=== PATIENT | male | born 1990 | race Caucasian/White ===

== ENCOUNTER 2020-05-11 12:03 | Emergency (ER) | payer MEDICARE, MEDICAID, SELFPAY ==
[2020-05-11 12:11] VITALS: BP 104/55; PULSE 85; RESP 14; TEMP 37; O2SAT 96
[2020-05-11 12:17] VITALS: BP 142/78; BP 94/55; PULSE 90; PULSE 98; RESP 16; TEMP 37; O2SAT 97; O2SAT 99; BMI 53.8
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
[2020-05-11] MEDS: 0.9 % Sodium Chloride 500 ML 1000 ML IV (13:10)
[2020-05-11] MEDS: ondansetron HCL 4 MG/2 ML VIAL IVPUSH (13:10)
[2020-05-11] MEDS: Ketorolac Tromethamine 30 MG/ML VIAL IVPUSH (13:10)
[2020-05-11 13:13] LABS: Basophils Percent Auto 0.5 % (0-2); Eosinophils Absolute Auto 0.1 X10*3/uL (0.0-0.4); Hematocrit 41.7 % (42-52); Hemoglobin 13.7 g/dl (14.0-18.0); Imm Gran Abs Auto 0.01 X10*3/uL (0.00-0.03); Imm Gran Pct Auto 0.2 % (0.0-0.4); Lymphocytes Absolute Auto 1.5 X10*3/uL (1.2-4.9); Mean Corpuscular HGB Conc 32.9 g/dl (31.0-36.0); Mean Corpuscular Hemoglobin 28.3 pg (27.0-33.0); Mean Corpuscular Volume 86.2 fL (80-98); Mean Platelet Volume 10.8 fL (9.4-12.4); Monocytes Absolute Auto 0.4 X10*3/uL (0.1-1.2); Monocytes Percent Auto 6.5 % (2-11); Neutrophils Absolute Auto 4.2 X10*3/uL (2.0-8.3); Neutrophils Percent Auto 67.8 % (45-73); Platelet Count 215 X10*3/uL (160-400); Red Blood Count 4.84 X10*6/uL (4.60-5.80); Red Cell Distribution Width 12.8 % (11.0-16.0); White Blood Count 6.1 X10*3/uL (4.8-10.8)
[2020-05-11 13:14] LABS: MANUAL DIFF FLAG NO
[2020-05-11 13:50] LABS: Alanine Aminotransferase 12 U/L (0-40); Albumin Level 4.3 g/dL (3.5-5.0); Alkaline Phosphatase 69 U/L (39-117); Anion Gap 14 (12-20); Aspartate Amino Transferase 18 U/L (5-37); Bilirubin Total 0.9 mg/dL (0.0-1.0); Blood Urea Nitrogen 11 mg/dL (9-16); Calcium 9.3 mg/dL (8.4-10.2); Carbon Dioxide 26 mmol/L (22-29); Chloride 106 mmol/L (96-108); Creatinine Clr Calc Pharmacy 222.9; Estimated Glomerular Filt Rate > 60; Glucose Random 102 mg/dL (60-115); Potassium 4.1 mmol/l (3.3-5.1); Sodium 142 mmol/L (135-145); Total Protein 6.8 g/dL (6.5-8.0)
[2020-05-11 13:55] VITALS: BP 134/72
[2020-05-11 14:01] LABS: Glucose Urine UA NEG (NEG); Leukocyte Esterase Urine 2+ (NEG); Nitrite Urine POS (NEG); PH 7.5 (5.0-8.0); Specific Gravity - Urine 1.025 (1.005-1.025); Urine Blood NEG (NEG); Urine Ketones 40 MG/DL (NEG); Urine Protein 2+ MG/DL (NEG-TRACE)
[2020-05-11 14:03] LABS: Appearance Urine CLOUDY; Color Urine YELLOW
[2020-05-11 14:24] LABS: Lactic Acid 0.8 mmol/L (0.5-2.0)
[2020-05-11 14:25] LABS: WBC Urine 30-49 /HPF (0-4)
[2020-05-11 14:26] LABS: Amorphous Sediment Urine 1+ /LPF; Bacteria Urine 3+ /LPF; Calcium Oxalate Crystals Urine TRACE /LPF; Calcium Phosphate Crystals Ur TRACE /LPF; RBC Urine 0 /HPF (0); Urine Talc Crystals TRACE /LPF
[2020-05-11] MEDS: cefTRIAXone sodium 1 GM in 0.9 % Sodium Chloride 50 ML IV (14:58)
[2020-05-11 15:00] VITALS: BP 112/70; PULSE 68; RESP 16; TEMP 36.9; O2SAT 95
== END 2020-05-11 16:30 | disposition home or self-care (01) ==
PROVIDERS: Nurse Practitioner Primary Care; Emergency Provider Emergency Medicine
DX: T83.518A Infection and inflammatory reaction due to other urinary catheter, initial encounter (principal); N39.0 Urinary tract infection, site not specified; Y73.8 Miscellaneous gastroenterology and urology devices associated with adverse incidents, not elsewhere classified; Y92.9 Unspecified place or not applicable; Z79.899 Other long term (current) drug therapy; F17.200 Nicotine dependence, unspecified, uncomplicated; Z71.6 Tobacco abuse counseling
CPT/HCPCS: 36415; 76700; 80053; 81001; 83605; 85025; 87040; 96365; 96375; 99284; J1885; J2405

== ENCOUNTER 2020-05-18 14:53 | Emergency (ER) | payer MEDICARE, MEDICAID, SELFPAY ==
--- NOTE | 2020-05-18 | ECG_ITS ---
Test Reason : CP Blood Pressure : / mmHG Vent. Rate : 054 BPM Atrial Rate : 054 BPM P-R Int : 134 ms QRS Dur : 092 ms QT Int : 456 ms P-R-T Axes : 067 075 084 degrees QTc Int : 432 ms Sinus bradycardia Otherwise normal ECG No previous ECGs available Referred By: Leonid Bey Electronically Signed By:ALEXANDER CARVALHO MD
[2020-05-18 15:00] VITALS: BP 101/50; PULSE 52; RESP 16; TEMP 36.9; O2SAT 96; BMI 27.5
--- NOTE | 2020-05-18 15:07 | XR_ITS ---
EXAMINATION: XR CHEST CLINICAL INFORMATION: Chest pain. COMPARISON: Most recent chest radiograph dated 08/30/2018. TECHNIQUE: Frontal view of the chest was obtained. FINDINGS: Dextrocurvature of the thoracic spine is unchanged. No focal airspace consolidation. No pleural effusion or pneumothorax. Stable cardiomediastinal silhouette. XR/XR chest 1V IMPRESSION: No acute cardiopulmonary findings.
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
[2020-05-18 15:27] LABS: MANUAL DIFF FLAG NO
[2020-05-18 15:28] LABS: Basophils Percent Auto 0.5 % (0-2); Eosinophils Absolute Auto 0.2 X10*3/uL (0.0-0.4); Eosinophils Percent Auto 2.6 % (0-4); Hematocrit 39.9 % (42-52); Hemoglobin 13.1 g/dl (14.0-18.0); Imm Gran Abs Auto 0.01 X10*3/uL (0.00-0.03); Imm Gran Pct Auto 0.2 % (0.0-0.4); Lymphocytes Absolute Auto 1.6 X10*3/uL (1.2-4.9); Lymphocytes Percent Auto 26.4 % (20-40); Mean Corpuscular HGB Conc 32.8 g/dl (31.0-36.0); Mean Corpuscular Hemoglobin 28.9 pg (27.0-33.0); Mean Corpuscular Volume 87.9 fL (80-98); Mean Platelet Volume 11.6 fL (9.4-12.4); Monocytes Absolute Auto 0.4 X10*3/uL (0.1-1.2); Monocytes Percent Auto 6.3 % (2-11); Platelet Count 178 X10*3/uL (160-400); Red Blood Count 4.54 X10*6/uL (4.60-5.80); Red Cell Distribution Width 13.2 % (11.0-16.0); White Blood Count 6.2 X10*3/uL (4.8-10.8)
[2020-05-18 15:36] LABS: D Dimer < 200 NG/ML
[2020-05-18 15:58] LABS: Anion Gap 12 (12-20); Blood Urea Nitrogen 10 mg/dL (9-16); Calcium 8.7 mg/dL (8.4-10.2); Carbon Dioxide 30 mmol/L (22-29); Chloride 103 mmol/L (96-108); Creatinine Clr Calc Pharmacy 148.5; Estimated Glomerular Filt Rate > 60; Glucose Random 83 mg/dL (60-115); Lipase 21 U/L (8-78); Potassium 4.5 mmol/l (3.3-5.1); Sodium 140 mmol/L (135-145)
[2020-05-18 16:04] LABS: B Type Natriuretic Peptide 35 pg/mL (<100); Troponin-I High Sensitivity < 3.5 ng/L (<3.5-35.0)
[2020-05-18 18:42] LABS: Troponin-I High Sensitivity < 3.5 ng/L (<3.5-35.0)
[2020-05-18 19:06] VITALS: BP 96/46; PULSE 67; RESP 18; TEMP 37.3; O2SAT 96
== END 2020-05-18 19:59 | disposition home or self-care (01) ==
PROVIDERS: Emergency Provider Emergency Medicine
DX: R07.9 Chest pain, unspecified (principal); Z79.899 Other long term (current) drug therapy
CPT/HCPCS: 36415; 71045; 80048; 83690; 83880; 84484; 85025; 85379; 93005; 99283; 99284

== ENCOUNTER 2020-07-12 11:59 | Emergency (ER) | payer MEDICARE, MEDICAID, SELFPAY ==
--- NOTE | 2020-07-12 | US_ITS ---
EXAMINATION: US SCROTUM CLINICAL INFORMATION: Left testicular pain. COMPARISON: None TECHNIQUE: A sonogram of the scrotum was performed assessing michaels-scale appearance and color Doppler flow. Spectral Doppler analysis of the arterial and venous flow were performed in the testes bilaterally. FINDINGS: RIGHT: Right testicle measures 4.8 x 2.4 x 2.8 cm, volume 17.3 mL. No focal testicular parenchymal lesions are visualized. Spectral Doppler analysis of the arterial and venous flow is normal in the right testis. Right epididymal head is normal in size. No right hydrocele or varicocele is seen. Right epididymal Doppler flow is normal. LEFT: Left testicle measures 5.0 x 2.3 x 2.9 cm, volume 17.7 mL. No focal testicular parenchymal lesions are visualized. Spectral Doppler analysis of the arterial and venous flow is normal in the left testis. Left epididymal head is normal in size. No left hydrocele or varicocele is seen. Left epididymal Doppler flow is normal. There is left epididymal tail echogenic calcification measuring 0.08 x 0.05 cm. A small left epididymal head cyst is noted measuring 0.3 x 0.3 x 0.4 cm. US/US scrotum IMPRESSION: Small 0.4 cm left epididymal head cyst and small 0.08 cm epididymal tail calcification. There is normal Doppler flow seen to both testes and epididymides. Normal ultrasound the testes and scrotum.
[2020-07-12 12:10] VITALS: BP 124/60; BP 130/75; PULSE 51; PULSE 78; RESP 18; TEMP 36.8; O2SAT 100; BMI 24.4
--- NOTE | 2020-07-12 13:24 | US_ITS ---
EXAMINATION: US SCROTUM CLINICAL INFORMATION: Left testicular pain. COMPARISON: None TECHNIQUE: A sonogram of the scrotum was performed assessing michaels-scale appearance and color Doppler flow. Spectral Doppler analysis of the arterial and venous flow were performed in the testes bilaterally. FINDINGS: RIGHT: Right testicle measures 4.8 x 2.4 x 2.8 cm, volume 17.3 mL. No focal testicular parenchymal lesions are visualized. Spectral Doppler analysis of the arterial and venous flow is normal in the right testis. Right epididymal head is normal in size. No right hydrocele or varicocele is seen. Right epididymal Doppler flow is normal. LEFT: Left testicle measures 5.0 x 2.3 x 2.9 cm, volume 17.7 mL. No focal testicular parenchymal lesions are visualized. Spectral Doppler analysis of the arterial and venous flow is normal in the left testis. Left epididymal head is normal in size. No left hydrocele or varicocele is seen. Left epididymal Doppler flow is normal. There is left epididymal tail echogenic calcification measuring 0.08 x 0.05 cm. A small left epididymal head cyst is noted measuring 0.3 x 0.3 x 0.4 cm. US/US scrotum doppler IMPRESSION: Small 0.4 cm left epididymal head cyst and small 0.08 cm epididymal tail calcification. There is normal Doppler flow seen to both testes and epididymides. Normal ultrasound the testes and scrotum.
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
[2020-07-12 14:30] LABS: Glucose Urine UA NEG (NEG); Leukocyte Esterase Urine 3+ (NEG); Nitrite Urine POS (NEG); PH 7.5 (5.0-8.0); Specific Gravity - Urine 1.025 (1.005-1.025); Urine Blood 1+ (NEG); Urine Ketones NEG (NEG); Urine Protein 1+ MG/DL (NEG-TRACE)
[2020-07-12 14:32] LABS: Appearance Urine CLOUDY; Color Urine YELLOW
[2020-07-12 14:47] LABS: Bacteria Urine 4+ /LPF; WBC Urine TNTC /HPF (0-4)
== END 2020-07-12 16:30 | disposition home or self-care (01) ==
PROVIDERS: Physician Assistant; Emergency Provider Emergency Medicine Emergency Medical Services
DX: N39.0 Urinary tract infection, site not specified (principal); R93.41 Abnormal radiologic findings on diagnostic imaging of renal pelvis, ureter, or bladder; N50.3 Cyst of epididymis; G82.50 Quadriplegia, unspecified; Z96.0 Presence of urogenital implants
CPT/HCPCS: 76870; 81001; 87086; 87088; 87147; 87186; 87491; 87591; 93975; 99283; 99284

== ENCOUNTER 2020-07-15 12:56 | Emergency (ER) | payer MEDICARE, MEDICAID, SELFPAY ==
[2020-07-15 13:12] VITALS: BP 99/57; PULSE 98; RESP 18; TEMP 36.8; O2SAT 98; BMI 25.1
--- NOTE | 2020-07-15 13:48 | US_ITS ---
EXAMINATION: US SCROTUM CLINICAL INFORMATION: Testicular pain. Similar pain was noted 3 days previously. COMPARISON: Ultrasound scrotum 07/12/2020. TECHNIQUE: A sonogram of the scrotum was performed assessing michaels-scale appearance and color Doppler flow. Spectral Doppler analysis of the arterial and venous flow were performed in the testes bilaterally. FINDINGS: RIGHT: Right testicle measures 4.2 x 2.3 x 3.1 cm, volume 15.9 mL. Previously measured 4.8 x 2.4 x 2.8 cm and volume 17.3 mL right No focal testicular parenchymal lesions are visualized. Spectral Doppler analysis of the arterial and venous flow is normal in the right testis. Right epididymal head is normal in size. A small right hydrocele is noted. No varicocele is seen. Right epididymal Doppler flow is normal. LEFT: Left testicle measures 4.8 x 2.2 x 2.9 cm, volume 16.1 mL. No focal testicular parenchymal lesions are visualized. Spectral Doppler analysis of the arterial and venous flow is increased in the left testis. Left epididymal head is normal in size. There is a small left epidural head cyst an ectatic echogenic calcification in the tail similar to previous study. A small left hydrocele is visualized. No varicocele is seen. Left epididymal Doppler flow is increased. US/US scrotum IMPRESSION: Increased vascular flow to left testes and left epididymis suggestive of epididymoorchitis. There is bilateral small hydroceles and a left epididymal cyst.
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
[2020-07-15] MEDS: Ketorolac Tromethamine 30 MG/ML VIAL IVPUSH (14:07)
--- NOTE | 2020-07-15 15:23 | PC.NURSE ---
patient to imaging at this time
[2020-07-15 15:28] VITALS: BP 99/60; PULSE 70; RESP 20; TEMP 36.8; O2SAT 96
[2020-07-15 15:41] VITALS: BP 101/59; PULSE 67; RESP 18; TEMP 37.1; O2SAT 98
[2020-07-15] MEDS: oxyCODONE HCl Immed Release 5 MG TABLET 10 MG PO (17:03)
[2020-07-15] MEDS: levoFLOXacin 500 MG TABLET PO (17:06)
[2020-07-15] MEDS: cefTRIAXone sodium 1 GM in 0.9 % Sodium Chloride 50 ML IV (17:10)
[2020-07-15 17:17] VITALS: BP 118/71; PULSE 98; RESP 18; O2SAT 98
== END 2020-07-15 19:50 | disposition home or self-care (01) ==
PROVIDERS: Emergency Provider Emergency Medicine Emergency Medical Services
DX: N45.1 Epididymitis (principal); N50.82 Scrotal pain; Z79.899 Other long term (current) drug therapy
CPT/HCPCS: 76870; 96365; 96375; 99284; J0696; J1885

== ENCOUNTER 2020-07-17 20:26 | Emergency (ER) | payer MEDICARE, MEDICAID, SELFPAY ==
[2020-07-17 20:32] VITALS: BP 106/60; BP 110/70; PULSE 71; PULSE 84; RESP 15; TEMP 36.6; O2SAT 95; BMI 25.2
--- NOTE | 2020-07-17 20:53 | CT_ITS ---
EXAMINATION: CT ABDOMEN AND PELVIS WITH CONTRAST CLINICAL INFORMATION: Left testicular/left lower quadrant pain. UTI. COMPARISON: 08/31/2019 TECHNIQUE: Multidetector volumetric images were obtained from the superior aspect of the liver through the pubic symphysis following administration 85 mL of Omnipaque 350 intravenous contrast. Sagittal and coronal reformatted images were obtained on the technologist's workstation. Oral contrast: No This CT examination was performed using dose optimization techniques as appropriate, variously including the following: *Automated exposure control *Adjustment of mA and/or kV according to patient size (this includes techniques or standardized protocols for targeted exams where dose is matched to indication/reason for exam; i.e. extremities or head) *Use of iterative reconstruction technique DLP: 638 mGy-cm FINDINGS: LUNG BASES: Right basilar linear atelectasis. LIVER, GALLBLADDER, AND BILIARY TREE: The liver is normal in size, shape, and attenuation. No biliary ductal dilatation is present. Unchanged 0.5 cm hypoattenuating lesion in segment 6 of the liver. The gallbladder is unremarkable with no evidence of radiopaque gallstones, gallbladder wall thickening, or obvious pericholecystic inflammatory changes. PANCREAS: Unremarkable. SPLEEN: Unremarkable. ADRENAL GLANDS: Unremarkable. KIDNEYS AND URETERS: The kidneys are normal in size, shape, and attenuation. No hydronephrosis, hydroureter, or calculi seen. No perinephric stranding. BLADDER: Decompressed with a suprapubic catheter in place. GASTROINTESTINAL TRACT: Stomach is unremarkable. Normal caliber small bowel. No obstruction. Normal appendix. No colonic wall thickening or acute inflammatory change. No free air or free fluid. ABDOMINAL WALL: No significant hernia. Suprapubic catheter at the bladder. LYMPH NODES: Normal. VASCULAR: Unremarkable. PELVIC VISCERA: The prostate and seminal vesicles are unremarkable. No gross abnormality of the testicles. OSSEOUS STRUCTURES: No acute or suspicious osseous abnormality. CT/CT abdomen pelvis w con IMPRESSION: No acute findings of the abdomen or pelvis. No inflammatory changes.
[2020-07-17 21:09] LABS: Basophils Percent Auto 0.6 % (0-2); Eosinophils Absolute Auto 0.1 X10*3/uL (0.0-0.4); Eosinophils Percent Auto 2.5 % (0-4); Hematocrit 42.6 % (42-52); Imm Gran Abs Auto 0.01 X10*3/uL (0.00-0.03); Imm Gran Pct Auto 0.2 % (0.0-0.4); Lymphocytes Absolute Auto 1.9 X10*3/uL (1.2-4.9); Lymphocytes Percent Auto 36.1 % (20-40); MANUAL DIFF FLAG NO; Mean Corpuscular HGB Conc 32.9 g/dl (31.0-36.0); Mean Corpuscular Hemoglobin 28.7 pg (27.0-33.0); Mean Corpuscular Volume 87.3 fL (80-98); Mean Platelet Volume 10.6 fL (9.4-12.4); Monocytes Absolute Auto 0.4 X10*3/uL (0.1-1.2); Monocytes Percent Auto 7.2 % (2-11); Neutrophils Absolute Auto 2.8 X10*3/uL (2.0-8.3); Neutrophils Percent Auto 53.4 % (45-73); Platelet Count 197 X10*3/uL (160-400); Red Blood Count 4.88 X10*6/uL (4.60-5.80); Red Cell Distribution Width 13.7 % (11.0-16.0); White Blood Count 5.3 X10*3/uL (4.8-10.8)
[2020-07-17 21:30] LABS: Alanine Aminotransferase 15 U/L (0-40); Alkaline Phosphatase 88 U/L (39-117); Anion Gap 13 (12-20); Aspartate Amino Transferase 18 U/L (5-37); Bilirubin Direct 0.2 mg/dL (0.0-0.5); Bilirubin Total 0.3 mg/dL (0.0-1.0); Blood Urea Nitrogen 10 mg/dL (9-16); Calcium 9.1 mg/dL (8.4-10.2); Carbon Dioxide 29 mmol/L (22-29); Chloride 103 mmol/L (96-108); Creatinine Clr Calc Pharmacy 127.5; Estimated Glomerular Filt Rate > 60; Glucose Random 77 mg/dL (60-115); Potassium 4.5 mmol/l (3.3-5.1); Sodium 140 mmol/L (135-145); Total Protein 6.5 g/dL (6.5-8.0)
[2020-07-17 21:49] LABS: Lipase 115 U/L (8-78)
[2020-07-17 22:00] VITALS: BP 105/62; PULSE 64; RESP 15; TEMP 36.6; O2SAT 98
[2020-07-17] MEDS: iohexoL 350 MG/ML 100 ML INFUS..BTL IV (23:01)
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
[2020-07-18] VITALS: BP 119/77; PULSE 80; RESP 12; O2SAT 98
== END 2020-07-18 00:45 | disposition home or self-care (01) ==
PROVIDERS: Physician Assistant; Emergency Provider Emergency Medicine
DX: N50.812 Left testicular pain (principal); R10.32 Left lower quadrant pain; Z79.899 Other long term (current) drug therapy
CPT/HCPCS: 36415; 74177; 80048; 80076; 83690; 85025; 87491; 87591; 99284; 99285; Q9967

== ENCOUNTER 2021-06-30 22:20 | Emergency (ER) | payer MEDICARE, MEDICAID, SELFPAY ==
--- NOTE | ~2021-06-30 | CT_ITS ---
EXAMINATION: CT ABDOMEN AND PELVIS WITH CONTRAST CLINICAL INFORMATION: Abdominal pain. COMPARISON: Multiple priors. Most recent CT of the abdomen/pelvis dated from 07/17/2020. TECHNIQUE: Multidetector volumetric images were obtained from the superior aspect of the liver through the pubic symphysis following administration 85 mL of Omnipaque 350 intravenous contrast. Sagittal and coronal reformatted images were obtained on the technologist's workstation. Oral contrast: No This CT examination was performed using dose optimization techniques as appropriate, variously including the following: *Automated exposure control *Adjustment of mA and/or kV according to patient size (this includes techniques or standardized protocols for targeted exams where dose is matched to indication/reason for exam; i.e. extremities or head) *Use of iterative reconstruction technique DLP: 634 mGy-cm FINDINGS: LUNG BASES: Subsegmental atelectases. No focal consolidation or pleural effusion. A few calcified and noncalcified micronodules are stable, for instance in the right lower lobe on image 88 and 50 of series 4. LIVER, GALLBLADDER, AND BILIARY TREE: The liver is normal in size, shape, and attenuation. A hypodensity in the right hepatic lobe on image 30 of series 3 is unchanged. No new focal abnormalities. There is no biliary ductal dilatation. The gallbladder is unremarkable with no evidence of radiopaque gallstones, gallbladder wall thickening, or obvious pericholecystic inflammatory changes. PANCREAS: Unremarkable. SPLEEN: Unremarkable. ADRENAL GLANDS: Unremarkable. KIDNEYS AND URETERS: The kidneys are normal in size, shape, and attenuation. No hydronephrosis, hydroureter, or calculi seen. No perinephric stranding. BLADDER: The urinary bladder is under distended and suboptimally assessed. There is a suprapubic catheter with a balloon terminating within the lumen of the bladder. Intraluminal air is indeterminate in the presence of this catheter. GASTROINTESTINAL TRACT: The stomach and the small bowel are nondilated. Some loops of small bowel are fluid-filled. There is moderate stool burden throughout the colon. There are no active inflammatory bowel changes or bowel obstruction. ABDOMINAL WALL: Suprapubic catheter. No abdominal hernia. LYMPH NODES: No lymphadenopathy by size criteria. There is subtle increased mesenteric fat stranding in the right upper quadrant (for instance as visualized on image 43 of series 3). VASCULAR: The abdominal aorta is of normal diameter. PELVIC VISCERA: Unremarkable. OSSEOUS STRUCTURES: No acute or aggressive osseous abnormalities. CT/CT abdomen pelvis w con IMPRESSION: Moderate stool burden suggesting constipation. Fluid-filled loops of small bowel could indicate the presence of gastroenteritis. There is however no significant wall thickening or associated inflammatory changes. Increased mesenteric fat stranding adjacent to the hepatic flexure within the right upper quadrant of uncertain significance. This could potentially represent mesenteric panniculitis or less likely an early omental infarction. Correlate clinically for pain at this site.
[2021-06-30 22:38] VITALS: BP 102/58; PULSE 56; RESP 16; TEMP 36.8; O2SAT 96; O2SAT 97; BMI 23.7
[2021-06-30 23:17] LABS: COVID-19 Test Negative (Negative)
--- NOTE | 2021-06-30 23:23 | ED_ITS ---
HPI - General Adult General Chief complaint: General Medical Stated complaint: NOT FEELING WELL Time Seen by Provider: 06/30/21 23:12 Source: patient Mode of arrival: EMS History of Present Illness HPI narrative: 31-year-old male who is brought in by EMS for underlying quadriplegia and states that he was going to bed and then ?just did not feel right?. He states he is having some discomfort in his abdomen but is unable to further distinguish details associated with this. He states he has had a decrease in appetite but denies fever, vomiting however states he has had some mild nausea with chills. He says he has an indwelling Marie catheter that he has been treated previously for urinary tract infections and states that he has a bowel movement, but states not every day. Related Data Home Medications Medication Instructions Recorded Confirmed baclofen 20 mg tablet 1 tab PO QID 07/17/20 07/17/20 gabapentin 300 mg capsule 300 mg PO BID 07/17/20 07/17/20 midodrine 5 mg tablet 2.5 tab PO BID 07/17/20 07/17/20 quetiapine 25 mg tablet 3 tab PO BEDTIME 07/17/20 07/17/20 tizanidine 4 mg tablet 2 tab PO Q8H PRN 07/17/20 07/17/20 Previous Rx's Medication Instructions Recorded cefpodoxime 200 mg tablet 200 mg PO BID 10 Days #20 tab 07/12/20 oxycodone 5 mg tablet 5 mg PO Q4H PRN #14 tab 07/15/20 Allergies Allergy/AdvReac Type Severity Reaction Status Date / Time No Known Allergies Allergy Unverified 07/17/20 21:18 [No Known Allergies*] Review of Systems Review of Systems: Pertinent positives and negatives as stated in HPI 10 point review of systems is otherwise negative. [facility] Past Medical History Source: nursing notes reviewed Medical History C5 spinal cord injury Depression Headache Paralysis Periorbital cellulitis Pyelonephritis Quadriplegic spinal paralysis Substance abuse Urinary tract infection Social History Social History Alcohol intake: unknown Substance Use Type: Marijuana Advance Directives: No Advance Directives Information Provided: Yes Physical Exam Vital Signs: Vital Signs: Last Vital Signs Temp 98.3 F 06/30/21 22:38 Pulse 51 06/30/21 23:52 Resp 16 06/30/21 22:38 BP 114/72 06/30/21 23:52 Pulse Ox 97 06/30/21 23:52 BMI result Body Mass Index 23.7 VITAL SIGNS: Reviewed. GENERAL: Well developed, well nourished, in no acute distress. HEAD: Normocephalic/atraumatic EYES: PERRLA, EOMI OROPHARYNX: no oral lesions noted, posterior pharynx clear NECK: Supple, no adenopathy LUNGS: Normal breath sounds. No adventitious sounds or accessory muscle use. SpO2<97> CARDIOVASCULAR: Regular rate and rhythm without noted murmurs ABDOMEN: Soft, mildly tender at periumbilical region without rebound non- distended with bowel sounds, some firmness noted at medial aspect of right lower quadrant, questionable stool MUSCULOSKELETAL: No tenderness, deformities, or effusions noted on gross inspection. EXTREMITIES: No cyanosis, clubbing or edema. SKIN: Inspection of the skin reveals no rashes, ulcerations NEUROLOGIC: Alert and oriented x 4. Baseline quadriplegia with ability to conduct gross motor movements with upper extremities. Course Course Course Narrative: 31-year-old male with history and clinical presentation mildly suggestive of renal colic, pyelonephritis, appendicitis. If those are ruled out will evaluate urine, however this is an issue given the indwelling nature and likelihood of colonization. Remaining chart in Downtime. Medical Decision Making Lab Data Result diagrams: 06/30/21 23:51 06/30/21 23:51 Labs: Lab Results 06/30/21 06/30/21 06/30/21 Range/Units 22:52 23:51 23:51 WBC 9.4 (4.8-10.8) X10*3/uL RBC 4.56 L (4.60-5.80) X10*6/uL Hgb 13.3 L (14.0-18.0) g/dl Hct 39.8 L (42.0-52.0) % MCV 87.3 (80.0-98.0) fL MCH 29.2 (27.0-33.0) pg MCHC 33.4 (31.0-36.0) g/dl RDW 13.3 (11.0-16.0) % Plt Count 158 L (160-400) X10*3/uL MPV 11.5 (9.4-12.4) fL Immature Gran % (Auto) 0.3 (0.0-0.4) % Neut % (Auto) 69.7 (45-73) % Lymph % (Auto) 21.8 (20-40) % [place] % (Auto) 6.0 (2-11) % Eos % (Auto) 1.9 (0-4) % Baso % (Auto) 0.3 (0-2) % Lymph # (Auto) 2.1 (1.2-4.9) X10*3/uL [place] # (Auto) 0.6 (0.1-1.2) X10*3/uL Eos # (Auto) 0.2 (0.0-0.4) X10*3/uL Baso # (Auto) 0.0 (0.0-0.2) X10*3/uL Abs Immat Gran (auto) 0.03 (0.00-0.03) X10*3/uL Absolute Neuts (auto) 6.6 (2.0-8.3) x10*3/uL Absolute Nucleated RBC 0.000 (0.0-0.012) X10*3/uL Nucleated RBC % (auto) 0.0 (0.0-0.2) /100WBC PT 11.7 (9.9-13.0) SEC INR 1.0 (0.9-1.1) Sodium (135-145) mmol/L Potassium (3.3-5.1) mmol/L Chloride (96-108) mmol/L Carbon Dioxide (22-29) mmol/L Anion Gap (12-20) BUN (9-16) mg/dL Creatinine (0.5-1.4) mg/dL Estim Creat Clear Calc Estimated GFR Random Glucose (60-115) mg/dL Calcium (8.4-10.2) mg/dL Total Bilirubin (0.0-1.0) mg/dL AST (5-37) U/L ALT (0-40) U/L Alkaline Phosphatase (39-117) U/L Total Protein (6.5-8.0) g/dL Albumin (3.5-5.0) g/dL COVID-19 ([facility]ELAM) Negative (Negative) COVID-19 Clin Com See Note 06/30/21 Range/Units 23:51 WBC (4.8-10.8) X10*3/uL RBC (4.60-5.80) X10*6/uL Hgb (14.0-18.0) g/dl Hct (42.0-52.0) % MCV (80.0-98.0) fL MCH (27.0-33.0) pg MCHC (31.0-36.0) g/dl RDW (11.0-16.0) % Plt Count (160-400) X10*3/uL MPV (9.4-12.4) fL Immature Gran % (Auto) (0.0-0.4) % Neut % (Auto) (45-73) % Lymph % (Auto) (20-40) % [place] % (Auto) (2-11) % Eos % (Auto) (0-4) % Baso % (Auto) (0-2) % Lymph # (Auto) (1.2-4.9) X10*3/uL [place] # (Auto) (0.1-1.2) X10*3/uL Eos # (Auto) (0.0-0.4) X10*3/uL Baso # (Auto) (0.0-0.2) X10*3/uL Abs Immat Gran (auto) (0.00-0.03) X10*3/uL Absolute Neuts (auto) (2.0-8.3) x10*3/uL Absolute Nucleated RBC (0.0-0.012) X10*3/uL Nucleated RBC % (auto) (0.0-0.2) /100WBC PT (9.9-13.0) SEC INR (0.9-1.1) Sodium 137 (135-145) mmol/L Potassium 4.4 (3.3-5.1) mmol/L Chloride 101 (96-108) mmol/L Carbon Dioxide 29 (22-29) mmol/L Anion Gap 11 L (12-20) BUN 11 (9-16) mg/dL Creatinine 1.00 (0.5-1.4) mg/dL Estim Creat Clear Calc 115.0 Estimated GFR > 60 Random Glucose 74 (60-115) mg/dL Calcium 9.5 (8.4-10.2) mg/dL Total Bilirubin 0.6 (0.0-1.0) mg/dL AST 18 (5-37) U/L ALT 12 (0-40) U/L Alkaline Phosphatase 90 (39-117) U/L Total Protein 6.5 (6.5-8.0) g/dL Albumin 4.2 (3.5-5.0) g/dL COVID-19 ([facility]EL[facility]) (Negative) COVID-19 Clin Com Discharge Plan Discharge Clinical Impression: Gastroenteritis Patient Disposition: Home, Self-Care Prescriptions: No Action cefpodoxime 200 mg tablet 200 mg PO BID 10 Days Qty: 20 RF: 0 oxycodone 5 mg tablet 5 mg PO Q4H PRN (Reason: pain) Qty: 14 RF: 0 quetiapine 25 mg tablet 3 tab PO BEDTIME RF: 0 tizanidine 4 mg tablet 2 tab PO Q8H PRN (Reason: muscle spasm) RF: 0 midodrine 5 mg tablet 2.5 tab PO BID RF: 0 baclofen 20 mg tablet 1 tab PO QID RF: 0 gabapentin 300 mg capsule 300 mg PO BID RF: 0
[2021-06-30 23:52] VITALS: BP 114/72; PULSE 51; O2SAT 97
[2021-06-30] MEDS: 0.9 % Sodium Chloride 1,000 ML 999 ML IV (23:52)
[2021-06-30 23:59] LABS: MANUAL DIFF FLAG NO
[2021-07-01] LABS: Basophils Percent Auto 0.3 % (0-2); Eosinophils Absolute Auto 0.2 X10*3/uL (0.0-0.4); Eosinophils Percent Auto 1.9 % (0-4); Hematocrit 39.8 % (42.0-52.0); Hemoglobin 13.3 g/dl (14.0-18.0); Imm Gran Abs Auto 0.03 X10*3/uL (0.00-0.03); Imm Gran Pct Auto 0.3 % (0.0-0.4); Lymphocytes Absolute Auto 2.1 X10*3/uL (1.2-4.9); Lymphocytes Percent Auto 21.8 % (20-40); Mean Corpuscular HGB Conc 33.4 g/dl (31.0-36.0); Mean Corpuscular Hemoglobin 29.2 pg (27.0-33.0); Mean Corpuscular Volume 87.3 fL (80.0-98.0); Mean Platelet Volume 11.5 fL (9.4-12.4); Monocytes Absolute Auto 0.6 X10*3/uL (0.1-1.2); Neutrophils Absolute Auto 6.6 x10*3/uL (2.0-8.3); Neutrophils Percent Auto 69.7 % (45-73); Platelet Count 158 X10*3/uL (160-400); Red Blood Count 4.56 X10*6/uL (4.60-5.80); Red Cell Distribution Width 13.3 % (11.0-16.0); White Blood Count 9.4 X10*3/uL (4.8-10.8)
[2021-07-01 00:09] LABS: Prothrombin Time 11.7 SEC (9.9-13.0)
[2021-07-01 00:14] LABS: Alanine Aminotransferase 12 U/L (0-40); Albumin Level 4.2 g/dL (3.5-5.0); Alkaline Phosphatase 90 U/L (39-117); Anion Gap 11 (12-20); Aspartate Amino Transferase 18 U/L (5-37); Bilirubin Total 0.6 mg/dL (0.0-1.0); Blood Urea Nitrogen 11 mg/dL (9-16); Calcium 9.5 mg/dL (8.4-10.2); Carbon Dioxide 29 mmol/L (22-29); Chloride 101 mmol/L (96-108); Estimated Glomerular Filt Rate > 60; Glucose Random 74 mg/dL (60-115); Potassium 4.4 mmol/L (3.3-5.1); Sodium 137 mmol/L (135-145); Total Protein 6.5 g/dL (6.5-8.0)
[2021-07-01] MEDS: iohexoL 350 MG/ML 100 ML INFUS..BTL 85 ML IV (00:28)
== END 2021-07-01 02:40 | disposition home or self-care (01) ==
PROVIDERS: Emergency Provider Student in an Organized Health Care Education/Training Program
DX: K52.9 Noninfective gastroenteritis and colitis, unspecified (principal); Z20.822 Contact with and (suspected) exposure to COVID-19; R11.0 Nausea
CPT/HCPCS: 36415; 74177; 80053; 85025; 85610; 87635; 96360; 99284; Q9967

== ENCOUNTER 2022-05-22 14:21 | Emergency (ER) | payer MEDICARE, MEDICAID, SELFPAY ==
[2022-05-22 14:28] VITALS: BP 100/70; BP 89/51; PULSE 70; PULSE 80; RESP 70; TEMP 36.6; O2SAT 96; O2SAT 98; BMI 23.3
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
[2022-05-22] MEDS: 0.9 % Sodium Chloride 1,000 ML 999 ML IVCONT (15:03)
--- NOTE | 2022-05-22 15:45 | PC.NURSE ---
Report received from JAYME David. Pt is resting comfortably on stretcher at this time. KEVIN Metz obtained pt blood draws, pt tolerated well
[2022-05-22 15:50] VITALS: BP 109/59; PULSE 66; RESP 18; TEMP 36.4; O2SAT 97
[2022-05-22 16:02] LABS: Basophils Absolute Auto 0.1 X10*3/uL (0.0-0.2); Basophils Percent Auto 0.8 % (0-2); Eosinophils Absolute Auto 0.3 X10*3/uL (0.0-0.4); Eosinophils Percent Auto 3.8 % (0-4); Hematocrit 38.3 % (42.0-52.0); Hemoglobin 13.1 g/dl (14.0-18.0); Imm Gran Abs Auto 0.06 X10*3/uL (0.00-0.03); Imm Gran Pct Auto 0.8 % (0.0-0.4); Lymphocytes Absolute Auto 1.7 X10*3/uL (1.2-4.9); Lymphocytes Percent Auto 24.1 % (20-40); MANUAL DIFF FLAG SCAN; Mean Corpuscular HGB Conc 34.2 g/dl (31.0-36.0); Mean Corpuscular Hemoglobin 29.2 pg (27.0-33.0); Mean Corpuscular Volume 85.5 fL (80.0-98.0); Monocytes Absolute Auto 0.5 X10*3/uL (0.1-1.2); Monocytes Percent Auto 7.1 % (2-11); Neutrophils Absolute Auto 4.5 x10*3/uL (2.0-8.3); Neutrophils Percent Auto 63.4 % (45-73); PLT CLUMP 1; Red Blood Count 4.48 X10*6/uL (4.60-5.80); Red Cell Distribution Width 13.5 % (11.0-16.0); SCAN SMEAR FLAG 1
[2022-05-22 16:03] LABS: White Blood Count 7.1 X10*3/uL (4.8-10.8)
[2022-05-22 16:05] LABS: Lactic Acid 1.3 mmol/L (0.5-2.0)
[2022-05-22 16:10] LABS: Alanine Aminotransferase 19 U/L (0-40); Albumin Level 3.9 g/dL (3.5-5.0); Alkaline Phosphatase 83 U/L (39-117); Anion Gap 15 (12-20); Aspartate Amino Transferase 18 U/L (5-37); Bilirubin Total 0.4 mg/dL (0.0-1.0); Blood Urea Nitrogen 12 mg/dL (9-16); Calcium 8.6 mg/dL (8.4-10.2); Carbon Dioxide 25 mmol/L (22-29); Chloride 102 mmol/L (96-108); Creatinine Clr Calc Pharmacy 151.9; Estimated Glomerular Filt Rate > 60; Glucose Random 95 mg/dL (60-115); Sodium 138 mmol/L (135-145); Total Protein 6.1 g/dL (6.5-8.0)
[2022-05-22 16:25] LABS: Appearance Urine Turbid; Color Urine Dark Yellow; Glucose Urine UA Negative (Negative); Leukocyte Esterase Urine Moderate (2+) (Negative); Nitrite Urine Positive (Negative); PH 5.5 (5.0-9.0); Specific Gravity - Urine >= 1.030 (1.005-1.025); UMIC TRIGGER UACC YES; Urine Blood Trace (Negative); Urine Ketones Trace mg/dL (Negative); Urine Protein 100 (2+) mg/dL (Neg-Trace)
[2022-05-22 16:36] LABS: Platelet Count 147 X10*3/uL (160-400)
[2022-05-22 16:37] LABS: SLIDE REVIEW VERIFIED
[2022-05-22 16:47] LABS: Bacteria Urine 4+ (None Seen); Other Crystals Urine Present; Renal Epithelial Cells Urine Present; Transitional Epi Cells Urine Present; UACC Culture Trigger YES; WBC Urine >50 /HPF (0-5)
[2022-05-22] MEDS: cefEPime HCl 2 GM in 0.9 % Sodium Chloride 50 ML IV (17:13)
[2022-05-22 18:00] VITALS: BP 85/40; PULSE 67; RESP 18; TEMP 36.9; O2SAT 96
== END 2022-05-22 19:57 | disposition home or self-care (01) ==
PROVIDERS: Emergency Provider Emergency Medicine; PCP Otolaryngology
DX: N39.0 Urinary tract infection, site not specified (principal); G82.50 Quadriplegia, unspecified; F19.10 Other psychoactive substance abuse, uncomplicated
CPT/HCPCS: 36415; 80053; 81001; 83605; 85025; 87040; 87086; 96361; 96365; 99284; J0692

== ENCOUNTER 2022-07-08 17:55 | Emergency (ER) | payer MEDICARE, MEDICAID, SELFPAY ==
[2022-07-08 18:03] VITALS: BP 94/68; PULSE 58; RESP 18; TEMP 36.6; O2SAT 94; BMI 23.0
--- NOTE | 2022-07-08 18:16 | ED.URI ---
HPI - URI/Sore Throat General Chief Complaint: Upper Respiratory Symptoms Stated Complaint: SOB, COVID + Source: patient and EMS Mode of arrival: EMS Limitations: no limitations History of Present Illness HPI Narrative: This is a 32-year-old quadriplegic male who is wheelchair-bound presenting to the emergency department complaints of productive cough of white/yellow phlegm. He tells me he feels like not all of it is coming up. He tells me that his mom at home is sick with similar symptoms. He reports that he was COVID positive about a week ago. Tells me overall he is feeling better however the cough is still present and very bothersome. Denies chest pain, fevers, chills, nausea, vomiting, abdominal pain, weakness, headache, dizziness, vision changes. Related Data Home Medications Medication Instructions Recorded Confirmed baclofen 20 mg tablet 1 tab PO QID 07/17/20 07/17/20 gabapentin 300 mg capsule 300 mg PO BID 07/17/20 07/17/20 midodrine 5 mg tablet 2.5 tab PO BID 07/17/20 07/17/20 quetiapine 25 mg tablet 3 tab PO BEDTIME 07/17/20 07/17/20 tizanidine 4 mg tablet 2 tab PO Q8H PRN muscle spasm 07/17/20 07/17/20 Previous Rx's Medication Instructions Recorded cefpodoxime 200 mg tablet 200 mg PO BID 10 days #20 tabs 07/12/20 oxycodone 5 mg tablet 5 mg PO Q4H PRN pain #14 tabs 07/15/20 levofloxacin 500 mg tablet 500 mg PO DAILY #7 tabs 05/22/22 albuterol sulfate 90 mcg/actuation 2 inh inhalation Q4-6H PRN 07/08/22 breath activated powder inhaler shortness of breath or wheezing #1 ea doxycycline hyclate 100 mg capsule 100 mg PO BID 10 days #20 caps 07/08/22 prednisone 20 mg tablet 40 mg PO DAILY 5 days #10 tabs 07/08/22 Allergies Allergy/AdvReac Type Severity Reaction Status Date / Time No Known Allergies Allergy Verified 05/22/22 14:36 [No Known Allergies*] Review of Systems Review of Systems: Constitutional : No Weight loss, No Fever, No Chills, No Fatigue, No Malaise ENT/Mouth : No sore throat, No Rhinorrhea Eyes: No Eye Pain, No Swelling, No Redness Cardiovascular : No Chest Pain, No SOB, No Dyspnea on Exertion, No Orthopnea, No Edema, No Palpitations Respiratory : + Cough, + Sputum, No Wheezing Gastrointestinal : No Nausea, No Vomiting, No Diarrhea, No Constipation, No abdominal Pain, No Hematochezia, No Melena Genitourinary : No Dysuria, No Urinary Frequency, No Hematuria, Musculoskeletal : No joint pain, No Myalgias, No Joint Swelling Skin : No Skin Lesions, No rash Neuro : No Weakness, No Numbness, No Dizziness, No Headache Psych : No Anxiety/Panic, No Depression Heme/Lymph: No Bruising, No Bleeding,No Lymphadenopathy Endocrine : No Polyuria, No Polydipsia All other systems reviewed and are negative Yes all other systems are reviewed and are negative [facility] Past Medical History Attestation statement: The following information was validated with the patient. Source: old records reviewed and nursing notes reviewed Medical History C5 spinal cord injury Depression Headache Paralysis Periorbital cellulitis Pyelonephritis Quadriplegic spinal paralysis Substance abuse Urinary tract infection Social History Social History Alcohol intake: unknown Substance Use Type: Marijuana Advance Directives: No Advance Directives Information Provided: Yes Physical Exam Vital Signs: Vital Signs: Last Vital Signs Temp 98 F 07/08/22 18:03 Pulse 61 07/08/22 18:33 Resp 18 07/08/22 18:33 BP 114/77 07/08/22 18:26 Pulse Ox 94 07/08/22 18:03 O2 Del Method 07/08/22 18:03 BMI result Body Mass Index 23.0 Slightly hypotensive. Appearance: Alert.? Oriented X3.? No acute distress.? Head: Normocephalic, atraumatic, no step-offs or deformities Eyes: Pupils equal, round and reactive to light.? ENT: Pharynx normal.? Neck: Normal inspection.? Neck supple.? CVS: Normal heart rate and rhythm.? Pulses normal.? Respiratory: No respiratory distress.? Breath sounds diminished bilaterally with faint crackles to lower lobes..? Abdomen: Soft and nontender.? Skin: Skin warm and dry.? Normal skin color.? Normal skin turgor.? Extremities: No lower extremity edema.? No calf ttp. 5/5 strength to bilateral upper and lower extremities Back: No midline tenderness, no C-spine tenderness, full range of motion, no CVA tenderness bilaterally Neuro: Oriented X 3.? No motor deficit.? No sensory deficit. CN 2-12 intact Course Reevaluation(s) Reevaluation #1: CBC with no acute findings. Chemistry with no acute electrolyte abnormalities requiring intervention. Lactic acid negative. Patient negative for influenza. Chest x-ray revealing hyperinflated lungs without acute process. Will discharge patient home on doxycycline, prednisone, albuterol inhaler and Tessalon Perles. Educated patient on diagnosis and treatment plan, answered all question, patient verbalizes understanding. At this time patient will be discharged home, advised to return with new or worsening symptoms. Educated on worrisome signs and symptoms and when to return. At this time I feel comfortable discharge home. Time: 19:38 Medications Administered Discontinued Medications Generic Name Dose Route Start Last Admin Trade Name Freq PRN Reason Stop Dose Admin Albuterol/Ipratropium 3 ml 07/08/22 18:19 07/08/22 18:32 Albuterol/Iprat 2.5/0.5mg 3 Ml Ampul.Neb INHALE 07/08/22 18:20 3 ml ONCE ONE Administration Medical Decision Making Medical Decision Making [facility] Narrative: 1849 32-year-old male presents with complaints of complaints of productive cough of white/yellow phlegm a little over a week. Physical examination with diminished breath sounds and faint crackles bilateral lower lobes. Concerns for possible pneumonia versus bronchitis. History and physical examination not consistent with pulmonary embolism. Will obtain viral panel, blood cultures, lactic acid, chest x-ray. Lab Data Result Diagrams: 07/08/22 18:49 07/08/22 18:49 Labs: Lab Results 07/08/22 07/08/22 07/08/22 Range/Units 18:14 18:39 18:49 WBC 5.5 (4.8-10.8) X10*3/uL RBC 4.78 (4.60-5.80) X10*6/uL Hgb 13.6 L (14.0-18.0) g/dl Hct 40.4 L (42.0-52.0) % MCV 84.5 (80.0-98.0) fL MCH 28.5 (27.0-33.0) pg MCHC 33.7 (31.0-36.0) g/dl RDW 13.0 (11.0-16.0) % Plt Count 161 (160-400) X10*3/uL MPV 11.3 (9.4-12.4) fL Immature Gran % (Auto) 0.2 (0.0-0.4) % Neut % (Auto) 52.6 (45-73) % Lymph % (Auto) 36.5 (20-40) % [place] % (Auto) 9.4 (2-11) % Eos % (Auto) 1.1 (0-4) % Baso % (Auto) 0.2 (0-2) % Lymph # (Auto) 2.0 (1.2-4.9) X10*3/uL [place] # (Auto) 0.5 (0.1-1.2) X10*3/uL Eos # (Auto) 0.1 (0.0-0.4) X10*3/uL Baso # (Auto) 0.0 (0.0-0.2) X10*3/uL Abs Immat Gran (auto) 0.01 (0.00-0.03) X10*3/uL Absolute Neuts (auto) 2.9 (2.0-8.3) x10*3/uL Absolute Nucleated RBC 0.000 (0.0-0.012) X10*3/uL Nucleated RBC % (auto) 0.0 (0.0-0.2) /100WBC Sodium (135-145) mmol/L Potassium (3.3-5.1) mmol/L Chloride (96-108) mmol/L Carbon Dioxide (22-29) mmol/L Anion Gap (12-20) BUN (9-16) mg/dL Creatinine (0.5-1.4) mg/dL Estim Creat Clear Calc Estimated GFR Random Glucose (60-115) mg/dL Lactic Acid 1.1 (0.5-2.0) mmol/L Calcium (8.4-10.2) mg/dL Total Bilirubin (0.0-1.0) mg/dL AST (5-37) U/L ALT (0-40) U/L Alkaline Phosphatase (39-117) U/L Total Protein (6.5-8.0) g/dL Albumin (3.5-5.0) g/dL Influenza Type A (NIKA) Negative (Negative) Influenza Type B (NIKA) Negative (Negative) Influenza A & B Note See Note 07/08/22 Range/Units 18:49 WBC (4.8-10.8) X10*3/uL RBC (4.60-5.80) X10*6/uL Hgb (14.0-18.0) g/dl Hct (42.0-52.0) % MCV (80.0-98.0) fL MCH (27.0-33.0) pg MCHC (31.0-36.0) g/dl RDW (11.0-16.0) % Plt Count (160-400) X10*3/uL MPV (9.4-12.4) fL Immature Gran % (Auto) (0.0-0.4) % Neut % (Auto) (45-73) % Lymph % (Auto) (20-40) % [place] % (Auto) (2-11) % Eos % (Auto) (0-4) % Baso % (Auto) (0-2) % Lymph # (Auto) (1.2-4.9) X10*3/uL [place] # (Auto) (0.1-1.2) X10*3/uL Eos # (Auto) (0.0-0.4) X10*3/uL Baso # (Auto) (0.0-0.2) X10*3/uL Abs Immat Gran (auto) (0.00-0.03) X10*3/uL Absolute Neuts (auto) (2.0-8.3) x10*3/uL Absolute Nucleated RBC (0.0-0.012) X10*3/uL Nucleated RBC % (auto) (0.0-0.2) /100WBC Sodium 139 (135-145) mmol/L Potassium 3.3 (3.3-5.1) mmol/L Chloride 99 (96-108) mmol/L Carbon Dioxide 30 H (22-29) mmol/L Anion Gap 13 (12-20) BUN 10 (9-16) mg/dL Creatinine 0.79 (0.5-1.4) mg/dL Estim Creat Clear Calc 147.7 Estimated GFR > 60 Random Glucose 88 (60-115) mg/dL Lactic Acid (0.5-2.0) mmol/L Calcium 9.0 (8.4-10.2) mg/dL Total Bilirubin 0.4 (0.0-1.0) mg/dL AST 26 (5-37) U/L ALT 30 (0-40) U/L Alkaline Phosphatase 81 (39-117) U/L Total Protein 6.3 L (6.5-8.0) g/dL Albumin 4.0 (3.5-5.0) g/dL Influenza Type A (NIKA) (Negative) Influenza Type B (NIKA) (Negative) Influenza A & B Note Critical Care Time Critical Care Time Critical Care Time: No Discharge Plan Discharge Clinical Impression: Bronchitis Patient Disposition: Home, Self-Care Instructions: Acute Bronchitis (ED) Additional Instructions: Take your medications as prescribed. If you were prescribed antibiotics today, it is important that you take your medication to their entirety, do not skip any doses, do not finish them early. Follow-up with your primary care provider this week. Return to the emergency department with new or worsening symptoms. Such as fevers, chills, chest pain, shortness of breath, nausea, vomiting, dizziness, headache, vision changes, lethargy In case of emergency call 911 Prescriptions: New doxycycline hyclate 100 mg capsule 100 mg PO BID 10 Days Qty: 20 0RF prednisone 20 mg tablet 40 mg PO DAILY 5 Days Qty: 10 0RF albuterol sulfate 90 mcg/actuation aerosol powdr breath activated 2 inh inhalation Q4-6H PRN (Reason: shortness of breath or wheezing) Qty: 1 0RF No Action cefpodoxime 200 mg tablet 200 mg PO BID 10 Days Qty: 20 0RF Rx Instructions: must administer with a meal/food oxycodone 5 mg tablet 5 mg PO Q4H PRN (Reason: pain) Qty: 14 0RF Rx Instructions: Patient may request partial fill quetiapine 25 mg tablet 3 tab PO BEDTIME tizanidine 4 mg tablet 2 tab PO Q8H PRN (Reason: muscle spasm) midodrine 5 mg tablet 2.5 tab PO BID baclofen 20 mg tablet 1 tab PO QID gabapentin 300 mg capsule 300 mg PO BID levofloxacin 500 mg tablet 500 mg PO DAILY Qty: 7 0RF Referrals: Physician,Unknown J [Primary Care Provider] - 2 days Stand Alone Forms: Work/School Release
[2022-07-08 18:22] VITALS: BP 144/58; PULSE 98; O2SAT 98
[2022-07-08 18:26] VITALS: BP 114/77
[2022-07-08] MEDS: Albuterol/Iprat 2.5/0.5MG 3 ML AMPUL.NEB INHALE (18:32)
[2022-07-08 18:33] VITALS: PULSE 61; RESP 18; O2SAT 94
[2022-07-08 18:43] LABS: Influenza A Negative (Negative); Influenza B2 Negative (Negative)
[2022-07-08 18:57] LABS: MANUAL DIFF FLAG NO
[2022-07-08 18:59] LABS: Lactic Acid 1.1 mmol/L (0.5-2.0)
[2022-07-08 19:02] LABS: Basophils Percent Auto 0.2 % (0-2); Eosinophils Absolute Auto 0.1 X10*3/uL (0.0-0.4); Eosinophils Percent Auto 1.1 % (0-4); Hematocrit 40.4 % (42.0-52.0); Hemoglobin 13.6 g/dl (14.0-18.0); Imm Gran Abs Auto 0.01 X10*3/uL (0.00-0.03); Imm Gran Pct Auto 0.2 % (0.0-0.4); Lymphocytes Percent Auto 36.5 % (20-40); Mean Corpuscular HGB Conc 33.7 g/dl (31.0-36.0); Mean Corpuscular Hemoglobin 28.5 pg (27.0-33.0); Mean Corpuscular Volume 84.5 fL (80.0-98.0); Mean Platelet Volume 11.3 fL (9.4-12.4); Monocytes Absolute Auto 0.5 X10*3/uL (0.1-1.2); Monocytes Percent Auto 9.4 % (2-11); Neutrophils Absolute Auto 2.9 x10*3/uL (2.0-8.3); Neutrophils Percent Auto 52.6 % (45-73); Platelet Count 161 X10*3/uL (160-400); Red Blood Count 4.78 X10*6/uL (4.60-5.80); White Blood Count 5.5 X10*3/uL (4.8-10.8)
[2022-07-08 19:15] LABS: Alanine Aminotransferase 30 U/L (0-40); Alkaline Phosphatase 81 U/L (39-117); Anion Gap 13 (12-20); Aspartate Amino Transferase 26 U/L (5-37); Bilirubin Total 0.4 mg/dL (0.0-1.0); Blood Urea Nitrogen 10 mg/dL (9-16); Carbon Dioxide 30 mmol/L (22-29); Chloride 99 mmol/L (96-108); Creatinine Clr Calc Pharmacy 147.7; Estimated Glomerular Filt Rate > 60; Glucose Random 88 mg/dL (60-115); Potassium 3.3 mmol/L (3.3-5.1); Sodium 139 mmol/L (135-145); Total Protein 6.3 g/dL (6.5-8.0)
[2022-07-08] MEDS: predniSONE 20 MG TABLET 40 MG PO (20:04)
[2022-07-08] MEDS: Doxycycline Monohydrate 100 MG CAPSULE PO (20:04)
== END 2022-07-08 21:35 | disposition home or self-care (01) ==
PROVIDERS: Physician Assistant; Emergency Provider Emergency Medicine
DX: J40 Bronchitis, not specified as acute or chronic (principal); R06.02 Shortness of breath; Z20.828 Contact with and (suspected) exposure to other viral communicable diseases
CPT/HCPCS: 36415; 71045; 80053; 83605; 85025; 87040; 87502; 94640; 99283; 99284

== ENCOUNTER 2022-10-14 22:36 | Emergency (ER) | payer MEDICARE, MEDICAID, SELFPAY ==
--- NOTE | ~2022-10-14 | CT_ITS ---
EXAMINATION: CT ABDOMEN AND PELVIS WITHOUT CONTRAST CLINICAL INFORMATION: Left lower quadrant pain. COMPARISON: 07/01/2021 TECHNIQUE: Multidetector volumetric imaging was performed from the superior aspect of the liver through the pubic symphysis. Sagittal and coronal reformatted images were obtained on the technologist's workstation. This CT examination was performed using dose optimization techniques as appropriate, variously including the following: *Automated exposure control *Adjustment of mA and/or kV according to patient size (this includes techniques or standardized protocols for targeted exams where dose is matched to indication/reason for exam; i.e. extremities or head) *Use of iterative reconstruction technique DLP: 520 mGy-cm FINDINGS: LUNG BASES: Bibasilar atelectasis. The visualized cardiac structures are unremarkable. Pectus excavatum. LIVER, GALLBLADDER, AND BILIARY TREE: The liver is normal in size, shape, and attenuation. No focal hepatic lesion or biliary ductal dilatation is present. There may be layering sludge in the gallbladder lumen. No wall thickening or inflammation. PANCREAS: Unremarkable. SPLEEN: Unremarkable. ADRENAL GLANDS: Unremarkable. KIDNEYS AND URETERS: The kidneys are normal in size, shape, and attenuation. No hydronephrosis, hydroureter, or calculi seen. No perinephric stranding. BLADDER: Suprapubic catheter in place with decompressed bladder. GASTROINTESTINAL TRACT: The stomach is unremarkable. Normal caliber small bowel. No obstruction. No colonic wall thickening or inflammation. Normal appendix. No free air or free fluid. ABDOMINAL WALL: No significant hernia is appreciated. Dependent fluid overlies the back. LYMPH NODES: Normal. VASCULAR: Unremarkable. PELVIC VISCERA: The prostate and seminal vesicles are unremarkable. OSSEOUS STRUCTURES: No acute or suspicious osseous abnormality. CT/CT abdomen pelvis wo IV con IMPRESSION: No acute findings in the abdomen or pelvis. No inflammatory changes. Fleischner guidelines were followed.
[2022-10-14 22:45] VITALS: BP 113/68; PULSE 62; RESP 18; TEMP 36.7; O2SAT 97
[2022-10-14 22:49] VITALS: BP 90/60; PULSE 87; O2SAT 98; BMI 23.7
[2022-10-14 23:32] LABS: Basophils Percent Auto 0.5 % (0-2); Eosinophils Absolute Auto 0.1 X10*3/uL (0.0-0.4); Eosinophils Percent Auto 2.4 % (0-4); Hematocrit 37.6 % (42.0-52.0); Hemoglobin 12.5 g/dl (14.0-18.0); Imm Gran Abs Auto 0.01 X10*3/uL (0.00-0.03); Imm Gran Pct Auto 0.2 % (0.0-0.4); Lymphocytes Absolute Auto 2.2 X10*3/uL (1.2-4.9); Lymphocytes Percent Auto 37.8 % (20-40); MANUAL DIFF FLAG NO; Mean Corpuscular HGB Conc 33.2 g/dl (31.0-36.0); Mean Corpuscular Hemoglobin 28.5 pg (27.0-33.0); Mean Corpuscular Volume 85.8 fL (80.0-98.0); Mean Platelet Volume 10.2 fL (9.4-12.4); Monocytes Absolute Auto 0.4 X10*3/uL (0.1-1.2); Monocytes Percent Auto 6.4 % (2-11); Neutrophils Percent Auto 52.7 % (45-73); Platelet Count 170 X10*3/uL (160-400); Red Blood Count 4.38 X10*6/uL (4.60-5.80); Red Cell Distribution Width 14.2 % (11.0-16.0); White Blood Count 5.8 X10*3/uL (4.8-10.8)
[2022-10-14 23:45] LABS: Alanine Aminotransferase 9 U/L (0-40); Albumin Level 3.6 g/dL (3.5-5.0); Alkaline Phosphatase 69 U/L (39-117); Anion Gap 12 (12-20); Aspartate Amino Transferase 15 U/L (5-37); Bilirubin Total 0.5 mg/dL (0.0-1.0); Blood Urea Nitrogen 11 mg/dL (9-16); Calcium 8.7 mg/dL (8.4-10.2); Carbon Dioxide 27 mmol/L (22-29); Chloride 106 mmol/L (96-108); Creatinine Clr Calc Pharmacy 156.6; Estimated Glomerular Filt Rate > 60; Glucose Random 82 mg/dL (60-115); Potassium 4.1 mmol/L (3.3-5.1); Sodium 141 mmol/L (135-145); Total Protein 5.7 g/dL (6.5-8.0)
[2022-10-14] MEDS: HYDROmorphone HCl 2 MG TABLET PO (23:45)
--- NOTE | 2022-10-15 01:08 | ED_ITS ---
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 with intact sensory s ensations comes here for left lower abdominal pain for last 10 days off and on getting worse in last 24 hours no nausea no vomiting had normal bowel movements no fever or chills had a suprapubic catheter has normal appetite patient never had any kidney stone or diverticulitis in the past Related Data Home Medications Medication Instructions Recorded Confirmed baclofen 20 mg tablet 1 tab PO QID 07/17/20 07/17/20 gabapentin 300 mg capsule 300 mg PO BID 07/17/20 07/17/20 midodrine 5 mg tablet 2.5 tab PO BID 07/17/20 07/17/20 quetiapine 25 mg tablet 3 tab PO BEDTIME 07/17/20 07/17/20 tizanidine 4 mg tablet 2 tab PO Q8H PRN muscle spasm 07/17/20 07/17/20 Previous Rx's Medication Instructions Recorded cefpodoxime 200 mg tablet 200 mg PO BID 10 days #20 tabs 07/12/20 oxycodone 5 mg tablet 5 mg PO Q4H PRN pain #14 tabs 07/15/20 levofloxacin 500 mg tablet 500 mg PO DAILY #7 tabs 05/22/22 albuterol sulfate 90 mcg/actuation 2 inh inhalation Q4-6H PRN 07/08/22 breath activated powder inhaler shortness of breath or wheezing #1 ea doxycycline hyclate 100 mg capsule 100 mg PO BID 10 days #20 caps 07/08/22 prednisone 20 mg tablet 40 mg PO DAILY 5 days #10 tabs 07/08/22 cefpodoxime 200 mg tablet 200 mg PO BID #20 tabs 10/15/22 dicyclomine 20 mg tablet 20 mg PO QID PRN abdominal pain 10/15/22 #20 tabs Allergies Allergy/AdvReac Type Severity Reaction Status Date / Time No Known Allergies Allergy Verified 05/22/22 14:36 [No Known Allergies*] Review of Systems Review of Systems Yes all other systems are reviewed and are negative PMFSH Past Medical History Medical History C5 spinal cord injury Depression Headache Paralysis Periorbital cellulitis Pyelonephritis Quadriplegic spinal paralysis Substance abuse Urinary tract infection Social History Social History Alcohol intake: unknown Substance Use Type: Marijuana Advance Directives: No Advance Directives Information Provided: Yes Physical Exam ED Vital Signs: Vital Signs - 24 hr 10/14/22 22:45 10/15/22 01:20 Temperature 98.1 F Pulse Rate 62 55 Respiratory Rate 18 18 Blood Pressure 113/68 99/63 Pulse Oximetry 97 98 Oxygen Delivery Method Room Air Room Air BMI result Body Mass Index 23.7 Appearance: Alert. Oriented X3. No acute distress. Eyes: PERRLA, ENT: Pharynx normal. Oral Mucosa moist Neck: Normal inspection. Neck supple. CVS: Normal heart rate and rhythm. Pulses normal. Respiratory: No respiratory distress. Equal air entry bilateral, no wheezing/rales/rhonchi Abdomen: Soft mild left lower quadrant tenderness no rebound or guarding. Bowel sounds are present, no mass palpable, no CVA tenderness Skin: Skin warm and dry. Normal skin color. Normal skin turgor. Extremities: No lower extremity edema. No calf tenderness Neuro: Oriented X 3. Paraplegia++ Medical Decision Making Medical Decision Making MDM Narrative: Patient with lower abdominal pain CT scan negative labs are stable UA showed chronic cystitis previous urine culture showed Pseudomonas and MRSA. Patient is symptomatic from urine tract infection likely colonized will give him a course of cefpodoxime pending final culture Differential Diagnosis Diverticulitis/kidney stone/UTI Lab Data [facility] Lab Attestation statement: I reviewed the patient's lab results. 10/14/22 23:26 10/14/22 23:26 Labs: Lab Results 10/14/22 10/14/22 10/15/22 Range/Units 23:26 23:26 01:13 WBC 5.8 (4.8-10.8) X10*3/uL RBC 4.38 L (4.60-5.80) X10*6/uL Hgb 12.5 L (14.0-18.0) g/dl Hct 37.6 L (42.0-52.0) % MCV 85.8 (80.0-98.0) fL MCH 28.5 (27.0-33.0) pg MCHC 33.2 (31.0-36.0) g/dl RDW 14.2 (11.0-16.0) % Plt Count 170 (160-400) X10*3/uL MPV 10.2 (9.4-12.4) fL Immature Gran % (Auto) 0.2 (0.0-0.4) % Neut % (Auto) 52.7 (45-73) % Lymph % (Auto) 37.8 (20-40) % [place] % (Auto) 6.4 (2-11) % Eos % (Auto) 2.4 (0-4) % Baso % (Auto) 0.5 (0-2) % Lymph # (Auto) 2.2 (1.2-4.9) X10*3/uL [place] # (Auto) 0.4 (0.1-1.2) X10*3/uL Eos # (Auto) 0.1 (0.0-0.4) X10*3/uL Baso # (Auto) 0.0 (0.0-0.2) X10*3/uL Abs Immat Gran (auto) 0.01 (0.00-0.03) X10*3/uL Absolute Neuts (auto) 3.0 (2.0-8.3) x10*3/uL Absolute Nucleated RBC 0.000 (0.0-0.012) X10*3/uL Nucleated RBC % (auto) 0.0 (0.0-0.2) /100WBC Sodium 141 (135-145) mmol/L Potassium 4.1 D (3.3-5.1) mmol/L Chloride 106 (96-108) mmol/L Carbon Dioxide 27 (22-29) mmol/L Anion Gap 12 (12-20) BUN 11 (9-16) mg/dL Creatinine 0.75 (0.5-1.4) mg/dL Estim Creat Clear Calc 156.6 Estimated GFR > 60 Random Glucose 82 (60-115) mg/dL Calcium 8.7 (8.4-10.2) mg/dL Total Bilirubin 0.5 (0.0-1.0) mg/dL AST 15 (5-37) U/L ALT 9 (0-40) U/L Alkaline Phosphatase 69 (39-117) U/L Total Protein 5.7 L (6.5-8.0) g/dL Albumin 3.6 (3.5-5.0) g/dL Urine Color Dark Yellow Urine Appearance Turbid Urine pH 5.5 (5.0-9.0) Ur Specific [place] >= 1.030 H (1.005-1.025) Urine Protein 100 (2+) H (Neg-Trace) mg/dL Urine Glucose (UA) Negative (Negative) mg/dL Urine Ketones Negative (Negative) mg/dL Urine Blood Trace H (Negative) Urine Nitrite Positive H (Negative) Ur Leukocyte Esterase Moderate (2+) H (Negative) Medications Administered Discontinued Medications Generic Name Dose Route Start Last Admin Trade Name Freq PRN Reason Stop Dose Admin Hydromorphone HCl 2 mg 10/14/22 23:16 10/14/22 23:45 Hydromorphone Hcl 2 Mg Tablet PO 10/14/22 23:17 2 mg ONCE ONE Administration Discharge Plan Discharge Clinical Impression: Abdominal pain, UTI (urinary tract infection) due to urinary indwelling catheter Patient Disposition: Home, Self-Care Instructions: Abdominal Pain (ED), Catheter-associated Urinary Tract Infection (ED) Additional Instructions: Cause of your abdominal pain is not clear likely musculoskeletal The urine showed chronic UTI will give you antibiotics till final culture Drink plenty of fluids Prescriptions: New cefpodoxime 200 mg tablet 200 mg PO BID Qty: 20 0RF Rx Instructions: must administer with a meal/food dicyclomine 20 mg tablet 20 mg PO QID PRN (Reason: abdominal pain) Qty: 20 0RF No Action cefpodoxime 200 mg tablet 200 mg PO BID 10 Days Qty: 20 0RF Rx Instructions: must administer with a meal/food oxycodone 5 mg tablet 5 mg PO Q4H PRN (Reason: pain) Qty: 14 0RF Rx Instructions: Patient may request partial fill quetiapine 25 mg tablet 3 tab PO BEDTIME tizanidine 4 mg tablet 2 tab PO Q8H PRN (Reason: muscle spasm) midodrine 5 mg tablet 2.5 tab PO BID baclofen 20 mg tablet 1 tab PO QID gabapentin 300 mg capsule 300 mg PO BID doxycycline hyclate 100 mg capsule 100 mg PO BID 10 Days Qty: 20 0RF prednisone 20 mg tablet 40 mg PO DAILY 5 Days Qty: 10 0RF albuterol sulfate 90 mcg/actuation aerosol powdr breath activated 2 inh inhalation Q4-6H PRN (Reason: shortness of breath or wheezing) Qty: 1 0RF levofloxacin 500 mg tablet 500 mg PO DAILY Qty: 7 0RF
[2022-10-15 01:18] LABS: Appearance Urine Turbid; Color Urine Dark Yellow; Glucose Urine UA Negative (Negative); Leukocyte Esterase Urine Moderate (2+) (Negative); Nitrite Urine Positive (Negative); PH 5.5 (5.0-9.0); Specific Gravity - Urine >= 1.030 (1.005-1.025); UMIC TRIGGER UACC YES; Urine Blood Trace (Negative); Urine Ketones Negative (Negative); Urine Protein 100 (2+) mg/dL (Neg-Trace)
[2022-10-15 01:20] VITALS: BP 99/63; PULSE 55; RESP 18; O2SAT 98
[2022-10-15 01:30] LABS: Bacteria Urine 1+ (None Seen); Hyaline Casts Urine 0-2 /LPF (0-2); Squamous Epithelial Cell Urine >20 /HPF (0-2); UACC Culture Trigger YES; WBC Urine >50 /HPF (0-5)
--- NOTE | 2022-10-15 01:50 | MHC.EDTECH ---
Call out to [facility] @[id number] for BLS transport back home. Spoke to Francisco who gave me an ETA of 20 minutes
== END 2022-10-15 02:10 | disposition home or self-care (01) ==
PROVIDERS: Emergency Provider Internal Medicine
DX: R10.32 Left lower quadrant pain (principal); T83.518A Infection and inflammatory reaction due to other urinary catheter, initial encounter; N39.0 Urinary tract infection, site not specified; Y82.8 Other medical devices associated with adverse incidents; B96.20 Unspecified Escherichia coli [E. coli] as the cause of diseases classified elsewhere; F19.10 Other psychoactive substance abuse, uncomplicated; F12.90 Cannabis use, unspecified, uncomplicated
CPT/HCPCS: 36415; 74176; 80053; 81001; 85025; 87086; 87088; 87186; 99283; 99284

== ENCOUNTER 2022-12-18 18:21 | Emergency (ER) | payer MEDICARE, MEDICAID, SELFPAY ==
--- NOTE | ~2022-12-18 | CT_ITS ---
EXAMINATION: CT ABDOMEN AND PELVIS WITH CONTRAST CLINICAL INFORMATION: periumbillical, LLQ pain COMPARISON: None. TECHNIQUE: Multidetector volumetric imaging was performed from the superior aspect of the liver through the pubic symphysis following administration of 85 mL Omnipaque 300 intravenous contrast. Sagittal and coronal reformatted images were obtained on the technologist workstation.. This CT examination was performed using dose optimization techniques as appropriate, variously including the following: *Automated exposure control *Adjustment of mA and/or kV according to patient size (this includes techniques or standardized protocols for targeted exams where dose is matched to indication/reason for exam; i.e. extremities or head) *Use of iterative reconstruction technique DLP: 495 mGy-cm FINDINGS: LUNG BASES: Linear atelectasis LIVER, GALLBLADDER, AND BILIARY TREE: The liver is normal in size, shape, and attenuation. No focal hepatic lesion or biliary ductal dilatation is present. The gallbladder is unremarkable with no evidence of radiopaque gallstones, gallbladder wall thickening, or obvious pericholecystic inflammatory changes. PANCREAS: Unremarkable. SPLEEN: Unremarkable. ADRENAL GLANDS: Unremarkable. KIDNEYS AND URETERS: The kidneys are normal in size, shape, and attenuation. No hydronephrosis, hydroureter, or calculi seen. No perinephric stranding. BLADDER: Decompressed by suprapubic catheter GASTROINTESTINAL TRACT: Distal colon is decompressed there are a few scattered colonic diverticula noted. No obstructive changes seen to the bowel visualized small bowel grossly unremarkable. Normal-appearing appendix in the right lower quadrant ABDOMINAL WALL: No significant hernia is appreciated. LYMPHOVASCULAR STRUCTURES: No lymphadenopathy. The aorta is unremarkable. PELVIC VISCERA: Unremarkable. OSSEOUS STRUCTURES: Degenerative changes in the bilateral hips CT/CT abdomen pelvis w IV con IMPRESSION: No acute intra-abdominal process seen. Bladder decompressed by suprapubic catheter.
[2022-12-18 18:31] VITALS: BP 100/70; BP 106/66; PULSE 62; PULSE 74; RESP 16; TEMP 36.8; O2SAT 94; O2SAT 98; BMI 21.9
[2022-12-18 18:54] LABS: MANUAL DIFF FLAG NO
[2022-12-18 18:57] LABS: Basophils Percent Auto 0.6 % (0-2); Eosinophils Absolute Auto 0.1 X10*3/uL (0.0-0.4); Eosinophils Percent Auto 2.1 % (0-4); Hematocrit 39.6 % (42.0-52.0); Hemoglobin 13.3 g/dl (14.0-18.0); Imm Gran Abs Auto 0.01 X10*3/uL (0.00-0.03); Imm Gran Pct Auto 0.2 % (0.0-0.4); Lymphocytes Absolute Auto 2.2 X10*3/uL (1.2-4.9); Lymphocytes Percent Auto 43.1 % (20-40); Mean Corpuscular HGB Conc 33.6 g/dl (31.0-36.0); Mean Corpuscular Hemoglobin 28.6 pg (27.0-33.0); Mean Corpuscular Volume 85.2 fL (80.0-98.0); Mean Platelet Volume 10.5 fL (9.4-12.4); Monocytes Absolute Auto 0.3 X10*3/uL (0.1-1.2); Monocytes Percent Auto 5.4 % (2-11); Neutrophils Absolute Auto 2.5 x10*3/uL (2.0-8.3); Neutrophils Percent Auto 48.6 % (45-73); Platelet Count 175 X10*3/uL (160-400); Red Blood Count 4.65 X10*6/uL (4.60-5.80); Red Cell Distribution Width 13.7 % (11.0-16.0); White Blood Count 5.2 X10*3/uL (4.8-10.8)
[2022-12-18 18:58] LABS: Appearance Urine Clear; Color Urine Yellow; Glucose Urine UA Negative (Negative); Leukocyte Esterase Urine Moderate (2+) (Negative); Nitrite Urine Positive (Negative); UMIC TRIGGER UACC YES; Urine Blood Negative (Negative); Urine Ketones Negative (Negative); Urine Protein Trace mg/dL (Neg-Trace)
[2022-12-18 19:00] LABS: Bacteria Urine 4+ (None Seen); Hyaline Casts Urine 0-2 /LPF (0-2); RBC Urine 0-2 /HPF (0-2); UACC Culture Trigger YES; WBC Urine 21-50 /HPF (0-5)
[2022-12-18 19:15] LABS: Alanine Aminotransferase 12 U/L (0-40); Alkaline Phosphatase 77 U/L (39-117); Anion Gap 11 (12-20); Aspartate Amino Transferase 16 U/L (5-37); Bilirubin Total 0.5 mg/dL (0.0-1.0); Blood Urea Nitrogen 10 mg/dL (9-16); Calcium 9.3 mg/dL (8.4-10.2); Carbon Dioxide 29 mmol/L (22-29); Chloride 106 mmol/L (96-108); Creatinine Clr Calc Pharmacy 138.5; Estimated Glomerular Filt Rate > 60; Glucose Random 73 mg/dL (60-115); Potassium 4.4 mmol/L (3.3-5.1); Sodium 142 mmol/L (135-145); Total Protein 6.3 g/dL (6.5-8.0)
[2022-12-18 19:50] VITALS: BP 93/48; PULSE 56; TEMP 37.1; O2SAT 99
--- NOTE | 2022-12-18 20:08 | ED.ABDPAIN ---
HPI - Abdominal Pain General Chief Complaint: Abdominal Pain Stated Complaint: LLQ PAIN X3 DAYS PER EMS Time Seen by Provider: 12/18/22 19:55 Source: patient Mode of arrival: ambulatory Limitations: no limitations History of Present Illness HPI narrative: Patient comes to the emergency room complaining of periumbilical and left lower quadrant pain for 3 days. Patient reports having diarrhea starting today. Patient states that he has been unable to eat for the last 3 days due to the pain. Denies nausea or vomiting. Patient did not take any medication prior to arrival. Patient denies fever or chills. Patient has a chronic Marie catheter, denies any changes in the urine. Related Data Home Medications Medication Instructions Recorded Confirmed baclofen 20 mg tablet 1 tab PO QID 07/17/20 07/17/20 gabapentin 300 mg capsule 300 mg PO BID 07/17/20 07/17/20 midodrine 5 mg tablet 2.5 tab PO BID 07/17/20 07/17/20 quetiapine 25 mg tablet 3 tab PO BEDTIME 07/17/20 07/17/20 tizanidine 4 mg tablet 2 tab PO Q8H PRN muscle spasm 07/17/20 07/17/20 Previous Rx's Medication Instructions Recorded cefpodoxime 200 mg tablet 200 mg PO BID 10 days #20 tabs 07/12/20 oxycodone 5 mg tablet 5 mg PO Q4H PRN pain #14 tabs 07/15/20 levofloxacin 500 mg tablet 500 mg PO DAILY #7 tabs 05/22/22 albuterol sulfate 90 mcg/actuation 2 inh inhalation Q4-6H PRN 07/08/22 breath activated powder inhaler shortness of breath or wheezing #1 ea doxycycline hyclate 100 mg capsule 100 mg PO BID 10 days #20 caps 07/08/22 prednisone 20 mg tablet 40 mg PO DAILY 5 days #10 tabs 07/08/22 cefpodoxime 200 mg tablet 200 mg PO BID #20 tabs 10/15/22 dicyclomine 20 mg tablet 20 mg PO QID PRN abdominal pain 10/15/22 #20 tabs Allergies Allergy/AdvReac Type Severity Reaction Status Date / Time No Known Allergies Allergy Verified 05/22/22 14:36 [No Known Allergies*] Review of Systems Review of Systems Constitutional : No Weight loss, No Fever, No Chills, No Night Sweats, No Fatigue, No Malaise ENT/Mouth : No Hearing loss, No Ear Pain, No Nasal Congestion, No Sinus Pain, No Hoarseness, No sore throat, No Rhinorrhea, No Swallowing Difficulty Eyes: No Eye Pain, No Swelling, No Redness, No Foreign Body, No Discharge, No Vision Changes Cardiovascular : No Chest Pain, No SOB, No Dyspnea on Exertion, No Orthopnea, No Edema, No Palpitations Respiratory : No Cough, No Sputum, No Wheezing, No Smoke Exposure, No Dyspnea Gastrointestinal : No Nausea, No Vomiting, complaining of 1 episode of diarrhea, complaining of periumbilical and left lower quadrant pain, no melena Genitourinary : no irregular bleeding, No Dysuria, No Urinary Frequency, No Hematuria, No Urinary Incontinence, No Urgency, No Flank Pain, No Urinary Flow Changes, No Hesitancy Musculoskeletal : No joint pain, No Myalgias, No Joint Swelling Skin : No Skin Lesions, No rash Neuro : No Weakness, No Numbness, No Paresthesias, No Loss of Consciousness, No Dizziness, No Headache Psych : No Anxiety/Panic, No Depression, No SI/HI/AH/VH, No Social Issues, Heme/Lymph: No Bruising, No Bleeding,No Lymphadenopathy Endocrine : No Polyuria, No Polydipsia, No Temperature Intolerance [facility] Past Medical History Medical History C5 spinal cord injury Depression Headache Paralysis Periorbital cellulitis Pyelonephritis Quadriplegic spinal paralysis Substance abuse Urinary tract infection Social History Social History Alcohol intake: current Alcohol intake frequency: holidays/special occasions only Smoked in Last 30 Days: No Use of substances other than those prescribed or required for medical reasons: No Substance Use Type: Marijuana Advance Directives: No Advance Directives Information Provided: No Physical Exam ED Vital Signs: Vital Signs - 24 hr 12/18/22 18:31 12/18/22 19:50 Temperature 98.2 F 98.8 F Pulse Rate 62 56 Respiratory Rate 16 Blood Pressure 106/66 93/48 L Pulse Oximetry 94 99 Oxygen Delivery Method Room Air Room Air BMI result Body Mass Index 21.9 Const Other: Appearance: Alert. Oriented X3. No acute distress. Eyes: Pupils equal, round and reactive to light. ENT: Pharynx normal. Neck: Normal inspection. Neck supple. No lymph nodes noted. No crepitus CVS: Normal heart rate and rhythm. Pulses normal. Normal S1 and S2 Respiratory: No respiratory distress. Breath sounds normal. No Wheezing. No rales Abdomen: Soft, moderate tenderness to palpation in periumbilical and left lower quadrant, no rebound, no guarding, no acute abdomen Skin: Skin warm and dry. Normal skin color. Normal skin turgor. Extremities: No lower extremity edema. No Lacerations. No Rash Neuro: Oriented X 3. No motor deficit. No sensory deficit. Moving all extremities. No slurred speech. CN 2 through 12 grossly intact Psych: calm, cooperative, normal affect Medical Decision Making Medical Decision Making [facility] Narrative: -patient's white blood cell count 5.2, chemistry unremarkable, LFTs within normal limits. -CT scan of the abdomen pending. -patient's urine is positive for nitrites and leukocyte esterase. However, patient does have a chronic indwelling Marie catheter, at this time, antibiotic treatment not indicated. -CT scan does not show any acute abnormalities. -patient able to tolerate p.o. Lab Data [facility] Lab Attestation statement: I reviewed the patient's lab results. 12/18/22 18:50 12/18/22 18:50 Labs: Lab Results 12/18/22 12/18/22 12/18/22 Range/Units 18:50 18:50 18:50 WBC 5.2 (4.8-10.8) X10*3/uL RBC 4.65 (4.60-5.80) X10*6/uL Hgb 13.3 L (14.0-18.0) g/dl Hct 39.6 L (42.0-52.0) % MCV 85.2 (80.0-98.0) fL MCH 28.6 (27.0-33.0) pg MCHC 33.6 (31.0-36.0) g/dl RDW 13.7 (11.0-16.0) % Plt Count 175 (160-400) X10*3/uL MPV 10.5 (9.4-12.4) fL Immature Gran % (Auto) 0.2 (0.0-0.4) % Neut % (Auto) 48.6 (45-73) % Lymph % (Auto) 43.1 H (20-40) % [place] % (Auto) 5.4 (2-11) % Eos % (Auto) 2.1 (0-4) % Baso % (Auto) 0.6 (0-2) % Lymph # (Auto) 2.2 (1.2-4.9) X10*3/uL [place] # (Auto) 0.3 (0.1-1.2) X10*3/uL Eos # (Auto) 0.1 (0.0-0.4) X10*3/uL Baso # (Auto) 0.0 (0.0-0.2) X10*3/uL Abs Immat Gran (auto) 0.01 (0.00-0.03) X10*3/uL Absolute Neuts (auto) 2.5 (2.0-8.3) x10*3/uL Absolute Nucleated RBC 0.000 (0.0-0.012) X10*3/uL Nucleated RBC % (auto) 0.0 (0.0-0.2) /100WBC Sodium 142 (135-145) mmol/L Potassium 4.4 (3.3-5.1) mmol/L Chloride 106 (96-108) mmol/L Carbon Dioxide 29 (22-29) mmol/L Anion Gap 11 L (12-20) BUN 10 (9-16) mg/dL Creatinine 0.80 (0.5-1.4) mg/dL Estim Creat Clear Calc 138.5 Estimated GFR > 60 Random Glucose 73 (60-115) mg/dL Calcium 9.3 D (8.4-10.2) mg/dL Total Bilirubin 0.5 (0.0-1.0) mg/dL AST 16 (5-37) U/L ALT 12 (0-40) U/L Alkaline Phosphatase 77 (39-117) U/L Total Protein 6.3 L (6.5-8.0) g/dL Albumin 4.0 (3.5-5.0) g/dL Urine Color Yellow Urine Appearance Clear Urine pH 6.0 (5.0-9.0) Ur Specific [place] 1.020 (1.005-1.025) Urine Protein Trace (Neg-Trace) mg/dL Urine Glucose (UA) Negative (Negative) mg/dL Urine Ketones Negative (Negative) mg/dL Urine Blood Negative (Negative) Urine Nitrite Positive H (Negative) Ur Leukocyte Esterase Moderate (2+) H (Negative) Urine RBC 0-2 (0-2) /HPF Urine WBC 21-50 H (0-5) /HPF Ur Squamous Epith Cells 3-5 (0-2) /HPF Urine Bacteria 4+ (None Seen) Hyaline Casts 0-2 (0-2) /LPF Radiology Impression Discussion of test interpretation with radiology: I have reviewed the radiologist's reading. Radiologist Impression: FINDINGS: LUNG BASES: Linear atelectasis? LIVER, GALLBLADDER, AND BILIARY TREE: The liver is normal in size, shape, and attenuation. No focal hepatic lesion or biliary ductal dilatation is present. The gallbladder is unremarkable with no evidence of radiopaque gallstones, gallbladder wall thickening, or obvious pericholecystic inflammatory changes.? PANCREAS: Unremarkable.? SPLEEN: Unremarkable.? ADRENAL GLANDS: Unremarkable.? KIDNEYS AND URETERS: The kidneys are normal in size, shape, and attenuation. No hydronephrosis, hydroureter, or calculi seen. No perinephric stranding. ? BLADDER: Decompressed by suprapubic catheter? GASTROINTESTINAL TRACT: Distal colon is decompressed there are a few scattered colonic diverticula noted. No obstructive changes seen to the bowel visualized small bowel grossly unremarkable. Normal-appearing appendix in the right lower quadrant? ABDOMINAL WALL: No significant hernia is appreciated.? LYMPHOVASCULAR STRUCTURES: No lymphadenopathy. The aorta is unremarkable.? PELVIC VISCERA: Unremarkable. OSSEOUS STRUCTURES: Degenerative changes in the bilateral hips? CT/CT abdomen pelvis w IV con IMPRESSION: No acute intra-abdominal process seen. Bladder decompressed by suprapubic catheter. Medications Administered Discontinued Medications Generic Name Dose Route Start Last Admin Trade Name Freq PRN Reason Stop Dose Admin Sodium Chloride 1,000 mls @ 999 mls/hr 12/18/22 20:10 12/18/22 21:16 Ns IVCONT 12/18/22 21:10 Infused .Q1H1M ONE Infusion Iohexol 100 ml 12/18/22 20:37 12/18/22 20:38 Iohexol 350 Mg/Ml 100 Ml Infus..Btl IV 12/18/22 20:38 85 ml ONCE ONE Administration Loperamide HCl 4 mg 12/18/22 20:10 12/18/22 20:16 Loperamide Hcl 2 Mg Capsule PO 12/18/22 20:11 4 mg ONCE ONE Administration Morphine Sulfate 4 mg 12/18/22 20:10 12/18/22 20:16 Morphine Sulfate 4 Mg/Ml Cartridge IVPUSH 12/18/22 20:11 4 mg ONCE ONE Administration Protocol Discharge Plan Discharge Clinical Impression: Abdominal pain Patient Disposition: Home, Self-Care Instructions: Abdominal Pain (ED) Additional Instructions: Please follow-up with your primary care physician tomorrow. If you have any worsening or new symptoms, please return to the emergency room or call 911 Prescriptions: No Action cefpodoxime 200 mg tablet 200 mg PO BID 10 Days Qty: 20 0RF Rx Instructions: must administer with a meal/food oxycodone 5 mg tablet 5 mg PO Q4H PRN (Reason: pain) Qty: 14 0RF Rx Instructions: Patient may request partial fill quetiapine 25 mg tablet 3 tab PO BEDTIME tizanidine 4 mg tablet 2 tab PO Q8H PRN (Reason: muscle spasm) midodrine 5 mg tablet 2.5 tab PO BID baclofen 20 mg tablet 1 tab PO QID gabapentin 300 mg capsule 300 mg PO BID doxycycline hyclate 100 mg capsule 100 mg PO BID 10 Days Qty: 20 0RF prednisone 20 mg tablet 40 mg PO DAILY 5 Days Qty: 10 0RF albuterol sulfate 90 mcg/actuation aerosol powdr breath activated 2 inh inhalation Q4-6H PRN (Reason: shortness of breath or wheezing) Qty: 1 0RF levofloxacin 500 mg tablet 500 mg PO DAILY Qty: 7 0RF cefpodoxime 200 mg tablet 200 mg PO BID Qty: 20 0RF Rx Instructions: must administer with a meal/food dicyclomine 20 mg tablet 20 mg PO QID PRN (Reason: abdominal pain) Qty: 20 0RF
[2022-12-18] MEDS: Morphine Sulfate 4 MG/ML CARTRIDGE IVPUSH (20:16)
[2022-12-18] MEDS: Loperamide HCl 2 MG CAPSULE 4 MG PO (20:16)
[2022-12-18] MEDS: 0.9 % Sodium Chloride 1,000 ML 999 ML IVCONT (20:21)
[2022-12-18] MEDS: iohexoL 350 MG/ML 100 ML INFUS..BTL IV (20:38)
--- NOTE | 2022-12-18 22:02 | MHC.EDTECH ---
Call out to [facility] @2200 to book BLS transport back home spoke to Rohit at dispatch who gave an ETA of 30 mins
--- NOTE | 2022-12-18 22:06 | PC.NURSE ---
pt resting comfortably, eating brian crackers at this time, respirations even and unlabored, skin pwd, alert and oriented x4. Pt verbalizes understanding of all discharge instructions
[2022-12-18 22:29] VITALS: BP 97/51; PULSE 61; O2SAT 98
== END 2022-12-18 23:00 | disposition home or self-care (01) ==
PROVIDERS: Emergency Provider Emergency Medicine
DX: R10.32 Left lower quadrant pain (principal); Z79.899 Other long term (current) drug therapy
CPT/HCPCS: 36415; 74177; 80053; 81001; 85025; 87086; 87088; 87186; 96361; 96374; 99284; J2270; Q9967

== ENCOUNTER 2022-12-24 16:22 | Emergency (ER) | payer MEDICARE, MEDICAID, SELFPAY ==
--- NOTE | ~2022-12-24 | XR_ITS ---
EXAMINATION: XR ABDOMEN KUB CLINICAL INDICATION: Lower abdominal pain. COMPARISON: CT abdomen/pelvis 12/18/2022. TECHNIQUE: AP view of the abdomen. FINDINGS: Nonobstructive bowel gas pattern. Moderate degree of stool content in the colon and rectum. Bony thorax is intact. The included lung bases are clear. XR/XR KUB IMPRESSION: Nonobstructive bowel gas pattern. Moderate degree of stool content.
[2022-12-24 16:33] VITALS: BP 102/72; BP 110/73; PULSE 67; PULSE 68; RESP 18; TEMP 36.7; O2SAT 98; BMI 23.1
[2022-12-24 16:36] VITALS: BP 110/73; PULSE 68; RESP 18; TEMP 36.7; O2SAT 98
--- NOTE | 2022-12-24 16:39 | PC.NURSE ---
Arrived from home via ems. stating 2 week abdominal pain that started on left side and now the pain is in his entire stomach and is 8/10. Reports miranda change today- miranda draining clear yellow urine. patient is a quadrapalegic - cant move legs, can move arms but no use of fingers. states has full sensation from head to toes. Denies sob or chest, no nausea or vomiting, reports regular BM`s no constipation or diarrhea. Positive bowel sounds x 4
--- NOTE | 2022-12-24 16:43 | PC.NURSE ---
patient reports takes methadone daily and took last does this am
[2022-12-24 17:54] VITALS: BP 101/63; PULSE 59; RESP 16; O2SAT 96
[2022-12-24 17:56] LABS: MANUAL DIFF FLAG NO
[2022-12-24 17:59] LABS: Basophils Percent Auto 0.4 % (0-2); Eosinophils Absolute Auto 0.1 X10*3/uL (0.0-0.4); Hematocrit 40.5 % (42.0-52.0); Hemoglobin 13.6 g/dl (14.0-18.0); Imm Gran Abs Auto 0.01 X10*3/uL (0.00-0.03); Imm Gran Pct Auto 0.2 % (0.0-0.4); Lymphocytes Percent Auto 36.7 % (20-40); Mean Corpuscular HGB Conc 33.6 g/dl (31.0-36.0); Mean Corpuscular Hemoglobin 28.6 pg (27.0-33.0); Mean Corpuscular Volume 85.1 fL (80.0-98.0); Mean Platelet Volume 10.8 fL (9.4-12.4); Monocytes Absolute Auto 0.3 X10*3/uL (0.1-1.2); Monocytes Percent Auto 5.1 % (2-11); Neutrophils Percent Auto 55.6 % (45-73); Platelet Count 172 X10*3/uL (160-400); Red Blood Count 4.76 X10*6/uL (4.60-5.80); Red Cell Distribution Width 13.1 % (11.0-16.0); White Blood Count 5.5 X10*3/uL (4.8-10.8)
[2022-12-24 18:14] LABS: Alanine Aminotransferase 11 U/L (0-40); Alkaline Phosphatase 79 U/L (39-117); Anion Gap 13 (12-20); Aspartate Amino Transferase 17 U/L (5-37); Bilirubin Total 0.5 mg/dL (0.0-1.0); Blood Urea Nitrogen 10 mg/dL (9-16); Calcium 9.4 mg/dL (8.4-10.2); Carbon Dioxide 30 mmol/L (22-29); Chloride 101 mmol/L (96-108); Creatinine Clr Calc Pharmacy 137.3; Estimated Glomerular Filt Rate > 60; Glucose Random 79 mg/dL (60-115); Potassium 4.5 mmol/L (3.3-5.1); Sodium 139 mmol/L (135-145); Total Protein 6.5 g/dL (6.5-8.0)
--- NOTE | 2022-12-24 18:14 | ED_ITS ---
HPI - Abdominal Pain General Chief Complaint: Abdominal Pain Stated Complaint: ABD PAIN Time Seen by Provider: 12/24/22 17:15 Source: patient Mode of arrival: EMS History of Present Illness HPI narrative: This is a 32-year-old male C5 almost complete quadriplegic who presents with ongoing lower abdominal discomfort that he states was present approximately a week ago, was evaluated here but they did not find any abnormalities. Patient e any he does get urinary tract infections but typically the presentation is much different with that being associated with diaphoresis. Patient denies any fever, chills, nausea, vomiting and has continued to have regular bowel movements. Related Data Home Medications Medication Instructions Recorded Confirmed baclofen 20 mg tablet 1 tab PO QID 07/17/20 07/17/20 gabapentin 300 mg capsule 300 mg PO BID 07/17/20 07/17/20 midodrine 5 mg tablet 2.5 tab PO BID 07/17/20 07/17/20 quetiapine 25 mg tablet 3 tab PO BEDTIME 07/17/20 07/17/20 tizanidine 4 mg tablet 2 tab PO Q8H PRN muscle spasm 07/17/20 07/17/20 Previous Rx's Medication Instructions Recorded cefpodoxime 200 mg tablet 200 mg PO BID 10 days #20 tabs 07/12/20 oxycodone 5 mg tablet 5 mg PO Q4H PRN pain #14 tabs 07/15/20 levofloxacin 500 mg tablet 500 mg PO DAILY #7 tabs 05/22/22 albuterol sulfate 90 mcg/actuation 2 inh inhalation Q4-6H PRN 07/08/22 breath activated powder inhaler shortness of breath or wheezing #1 ea doxycycline hyclate 100 mg capsule 100 mg PO BID 10 days #20 caps 07/08/22 prednisone 20 mg tablet 40 mg PO DAILY 5 days #10 tabs 07/08/22 cefpodoxime 200 mg tablet 200 mg PO BID #20 tabs 10/15/22 dicyclomine 20 mg tablet 20 mg PO QID PRN abdominal pain 10/15/22 #20 tabs cefdinir 300 mg capsule 300 mg PO BID 10 days #20 caps 12/24/22 Allergies Allergy/AdvReac Type Severity Reaction Status Date / Time No Known Allergies Allergy Verified 05/22/22 14:36 [No Known Allergies*] Review of Systems Review of Systems Pertinent positives and negatives as stated in HPI [facility] Past Medical History Source: nursing notes reviewed Medical History C5 spinal cord injury Depression Headache Paralysis Periorbital cellulitis Pyelonephritis Quadriplegic spinal paralysis Substance abuse Urinary tract infection Social History Social History Alcohol intake: current Alcohol intake frequency: holidays/special occasions only Smoked in Last 30 Days: Yes Use of substances other than those prescribed or required for medical reasons: Yes Substance Use Type: Marijuana Advance Directives: No Advance Directives Information Provided: Yes Physical Exam ED Vital Signs: Vital Signs - 24 hr 12/24/22 16:33 12/24/22 16:36 12/24/22 17:54 Temperature 98.1 F 98.1 F Pulse Rate 68 68 59 Respiratory Rate 18 18 16 Blood Pressure 110/73 110/73 101/63 Pulse Oximetry 98 98 96 Oxygen Delivery Method Room Air Room Air 12/24/22 20:43 Temperature 98.1 F Pulse Rate 58 Respiratory Rate 18 Blood Pressure 108/68 Pulse Oximetry 97 Oxygen Delivery Method Room Air BMI result Body Mass Index 23.1 VITAL SIGNS: Reviewed. GENERAL: Well developed, well nourished, in no acute distress. HEAD: Normocephalic/atraumatic EYES: PERRLA, EOMI EARS: Ext canals without abnormality NOSE: Nares patent bilateral OROPHARYNX: no oral lesions noted, posterior pharynx clear NECK: Supple, no adenopathy LUNGS: Normal breath sounds. No adventitious sounds or accessory muscle use. SpO2<96> CARDIOVASCULAR: Regular rate and rhythm without noted murmurs ABDOMEN: Soft, mild tenderness along the infraumbilical all along the lower abdomen without rebound, non-distended with bowel sounds, no palpated hernias. MUSCULOSKELETAL: No tenderness, deformities, or effusions noted on gross inspection. EXTREMITIES: No cyanosis, clubbing or edema. SKIN: Inspection of the skin reveals no rashes NEUROLOGIC: Alert and oriented x 4. Strength and sensation to light touch were grossly intact x 2 with baseline mild flexion contractures of the upper extremities. Medical Decision Making Medical Decision Making MDM Narrative: 32-year-old male with history and clinical presentation suggestive of possible constipation, UTI, renal colic, lower clinical suspicion for SBO/appendicitis. I reviewed all investigations and my interpretation is that patient has moderate to significant stool load, I feel that the urinalysis results are colonization and patient has no other signs/symptoms/objective findings to suggest acute UTI. Although, on review of patient's urine culture it appears that he had a UTI on his previous visit and will actually discharge the patient with medication for this. I discussed all results and findings with the patient at bedside and he is discharged home in stable condition. Differential Diagnosis Please see the discussion above Lab Data Please see the discussion above 12/24/22 17:52 12/24/22 17:52 Labs: Lab Results 12/24/22 12/24/22 12/24/22 Range/Units 17:52 17:52 18:25 WBC 5.5 (4.8-10.8) X10*3/uL RBC 4.76 (4.60-5.80) X10*6/uL Hgb 13.6 L (14.0-18.0) g/dl Hct 40.5 L (42.0-52.0) % MCV 85.1 (80.0-98.0) fL MCH 28.6 (27.0-33.0) pg MCHC 33.6 (31.0-36.0) g/dl RDW 13.1 (11.0-16.0) % Plt Count 172 (160-400) X10*3/uL MPV 10.8 (9.4-12.4) fL Immature Gran % (Auto) 0.2 (0.0-0.4) % Neut % (Auto) 55.6 (45-73) % Lymph % (Auto) 36.7 (20-40) % [place] % (Auto) 5.1 (2-11) % Eos % (Auto) 2.0 (0-4) % Baso % (Auto) 0.4 (0-2) % Lymph # (Auto) 2.0 (1.2-4.9) X10*3/uL [place] # (Auto) 0.3 (0.1-1.2) X10*3/uL Eos # (Auto) 0.1 (0.0-0.4) X10*3/uL Baso # (Auto) 0.0 (0.0-0.2) X10*3/uL Abs Immat Gran (auto) 0.01 (0.00-0.03) X10*3/uL Absolute Neuts (auto) 3.0 (2.0-8.3) x10*3/uL Absolute Nucleated RBC 0.000 (0.0-0.012) X10*3/uL Nucleated RBC % (auto) 0.0 (0.0-0.2) /100WBC Sodium 139 (135-145) mmol/L Potassium 4.5 (3.3-5.1) mmol/L Chloride 101 (96-108) mmol/L Carbon Dioxide 30 H (22-29) mmol/L Anion Gap 13 (12-20) BUN 10 (9-16) mg/dL Creatinine 0.85 (0.5-1.4) mg/dL Estim Creat Clear Calc 137.3 Estimated GFR > 60 Random Glucose 79 (60-115) mg/dL Calcium 9.4 (8.4-10.2) mg/dL Total Bilirubin 0.5 (0.0-1.0) mg/dL AST 17 (5-37) U/L ALT 11 (0-40) U/L Alkaline Phosphatase 79 (39-117) U/L Total Protein 6.5 (6.5-8.0) g/dL Albumin 4.0 (3.5-5.0) g/dL Urine Color Yellow Urine Appearance Clear Urine pH 5.5 (5.0-9.0) Ur Specific [place] 1.015 (1.005-1.025) Urine Protein Negative (Neg-Trace) mg/dL Urine Glucose (UA) Negative (Negative) mg/dL Urine Ketones Negative (Negative) mg/dL Urine Blood Negative (Negative) Urine Nitrite Positive H (Negative) Ur Leukocyte Esterase Moderate (2+) H (Negative) Urine RBC 0-2 (0-2) /HPF Urine WBC 11-20 H (0-5) /HPF Ur Squamous Epith Cells 0-2 (0-2) /HPF Urine Bacteria 2+ (None Seen) Hyaline Casts 3-5 (0-2) /LPF Radiology Impression Radiologist Impression: My interpretation is in agreement with radiology's impression External Record Review External record reviewed: Outpatient record and Prior outpatient labs Discharge Plan Discharge Clinical Impression: Cystitis Patient Disposition: Home, Self-Care Instructions: Urinary Tract Infection in Men (DC) Additional Instructions: 1. Resume all home medications as prescribed. 2. I have decided treat you for a urinary tract infection after I reviewed your urine culture from the last visit. I have sent the prescription to your pharmacy. You should complete the entire course. Return to the ER for any worsening symptoms. Prescriptions: New cefdinir 300 mg capsule 300 mg PO BID 10 Days Qty: 20 0RF No Action cefpodoxime 200 mg tablet 200 mg PO BID 10 Days Qty: 20 0RF Rx Instructions: must administer with a meal/food oxycodone 5 mg tablet 5 mg PO Q4H PRN (Reason: pain) Qty: 14 0RF Rx Instructions: Patient may request partial fill quetiapine 25 mg tablet 3 tab PO BEDTIME tizanidine 4 mg tablet 2 tab PO Q8H PRN (Reason: muscle spasm) midodrine 5 mg tablet 2.5 tab PO BID baclofen 20 mg tablet 1 tab PO QID gabapentin 300 mg capsule 300 mg PO BID doxycycline hyclate 100 mg capsule 100 mg PO BID 10 Days Qty: 20 0RF prednisone 20 mg tablet 40 mg PO DAILY 5 Days Qty: 10 0RF albuterol sulfate 90 mcg/actuation aerosol powdr breath activated 2 inh inhalation Q4-6H PRN (Reason: shortness of breath or wheezing) Qty: 1 0 RF levofloxacin 500 mg tablet 500 mg PO DAILY Qty: 7 0RF cefpodoxime 200 mg tablet 200 mg PO BID Qty: 20 0RF Rx Instructions: must administer with a meal/food dicyclomine 20 mg tablet 20 mg PO QID PRN (Reason: abdominal pain) Qty: 20 0RF
[2022-12-24 18:44] LABS: Appearance Urine Clear; Color Urine Yellow; Glucose Urine UA Negative (Negative); Leukocyte Esterase Urine Moderate (2+) (Negative); Nitrite Urine Positive (Negative); PH 5.5 (5.0-9.0); Specific Gravity - Urine 1.015 (1.005-1.025); UMIC TRIGGER UACC YES; Urine Blood Negative (Negative); Urine Ketones Negative (Negative); Urine Protein Negative (Neg-Trace)
--- NOTE | 2022-12-24 19:10 | PC.NURSE ---
assumed care of pt aox4 pt resting quietly while watching tv, call madison within reach pt able to make needs known no apparent distress
[2022-12-24 19:19] LABS: Bacteria Urine 2+ (None Seen); RBC Urine 0-2 /HPF (0-2); Squamous Epithelial Cell Urine 0-2 /HPF (0-2); UACC Culture Trigger YES
[2022-12-24 20:43] VITALS: BP 108/68; PULSE 58; RESP 18; TEMP 36.7; O2SAT 97
--- NOTE | 2022-12-24 21:29 | PC.NURSE ---
assisted pt with changing back into clothes no apparent distress, resting quietly pt reports 7/10 pain, refuses medication for pain, MD aware pt's miranda bag emptied output 250 mL waiting on transport to home aox4 discharge instructions given and explained to pt
--- NOTE | 2022-12-24 23:05 | PC.NURSE ---
[facility] to transport pt to home via stretcher pt aox3 refused pain meds miranda drained prior to transport no apparent distress
== END 2022-12-24 22:38 | disposition home or self-care (01) ==
PROVIDERS: Emergency Provider Student in an Organized Health Care Education/Training Program
DX: N30.90 Cystitis, unspecified without hematuria (principal); R10.2 Pelvic and perineal pain; Z79.899 Other long term (current) drug therapy
CPT/HCPCS: 36415; 74018; 80053; 81001; 81003; 85025; 87086; 87088; 87186; 99283; 99284

== ENCOUNTER 2023-01-07 16:39 | Emergency (ER) | payer MEDICARE, MEDICAID, SELFPAY ==
[2023-01-07 16:50] VITALS: BP 116/78; PULSE 63; RESP 18; TEMP 37; O2SAT 97; BMI 23.1
--- NOTE | 2023-01-07 17:39 | ED_ITS ---
HPI - General Adult General Chief complaint: General Medical Stated complaint: GROIN PAIN X 1 WEEK, QUADRIPLEGIC Time Seen by Provider: 01/07/23 17:39 Source: patient Mode of arrival: ambulatory Limitations: no limitations History of Present Illness HPI narrative: Patient quadriplegic up to C5 injury 5 years ago has suprapubic catheter was seen here on 12/18 and 12/24 for abdominal cramping noticed to have E coli UTI , started on cefdinir patient already on tizanidine and baclofen and gabapentin for muscle spasm no comes here as having spasm in the left groin area for last 1 week with multiple other problems including tingling of the legs chest discomfort and tingling of the hand just prior to arrival. At this time patient denies any abdominal pain Related Data Home Medications Medication Instructions Recorded Confirmed baclofen 20 mg tablet 1 tab PO QID 07/17/20 07/17/20 gabapentin 300 mg capsule 300 mg PO BID 07/17/20 07/17/20 midodrine 5 mg tablet 2.5 tab PO BID 07/17/20 07/17/20 quetiapine 25 mg tablet 3 tab PO BEDTIME 07/17/20 07/17/20 tizanidine 4 mg tablet 2 tab PO Q8H PRN muscle spasm 07/17/20 07/17/20 Previous Rx's Medication Instructions Recorded cefpodoxime 200 mg tablet 200 mg PO BID 10 days #20 tabs 07/12/20 oxycodone 5 mg tablet 5 mg PO Q4H PRN pain #14 tabs 07/15/20 levofloxacin 500 mg tablet 500 mg PO DAILY #7 tabs 05/22/22 albuterol sulfate 90 mcg/actuation 2 inh inhalation Q4-6H PRN 07/08/22 breath activated powder inhaler shortness of breath or wheezing #1 ea doxycycline hyclate 100 mg capsule 100 mg PO BID 10 days #20 caps 07/08/22 prednisone 20 mg tablet 40 mg PO DAILY 5 days #10 tabs 07/08/22 cefpodoxime 200 mg tablet 200 mg PO BID #20 tabs 10/15/22 dicyclomine 20 mg tablet 20 mg PO QID PRN abdominal pain 10/15/22 #20 tabs cefdinir 300 mg capsule 300 mg PO BID 10 days #20 caps 12/24/22 nitrofurantoin 100 mg PO BID #20 caps 01/07/23 monohydrate/macrocrystals 100 mg capsule (Macrobid) oxycodone 5 mg tablet 5 mg PO Q6H PRN pain #20 tabs 01/07/23 Allergies Allergy/AdvReac Type Severity Reaction Status Date / Time No Known Allergies Allergy Verified 05/22/22 14:36 [No Known Allergies*] Review of Systems Review of Systems: Yes all other systems are reviewed and are negative [facility] Past Medical History Medical History C5 spinal cord injury Depression Headache Paralysis Periorbital cellulitis Pyelonephritis Quadriplegic spinal paralysis Substance abuse Urinary tract infection Social History Social History Alcohol intake: current Alcohol intake frequency: holidays/special occasions only Substance Use Type: Marijuana Advance Directives: No Advance Directives Information Provided: No Physical Exam ED Vital Signs: Vital Signs - 24 hr 01/07/23 16:50 Temperature 98.6 F Pulse Rate 63 Respiratory Rate 18 Blood Pressure 116/78 Pulse Oximetry 97 BMI result Body Mass Index 23.1 Appearance: Alert. Oriented X3. No acute distress. Eyes: PERRLA ENT: Pharynx normal. Oral Mucosa moist Neck: Normal inspection. Neck supple. CVS: Normal heart rate and rhythm. Pulses normal. Respiratory: No respiratory distress. Equal air entry bilateral, no wheezing/rales/rhonchi Abdomen: Soft and nontender. Suprapubic catheter in place Bowel sounds are present, no mass palpable, no CVA tenderness Skin: Skin warm and dry. Normal skin color. Normal skin turgor. Extremities: No lower extremity edema. No calf tenderness spasm of the left psoas muscle no signs of infection or abscess seen Neuro: Oriented X 3. Quadriplegic with minimal movement of the upper extremities sensory intact Medications Administered Discontinued Medications Generic Name Dose Route Start Last Admin Trade Name Freq PRN Reason Stop Dose Admin Lorazepam 1 mg 01/07/23 17:55 01/07/23 18:32 Lorazepam 1 Mg Tablet PO 01/07/23 17:56 1 mg ONCE ONE Administration Nitrofurantoin Macrocrystals 100 mg 01/07/23 19:38 01/07/23 19:54 Nitrofurantoin Monohyd/M-Cryst 100 Mg Capsule PO 01/07/23 19:39 100 mg ONCE ONE Administration Oxycodone HCl 10 mg 01/07/23 17:55 01/07/23 18:32 Oxycodone Hcl Immed Release 5 Mg Tablet PO 01/07/23 17:56 10 mg ONCE ONE Administration Medical Decision Making Medical Decision Making [facility] Narrative: Patient chronic UTI treated with cefdinir still having UTI with left groin muscle spasm patient previous culture showed E coli sensitive to Macrobid will try to use this time Macrobid for 10 days. Will prescribe him oxycodone for pain advised to follow with PCP Lab Data [facility] Lab Attestation statement: I reviewed the patient's lab results. Labs: Lab Results 01/07/23 Range/Units 17:52 Urine Color Dark Yellow Urine Appearance Cloudy Urine pH 6.5 (5.0-9.0) Ur Specific [place] 1.025 (1.005-1.025) Urine Protein 100 (2+) H (Neg-Trace) mg/dL Urine Glucose (UA) Negative (Negative) mg/dL Urine Ketones Trace (Negative) mg/dL Urine Blood Negative (Negative) Urine Nitrite Positive H (Negative) Ur Leukocyte Esterase Large (3+) H (Negative) Urine RBC 0-2 (0-2) /HPF Urine WBC >50 H (0-5) /HPF Ur Squamous Epith Cells 6-10 (0-2) /HPF Urine Bacteria 3+ (None Seen) Hyaline Casts 6-10 (0-2) /LPF Discharge Plan Discharge Clinical Impression: Strain of left groin, UTI (urinary tract infection) Patient Disposition: Home, Self-Care Instructions: Urinary Tract Infection in Men (ED), Groin Strain (ED) Additional Instructions: Drink plenty of fluid Start taking Macrobid 1 tablet twice daily for 10 days Continue take her muscle relaxants Oxycodone for pain Follow with PCP if not better Prescriptions: New nitrofurantoin monohyd/m-cryst [Macrobid] 100 mg capsule 100 mg PO BID Qty: 20 0RF Rx Instructions: must administer with a meal/food oxycodone 5 mg tablet 5 mg PO Q6H PRN (Reason: pain) Qty: 20 0RF Rx Instructions: Partial Fill upon patient request. No Action cefpodoxime 200 mg tablet 200 mg PO BID 10 Days Qty: 20 0RF Rx Instructions: must administer with a meal/food oxycodone 5 mg tablet 5 mg PO Q4H PRN (Reason: pain) Qty: 14 0RF Rx Instructions: Patient may request partial fill quetiapine 25 mg tablet 3 tab PO BEDTIME tizanidine 4 mg tablet 2 tab PO Q8H PRN (Reason: muscle spasm) midodrine 5 mg tablet 2.5 tab PO BID baclofen 20 mg tablet 1 tab PO QID gabapentin 300 mg capsule 300 mg PO BID doxycycline hyclate 100 mg capsule 100 mg PO BID 10 Days Qty: 20 0RF prednisone 20 mg tablet 40 mg PO DAILY 5 Days Qty: 10 0RF albuterol sulfate 90 mcg/actuation aerosol powdr breath activated 2 inh inhalation Q4-6H PRN (Reason: shortness of breath or wheezing) Qty: 1 0RF levofloxacin 500 mg tablet 500 mg PO DAILY Qty: 7 0RF cefpodoxime 200 mg tablet 200 mg PO BID Qty: 20 0RF Rx Instructions: must administer with a meal/food dicyclomine 20 mg tablet 20 mg PO QID PRN (Reason: abdominal pain) Qty: 20 0RF cefdinir 300 mg capsule 300 mg PO BID 10 Days Qty: 20 0RF Interventions: ED Discharge Assessment Last Done: 01/07/23 20:41 Discharge Date/Time: 01/07/23 20:41
[2023-01-07 17:59] LABS: Appearance Urine Cloudy; Color Urine Dark Yellow; Glucose Urine UA Negative (Negative); Leukocyte Esterase Urine Large (3+) (Negative); Nitrite Urine Positive (Negative); PH 6.5 (5.0-9.0); Specific Gravity - Urine 1.025 (1.005-1.025); UMIC TRIGGER UACC YES; Urine Blood Negative (Negative); Urine Ketones Trace mg/dL (Negative); Urine Protein 100 (2+) mg/dL (Neg-Trace)
[2023-01-07] MEDS: oxyCODONE HCl Immed Release 5 MG TABLET 10 MG PO (18:32)
[2023-01-07] MEDS: LORazepam 1 MG TABLET PO (18:32)
[2023-01-07 18:55] LABS: Bacteria Urine 3+ (None Seen); RBC Urine 0-2 /HPF (0-2); UACC Culture Trigger YES; WBC Urine >50 /HPF (0-5)
[2023-01-07] MEDS: Nitrofurantoin Monohyd/M-Cryst 100 MG CAPSULE PO (19:54)
== END 2023-01-07 20:41 | disposition home or self-care (01) ==
PROVIDERS: Emergency Provider Internal Medicine
DX: S39.011A Strain of muscle, fascia and tendon of abdomen, initial encounter (principal); N39.0 Urinary tract infection, site not specified; X58.XXXA Exposure to other specified factors, initial encounter; Y93.9 Activity, unspecified; Y92.9 Unspecified place or not applicable; Y99.9 Unspecified external cause status; Z79.899 Other long term (current) drug therapy
CPT/HCPCS: 81001; 87086; 87088; 87186; 99283

== ENCOUNTER 2023-02-18 14:59 | Emergency (ER) | payer OTHER, SELFPAY ==
--- NOTE | ~2023-02-18 | CT_ITS ---
EXAMINATION: CT ABDOMEN AND PELVIS WITH CONTRAST CLINICAL INFORMATION: Right lower quadrant pain on palpation. COMPARISON: CT abdomen/pelvis 12/18/2022. TECHNIQUE: Multidetector volumetric images were obtained from the superior aspect of the liver through the pubic symphysis following administration 85 mL of Omnipaque 350 intravenous contrast. Sagittal and coronal reformatted images were obtained on the technologist's workstation. Oral contrast: No This CT examination was performed using dose optimization techniques as appropriate, variously including the following: *Automated exposure control *Adjustment of mA and/or kV according to patient size (this includes techniques or standardized protocols for targeted exams where dose is matched to indication/reason for exam; i.e. extremities or head) *Use of iterative reconstruction technique DLP: 433 mGy-cm FINDINGS: LUNG BASES: No focal consolidation or pleural effusion. Scattered sub-3 mm space calcified and noncalcified pulmonary nodules. Mild bronchial wall thickening in the right lower lobe. LIVER, GALLBLADDER, AND BILIARY TREE: The liver is normal in size, shape, and attenuation. Stable too small to characterize hypodensity in the posterior right hepatic lobe image 27 series 2. No biliary ductal dilatation is present. The gallbladder is unremarkable with no evidence of radiopaque gallstones, gallbladder wall thickening, or obvious pericholecystic inflammatory changes. PANCREAS: Unremarkable. SPLEEN: Unremarkable. ADRENAL GLANDS: Unremarkable. KIDNEYS AND URETERS: The kidneys are normal in size, shape, and attenuation. No hydronephrosis, hydroureter, or calculi seen. No perinephric stranding. BLADDER: Underdistended with a suprapubic Marie in place with equivocal urinary bladder wall thickening. GASTROINTESTINAL TRACT: The stomach and the small bowel are nondilated. Normal appendix. There are 2 oval-shaped radiopaque bodies in the cecum, favoring to represent ingested material/pills. Prominent gaseous distention of the colon with moderate to significant amount of stool burden in the colon and rectum. No pericolonic fat stranding/free fluid. ABDOMINAL WALL: No significant hernia is appreciated. LYMPH NODES: No lymphadenopathy. VASCULAR: Unremarkable. PELVIC VISCERA: Unremarkable. OSSEOUS STRUCTURES: Unchanged indeterminate nonaggressive appearing heterogeneously sclerosis of the left ischial tuberosity axial image 715 series 3 compared to 10/14/2022. Multiple nonaggressive appearing sclerotic osseous foci, favoring to represent bone islands. CT/CT abdomen pelvis w IV con IMPRESSION: 1. Prominent gaseous distention of the colon with moderate to significant amount of stool burden in the colon and rectum. Correlate clinically for constipation. 2. Normal appendix. 3. Query urinary bladder wall thickening, correlation with urinalysis could be obtained as clinically indicated. 4. Stable indeterminate nonaggressive appearing heterogeneous sclerosis of the left ischial tuberosity compared to 10/14/2022 but new compared to ; correlate with point tenderness. Further evaluation with MRI could be obtained as clinically indicated. 5. Scattered sub-3 mm pulmonary nodules. In patients younger than age 35, standard Fleischner Society recommendations for incidental pulmonary nodule follow-up do not apply as nodules in this age group are most likely to be infectious/inflammatory. Recommend clinical correlation with any risk factors to assess if follow-up of these nodules is clinically warranted.
[2023-02-18 15:09] VITALS: BP 110/68; BP 132/88; PULSE 60; PULSE 61; RESP 16; TEMP 36.8; O2SAT 98; BMI 19.8
[2023-02-18 15:21] VITALS: RESP 16
--- NOTE | 2023-02-18 15:26 | PC.NURSE ---
pt axox4, vss, respirations even and unlabored, skin wpd. pt reports RLQ abd pain x 2 days; reports diarrhea x 2 wks. denies n/v/cp/sob. pt states he finished prescription bactrim 5 days ago for wound to back of L. knee from knee brace. pt states home wound nurse visit today; no dressing applied; appears well; no concerns per pt. +bs x 4. no distention, tenderness of R. side abd. pt states hard spot comes and goes on RLQ but cannot be palpated by this RN at this time. pt has indwelling miranda; draining urine no concerns per pt. denies any urinary sx at this time. awaiting primary eval by ed provider. call [place] within reach.
--- NOTE | 2023-02-18 16:14 | ED.ABDPAIN ---
HPI - Abdominal Pain General Chief Complaint: Abdominal Pain Stated Complaint: Abd pain per EMS Time Seen by Provider: 02/18/23 15:50 Source: patient and EMS Mode of arrival: EMS Limitations: no limitations History of Present Illness HPI narrative: 33-year-old male quadriplegic secondary to a C5 spinal cord injury wheelchair bound history of depression presenting to the emergency department for evaluation of right lower quadrant abdominal pain for the past 2-3 days, patient reports he is also having GI upset and diarrhea, he reports that intermittently he feels an area of induration in his right lower quadrant, he reports his last bowel movement was 2 days ago. Patient denies any changes in urination, he has an indwelling urinary catheter, he has had no issues with this catheter. Patient denies fevers, chills, chest pain, shortness of breath, nausea, vomiting. He does however state he is not having much of an appetite and has not eaten much over the past few days. Related Data Home Medications Medication Instructions Recorded Confirmed baclofen 20 mg tablet 1 tab PO QID 07/17/20 07/17/20 gabapentin 300 mg capsule 300 mg PO BID 07/17/20 07/17/20 midodrine 5 mg tablet 2.5 tab PO BID 07/17/20 07/17/20 quetiapine 25 mg tablet 3 tab PO BEDTIME 07/17/20 07/17/20 tizanidine 4 mg tablet 2 tab PO Q8H PRN muscle spasm 07/17/20 07/17/20 Previous Rx's Medication Instructions Recorded cefpodoxime 200 mg tablet 200 mg PO BID 10 days #20 tabs 07/12/20 oxycodone 5 mg tablet 5 mg PO Q4H PRN pain #14 tabs 07/15/20 levofloxacin 500 mg tablet 500 mg PO DAILY #7 tabs 05/22/22 albuterol sulfate 90 mcg/actuation 2 inh inhalation Q4-6H PRN 07/08/22 breath activated powder inhaler shortness of breath or wheezing #1 ea doxycycline hyclate 100 mg capsule 100 mg PO BID 10 days #20 caps 07/08/22 prednisone 20 mg tablet 40 mg PO DAILY 5 days #10 tabs 07/08/22 cefpodoxime 200 mg tablet 200 mg PO BID #20 tabs 10/15/22 dicyclomine 20 mg tablet 20 mg PO QID PRN abdominal pain 10/15/22 #20 tabs cefdinir 300 mg capsule 300 mg PO BID 10 days #20 caps 12/24/22 nitrofurantoin 100 mg PO BID #20 caps 01/07/23 monohydrate/macrocrystals 100 mg capsule (Macrobid) oxycodone 5 mg tablet 5 mg PO Q6H PRN pain #20 tabs 01/07/23 cefuroxime axetil 250 mg tablet 250 mg PO BID 7 days #14 tabs 02/18/23 docusate sodium 100 mg capsule 100 mg PO BID #20 caps 02/18/23 (Colace) sennosides 8.6 mg tablet (senna) 8.6 mg PO BEDTIME #14 tabs 02/18/23 Allergies Allergy/AdvReac Type Severity Reaction Status Date / Time No Known Allergies Allergy Verified 05/22/22 14:36 [No Known Allergies*] Review of Systems Review of Systems Constitutional : No Weight loss, No Fever, No Chills, + Fatigue, + Malaise, + anorexia ENT/Mouth : No sore throat, No Rhinorrhea Eyes: No Eye Pain, No Swelling, No Redness Cardiovascular : No Chest Pain, No SOB, No Dyspnea on Exertion, No Orthopnea, No Edema, No Palpitations Respiratory : No Cough, No Sputum, No Wheezing Gastrointestinal : No Nausea, No Vomiting, No Diarrhea, No Constipation, + abdominal Pain, No Hematochezia, No Melena Genitourinary : No Dysuria, No Urinary Frequency, No Hematuria, Musculoskeletal : No joint pain, No Myalgias, No Joint Swelling Skin : No Skin Lesions, No rash Neuro : No Weakness, No Numbness, No Dizziness, No Headache Psych : No Anxiety/Panic, No Depression All other systems reviewed and are negative Yes all other systems are reviewed and are negative [facility] Past Medical History Attestation statement: The following information was validated with the patient. Source: old records reviewed and nursing notes reviewed Medical History C5 spinal cord injury Depression Headache Paralysis Periorbital cellulitis Pyelonephritis Quadriplegic spinal paralysis Substance abuse Urinary tract infection Social History Social History Alcohol intake: never Smoked in Last 30 Days: Yes Use of substances other than those prescribed or required for medical reasons: No Substance Use Type: Marijuana Advance Directives: No Advance Directives Information Provided: No Physical Exam ED Vital Signs: Vital Signs - 24 hr 02/18/23 15:09 02/18/23 15:21 Temperature 98.2 F Pulse Rate 60 Respiratory Rate 16 16 Blood Pressure 110/68 Pulse Oximetry 98 Oxygen Delivery Method Room Air BMI result Body Mass Index 19.8 Vital signs stable Appearance: Alert.? Oriented X3.? No acute distress.? Head: Normocephalic, atraumatic, no step-offs or deformities Eyes: Pupils equal, round and reactive to light.? Neck: Normal inspection.? Neck supple.? CVS: Normal heart rate and rhythm.? Pulses normal.? Respiratory: No respiratory distress.? Breath sounds normal.? Abdomen: Soft and + RLQ pain .?Normoactive bowel sounds Skin: Skin warm and dry.? Normal skin color.? Normal skin turgor.? Extremities: No lower extremity edema.? No calf ttp. 5/5 strength to bilateral upper and lower extremities Neuro: Oriented X 3.? No motor deficit.? No sensory deficit. CN 2-12 intact Course Reevaluation(s) Reevaluation #1: CBC appears to be within normal limits. Chemistry unremarkable no acute findings. Normal lipase. Urine noted to be infected. CT abdomen and pelvis with prominent gaseous distention of the colon with moderate to significant amount stool in the colon and rectum, will order a Fleet enema. Normal appendix. Query urinary bladder wall thickening, positive urine, will treat with Ceftin p.o. at discharge. Nonaggressive appearing heterogeneous sclerosis of the left ischial tuberosity which is been present the past common considered stable, educated patient on these findings. 3 mm pulmonary nodules, made patient aware of these findings. Plan at this time is Fleet enema, stool softener. The patient is stable for discharge back home. Educated patient on diagnosis and treatment plan, answered all question, patient verbalizes understanding. At this time patient will be discharged home, advised to return with new or worsening symptoms. Educated on worrisome signs and symptoms and when to return. At this time I feel comfortable discharge home. Time: 18:31 Medical Decision Making Medical Decision Making [facility] Narrative: 1619 33-year-old male presents with right lower quadrant pain, fatigue, malaise and anorexia for the past 3-4 days Physical exam right lower quadrant tenderness elicited with palpation. Concerns for appendicitis, other differentials include hernia versus viral illness. Unlikely acute abdomen, diverticulitis, cholecystitis, cholangitis, choledocholithiasis, obstruction, pancreatitis. Will rule out metabolic derangements and dehydration. Plan labs, imaging, urine Differential Diagnosis Differential Diagnoses: The differential diagnosis associated with the presentation includes Concerns for appendicitis, other differentials include hernia versus viral illness. Unlikely acute abdomen, diverticulitis, cholecystitis, cholangitis, choledocholithiasis, obstruction, pancreatitis. Will rule out metabolic derangements and dehydration. Admission/Observation Consideration of admission/observation: Escalation of care including admission/observation considered Possible Lab Data MDM Lab Attestation statement: I reviewed the patient's lab results. 02/18/23 16:03 02/18/23 16:03 Labs: Lab Results 02/18/23 02/18/23 02/18/23 Range/Units 16:03 16:03 16:03 WBC 7.1 (4.8-10.8) X10*3/uL RBC 4.72 (4.60-5.80) X10*6/uL Hgb 13.4 L (14.0-18.0) g/dl Hct 39.7 L (42.0-52.0) % MCV 84.1 (80.0-98.0) fL MCH 28.4 (27.0-33.0) pg MCHC 33.8 (31.0-36.0) g/dl RDW 13.2 (11.0-16.0) % Plt Count 214 (160-400) X10*3/uL MPV 10.5 (9.4-12.4) fL Immature Gran % (Auto) 0.3 (0.0-0.4) % Neut % (Auto) 69.5 (45-73) % Lymph % (Auto) 23.4 (20-40) % [place] % (Auto) 4.9 (2-11) % Eos % (Auto) 1.5 (0-4) % Baso % (Auto) 0.4 (0-2) % Lymph # (Auto) 1.7 (1.2-4.9) X10*3/uL [place] # (Auto) 0.4 (0.1-1.2) X10*3/uL Eos # (Auto) 0.1 (0.0-0.4) X10*3/uL Baso # (Auto) 0.0 (0.0-0.2) X10*3/uL Abs Immat Gran (auto) 0.02 (0.00-0.03) X10*3/uL Absolute Neuts (auto) 5.0 (2.0-8.3) x10*3/uL Absolute Nucleated RBC 0.000 (0.0-0.012) X10*3/uL Nucleated RBC % (auto) 0.0 (0.0-0.2) /100WBC Sodium 137 (135-145) mmol/L Potassium 4.2 (3.3-5.1) mmol/L Chloride 102 (96-108) mmol/L Carbon Dioxide 25 (22-29) mmol/L Anion Gap 14 (12-20) BUN 11 (9-16) mg/dL Creatinine 0.75 (0.5-1.4) mg/dL Estim Creat Clear Calc 132.4 Estimated GFR > 60 Random Glucose 78 (60-115) mg/dL Calcium 9.4 (8.4-10.2) mg/dL Magnesium 2.0 (1.6-2.6) mg/dL Total Bilirubin 0.6 (0.0-1.0) mg/dL AST 22 (5-37) U/L ALT 24 (0-40) U/L Alkaline Phosphatase 79 (39-117) U/L Total Protein 6.7 (6.5-8.0) g/dL Albumin 4.0 (3.5-5.0) g/dL Lipase 16 (8-78) U/L Urine Color Yellow Urine Appearance Cloudy Urine pH 6.0 (5.0-9.0) Ur Specific [place] 1.020 (1.005-1.025) Urine Protein 100 (2+) H (Neg-Trace) mg/dL Urine Glucose (UA) Negative (Negative) mg/dL Urine Ketones Trace (Negative) mg/dL Urine Blood Trace H (Negative) Urine Nitrite Positive H (Negative) Ur Leukocyte Esterase Large (3+) H (Negative) Urine RBC 0-2 (0-2) /HPF Urine WBC >50 H (0-5) /HPF Ur Squamous Epith Cells 6-10 (0-2) /HPF Urine Bacteria 4+ (None Seen) Hyaline Casts 3-5 (0-2) /LPF Independent Interpretation I performed an independent interpretation of an: CT Scan (CT/CT abdomen pelvis w IV con IMPRESSION: 1. Prominent gaseous distention of the colon with moderate to significant amount of stool burden in the colon and rectum. Correlate clinically for constipation. 2. Normal appendix. 3. Query urinary bladder wall thickening, correlation with urinalysis coul) Radiology Impression Discussion of test interpretation with radiology: I have reviewed the radiologist's reading. Core Measures AMI core measures followed: Yes Measure exclusions: not indicated Medications Administered Discontinued Medications Generic Name Dose Route Start Last Admin Trade Name Freq PRN Reason Stop Dose Admin Iohexol 100 ml 02/18/23 17:11 02/18/23 17:11 Iohexol 350 Mg/Ml 100 Ml Infus..Btl IV 02/18/23 17:12 85 ml ONCE ONE Administration Ketorolac Tromethamine 30 mg 02/18/23 16:20 02/18/23 17:39 Ketorolac Tromethamine 15 Mg/Ml Vial IVPUSH 02/18/23 16:21 30 mg ONCE ONE Administration Discharge Plan Discharge Clinical Impression: Abdominal pain, RLQ, UTI (urinary tract infection) due to urinary indwelling catheter, Constipation Patient Disposition: Home, Self-Care Instructions: Constipation (ED), Urinary Tract Infection in Men (ED), High Fiber Diet (ED), Abdominal Pain (ED) Additional Instructions: Take your medications as prescribed. If you were prescribed antibiotics today, it is important that you take your medication to their entirety, do not skip any doses, do not finish them early. Follow-up with your primary care provider this week. Return to the emergency department with new or worsening symptoms. Such as fevers, chills, chest pain, shortness of breath, nausea, vomiting, dizziness, headache, vision changes, lethargy In case of emergency call 911 CT/CT abdomen pelvis w IV con IMPRESSION: 1.? Prominent gaseous distention of the colon with moderate to significant amount of stool burden in the colon and rectum. Correlate clinically for constipation. 2.? Normal appendix. 3.? Query urinary bladder wall thickening, correlation with urinalysis could be obtained as clinically indicated. 4.? Stable indeterminate nonaggressive appearing heterogeneous sclerosis of the left ischial tuberosity compared to 10/14/2022 but new compared to ; correlate with point tenderness. Further evaluation with MRI could be obtained as clinically indicated. 5.? Scattered sub-3 mm pulmonary nodules. In patients younger than age 35, standard Fleischner Society recommendations for incidental pulmonary nodule follow-up do not apply as nodules in this age group are most likely to be infectious/inflammatory. Recommend clinical correlation with any risk factors to assess if follow-up of these nodules is clinically warranted. Prescriptions: New cefuroxime axetil 250 mg tablet 250 mg PO BID 7 Days Qty: 14 0RF sennosides [senna] 8.6 mg tablet 8.6 mg PO BEDTIME Qty: 14 0RF docusate sodium [Colace] 100 mg capsule 100 mg PO BID Qty: 20 0RF No Action cefpodoxime 200 mg tablet 200 mg PO BID 10 Days Qty: 20 0RF Rx Instructions: must administer with a meal/food oxycodone 5 mg tablet 5 mg PO Q4H PRN (Reason: pain) Qty: 14 0RF Rx Instructions: Patient may request partial fill quetiapine 25 mg tablet 3 tab PO BEDTIME tizanidine 4 mg tablet 2 tab PO Q8H PRN (Reason: muscle spasm) midodrine 5 mg tablet 2.5 tab PO BID baclofen 20 mg tablet 1 tab PO QID gabapentin 300 mg capsule 300 mg PO BID doxycycline hyclate 100 mg capsule 100 mg PO BID 10 Days Qty: 20 0RF prednisone 20 mg tablet 40 mg PO DAILY 5 Days Qty: 10 0RF albuterol sulfate 90 mcg/actuation aerosol powdr breath activated 2 inh inhalation Q4-6H PRN (Reason: shortness of breath or wheezing) Qty: 1 0RF levofloxacin 500 mg tablet 500 mg PO DAILY Qty: 7 0RF cefpodoxime 200 mg tablet 200 mg PO BID Qty: 20 0RF Rx Instructions: must administer with a meal/food dicyclomine 20 mg tablet 20 mg PO QID PRN (Reason: abdominal pain) Qty: 20 0RF cefdinir 300 mg capsule 300 mg PO BID 10 Days Qty: 20 0RF nitrofurantoin monohyd/m-cryst [Macrobid] 100 mg capsule 100 mg PO BID Qty: 20 0RF Rx Instructions: must administer with a meal/food oxycodone 5 mg tablet 5 mg PO Q6H PRN (Reason: pain) Qty: 20 0RF Rx Instructions: Partial Fill upon patient request. Referrals: Jn Serna [Emergency Nurse] - 2 days Stand Alone Forms: Work/School Release
[2023-02-18 16:18] LABS: MANUAL DIFF FLAG NO
[2023-02-18 16:21] LABS: Basophils Percent Auto 0.4 % (0-2); Eosinophils Absolute Auto 0.1 X10*3/uL (0.0-0.4); Eosinophils Percent Auto 1.5 % (0-4); Hematocrit 39.7 % (42.0-52.0); Hemoglobin 13.4 g/dl (14.0-18.0); Imm Gran Abs Auto 0.02 X10*3/uL (0.00-0.03); Imm Gran Pct Auto 0.3 % (0.0-0.4); Lymphocytes Absolute Auto 1.7 X10*3/uL (1.2-4.9); Lymphocytes Percent Auto 23.4 % (20-40); Mean Corpuscular HGB Conc 33.8 g/dl (31.0-36.0); Mean Corpuscular Hemoglobin 28.4 pg (27.0-33.0); Mean Corpuscular Volume 84.1 fL (80.0-98.0); Mean Platelet Volume 10.5 fL (9.4-12.4); Monocytes Absolute Auto 0.4 X10*3/uL (0.1-1.2); Monocytes Percent Auto 4.9 % (2-11); Neutrophils Percent Auto 69.5 % (45-73); Platelet Count 214 X10*3/uL (160-400); Red Blood Count 4.72 X10*6/uL (4.60-5.80); Red Cell Distribution Width 13.2 % (11.0-16.0); White Blood Count 7.1 X10*3/uL (4.8-10.8)
[2023-02-18 16:26] LABS: Appearance Urine Cloudy; Color Urine Yellow; Glucose Urine UA Negative (Negative); Leukocyte Esterase Urine Large (3+) (Negative); Nitrite Urine Positive (Negative); UMIC TRIGGER UACC YES; Urine Blood Trace (Negative); Urine Ketones Trace mg/dL (Negative); Urine Protein 100 (2+) mg/dL (Neg-Trace)
[2023-02-18 16:39] LABS: Alanine Aminotransferase 24 U/L (0-40); Alkaline Phosphatase 79 U/L (39-117); Anion Gap 14 (12-20); Aspartate Amino Transferase 22 U/L (5-37); Bilirubin Total 0.6 mg/dL (0.0-1.0); Blood Urea Nitrogen 11 mg/dL (9-16); Calcium 9.4 mg/dL (8.4-10.2); Carbon Dioxide 25 mmol/L (22-29); Chloride 102 mmol/L (96-108); Creatinine Clr Calc Pharmacy 132.4; Estimated Glomerular Filt Rate > 60; Glucose Random 78 mg/dL (60-115); Lipase 16 U/L (8-78); Potassium 4.2 mmol/L (3.3-5.1); Sodium 137 mmol/L (135-145); Total Protein 6.7 g/dL (6.5-8.0)
[2023-02-18 16:47] LABS: Bacteria Urine 4+ (None Seen); RBC Urine 0-2 /HPF (0-2); UACC Culture Trigger YES; WBC Urine >50 /HPF (0-5)
[2023-02-18] MEDS: iohexoL 350 MG/ML 100 ML INFUS..BTL IV (17:11)
[2023-02-18] MEDS: Ketorolac Tromethamine 15 MG/ML VIAL 30 MG IVPUSH (17:39)
[2023-02-18] MEDS: Sodium Phosphate,Mono-Dibasic 133 ML ENEMA PR (18:58)
[2023-02-18] MEDS: Docusate Sodium 100 MG/10 ML LIQUID PO (18:58)
[2023-02-18] MEDS: polyethylene glycoL 3350 17 GM POWD.PACK PO (18:58)
== END 2023-02-19 02:48 | disposition home or self-care (01) ==
PROVIDERS: Physician Assistant; Emergency Provider Emergency Medicine
DX: R10.31 Right lower quadrant pain (principal); T83.518A Infection and inflammatory reaction due to other urinary catheter, initial encounter; N39.0 Urinary tract infection, site not specified; B96.20 Unspecified Escherichia coli [E. coli] as the cause of diseases classified elsewhere; Y73.8 Miscellaneous gastroenterology and urology devices associated with adverse incidents, not elsewhere classified; Y92.9 Unspecified place or not applicable; K59.00 Constipation, unspecified; F12.90 Cannabis use, unspecified, uncomplicated; Z79.899 Other long term (current) drug therapy; Z96.0 Presence of urogenital implants
CPT/HCPCS: 36415; 74177; 80053; 81001; 83690; 83735; 85025; 87086; 87088; 87186; 96374; 99284; J1885; Q9967

== ENCOUNTER 2023-06-20 21:57 | Emergency (ER) | payer OTHER, SELFPAY ==
--- NOTE | ~2023-06-20 | CT_ITS ---
EXAMINATION: CT ANGIOGRAM OF THE CHEST WITH AND WITHOUT CONTRAST (CT PULMONARY ANGIOGRAM FOR PE) CLINICAL INFORMATION: Reason for Exam chest pain elevated ddimer(252) COMPARISON: None available. TECHNIQUE: Prior to contrast administration, noncontrast localization images were obtained. Subsequently, multidetector volumetric imaging was performed from the thoracic inlet to below the diaphragms following the administration of 65 mL Omnipaque 350 intravenous contrast. No contrast reaction reported Sagittal, coronal, and MIP oblique sagittal reformatted images were obtained on the CT workstation, uploaded to PACS, and reviewed. This CT examination was performed using dose optimization techniques as appropriate, variously including the following: *Automated exposure control *Adjustment of mA and/or kV according to patient size (this includes techniques or standardized protocols for targeted exams where dose is matched to indication/reason for exam; i.e. extremities or head) *Use of iterative reconstruction technique Total exam dose-length product 360 mGy-cm FINDINGS: QUALITY OF STUDY/CONTRAST BOLUS: Satisfactory. PULMONARY ARTERIES: No pulmonary emboli. THORACIC AORTA: No aneurysm. LUNG: There is mild dependent basilar atelectatic change. The lungs are otherwise clear. PLEURA: No pleural effusion or pneumothorax. MEDIASTINUM: Normal heart size. No pericardial effusion. No hilar or mediastinal lymphadenopathy. No evidence of septal bowing or right heart strain. CORONARY ARTERY CALCIFICATION: None visualized on this study. CHEST WALL/AXILLA: No axillary or internal mammary lymphadenopathy. OSSEOUS STRUCTURES: No acute or suspicious osseous abnormality. UPPER ABDOMEN: Unremarkable. No reflux of contrast into the hepatic veins to suggest elevated right heart pressures. CT/CT angio chest PE protocol IMPRESSION: No evidence of pulmonary embolism. No active cardiopulmonary disease. VTE: Negative.
--- NOTE | ~2023-06-20 | US_ITS ---
EXAMINATION: US GALLBLADDER CLINICAL INFORMATION: Abdominal. COMPARISON: None available. TECHNIQUE: Real-time imaging of the gallbladder only. FINDINGS: GALLBLADDER: Normal. The gallbladder is physiologically distended without evidence of stones, sludge, polyps, wall thickening or pericholecystic fluid. COMMON BILE DUCT: Normal in caliber measuring 0.3 cm in diameter. FREE FLUID: None visualized around the gallbladder. US/US abdomen limited IMPRESSION: Normal gallbladder ultrasound.
--- NOTE | ~2023-06-20 | XR_ITS ---
EXAMINATION: XR CHEST CLINICAL INFORMATION: Chest pain COMPARISON: 07/08/2022 TECHNIQUE: Frontal view of the chest was obtained. FINDINGS: There is a marked scoliosis convex to the left. Otherwise no significant abnormality is noted involving the heart, lungs, mediastinum, bony thorax or soft tissues. XR/XR chest 1V IMPRESSION: Marked scoliosis. No acute intrathoracic disease.
--- NOTE | 2023-06-20 22:11 | ECG_ITS ---
Test Reason : CX PAIN Blood Pressure : / mmHG Vent. Rate : 058 BPM Atrial Rate : 058 BPM P-R Int : 138 ms QRS Dur : 086 ms QT Int : 618 ms P-R-T Axes : 000 079 068 degrees QTc Int : 606 ms Artifact in tracing Sinus bradycardia Due to artifact, cannot assess When compared with ECG of 18-MAY-2020 14:59, due to poor quality, cannot compare. Referred By: Generic ED Physician Electronically Signed By:SARINA CUEVAS
[2023-06-20 22:15] VITALS: BP 102/45; BP 136/78; PULSE 56; PULSE 73; RESP 17; O2SAT 97; O2SAT 98; BMI 20.9
[2023-06-20 22:28] VITALS: TEMP 36.9
--- NOTE | 2023-06-20 22:32 | ED_ITS ---
HPI - Chest Pain General Chief Complaint: Chest Pain Stated Complaint: CHEST PAIN Time Seen by Provider: 06/20/23 22:15 Source: patient and old records reviewed Mode of arrival: EMS Limitations: no limitations History of Present Illness HPI narrative: 33 yo male with PMH of catheter and UTI, C5 spinal cord injury and paralysis, depression here with c/o not feeling well since Tuesday did have a fever on Tuesday, notes he just hasn't eaten much since Tuesday and feels his stomach is in knots but no n/v/d. He just had no appetite. He does not have pain. Tonight in bed around 9pm he felt pain in L chest intermittent and stabbing and felt tingling down L arm. He took 324mg asa [employer] without relief. He has had no change in medications, travel, procedures or vaccines. MD complaint: chest pain Onset (ago): hour(s) (9pm today) Timing of current episode: now resolved Prior episodes: No Onset: during rest Pain location: left chest Pain radiation: left arm Quality: sharp Relieving factors: nothing Exacerbating factors: nothing Context: recent illness Treatment prior to arrival: aspirin Related Data Home Medications Medication Instructions Recorded Confirmed baclofen 20 mg tablet 1 tab PO QID 07/17/20 07/17/20 gabapentin 300 mg capsule 300 mg PO BID 07/17/20 07/17/20 midodrine 5 mg tablet 2.5 tab PO BID 07/17/20 07/17/20 quetiapine 25 mg tablet 3 tab PO BEDTIME 07/17/20 07/17/20 tizanidine 4 mg tablet 2 tab PO Q8H PRN muscle spasm 07/17/20 07/17/20 Previous Rx's Medication Instructions Recorded cefpodoxime 200 mg tablet 200 mg PO BID 10 days #20 tabs 07/12/20 oxycodone 5 mg tablet 5 mg PO Q4H PRN pain #14 tabs 07/15/20 levofloxacin 500 mg tablet 500 mg PO DAILY #7 tabs 05/22/22 albuterol sulfate 90 mcg/actuation 2 inh inhalation Q4-6H PRN 07/08/22 breath activated powder inhaler shortness of breath or wheezing #1 ea doxycycline hyclate 100 mg capsule 100 mg PO BID 10 days #20 caps 07/08/22 prednisone 20 mg tablet 40 mg (2 x 20 mg) PO DAILY 5 days 07/08/22 #10 tabs cefpodoxime 200 mg tablet 200 mg PO BID #20 tabs 10/15/22 dicyclomine 20 mg tablet 20 mg PO QID PRN abdominal pain 10/15/22 #20 tabs cefdinir 300 mg capsule 300 mg PO BID 10 days #20 caps 12/24/22 nitrofurantoin 100 mg PO BID #20 caps 01/07/23 monohydrate/macrocrystals 100 mg capsule (Macrobid) oxycodone 5 mg tablet 5 mg PO Q6H PRN pain #20 tabs 01/07/23 cefuroxime axetil 250 mg tablet 250 mg PO BID 7 days #14 tabs 02/18/23 docusate sodium 100 mg capsule 100 mg PO BID #20 caps 02/18/23 (Colace) sennosides 8.6 mg tablet (senna) 8.6 mg PO BEDTIME #14 tabs 02/18/23 cefuroxime axetil 500 mg tablet 500 mg PO BID 10 days #20 tabs 06/21/23 Allergies Allergy/AdvReac Type Severity Reaction Status Date / Time No Known Allergies Allergy Verified 06/20/23 22:18 [No Known Allergies*] Review of Systems 2 Review of Systems: Constitutional : No Weight loss, No Fever, No Chills ENT/Mouth : No sore throat, No Rhinorrhea Eyes: No Eye Pain, No Swelling Cardiovascular : pos Chest Pain, no SOB, no Dyspnea on Exertion, No Orthopnea, No Edema, No Palpitations Respiratory : No Cough, No Sputum Gastrointestinal : no Nausea, No Vomiting, No Diarrhea, No abdominal Pain, No Hematochezia, No Melena Genitourinary : No Dysuria, No Urinary Frequency Musculoskeletal : No joint pain, No Myalgias, No Joint Swelling Skin : No Skin Lesions, No rash Neuro : No Weakness, No Numbness, No Dizziness, No Headache Psych : No Anxiety/Panic, No Depression Heme/Lymph: No Bruising, No Lymphadenopathy Endocrine : No Polyuria, No Polydipsia All other systems reviewed and are negative [facility] Past Medical History Attestation statement: The following information was validated with the patient. Source: old records reviewed 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 Pyelonephritis Paralysis Social History Social History Alcohol intake: never Smoked in Last 30 Days: Yes Use of substances other than those prescribed or required for medical reasons: Yes Substance Use Type: Marijuana Substance Use Frequency: Daily Last Used Substance: Hours (ago) Advance Directives: No Advance Directives Information Provided: No Physical Exam 2 Vital Signs: Vital Signs: Last Vital Signs Temp 98.1 F 06/21/23 00:18 Pulse 58 06/21/23 00:18 Resp 10 L 06/21/23 00:18 BP 107/65 06/21/23 00:18 Pulse Ox 98 06/21/23 00:18 O2 Del Method Room Air 06/21/23 00:18 BMI result Body Mass Index 20.9 Appearance: Alert. Oriented X3. No acute distress. Eyes: Pupils equal, round and reactive to light. ENT: Pharynx normal. Neck: Normal inspection. Neck supple. CVS: Normal heart rate and rhythm. Pulses normal. Respiratory: No respiratory distress. Breath sounds normal. Abdomen: Soft and nontender. Skin: Skin warm and dry. Normal skin color. Normal skin turgor. Extremities: No lower extremity edema. No calf ttp Neuro: Oriented X 3. C5 SCI has movement in UE Course Course Course Narrative: infection suspected - IV ceftriaxone ordered 112am Medications Administered Discontinued Medications Generic Name Dose Route Start Last Admin Trade Name Freq PRN Reason Stop Dose Admin Sodium Chloride 1,000 mls @ 999 mls/hr 06/20/23 22:30 06/21/23 00:47 Ns IV 06/20/23 23:30 Infused .Q1H1M MOE Infusion Ceftriaxone Sodium 1 gm/ 50 mls @ 100 mls/hr 06/21/23 01:11 06/21/23 02:18 Sodium Chloride IV 06/21/23 01:40 100 mls/hr ONCE ONE Administration Iohexol 65 ml 06/21/23 01:51 06/21/23 01:52 Iohexol 350 Mg/Ml 100 Ml Infus..Btl IV 06/21/23 01:52 65 ml ONCE ONE Administration Medical Decision Making Medical Decision Making MDM Narrative: 33 yo male with PMH of catheter and UTI, C5 spinal cord injury and paralysis, depression here with c/o atypical chest pain without known ACS risk factors in patient or family at this time EKG, CXR, troponin x 2, ddimer, CXR for pneumonia, labs, and UA - he denies need for pain medications at this time. Could be MSK vs viral syndrome vs pericarditis/myocarditis/VTE. Differential Diagnosis Differential Diagnoses: The differential diagnosis associated with the presentation includes atypical chest pain, viral issue, pericarditis, myocarditis, VTE, Admission/Observation Consideration of admission/observation: Escalation of care including admission/observation considered not toxic, VS stable, CTA negative, trop flat x 2, no signs of sepsis - can start on ceftin and DC home Lab Data MDM Lab Attestation statement: I reviewed the patient's lab results. 06/20/23 22:42 06/20/23 22:42 Labs: Lab Results 06/20/23 06/21/23 06/21/23 Range/Units 22:42 00:48 02:11 WBC 7.6 (4.8-10.8) X10*3/uL RBC 4.47 L (4.60-5.80) X10*6/uL Hgb 12.8 L (14.0-18.0) g/dl Hct 38.7 L (42.0-52.0) % MCV 86.6 (80.0-98.0) fL MCH 28.6 (27.0-33.0) pg MCHC 33.1 (31.0-36.0) g/dl RDW 12.9 (11.0-16.0) % Plt Count 212 (160-400) X10*3/uL MPV 10.4 (9.4-12.4) fL Immature Gran % (Auto) 0.4 (0.0-0.4) % Neut % (Auto) 68.6 (45-73) % Lymph % (Auto) 21.3 (20-40) % [place] % (Auto) 7.5 (2-11) % Eos % (Auto) 1.8 (0-4) % Baso % (Auto) 0.4 (0-2) % Lymph # (Auto) 1.6 (1.2-4.9) X10*3/uL [place] # (Auto) 0.6 (0.1-1.2) X10*3/uL Eos # (Auto) 0.1 (0.0-0.4) X10*3/uL Baso # (Auto) 0.0 (0.0-0.2) X10*3/uL Abs Immat Gran (auto) 0.03 (0.00-0.03) X10*3/uL Absolute Neuts (auto) 5.2 (2.0-8.3) x10*3/uL Absolute Nucleated RBC 0.000 (0.0-0.012) X10*3/uL Nucleated RBC % (auto) 0.0 (0.0-0.2) /100WBC D-Dimer High Sensitivty 252 NG/ML Sodium 138 (135-145) mmol/L Potassium 4.3 (3.3-5.1) mmol/L Chloride 101 (96-108) mmol/L Carbon Dioxide 26 (22-29) mmol/L Anion Gap 15 (12-20) BUN 8 L (9-16) mg/dL Creatinine 0.70 (0.5-1.4) mg/dL Estim Creat Clear Calc 149.7 Estimated GFR > 60 Random Glucose 76 (60-115) mg/dL Lactic Acid 0.6 (0.5-2.0) mmol/L Calcium 9.6 (8.4-10.2) mg/dL Magnesium 2.0 (1.6-2.6) mg/dL Total Bilirubin 0.4 (0.0-1.0) mg/dL Direct Bilirubin 0.1 (0.0-0.5) mg/dL AST 44 H (5-37) U/L ALT 57 H (0-40) U/L Alkaline Phosphatase 90 (39-117) U/L Troponin I High Sens < 2.7 < 2.7 (<3.5-35.0) ng/L Total Protein 7.2 (6.5-8.0) g/dL Albumin 3.7 (3.5-5.0) g/dL Lipase 9 (8-78) U/L Urine Color Yellow Urine Appearance Turbid Urine pH 6.0 (5.0-9.0) Ur Specific [place] >= 1.030 H (1.005-1.025) Urine Protein 30 (1+) H (Neg-Trace) mg/dL Urine Glucose (UA) Negative (Negative) mg/dL Urine Ketones Trace (Negative) mg/dL Urine Blood Negative (Negative) Urine Nitrite Positive H (Negative) Ur Leukocyte Esterase Moderate (2+) H (Negative) Urine RBC 3-5 H (0-2) /HPF Urine WBC >50 H (0-5) /HPF Ur Squamous Epith Cells >20 (0-2) /HPF Urine Bacteria 4+ (None Seen) Hyaline Casts 6-10 (0-2) /LPF Influenza Type A (PCR) NEGATIVE (Negative) Influenza Type B (PCR) NEGATIVE (Negative) RSV RNA Qual (PCR) NEGATIVE (Negative) SARS-CoV-2 RNA (RT-PCR) NEGATIVE (Negative) Independent Interpretation I performed an independent interpretation of an: EKG, Plain X-Ray (no pneumonia) and CT Scan (no PE or pneumonia) Interpretation: Rate: 58 Rhythm: sinus bradycardia [place]: normal Normal P waves. Normal MARIAM. Normal QRS complex. ST T wave : sig artifact but no ANIRUDH qTC: prolonged prior studies: given artifact cannot assess The study has been interpreted contemporaneously by me. . Radiology Impression Discussion of test interpretation with radiology: I have reviewed the radiologist's reading. Independent Historian Clinical information obtained from an independent historian. History obtained from or confirmed by: EMS External Record Review External record reviewed: Inpatient record Prescription Management I considered prescription management with: Antibiotic Discharge Plan Discharge Clinical Impression: Atypical chest pain, Elevated liver enzymes UTI (urinary tract infection) due to urinary indwelling catheter Qualifiers: Indwelling urinary catheter type: indwelling urethral catheter Encounter type: initial encounter Qualified Code(s): T83.511A - Infection and inflammatory reaction due to indwelling urethral catheter, initial encounter Patient Disposition: Home, Self-Care Instructions: Chest Pain (ED), Urinary Tract Infection in Men (ED) Additional Instructions: no pneumonia or blood clots, tests for heart normal x2, + UTI, return for worsening pain, fevers, vomiting or any other concerns. very mild bump in your liver enzymes but ultrasound was normal - recheck with your doctor in 48 hours Take a probiotic while you are on antibiotics and for at least one week after the antibiotics are finished - this can help protect your GI system from diarrhea and other issues. You can get probiotics by drinking kefir, eating yogurt or culturelle or another pill form of probiotic. Do not take it at the same time as you take the antibiotic.?More than 6 to 8 loose stools a day is not normal seek care if this happens On a cephalosporin?antibiotic, softer bowel movements are to be expected. Call your provider if you move your bowels more than 4 times a day, your bowel movements are almost all liquid, or you get a rash.?? Prescriptions: New cefuroxime axetil 500 mg tablet 500 mg PO BID 10 Days Qty: 20 0RF No Action cefpodoxime 200 mg tablet 200 mg PO BID 10 Days Qty: 20 0RF Rx Instructions: must administer with a meal/food oxycodone 5 mg tablet 5 mg PO Q4H PRN (Reason: pain) Qty: 14 0RF Rx Instructions: Patient may request partial fill quetiapine 25 mg tablet 3 tab PO BEDTIME tizanidine 4 mg tablet 2 tab PO Q8H PRN (Reason: muscle spasm) midodrine 5 mg tablet 2.5 tab PO BID baclofen 20 mg tablet 1 tab PO QID gabapentin 300 mg capsule 300 mg PO BID doxycycline hyclate 100 mg capsule 100 mg PO BID 10 Days Qty: 20 0RF prednisone 20 mg tablet 40 mg PO DAILY 5 Days Qty: 10 0RF albuterol sulfate 90 mcg/actuation aerosol powdr breath activated 2 inh inhalation Q4-6H PRN (Reason: shortness of breath or wheezing) Qty: 1 0RF levofloxacin 500 mg tablet 500 mg PO DAILY Qty: 7 0RF cefpodoxime 200 mg tablet 200 mg PO BID Qty: 20 0RF Rx Instructions: must administer with a meal/food dicyclomine 20 mg tablet 20 mg PO QID PRN (Reason: abdominal pain) Qty: 20 0RF cefdinir 300 mg capsule 300 mg PO BID 10 Days Qty: 20 0RF nitrofurantoin monohyd/m-cryst [Macrobid] 100 mg capsule 100 mg PO BID Qty: 20 0RF Rx Instructions: must administer with a meal/food oxycodone 5 mg tablet 5 mg PO Q6H PRN (Reason: pain) Qty: 20 0RF Rx Instructions: Partial Fill upon patient request. cefuroxime axetil 250 mg tablet 250 mg PO BID 7 Days Qty: 14 0RF sennosides [senna] 8.6 mg tablet 8.6 mg PO BEDTIME Qty: 14 0RF docusate sodium [Colace] 100 mg capsule 100 mg PO BID Qty: 20 0RF
[2023-06-20] MEDS: 0.9 % Sodium Chloride 1,000 ML 999 ML IV (22:48)
[2023-06-20 22:49] LABS: MANUAL DIFF FLAG NO
[2023-06-20 22:51] LABS: Basophils Percent Auto 0.4 % (0-2); Eosinophils Absolute Auto 0.1 X10*3/uL (0.0-0.4); Eosinophils Percent Auto 1.8 % (0-4); Hematocrit 38.7 % (42.0-52.0); Hemoglobin 12.8 g/dl (14.0-18.0); Imm Gran Abs Auto 0.03 X10*3/uL (0.00-0.03); Imm Gran Pct Auto 0.4 % (0.0-0.4); Lymphocytes Absolute Auto 1.6 X10*3/uL (1.2-4.9); Lymphocytes Percent Auto 21.3 % (20-40); Mean Corpuscular HGB Conc 33.1 g/dl (31.0-36.0); Mean Corpuscular Hemoglobin 28.6 pg (27.0-33.0); Mean Corpuscular Volume 86.6 fL (80.0-98.0); Mean Platelet Volume 10.4 fL (9.4-12.4); Monocytes Absolute Auto 0.6 X10*3/uL (0.1-1.2); Monocytes Percent Auto 7.5 % (2-11); Neutrophils Absolute Auto 5.2 x10*3/uL (2.0-8.3); Neutrophils Percent Auto 68.6 % (45-73); Platelet Count 212 X10*3/uL (160-400); Red Blood Count 4.47 X10*6/uL (4.60-5.80); Red Cell Distribution Width 12.9 % (11.0-16.0); White Blood Count 7.6 X10*3/uL (4.8-10.8)
[2023-06-20 22:59] LABS: D Dimer High Sensitivity 252 NG/ML
[2023-06-20 23:04] LABS: Anion Gap 15 (12-20); Blood Urea Nitrogen 8 mg/dL (9-16); Calcium 9.6 mg/dL (8.4-10.2); Carbon Dioxide 26 mmol/L (22-29); Chloride 101 mmol/L (96-108); Creatinine Clr Calc Pharmacy 149.7; Estimated Glomerular Filt Rate > 60; Glucose Random 76 mg/dL (60-115); Potassium 4.3 mmol/L (3.3-5.1); Sodium 138 mmol/L (135-145)
[2023-06-20 23:06] LABS: Alanine Aminotransferase 57 U/L (0-40); Albumin Level 3.7 g/dL (3.5-5.0); Alkaline Phosphatase 90 U/L (39-117); Aspartate Amino Transferase 44 U/L (5-37); Bilirubin Direct 0.1 mg/dL (0.0-0.5); Bilirubin Total 0.4 mg/dL (0.0-1.0); Lipase 9 U/L (8-78); Total Protein 7.2 g/dL (6.5-8.0)
--- NOTE | 2023-06-20 23:09 | MHC.EDTECH ---
assumed care of patient @ 2300 ekg done on previous shift not documented. Ekg documented by this continuity writer
[2023-06-20 23:13] LABS: Troponin-I High Sensitivity < 2.7 ng/L (<3.5-35.0)
[2023-06-20 23:28] LABS: Influenza A PCR NEGATIVE (Negative); Influenza B PCR NEGATIVE (Negative); Resp Syncy Virus RNA Qual PCR NEGATIVE (Negative); SARS COV2 PCR INHOUSE NEGATIVE (Negative)
--- NOTE | 2023-06-20 23:37 | PC.NURSE ---
pt resting in stretcher at this time, no acute distress noted.
[2023-06-21 00:18] VITALS: BP 107/65; PULSE 58; RESP 10; TEMP 36.7; O2SAT 98
[2023-06-21 00:56] LABS: Appearance Urine Turbid; Color Urine Yellow; Glucose Urine UA Negative (Negative); Leukocyte Esterase Urine Moderate (2+) (Negative); Nitrite Urine Positive (Negative); Specific Gravity - Urine >= 1.030 (1.005-1.025); UMIC TRIGGER UACC YES; Urine Blood Negative (Negative); Urine Ketones Trace mg/dL (Negative); Urine Protein 30 (1+) mg/dL (Neg-Trace)
[2023-06-21 01:06] LABS: Bacteria Urine 4+ (None Seen); Squamous Epithelial Cell Urine >20 /HPF (0-2); UACC Culture Trigger YES; WBC Urine >50 /HPF (0-5)
[2023-06-21] MEDS: iohexoL 350 MG/ML 100 ML INFUS..BTL 65 ML IV (01:52)
[2023-06-21] MEDS: cefTRIAXone sodium 1 GM in 0.9 % Sodium Chloride 50 ML IV (02:18)
--- NOTE | 2023-06-21 02:20 | PC.NURSE ---
delay in antibiotic administration due to needing blood cultures drawn. blood cultures now obtained and antibiotics administered.
[2023-06-21 02:29] LABS: Lactic Acid 0.6 mmol/L (0.5-2.0)
[2023-06-21 02:45] LABS: Troponin-I High Sensitivity < 2.7 ng/L (<3.5-35.0)
[2023-06-21 04:32] VITALS: BP 100/68; PULSE 61; RESP 15; TEMP 37.2; O2SAT 98
--- NOTE | 2023-06-21 04:32 | PC.NURSE ---
ems at bedside to transport pt home. report given to ems staff. pt understands d.c instructions.
== END 2023-06-21 04:34 | disposition home or self-care (01) ==
PROVIDERS: Emergency Provider Emergency Medicine
DX: R07.89 Other chest pain (principal); R79.89 Other specified abnormal findings of blood chemistry; R00.1 Bradycardia, unspecified; R11.2 Nausea with vomiting, unspecified; N39.0 Urinary tract infection, site not specified; Z20.828 Contact with and (suspected) exposure to other viral communicable diseases; Z20.822 Contact with and (suspected) exposure to COVID-19; Z79.899 Other long term (current) drug therapy
CPT/HCPCS: 0241U; 36415; 71045; 71275; 76705; 80048; 80076; 81001; 83605; 83690; 83735; 84484; 85025; 85379; 87040; 87086; 87088; 87186; 93005; 96361; 96365; 99285; J0696; Q9967

== ENCOUNTER → 2023-06-20 22:11 | Outpatient (BNV) | payer OTHER, SELFPAY | PROVIDERS: Emergency Provider Emergency Medicine; Visit Provider Internal Medicine | DX: R00.1 Bradycardia, unspecified (principal) | CPT/HCPCS: 93010 ==

== ENCOUNTER 2023-09-01 15:53 | Emergency (ER) | payer OTHER, SELFPAY ==
[2023-09-01 16:24] VITALS: BP 104/65; BP 110/60; PULSE 60; PULSE 78; RESP 14; TEMP 36.8; O2SAT 96; O2SAT 97; BMI 22.2
--- NOTE | 2023-09-01 16:39 | ED.MALEGU ---
HPI - Male Genitourinary General Chief complaint: Urogenital-Male Stated complaint: Quadriplegic, growing pain shooting up leg to sohail Time Seen by Provider: 09/01/23 16:37 Source: patient Limitations: no limitations History of Present Illness HPI Narrative: Patient is 33 years old with C5 injury paraplegia with intact sensation, indwelling Marie catheter with frequent UTI with Enterobacter and E coli, depression treated with antibiotic Ceftin for UTI on 06/21/23 comes here for left groin pain for last 4 days, getting worse had some chills and low-grade fever no appetite gets suprapubic discomfort Marie catheter was changed 1 week ago no cough no nausea no vomiting Related Data Home Medications Medication Instructions Recorded Confirmed baclofen 20 mg tablet 1 tab PO QID 07/17/20 07/17/20 gabapentin 300 mg capsule 300 mg PO BID 07/17/20 07/17/20 midodrine 5 mg tablet 2.5 tab PO BID 07/17/20 07/17/20 quetiapine 25 mg tablet 3 tab PO BEDTIME 07/17/20 07/17/20 tizanidine 4 mg tablet 2 tab PO Q8H PRN muscle spasm 07/17/20 07/17/20 Previous Rx's Medication Instructions Recorded cefpodoxime 200 mg tablet 200 mg PO BID 10 days #20 tabs 07/12/20 oxycodone 5 mg tablet 5 mg PO Q4H PRN pain #14 tabs 07/15/20 levofloxacin 500 mg tablet 500 mg PO DAILY #7 tabs 05/22/22 albuterol sulfate 90 mcg/actuation 2 inh inhalation Q4-6H PRN 07/08/22 breath activated powder inhaler shortness of breath or wheezing #1 ea doxycycline hyclate 100 mg capsule 100 mg PO BID 10 days #20 caps 07/08/22 prednisone 20 mg tablet 40 mg (2 x 20 mg) PO DAILY 5 days 07/08/22 #10 tabs cefpodoxime 200 mg tablet 200 mg PO BID #20 tabs 10/15/22 dicyclomine 20 mg tablet 20 mg PO QID PRN abdominal pain 10/15/22 #20 tabs cefdinir 300 mg capsule 300 mg PO BID 10 days #20 caps 12/24/22 nitrofurantoin 100 mg PO BID #20 caps 01/07/23 monohydrate/macrocrystals 100 mg capsule (Macrobid) oxycodone 5 mg tablet 5 mg PO Q6H PRN pain #20 tabs 01/07/23 cefuroxime axetil 250 mg tablet 250 mg PO BID 7 days #14 tabs 02/18/23 docusate sodium 100 mg capsule 100 mg PO BID #20 caps 02/18/23 (Colace) sennosides 8.6 mg tablet (senna) 8.6 mg PO BEDTIME #14 tabs 02/18/23 cefuroxime axetil 500 mg tablet 500 mg PO BID 10 days #20 tabs 06/21/23 cefuroxime axetil 250 mg tablet 250 mg PO BID 7 days #14 tabs 09/01/23 ciprofloxacin HCl 500 mg tablet 500 mg PO BID #7 tabs 09/01/23 (Cipro) miconazole nitrate 2 % topical 1 spray topical BID #133 grams 09/01/23 spray powder (Lotrimin AF Powder) Allergies Allergy/AdvReac Type Severity Reaction Status Date / Time No Known Allergies Allergy Verified 06/20/23 22:18 [No Known Allergies*] Review of Systems Review of Systems: Yes all other systems are reviewed and are negative PMFSH Past Medical History 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 Pyelonephritis Paralysis Social History Social History Alcohol intake: current Alcohol intake frequency: holidays/special occasions only Smoked in Last 30 Days: Yes Use of substances other than those prescribed or required for medical reasons: Yes Substance Use Type: Marijuana Substance Use Frequency: Occasionally Last Used Substance: Days (ago) Advance Directives: No Advance Directives Information Provided: No Physical Exam Vital Signs: Vital Signs: Last Vital Signs Temp 98.0 F 09/01/23 22:24 Pulse 75 09/01/23 22:24 Resp 11 L 09/01/23 22:24 BP 106/62 09/01/23 22:24 Pulse Ox 99 09/01/23 22:24 O2 Del Method Room Air 09/01/23 22:24 BMI result Body Mass Index 22.2 Appearance: Alert. Oriented X3. No acute distress. Eyes: PERRLA ENT: Pharynx normal. Oral Mucosa moist Neck: Normal inspection. Neck supple. CVS: Normal heart rate and rhythm. Pulses normal. Respiratory: No respiratory distress. Equal air entry bilateral, no wheezing/rales/rhonchi Abdomen: Soft and nontender. Bowel sounds are present, no mass palpable, no CVA tenderness suprapubic catheter in place intertrigo+ normal size testicles nontender Skin: Skin warm and dry. Normal skin color. Normal skin turgor. Extremities: No lower extremity edema. No calf tenderness Neuro: Oriented X 3. Paraplegic Medications Administered Discontinued Medications Generic Name Dose Route Start Last Admin Trade Name Freq PRN Reason Stop Dose Admin Levofloxacin 500 mg in 100 mls @ 100 mls/hr 09/01/23 20:13 09/01/23 22:29 Levaquin IV 09/01/23 21:12 Infused ONCE ONE Infusion Ceftriaxone Sodium 1 gm/ 50 mls @ 100 mls/hr 09/01/23 20:14 09/01/23 22:30 Sodium Chloride IV 09/01/23 20:43 Infused ONCE ONE Infusion Sodium Chloride 1,000 mls @ 999 mls/hr 09/01/23 20:15 09/01/23 22:30 Ns IV 09/01/23 21:15 Infused .Q1H1M ONE Infusion Ketorolac Tromethamine 30 mg 09/01/23 20:17 09/01/23 20:49 Ketorolac Tromethamine 30 Mg/Ml Vial IVPUSH 09/01/23 20:18 30 mg ONCE ONE Administration Medical Decision Making Medical Decision Making [facility] Narrative: Patient has acute cystitis with indwelling suprapubic catheter responded to IV fluids IV Levaquin was given in the ER for Enterobacter cloacae which was grown in last urine culture and patient also received IV Rocephin for E coli which was resistant to Levaquin, patient feeling much better at the time of discharge spasm have decreased discharge patient home on Cipro and Ceftin Differential Diagnosis Differential Diagnoses: The differential diagnosis associated with the presentation includes Acute cystitis/UTI Admission/Observation Consideration of admission/observation: Escalation of care including admission/observation considered Lab Data [facility] Lab Attestation statement: I reviewed the patient's lab results. 09/01/23 17:28 09/01/23 17:28 Labs: Lab Results 09/01/23 09/01/23 09/01/23 Range/Units 17:28 19:31 20:51 WBC 8.7 (4.8-10.8) X10*3/uL RBC 4.74 (4.60-5.80) X10*6/uL Hgb 13.5 L (14.0-18.0) g/dl Hct 40.4 L (42.0-52.0) % MCV 85.2 (80.0-98.0) fL MCH 28.5 (27.0-33.0) pg MCHC 33.4 (31.0-36.0) g/dl RDW 13.2 (11.0-16.0) % Plt Count 201 (160-400) X10*3/uL MPV 10.8 (9.4-12.4) fL Immature Gran % (Auto) 0.2 (0.0-0.4) % Neut % (Auto) 70.7 (45-73) % Lymph % (Auto) 21.2 (20-40) % [place] % (Auto) 5.9 (2-11) % Eos % (Auto) 1.7 (0-4) % Baso % (Auto) 0.3 (0-2) % Lymph # (Auto) 1.8 (1.2-4.9) X10*3/uL [place] # (Auto) 0.5 (0.1-1.2) X10*3/uL Eos # (Auto) 0.2 (0.0-0.4) X10*3/uL Baso # (Auto) 0.0 (0.0-0.2) X10*3/uL Abs Immat Gran (auto) 0.02 (0.00-0.03) X10*3/uL Absolute Neuts (auto) 6.1 (2.0-8.3) x10*3/uL Absolute Nucleated RBC 0.000 (0.0-0.012) X10*3/uL Nucleated RBC % (auto) 0.0 (0.0-0.2) /100WBC Sodium 138 (135-145) mmol/L Potassium 3.9 (3.3-5.1) mmol/L Chloride 103 (96-108) mmol/L Carbon Dioxide 27 (22-29) mmol/L Anion Gap 12 (12-20) BUN 8 L (9-16) mg/dL Creatinine 0.75 (0.5-1.4) mg/dL Estim Creat Clear Calc 140.6 Estimated GFR > 60 Random Glucose 71 (60-115) mg/dL Lactic Acid 1.2 (0.5-2.0) mmol/L Calcium 9.2 (8.4-10.2) mg/dL Total Bilirubin 0.4 (0.0-1.0) mg/dL AST 20 (5-37) U/L ALT 24 (0-40) U/L Alkaline Phosphatase 86 (39-117) U/L Total Protein 6.8 (6.5-8.0) g/dL Albumin 4.0 (3.5-5.0) g/dL Urine Color Dark Yellow Urine Appearance Cloudy Urine pH 6.5 (5.0-9.0) Ur Specific [place] 1.025 (1.005-1.025) Urine Protein 100 (2+) H (Neg-Trace) mg/dL Urine Glucose (UA) Negative (Negative) mg/dL Urine Ketones Trace (Negative) mg/dL Urine Blood Negative (Negative) Urine Nitrite Positive H (Negative) Ur Leukocyte Esterase Moderate (2+) H (Negative) Urine RBC 0-2 (0-2) /HPF Urine WBC 6-10 (0-5) /HPF Ur Squamous Epith Cells 6-10 (0-2) /HPF Urine Bacteria 4+ (None Seen) Hyaline Casts 0-2 (0-2) /LPF COVID-19 (NEELAM) Negative (Negative) COVID-19 Clin Com See Note Discharge Plan Discharge Clinical Impression: Urinary tract infection Patient Disposition: Home, Self-Care Instructions: Urinary Tract Infection in Men (ED) Additional Instructions: Drink plenty of fluids Take antibiotics as prescribed Report to the ER if fever/chills not feeling good Prescriptions: New ciprofloxacin HCl [Cipro] 500 mg tablet 500 mg PO BID Qty: 7 0RF cefuroxime axetil 250 mg tablet 250 mg PO BID 7 Days Qty: 14 0RF miconazole nitrate [Lotrimin AF Powder] 2 % aerosol powder 1 spray topical BID Qty: 133 1RF No Action cefpodoxime 200 mg tablet 200 mg PO BID 10 Days Qty: 20 0RF Rx Instructions: must administer with a meal/food oxycodone 5 mg tablet 5 mg PO Q4H PRN (Reason: pain) Qty: 14 0RF Rx Instructions: Patient may request partial fill quetiapine 25 mg tablet 3 tab PO BEDTIME tizanidine 4 mg tablet 2 tab PO Q8H PRN (Reason: muscle spasm) midodrine 5 mg tablet 2.5 tab PO BID baclofen 20 mg tablet 1 tab PO QID gabapentin 300 mg capsule 300 mg PO BID doxycycline hyclate 100 mg capsule 100 mg PO BID 10 Days Qty: 20 0RF prednisone 20 mg tablet 40 mg PO DAILY 5 Days Qty: 10 0RF albuterol sulfate 90 mcg/actuation aerosol powdr breath activated 2 inh inhalation Q4-6H PRN (Reason: shortness of breath or wheezing) Qty: 1 0RF levofloxacin 500 mg tablet 500 mg PO DAILY Qty: 7 0RF cefuroxime axetil 500 mg tablet 500 mg PO BID 10 Days Qty: 20 0RF cefpodoxime 200 mg tablet 200 mg PO BID Qty: 20 0RF Rx Instructions: must administer with a meal/food dicyclomine 20 mg tablet 20 mg PO QID PRN (Reason: abdominal pain) Qty: 20 0RF cefdinir 300 mg capsule 300 mg PO BID 10 Days Qty: 20 0RF nitrofurantoin monohyd/m-cryst [Macrobid] 100 mg capsule 100 mg PO BID Qty: 20 0RF Rx Instructions: must administer with a meal/food oxycodone 5 mg tablet 5 mg PO Q6H PRN (Reason: pain) Qty: 20 0RF Rx Instructions: Partial Fill upon patient request. cefuroxime axetil 250 mg tablet 250 mg PO BID 7 Days Qty: 14 0RF sennosides [senna] 8.6 mg tablet 8.6 mg PO BEDTIME Qty: 14 0RF docusate sodium [Colace] 100 mg capsule 100 mg PO BID Qty: 20 0RF
[2023-09-01 17:31] LABS: MANUAL DIFF FLAG NO
[2023-09-01 17:35] LABS: Basophils Percent Auto 0.3 % (0-2); Eosinophils Absolute Auto 0.2 X10*3/uL (0.0-0.4); Eosinophils Percent Auto 1.7 % (0-4); Hematocrit 40.4 % (42.0-52.0); Hemoglobin 13.5 g/dl (14.0-18.0); Imm Gran Abs Auto 0.02 X10*3/uL (0.00-0.03); Imm Gran Pct Auto 0.2 % (0.0-0.4); Lymphocytes Absolute Auto 1.8 X10*3/uL (1.2-4.9); Lymphocytes Percent Auto 21.2 % (20-40); Mean Corpuscular HGB Conc 33.4 g/dl (31.0-36.0); Mean Corpuscular Hemoglobin 28.5 pg (27.0-33.0); Mean Corpuscular Volume 85.2 fL (80.0-98.0); Mean Platelet Volume 10.8 fL (9.4-12.4); Monocytes Absolute Auto 0.5 X10*3/uL (0.1-1.2); Monocytes Percent Auto 5.9 % (2-11); Neutrophils Absolute Auto 6.1 x10*3/uL (2.0-8.3); Neutrophils Percent Auto 70.7 % (45-73); Platelet Count 201 X10*3/uL (160-400); Red Blood Count 4.74 X10*6/uL (4.60-5.80); Red Cell Distribution Width 13.2 % (11.0-16.0); White Blood Count 8.7 X10*3/uL (4.8-10.8)
[2023-09-01 17:48] LABS: COVID-19 Test Negative (Negative); IDNOW Serial# 9DB6401D
[2023-09-01 17:53] LABS: Alanine Aminotransferase 24 U/L (0-40); Alkaline Phosphatase 86 U/L (39-117); Anion Gap 12 (12-20); Aspartate Amino Transferase 20 U/L (5-37); Bilirubin Total 0.4 mg/dL (0.0-1.0); Blood Urea Nitrogen 8 mg/dL (9-16); Calcium 9.2 mg/dL (8.4-10.2); Carbon Dioxide 27 mmol/L (22-29); Chloride 103 mmol/L (96-108); Creatinine Clr Calc Pharmacy 140.6; Estimated Glomerular Filt Rate > 60; Glucose Random 71 mg/dL (60-115); Potassium 3.9 mmol/L (3.3-5.1); Sodium 138 mmol/L (135-145); Total Protein 6.8 g/dL (6.5-8.0)
[2023-09-01 19:27] VITALS: BP 108/67; PULSE 68; TEMP 36.7; O2SAT 98
[2023-09-01 19:38] LABS: Appearance Urine Cloudy; Color Urine Dark Yellow; Glucose Urine UA Negative (Negative); Leukocyte Esterase Urine Moderate (2+) (Negative); Nitrite Urine Positive (Negative); PH 6.5 (5.0-9.0); Specific Gravity - Urine 1.025 (1.005-1.025); UMIC TRIGGER UACC YES; Urine Blood Negative (Negative); Urine Ketones Trace mg/dL (Negative); Urine Protein 100 (2+) mg/dL (Neg-Trace)
[2023-09-01 19:46] LABS: Bacteria Urine 4+ (None Seen); Hyaline Casts Urine 0-2 /LPF (0-2); UACC Culture Trigger YES
[2023-09-01 19:48] LABS: RBC Urine 0-2 /HPF (0-2)
[2023-09-01] MEDS: Ketorolac Tromethamine 30 MG/ML VIAL IVPUSH (20:49)
[2023-09-01] MEDS: levoFLOXacin/D5W 500 MG/100 ML PIGGYBACK 100 MG IV (20:50)
[2023-09-01] MEDS: cefTRIAXone sodium 1 GM in 0.9 % Sodium Chloride 50 ML IV (20:51)
[2023-09-01] MEDS: 0.9 % Sodium Chloride 1,000 ML 999 ML IV (20:51)
--- NOTE | 2023-09-01 21:08 | PC.NURSE ---
Assumed care of pt at 1900. Pt stating he was feeling very hot. temp normal and lower abdominal pain 12/25. Dr. Oneill in to see pt. orders placed and completed. Pt changed over and put on monitor. IV #20 R-upper forearm. iv fluids and abx being administered.
[2023-09-01 21:10] LABS: Lactic Acid 1.2 mmol/L (0.5-2.0)
[2023-09-01 21:11] VITALS: BP 130/77; PULSE 68; RESP 17; TEMP 36.8; O2SAT 98
[2023-09-01 22:24] VITALS: BP 106/62; PULSE 75; RESP 11; TEMP 36.7; O2SAT 99
--- NOTE | 2023-09-01 23:32 | MHC.EDTECH ---
Call out to lynette at [phone] to book transport for pt back home, estimated eta given was [phone]
[2023-09-02 00:24] VITALS: BP 119/56; PULSE 62; RESP 16; TEMP 36.7; O2SAT 97
== END 2023-09-02 00:30 | disposition home or self-care (01) ==
PROVIDERS: Emergency Provider Internal Medicine; PCP Internal Medicine
DX: T83.518A Infection and inflammatory reaction due to other urinary catheter, initial encounter (principal); N30.00 Acute cystitis without hematuria; Y82.8 Other medical devices associated with adverse incidents; Y92.9 Unspecified place or not applicable; G82.50 Quadriplegia, unspecified; Z79.899 Other long term (current) drug therapy
CPT/HCPCS: 36415; 80053; 81001; 83605; 85025; 87040; 87086; 87088; 87186; 87635; 96365; 96375; 99285; J0696; J1885; J1956

== ENCOUNTER 2023-12-29 16:56 | Emergency (ER) | payer OTHER, SELFPAY ==
--- NOTE | ~2023-12-29 | XR_ITS ---
EXAMINATION: XR CHEST CLINICAL INFORMATION: Pain COMPARISON: 06/20/23 TECHNIQUE: 2 views of the chest were obtained. FINDINGS: Devices overlie the patient. Moderate convex left spinal curve. Cardiac size within normal limits. No hilar mass. No edema. No dense consolidation or major zone of atelectasis. No definite pneumothorax demonstrated XR/XR chest 2V IMPRESSION: No pneumonia or edema.
--- NOTE | 2023-12-29 16:59 | ECG_ITS ---
Test Reason : CHEST PAIN Blood Pressure : / mmHG Vent. Rate : 062 BPM Atrial Rate : 062 BPM P-R Int : 124 ms QRS Dur : 088 ms QT Int : 458 ms P-R-T Axes : 000 147 118 degrees QTc Int : 464 ms Normal sinus rhythm Low voltage QRS Nonspecific T wave abnormality Prolonged QT Abnormal ECG When compared with ECG of 20-JUN-2023 22:26, difficult to compare as the prior EKG has artifact Referred By: Generic ED Physician Electronically Signed By:SARINA CUEVAS
[2023-12-29 17:04] VITALS: BP 128/102; PULSE 67; O2SAT 100
[2023-12-29 17:38] VITALS: BP 114/77; PULSE 62; RESP 16; TEMP 37; O2SAT 96; BMI 22.4
[2023-12-29 17:44] VITALS: PULSE 70; RESP 15
--- NOTE | 2023-12-29 18:07 | PC.NURSE ---
Brought in by ambulance, reports left sided chest pain radiating to his neck since 3PM today. When episode first started he had SOB, which has since resolved. Denies N/V, fevers, cough, recent illnesses or trauma. Alert and oriented, breathing even and unlabored, skin warm and dry. Quadriplegic, has miranda cath at baseline that is changed monthly. 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
[2023-12-29 18:09] LABS: MANUAL DIFF FLAG NO
[2023-12-29 18:20] LABS: Basophils Percent Auto 0.3 % (0-2); Eosinophils Absolute Auto 0.2 X10*3/uL (0.0-0.4); Eosinophils Percent Auto 2.2 % (0-4); Hematocrit 43.2 % (42.0-52.0); Hemoglobin 14.6 g/dl (14.0-18.0); Imm Gran Abs Auto 0.02 X10*3/uL (0.00-0.03); Imm Gran Pct Auto 0.3 % (0.0-0.4); Lymphocytes Absolute Auto 1.6 X10*3/uL (1.2-4.9); Lymphocytes Percent Auto 21.8 % (20-40); Mean Corpuscular HGB Conc 33.8 g/dl (31.0-36.0); Mean Corpuscular Volume 85.9 fL (80.0-98.0); Mean Platelet Volume 10.7 fL (9.4-12.4); Monocytes Absolute Auto 0.4 X10*3/uL (0.1-1.2); Monocytes Percent Auto 5.1 % (2-11); Neutrophils Absolute Auto 5.1 x10*3/uL (2.0-8.3); Neutrophils Percent Auto 70.3 % (45-73); Platelet Count 218 X10*3/uL (160-400); Red Blood Count 5.03 X10*6/uL (4.60-5.80); Red Cell Distribution Width 13.5 % (11.0-16.0); White Blood Count 7.2 X10*3/uL (4.8-10.8)
[2023-12-29 18:21] VITALS: BP 123/76; PULSE 58; RESP 12; TEMP 37.1; O2SAT 98
[2023-12-29 18:23] LABS: Alanine Aminotransferase 26 U/L (0-40); Albumin Level 4.2 g/dL (3.5-5.0); Alkaline Phosphatase 84 U/L (39-117); Anion Gap 12 (12-20); Aspartate Amino Transferase 24 U/L (5-37); Bilirubin Total 0.3 mg/dL (0.0-1.0); Blood Urea Nitrogen 8 mg/dL (9-16); Calcium 9.6 mg/dL (8.4-10.2); Carbon Dioxide 30 mmol/L (22-29); Chloride 102 mmol/L (96-108); Creatinine Clr Calc Pharmacy 138.5; Estimated Glomerular Filt Rate > 60; Glucose Random 62 mg/dL (60-115); Magnesium 2.1 mg/dL (1.6-2.6); Potassium 4.2 mmol/L (3.3-5.1); Sodium 140 mmol/L (135-145); Total Protein 7.2 g/dL (6.5-8.0)
[2023-12-29 18:31] LABS: Troponin-I High Sensitivity < 2.7 ng/L (<3.5-35.0)
--- NOTE | 2023-12-29 19:33 | ED_ITS ---
HPI - Chest Pain General Chief Complaint: Chest Pain Stated Complaint: L SIDE CHEST PAIN RADIATING TO NECK Time Seen by Provider: 12/29/23 17:32 Source: patient Mode of arrival: EMS Limitations: no limitations History of Present Illness ED Provider: Christoph HPI narrative: 33-year-old male with history of C5 spinal cord injury now a quadriplegic, chronic indwelling Marie, depression presents with left-sided chest pain since earlier today. Patient states he is having intermittent episodes of ?aching? chest pain over the left anterior chest. Pain is nonradiating, denies associated shortness of breath, diaphoresis. Pain is worse with palpation of the chest wall. Denies new activity that could have precipitated the chest discomfort. Denies unilateral calf pain or swelling or hemoptysis. Denies recent cough cold symptoms or fever. Related Data Home Medications ?Medication ?Instructions ?Recorded ?Confirmed baclofen 20 mg tablet 1 tab PO QID 07/17/20 07/17/20 gabapentin 300 mg capsule 300 mg PO BID 07/17/20 07/17/20 midodrine 5 mg tablet 2.5 tab PO BID 07/17/20 07/17/20 quetiapine 25 mg tablet 3 tab PO BEDTIME 07/17/20 07/17/20 tizanidine 4 mg tablet 2 tab PO Q8H PRN muscle spasm 07/17/20 07/17/20 Previous Rx's ?Medication ?Instructions ?Recorded cefpodoxime 200 mg tablet 200 mg PO BID 10 days #20 tabs 07/12/20 oxycodone 5 mg tablet 5 mg PO Q4H PRN pain #14 tabs 07/15/20 levofloxacin 500 mg tablet 500 mg PO DAILY #7 tabs 05/22/22 albuterol sulfate 90 mcg/actuation 2 inh inhalation Q4-6H PRN 07/08/22 breath activated powder inhaler shortness of breath or wheezing #1 ea doxycycline hyclate 100 mg capsule 100 mg PO BID 10 days #20 caps 07/08/22 prednisone 20 mg tablet 40 mg (2 x 20 mg) PO DAILY 5 days 07/08/22 #10 tabs cefpodoxime 200 mg tablet 200 mg PO BID #20 tabs 10/15/22 dicyclomine 20 mg tablet 20 mg PO QID PRN abdominal pain 10/15/22 #20 tabs cefdinir 300 mg capsule 300 mg PO BID 10 days #20 caps 12/24/22 nitrofurantoin 100 mg PO BID #20 caps 01/07/23 monohydrate/macrocrystals 100 mg capsule (Macrobid) oxycodone 5 mg tablet 5 mg PO Q6H PRN pain #20 tabs 01/07/23 cefuroxime axetil 250 mg tablet 250 mg PO BID 7 days #14 tabs 02/18/23 docusate sodium 100 mg capsule 100 mg PO BID #20 caps 02/18/23 (Colace) sennosides 8.6 mg tablet (senna) 8.6 mg PO BEDTIME #14 tabs 02/18/23 cefuroxime axetil 500 mg tablet 500 mg PO BID 10 days #20 tabs 06/21/23 cefuroxime axetil 250 mg tablet 250 mg PO BID 7 days #14 tabs 09/01/23 ciprofloxacin HCl 500 mg tablet 500 mg PO BID #7 tabs 09/01/23 (Cipro) miconazole nitrate 2 % topical 1 spray topical BID #133 grams 09/01/23 spray powder (Lotrimin AF Powder) Allergies Allergy/AdvReac Type Severity Reaction Status Date / Time No Known Allergies Allergy Verified 12/29/23 17:42 [No Known Allergies*] Review of Systems 2 Review of Systems: Yes all other systems are reviewed and are negative Constitutional: Constitutional: Denies fever(s) Cardiovascular: Cardiovascular: Reports chest pain and Denies dyspnea Respiratory: Respiratory: Denies hemoptysis and Denies dyspnea Musculoskeletal: Musculoskeletal: Reports no additional musculoskeletal complaints PMFSH Past Medical History Attestation statement: The following information was validated with the patient. 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 Pyelonephritis Paralysis Social History Social History Alcohol intake: current Alcohol intake frequency: holidays/special occasions only Smoked in Last 30 Days: Yes Use of substances other than those prescribed or required for medical reasons: No Substance Use Type: Marijuana Advance Directives: No Advance Directives Information Provided: No Physical Exam 2 Vital Signs: Vital Signs: Last Vital Signs Temp 98.8 F 12/29/23 18:21 Pulse 58 12/29/23 18:21 Resp 12 12/29/23 18:21 BP 123/76 12/29/23 18:21 Pulse Ox 98 12/29/23 18:21 O2 Del Method Room Air 12/29/23 18:21 BMI result Body Mass Index 22.4 Const: Other: Alert well in appearance Eyes: Pupils: Equal, round and reactive pupils present Chest: Other: Tenderness to palpation over left anterior chest wall, no deformity no ecchymosis no erythema noted Resp: Other: Nonlabored respiration Cardio: Other: Normal peripheral perfusion Skin: Other: No rash Neuro: Other: Alert and oriented x3 Cranial nerves: Yes Equal, round and reactive pupils present Extrem: Other: Both lower extremities are equal in size Psych: Other: Calm cooperative Medical Decision Making Medical Decision Making [facility] Narrative: 33-year-old male with history of C5 spinal cord injury now a quadriplegic, chronic indwelling Marie, depression presents with left-sided chest pain since earlier today. Patient states he is having intermittent episodes of ?aching? chest pain over the left anterior chest. Pain is nonradiating, denies associated shortness of breath, diaphoresis. Pain is worse with palpation of the chest wall. Denies new activity that could have precipitated the chest discomfort. Denies unilateral calf pain or swelling or hemoptysis. Denies recent cough cold symptoms or fever. Problem: Quadriplegic History: Per patient I have considered the following differential diagnoses: , ACS, PE, costochondritis, viral syndrome, pneumonia, musculoskeletal strain Plan: ACS was considered, screening labs including cardiac enzymes and EKG chest x-ray obtained from triage. This is not ACS, this is an atypical presentation for ACS, and the patient has minimal risk factors, heart score of 2, thought about PE given the patient is immobile, however there are no objective signs symptoms for DVT on exam, he has not tachycardic, he is not hypoxic, there is no hemoptysis. To note he is PERC negative, I am deferring a dimer. He has no underlying viral syndrome or other infectious symptoms to suggest a potential costochondritis. At the end of the day, his exam was most consistent with some form of musculoskeletal strain. We will send with care instructions and he can follow up with his Primary care provider. I have independently reviewed the following tests: Labs: No leukocytosis, not anemic, no electrolyte abnormality troponin negative EKG: Normal sinus rhythm, rate of 62, no ischemic changes no ectopy Chest x-ray: No pulmonary edema no pleural effusion no pneumonia Lab Data 12/29/23 18:05 12/29/23 18:05 Labs: Lab Results 12/29/23 Range/Units 18:05 WBC 7.2 (4.8-10.8) X10*3/uL RBC 5.03 (4.60-5.80) X10*6/uL Hgb 14.6 (14.0-18.0) g/dl Hct 43.2 (42.0-52.0) % MCV 85.9 (80.0-98.0) fL MCH 29.0 (27.0-33.0) pg MCHC 33.8 (31.0-36.0) g/dl RDW 13.5 (11.0-16.0) % Plt Count 218 (160-400) X10*3/uL MPV 10.7 (9.4-12.4) fL Immature Gran % (Auto) 0.3 (0.0-0.4) % Neut % (Auto) 70.3 (45-73) % Lymph % (Auto) 21.8 (20-40) % [place] % (Auto) 5.1 (2-11) % Eos % (Auto) 2.2 (0-4) % Baso % (Auto) 0.3 (0-2) % Lymph # (Auto) 1.6 (1.2-4.9) X10*3/uL [place] # (Auto) 0.4 (0.1-1.2) X10*3/uL Eos # (Auto) 0.2 (0.0-0.4) X10*3/uL Baso # (Auto) 0.0 (0.0-0.2) X10*3/uL Abs Immat Gran (auto) 0.02 (0.00-0.03) X10*3/uL Absolute Neuts (auto) 5.1 (2.0-8.3) x10*3/uL Absolute Nucleated RBC 0.000 (0.0-0.012) X10*3/uL Nucleated RBC % (auto) 0.0 (0.0-0.2) /100WBC Sodium 140 (135-145) mmol/L Potassium 4.2 (3.3-5.1) mmol/L Chloride 102 (96-108) mmol/L Carbon Dioxide 30 H (22-29) mmol/L Anion Gap 12 (12-20) BUN 8 L (9-16) mg/dL Creatinine 0.81 (0.5-1.4) mg/dL Estim Creat Clear Calc 138.5 Estimated GFR > 60 Random Glucose 62 (60-115) mg/dL Calcium 9.6 (8.4-10.2) mg/dL Magnesium 2.1 (1.6-2.6) mg/dL Total Bilirubin 0.3 (0.0-1.0) mg/dL AST 24 (5-37) U/L ALT 26 (0-40) U/L Alkaline Phosphatase 84 (39-117) U/L Troponin I High Sens < 2.7 (<3.5-35.0) ng/L Total Protein 7.2 (6.5-8.0) g/dL Albumin 4.2 (3.5-5.0) g/dL Discharge Plan Discharge Clinical Impression: Atypical chest pain Patient Disposition: Home, Self-Care Instructions: Noncardiac Chest Pain (ED), Chest Wall Pain (ED) Additional Instructions: All of her labs including cardiac enzymes were normal. There were no concerning changes on EKG in your chest x-ray was clear. Your exam was most consistent with chest wall strain, despite the fact that you do not have a mechanism. Seek care instructions. You can use [id number] Tylenol 1000 mg taken every 8 hours, alternated with the use of [id number] ibuprofen 600 mg taken every 6 hours with food, for your discomfort. Call your primary care provider for follow-up as needed. Prescriptions: No Action cefpodoxime 200 mg tablet 200 mg PO BID 10 Days Qty: 20 0RF Rx Instructions: must administer with a meal/food oxycodone 5 mg tablet 5 mg PO Q4H PRN (Reason: pain) Qty: 14 0RF Rx Instructions: Patient may request partial fill quetiapine 25 mg tablet 3 tab PO BEDTIME tizanidine 4 mg tablet 2 tab PO Q8H PRN (Reason: muscle spasm) midodrine 5 mg tablet 2.5 tab PO BID baclofen 20 mg tablet 1 tab PO QID gabapentin 300 mg capsule 300 mg PO BID doxycycline hyclate 100 mg capsule 100 mg PO BID 10 Days Qty: 20 0RF prednisone 20 mg tablet 40 mg PO DAILY 5 Days Qty: 10 0RF albuterol sulfate 90 mcg/actuation aerosol powdr breath activated 2 inh inhalation Q4-6H PRN (Reason: shortness of breath or wheezing) Qty: 1 0RF levofloxacin 500 mg tablet 500 mg PO DAILY Qty: 7 0RF cefuroxime axetil 500 mg tablet 500 mg PO BID 10 Days Qty: 20 0RF cefpodoxime 200 mg tablet 200 mg PO BID Qty: 20 0RF Rx Instructions: must administer with a meal/food dicyclomine 20 mg tablet 20 mg PO QID PRN (Reason: abdominal pain) Qty: 20 0RF cefdinir 300 mg capsule 300 mg PO BID 10 Days Qty: 20 0RF nitrofurantoin monohyd/m-cryst [Macrobid] 100 mg capsule 100 mg PO BID Qty: 20 0RF Rx Instructions: must administer with a meal/food oxycodone 5 mg tablet 5 mg PO Q6H PRN (Reason: pain) Qty: 20 0RF Rx Instructions: Partial Fill upon patient request. cefuroxime axetil 250 mg tablet 250 mg PO BID 7 Days Qty: 14 0RF sennosides [senna] 8.6 mg tablet 8.6 mg PO BEDTIME Qty: 14 0RF docusate sodium [Colace] 100 mg capsule 100 mg PO BID Qty: 20 0RF ciprofloxacin HCl [Cipro] 500 mg tablet 500 mg PO BID Qty: 7 0RF cefuroxime axetil 250 mg tablet 250 mg PO BID 7 Days Qty: 14 0RF miconazole nitrate [Lotrimin AF Powder] 2 % aerosol powder 1 spray topical BID Qty: 133 1RF Print Language: Armenian
[2023-12-29 22:16] VITALS: BP 123/76; PULSE 58; RESP 12; TEMP 37.1; O2SAT 98
== END 2023-12-29 22:17 | disposition home or self-care (01) ==
PROVIDERS: Physician Assistant Medical; Emergency Provider Internal Medicine
DX: R07.89 Other chest pain (principal); G82.50 Quadriplegia, unspecified; S14.105S Unspecified injury at C5 level of cervical spinal cord, sequela; X58.XXXS Exposure to other specified factors, sequela
CPT/HCPCS: 36415; 71046; 80053; 83735; 84484; 85025; 93005; 99283; 99285

== ENCOUNTER → 2023-12-29 16:59 | Outpatient (BNV) | payer OTHER, SELFPAY | PROVIDERS: Emergency Provider Internal Medicine; Visit Provider Internal Medicine | DX: R94.31 Abnormal electrocardiogram [ECG] [EKG] (principal); R07.9 Chest pain, unspecified | CPT/HCPCS: 93010 ==

== ENCOUNTER 2024-01-06 13:54 | Emergency (ER) | payer OTHER, SELFPAY ==
[2024-01-06 14:00] VITALS: BP 110/64; BP 92/72; PULSE 63; PULSE 70; RESP 16; TEMP 36.7; O2SAT 96; O2SAT 97; BMI 23.1
--- NOTE | 2024-01-06 14:23 | ED.GENADULT ---
HPI - General Adult General Chief complaint: General Medical Stated complaint: questing infection of super pubic Time Seen by Provider: 01/06/24 14:08 Source: patient, EMS and old records reviewed Mode of arrival: EMS Limitations: no limitations History of Present Illness ED Provider: LIV APODACA narrative: 33 yo male with PMH of catheter and UTI (enterobacter S to levofloxacin, E. Coli S to macrobid) , C5 spinal cord injury and paralysis, depression here with c/o one week of having suprapubic pain with brown yellow discharge coming out near cath. No fevers, nausea or vomiting. He is due for cath change sometime next week. He is worried he has UTI MD complaint: concern for UTI Onset (ago): week(s) (1) Location: abdomen Radiation: non-radiation Severity: mild and moderate Quality: aching Pain Consistency: intermittent Relieving factors: none Exacerbating factors: none Associated symptoms: other (suprapubic discharge) Treatments prior to arrival: none Related Data Home Medications ?Medication ?Instructions ?Recorded ?Confirmed baclofen 20 mg tablet 1 tab PO QID 07/17/20 07/17/20 gabapentin 300 mg capsule 300 mg PO BID 07/17/20 07/17/20 midodrine 5 mg tablet 2.5 tab PO BID 07/17/20 07/17/20 quetiapine 25 mg tablet 3 tab PO BEDTIME 07/17/20 07/17/20 tizanidine 4 mg tablet 2 tab PO Q8H PRN muscle spasm 07/17/20 07/17/20 Previous Rx's ?Medication ?Instructions ?Recorded cefpodoxime 200 mg tablet 200 mg PO BID 10 days #20 tabs 07/12/20 oxycodone 5 mg tablet 5 mg PO Q4H PRN pain #14 tabs 07/15/20 levofloxacin 500 mg tablet 500 mg PO DAILY #7 tabs 05/22/22 albuterol sulfate 90 mcg/actuation 2 inh inhalation Q4-6H PRN 07/08/22 breath activated powder inhaler shortness of breath or wheezing #1 ea doxycycline hyclate 100 mg capsule 100 mg PO BID 10 days #20 caps 07/08/22 prednisone 20 mg tablet 40 mg (2 x 20 mg) PO DAILY 5 days 07/08/22 #10 tabs cefpodoxime 200 mg tablet 200 mg PO BID #20 tabs 10/15/22 dicyclomine 20 mg tablet 20 mg PO QID PRN abdominal pain 10/15/22 #20 tabs cefdinir 300 mg capsule 300 mg PO BID 10 days #20 caps 12/24/22 nitrofurantoin 100 mg PO BID #20 caps 01/07/23 monohydrate/macrocrystals 100 mg capsule (Macrobid) oxycodone 5 mg tablet 5 mg PO Q6H PRN pain #20 tabs 01/07/23 cefuroxime axetil 250 mg tablet 250 mg PO BID 7 days #14 tabs 02/18/23 docusate sodium 100 mg capsule 100 mg PO BID #20 caps 02/18/23 (Colace) sennosides 8.6 mg tablet (senna) 8.6 mg PO BEDTIME #14 tabs 02/18/23 cefuroxime axetil 500 mg tablet 500 mg PO BID 10 days #20 tabs 06/21/23 cefuroxime axetil 250 mg tablet 250 mg PO BID 7 days #14 tabs 09/01/23 ciprofloxacin HCl 500 mg tablet 500 mg PO BID #7 tabs 09/01/23 (Cipro) miconazole nitrate 2 % topical 1 spray topical BID #133 grams 09/01/23 spray powder (Lotrimin AF Powder) Allergies Allergy/AdvReac Type Severity Reaction Status Date / Time No Known Allergies Allergy Verified 01/06/24 14:09 [No Known Allergies*] Review of Systems Review of Systems: Constitutional : No Weight loss, No Fever, No Chills ENT/Mouth : No sore throat, No Rhinorrhea Eyes: No Swelling, No Redness Cardiovascular : No Chest Pain, No SOB, No edema Respiratory : No Cough, No Sputum, No Wheezing Gastrointestinal : no Nausea, no Vomiting, no Diarrhea, positive abdominal Pain, No Hematochezia, No Melena Genitourinary : No Dysuria, No Urinary Frequency, No Hematuria, No Urgency Musculoskeletal : No joint pain, No Myalgias, No Joint Swelling Skin : No Skin Lesions, No rash Neuro : No Weakness, No Numbness, No Dizziness, No Headache All other systems reviewed and are negative. [facility] Past Medical History Attestation statement: The following information was validated with the patient. Source: old records reviewed 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 Pyelonephritis Paralysis Social History Social History (Updated 01/06/24 @ 15:02 by Lidia Melendez DO) Alcohol intake: current Alcohol intake frequency: holidays/special occasions only Patient Tobacco Use Status: Tobacco use Unknown Smoked in Last 30 Days: No Substance Use Type: Marijuana Advance Directives: No Advance Directives Information Provided: Yes Physical Exam ED Vital Signs: Vital Signs - 24 hr 01/06/24 14:00 Temperature 98.0 F Pulse Rate 63 Respiratory Rate 16 Blood Pressure 110/64 Pulse Oximetry 96 Oxygen Delivery Method Room Air BMI result Body Mass Index 23.1 Appearance: Alert. Oriented X3. No acute distress. Eyes: Pupils equal, round and reactive to light. ENT: Pharynx normal. Neck: Normal inspection. Neck supple. CVS: Normal heart rate and rhythm. Pulses normal. Respiratory: No respiratory distress. Breath sounds normal. Abdomen: Soft and mild suprapubic ttp with yellow brown discharge outside catheter no abscess felt no cellulitis seen Skin: Skin warm and dry. Normal skin color. Normal skin turgor. Extremities: No lower extremity edema. No calf ttp Neuro: Oriented X 3. No motor deficit. No sensory deficit. Course Course Course Narrative: signed out to Dr. Pulido but if urine infected given VS and labs would DC home on levofloxacin and macrobid Medications Administered Discontinued Medications Generic Name Dose Route Start Last Admin Trade Name Freq PRN Reason Stop Dose Admin Sodium Chloride 1,000 mls @ 999 mls/hr 01/06/24 14:20 01/06/24 15:11 Ns IV 01/06/24 15:20 999 mls/hr .Q1H1M ONE Administration Levofloxacin 750 mg in 150 mls @ 100 mls/hr 01/06/24 14:20 01/06/24 15:12 Levaquin IV 01/06/24 15:49 100 mls/hr ONCE ONE Administration Nitrofurantoin Macrocrystals 100 mg 01/06/24 14:20 01/06/24 15:12 Nitrofurantoin Monohyd/M-Cryst 100 Mg Capsule PO 01/06/24 14:21 100 mg ONCE ONE Administration Oxycodone HCl 10 mg 01/06/24 15:07 01/06/24 15:12 Oxycodone Hcl Immed Release 5 Mg Tablet PO 01/06/24 15:08 10 mg ONCE ONE Administration Medical Decision Making Medical Decision Making [facility] Narrative: 33 yo male with PMH of catheter and UTI (enterobacter S to levofloxacin, E. Coli S to macrobid) , C5 spinal cord injury and paralysis, depression here with c/o suprapubic catheter infection at this time concern for infection given yellow brown discharge labs, UA, catheter change done in ED, IV levofloxacin and oral macrobid ordered based off prior S - IVF. Possible admission pending workup and labs. Differential Diagnosis Differential Diagnoses: The differential diagnosis associated with the presentation includes blocked suprapubic, acute miranda Admission/Observation Consideration of admission/observation: Escalation of care including admission/observation considered labs reassuring not toxic miranda changed Lab Data [facility] Lab Attestation statement: I reviewed the patient's lab results. 01/06/24 14:47 01/06/24 14:47 Labs: Lab Results 01/06/24 01/06/24 Range/Units 14:47 14:48 WBC 6.3 (4.8-10.8) X10*3/uL RBC 4.31 L (4.60-5.80) X10*6/uL Hgb 12.7 L (14.0-18.0) g/dl Hct 37.3 L (42.0-52.0) % MCV 86.5 (80.0-98.0) fL MCH 29.5 (27.0-33.0) pg MCHC 34.0 (31.0-36.0) g/dl RDW 13.2 (11.0-16.0) % Plt Count 192 (160-400) X10*3/uL MPV 10.6 (9.4-12.4) fL Immature Gran % (Auto) 0.3 (0.0-0.4) % Neut % (Auto) 63.0 (45-73) % Lymph % (Auto) 26.4 (20-40) % [place] % (Auto) 7.5 (2-11) % Eos % (Auto) 2.5 (0-4) % Baso % (Auto) 0.3 (0-2) % Lymph # (Auto) 1.7 (1.2-4.9) X10*3/uL [place] # (Auto) 0.5 (0.1-1.2) X10*3/uL Eos # (Auto) 0.2 (0.0-0.4) X10*3/uL Baso # (Auto) 0.0 (0.0-0.2) X10*3/uL Abs Immat Gran (auto) 0.02 (0.00-0.03) X10*3/uL Absolute Neuts (auto) 4.0 (2.0-8.3) x10*3/uL Absolute Nucleated RBC 0.000 (0.0-0.012) X10*3/uL Nucleated RBC % (auto) 0.0 (0.0-0.2) /100WBC Sodium 140 (135-145) mmol/L Potassium 4.1 (3.3-5.1) mmol/L Chloride 102 (96-108) mmol/L Carbon Dioxide 30 H (22-29) mmol/L Anion Gap 12 (12-20) BUN 10 (9-16) mg/dL Creatinine 0.72 (0.5-1.4) mg/dL Estim Creat Clear Calc 161.2 Estimated GFR > 60 Random Glucose 69 (60-115) mg/dL Lactic Acid 0.8 (0.5-2.0) mmol/L Calcium 9.9 (8.4-10.2) mg/dL Magnesium 2.0 (1.6-2.6) mg/dL Total Bilirubin 0.3 (0.0-1.0) mg/dL Direct Bilirubin 0.1 (0.0-0.5) mg/dL AST 50 H (5-37) U/L ALT 31 (0-40) U/L Alkaline Phosphatase 85 (39-117) U/L Total Protein 6.8 (6.5-8.0) g/dL Albumin 4.0 (3.5-5.0) g/dL Independent Historian Clinical information obtained from an independent historian. History obtained from or confirmed by: EMS External Record Review External record reviewed: Inpatient record and Prior outpatient labs Prescription Management I considered prescription management with: Antibiotic Discharge Plan Discharge Clinical Impression: Cystitis Patient Disposition: Still a Patient Instructions: How to Care for Your Suprapubic Catheter (DC), Urinary Tract Infection in Men (ED) Prescriptions: No Action cefpodoxime 200 mg tablet 200 mg PO BID 10 Days Qty: 20 0RF Rx Instructions: must administer with a meal/food oxycodone 5 mg tablet 5 mg PO Q4H PRN (Reason: pain) Qty: 14 0RF Rx Instructions: Patient may request partial fill quetiapine 25 mg tablet 3 tab PO BEDTIME tizanidine 4 mg tablet 2 tab PO Q8H PRN (Reason: muscle spasm) midodrine 5 mg tablet 2.5 tab PO BID baclofen 20 mg tablet 1 tab PO QID gabapentin 300 mg capsule 300 mg PO BID doxycycline hyclate 100 mg capsule 100 mg PO BID 10 Days Qty: 20 0RF prednisone 20 mg tablet 40 mg PO DAILY 5 Days Qty: 10 0RF albuterol sulfate 90 mcg/actuation aerosol powdr breath activated 2 inh inhalation Q4-6H PRN (Reason: shortness of breath or wheezing) Qty: 1 0RF levofloxacin 500 mg tablet 500 mg PO DAILY Qty: 7 0RF cefuroxime axetil 500 mg tablet 500 mg PO BID 10 Days Qty: 20 0RF cefpodoxime 200 mg tablet 200 mg PO BID Qty: 20 0RF Rx Instructions: must administer with a meal/food dicyclomine 20 mg tablet 20 mg PO QID PRN (Reason: abdominal pain) Qty: 20 0RF cefdinir 300 mg capsule 300 mg PO BID 10 Days Qty: 20 0RF nitrofurantoin monohyd/m-cryst [Macrobid] 100 mg capsule 100 mg PO BID Qty: 20 0RF Rx Instructions: must administer with a meal/food oxycodone 5 mg tablet 5 mg PO Q6H PRN (Reason: pain) Qty: 20 0RF Rx Instructions: Partial Fill upon patient request. cefuroxime axetil 250 mg tablet 250 mg PO BID 7 Days Qty: 14 0RF sennosides [senna] 8.6 mg tablet 8.6 mg PO BEDTIME Qty: 14 0RF docusate sodium [Colace] 100 mg capsule 100 mg PO BID Qty: 20 0RF ciprofloxacin HCl [Cipro] 500 mg tablet 500 mg PO BID Qty: 7 0RF cefuroxime axetil 250 mg tablet 250 mg PO BID 7 Days Qty: 14 0RF miconazole nitrate [Lotrimin AF Powder] 2 % aerosol powder 1 spray topical BID Qty: 133 1RF Print Language: Turkish
[2024-01-06 14:53] LABS: MANUAL DIFF FLAG NO
[2024-01-06 15:08] LABS: Alanine Aminotransferase 31 U/L (0-40); Alkaline Phosphatase 85 U/L (39-117); Anion Gap 12 (12-20); Aspartate Amino Transferase 50 U/L (5-37); Basophils Percent Auto 0.3 % (0-2); Bilirubin Direct 0.1 mg/dL (0.0-0.5); Bilirubin Total 0.3 mg/dL (0.0-1.0); Blood Urea Nitrogen 10 mg/dL (9-16); Calcium 9.9 mg/dL (8.4-10.2); Carbon Dioxide 30 mmol/L (22-29); Chloride 102 mmol/L (96-108); Creatinine Clr Calc Pharmacy 161.2; Eosinophils Absolute Auto 0.2 X10*3/uL (0.0-0.4); Eosinophils Percent Auto 2.5 % (0-4); Estimated Glomerular Filt Rate > 60; Glucose Random 69 mg/dL (60-115); Hematocrit 37.3 % (42.0-52.0); Hemoglobin 12.7 g/dl (14.0-18.0); Imm Gran Abs Auto 0.02 X10*3/uL (0.00-0.03); Imm Gran Pct Auto 0.3 % (0.0-0.4); Lymphocytes Absolute Auto 1.7 X10*3/uL (1.2-4.9); Lymphocytes Percent Auto 26.4 % (20-40); Mean Corpuscular Hemoglobin 29.5 pg (27.0-33.0); Mean Corpuscular Volume 86.5 fL (80.0-98.0); Mean Platelet Volume 10.6 fL (9.4-12.4); Monocytes Absolute Auto 0.5 X10*3/uL (0.1-1.2); Monocytes Percent Auto 7.5 % (2-11); Platelet Count 192 X10*3/uL (160-400); Potassium 4.1 mmol/L (3.3-5.1); Red Blood Count 4.31 X10*6/uL (4.60-5.80); Red Cell Distribution Width 13.2 % (11.0-16.0); Sodium 140 mmol/L (135-145); Total Protein 6.8 g/dL (6.5-8.0); White Blood Count 6.3 X10*3/uL (4.8-10.8)
[2024-01-06] MEDS: 0.9 % Sodium Chloride 1,000 ML 999 ML IV (15:11)
[2024-01-06] MEDS: levoFLOXacin/D5W 750 MG/150 ML PIGGYBACK 100 MG IV (15:12)
[2024-01-06] MEDS: Nitrofurantoin Monohyd/M-Cryst 100 MG CAPSULE PO (15:12)
[2024-01-06] MEDS: oxyCODONE HCl Immed Release 5 MG TABLET 10 MG PO (15:12)
[2024-01-06 15:16] LABS: Lactic Acid 0.8 mmol/L (0.5-2.0)
[2024-01-06 16:07] LABS: Appearance Urine Cloudy; Color Urine Orange; Glucose Urine UA Negative (Negative); Leukocyte Esterase Urine Moderate (2+) (Negative); Nitrite Urine Negative (Negative); Specific Gravity - Urine <= 1.005 (1.005-1.025); UMIC TRIGGER UACC YES; Urine Blood Large (3+) (Negative); Urine Ketones Negative (Negative); Urine Protein 30 (1+) mg/dL (Neg-Trace)
[2024-01-06 16:28] LABS: Bacteria Urine None Seen (None Seen); Hyaline Casts Urine 0-2 /LPF (0-2); Squamous Epithelial Cell Urine 0-2 /HPF (0-2); UACC Culture Trigger YES
--- NOTE | 2024-01-06 17:53 | ED.GENADULT ---
HPI - General Adult General Chief complaint: General Medical Stated complaint: questing infection of super pubic Time Seen by Provider: 01/06/24 14:08 Source: patient, EMS and old records reviewed Mode of arrival: EMS Limitations: no limitations History of Present Illness Location: abdomen Quality: aching Relieving factors: none Exacerbating factors: none Associated symptoms: other (suprapubic discharge) Treatments prior to arrival: none Related Data Home Medications ?Medication ?Instructions ?Recorded ?Confirmed baclofen 20 mg tablet 1 tab PO QID 07/17/20 07/17/20 gabapentin 300 mg capsule 300 mg PO BID 07/17/20 07/17/20 midodrine 5 mg tablet 2.5 tab PO BID 07/17/20 07/17/20 quetiapine 25 mg tablet 3 tab PO BEDTIME 07/17/20 07/17/20 tizanidine 4 mg tablet 2 tab PO Q8H PRN muscle spasm 07/17/20 07/17/20 Previous Rx's ?Medication ?Instructions ?Recorded cefpodoxime 200 mg tablet 200 mg PO BID 10 days #20 tabs 07/12/20 oxycodone 5 mg tablet 5 mg PO Q4H PRN pain #14 tabs 07/15/20 levofloxacin 500 mg tablet 500 mg PO DAILY #7 tabs 05/22/22 albuterol sulfate 90 mcg/actuation 2 inh inhalation Q4-6H PRN 07/08/22 breath activated powder inhaler shortness of breath or wheezing #1 ea doxycycline hyclate 100 mg capsule 100 mg PO BID 10 days #20 caps 07/08/22 prednisone 20 mg tablet 40 mg (2 x 20 mg) PO DAILY 5 days 07/08/22 #10 tabs cefpodoxime 200 mg tablet 200 mg PO BID #20 tabs 10/15/22 dicyclomine 20 mg tablet 20 mg PO QID PRN abdominal pain 10/15/22 #20 tabs cefdinir 300 mg capsule 300 mg PO BID 10 days #20 caps 12/24/22 nitrofurantoin 100 mg PO BID #20 caps 01/07/23 monohydrate/macrocrystals 100 mg capsule (Macrobid) oxycodone 5 mg tablet 5 mg PO Q6H PRN pain #20 tabs 01/07/23 cefuroxime axetil 250 mg tablet 250 mg PO BID 7 days #14 tabs 02/18/23 docusate sodium 100 mg capsule 100 mg PO BID #20 caps 02/18/23 (Colace) sennosides 8.6 mg tablet (senna) 8.6 mg PO BEDTIME #14 tabs 02/18/23 cefuroxime axetil 500 mg tablet 500 mg PO BID 10 days #20 tabs 06/21/23 cefuroxime axetil 250 mg tablet 250 mg PO BID 7 days #14 tabs 09/01/23 ciprofloxacin HCl 500 mg tablet 500 mg PO BID #7 tabs 09/01/23 (Cipro) miconazole nitrate 2 % topical 1 spray topical BID #133 grams 09/01/23 spray powder (Lotrimin AF Powder) levofloxacin 250 mg tablet 250 mg PO DAILY #7 tabs 01/06/24 nitrofurantoin 100 mg PO BID #14 caps 01/06/24 monohydrate/macrocrystals 100 mg capsule (Macrobid) Allergies Allergy/AdvReac Type Severity Reaction Status Date / Time No Known Allergies Allergy Verified 01/06/24 14:09 [No Known Allergies*] [facility] Past Medical History 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 Pyelonephritis Paralysis Social History Social History (Updated 01/06/24 @ 15:02 by Lidia Melendez DO) Alcohol intake: current Alcohol intake frequency: holidays/special occasions only Patient Tobacco Use Status: Tobacco use Unknown Smoked in Last 30 Days: No Substance Use Type: Marijuana Advance Directives: No Advance Directives Information Provided: Yes Physical Exam ED Vital Signs: Vital Signs - 24 hr 01/06/24 14:00 Temperature 98.0 F Pulse Rate 63 Respiratory Rate 16 Blood Pressure 110/64 Pulse Oximetry 96 Oxygen Delivery Method Room Air BMI result Body Mass Index 23.1 Course Reevaluation(s) Reevaluation #1: The patient was signed out to me by the previous emergency physician pending the results of the urinalysis. The patient has a suprapubic catheter as a result of quadriplegia secondary to a C5 spinal cord injury. The patient had had a discolored suprapubic catheter which was replaced here in the emergency room today. The urinalysis is suggestive of a probable UTI. The patient has grown Enterobacter cloaca I and E coli from his urine in the recent past. Based on review of the previous sensitivities he will be started on a course of levofloxacin 250 mg daily x7 days and Macrobid x7 days as well. Time: 17:54 Medications Administered Discontinued Medications Generic Name Dose Route Start Last Admin Trade Name Freq PRN Reason Stop Dose Admin Sodium Chloride 1,000 mls @ 999 mls/hr 01/06/24 14:20 01/06/24 16:58 Ns IV 01/06/24 15:20 Infused .Q1H1M ONE Infusion Levofloxacin 750 mg in 150 mls @ 100 mls/hr 01/06/24 14:20 01/06/24 16:58 Levaquin IV 01/06/24 15:49 Infused ONCE ONE Infusion Nitrofurantoin Macrocrystals 100 mg 01/06/24 14:20 01/06/24 15:12 Nitrofurantoin Monohyd/M-Cryst 100 Mg Capsule PO 01/06/24 14:21 100 mg ONCE ONE Administration Oxycodone HCl 10 mg 01/06/24 15:07 01/06/24 15:12 Oxycodone Hcl Immed Release 5 Mg Tablet PO 01/06/24 15:08 10 mg ONCE ONE Administration Medical Decision Making Lab Data 01/06/24 14:47 01/06/24 14:47 Labs: Lab Results 01/06/24 01/06/24 01/06/24 Range/Units 14:47 14:48 15:56 WBC 6.3 (4.8-10.8) X10*3/uL RBC 4.31 L (4.60-5.80) X10*6/uL Hgb 12.7 L (14.0-18.0) g/dl Hct 37.3 L (42.0-52.0) % MCV 86.5 (80.0-98.0) fL MCH 29.5 (27.0-33.0) pg MCHC 34.0 (31.0-36.0) g/dl RDW 13.2 (11.0-16.0) % Plt Count 192 (160-400) X10*3/uL MPV 10.6 (9.4-12.4) fL Immature Gran % (Auto) 0.3 (0.0-0.4) % Neut % (Auto) 63.0 (45-73) % Lymph % (Auto) 26.4 (20-40) % [place] % (Auto) 7.5 (2-11) % Eos % (Auto) 2.5 (0-4) % Baso % (Auto) 0.3 (0-2) % Lymph # (Auto) 1.7 (1.2-4.9) X10*3/uL [place] # (Auto) 0.5 (0.1-1.2) X10*3/uL Eos # (Auto) 0.2 (0.0-0.4) X10*3/uL Baso # (Auto) 0.0 (0.0-0.2) X10*3/uL Abs Immat Gran (auto) 0.02 (0.00-0.03) X10*3/uL Absolute Neuts (auto) 4.0 (2.0-8.3) x10*3/uL Absolute Nucleated RBC 0.000 (0.0-0.012) X10*3/uL Nucleated RBC % (auto) 0.0 (0.0-0.2) /100WBC Sodium 140 (135-145) mmol/L Potassium 4.1 (3.3-5.1) mmol/L Chloride 102 (96-108) mmol/L Carbon Dioxide 30 H (22-29) mmol/L Anion Gap 12 (12-20) BUN 10 (9-16) mg/dL Creatinine 0.72 (0.5-1.4) mg/dL Estim Creat Clear Calc 161.2 Estimated GFR > 60 Random Glucose 69 (60-115) mg/dL Lactic Acid 0.8 (0.5-2.0) mmol/L Calcium 9.9 (8.4-10.2) mg/dL Magnesium 2.0 (1.6-2.6) mg/dL Total Bilirubin 0.3 (0.0-1.0) mg/dL Direct Bilirubin 0.1 (0.0-0.5) mg/dL AST 50 H (5-37) U/L ALT 31 (0-40) U/L Alkaline Phosphatase 85 (39-117) U/L Total Protein 6.8 (6.5-8.0) g/dL Albumin 4.0 (3.5-5.0) g/dL Urine Color [place] A Urine Appearance Cloudy Urine pH 6.0 (5.0-9.0) Ur Specific [place] <= 1.005 (1.005-1.025) Urine Protein 30 (1+) H (Neg-Trace) mg/dL Urine Glucose (UA) Negative (Negative) mg/dL Urine Ketones Negative (Negative) mg/dL Urine Blood Large (3+) H (Negative) Urine Nitrite Negative (Negative) Ur Leukocyte Esterase Moderate (2+) H (Negative) Urine RBC 11-20 H (0-2) /HPF Urine WBC 11-20 H (0-5) /HPF Ur Squamous Epith Cells 0-2 (0-2) /HPF Urine Bacteria None Seen (None Seen) Hyaline Casts 0-2 (0-2) /LPF Discharge Plan Discharge Clinical Impression: Cystitis Patient Disposition: Still a Patient Instructions: Urinary Tract Infection in Men (ED), How to Care for Your Suprapubic Catheter (DC) Additional Instructions: You have a new suprapubic catheter. We have concerns that you might have a urinary infection. Based on your previous urinary infections we have recommended that you take 2 different antibiotics, levofloxacin, and Macrobid (nitrofurantoin). You received a dose of each of these medications today. Please fill the prescriptions and start the prescriptions tomorrow at home. The levofloxacin is taken once a day. The Macrobid (nitrofurantoin) is taken 2 times a day. Take your next dose of both of these medications tomorrow morning. Please follow up with your urologist soon. Return to the emergency room if significantly worse. Prescriptions: New levofloxacin 250 mg tablet 250 mg PO DAILY Qty: 7 0RF nitrofurantoin monohyd/m-cryst [Macrobid] 100 mg capsule 100 mg PO BID Qty: 14 0RF Rx Instructions: must administer with a meal/food No Action cefpodoxime 200 mg tablet 200 mg PO BID 10 Days Qty: 20 0RF Rx Instructions: must administer with a meal/food oxycodone 5 mg tablet 5 mg PO Q4H PRN (Reason: pain) Qty: 14 0RF Rx Instructions: Patient may request partial fill quetiapine 25 mg tablet 3 tab PO BEDTIME tizanidine 4 mg tablet 2 tab PO Q8H PRN (Reason: muscle spasm) midodrine 5 mg tablet 2.5 tab PO BID baclofen 20 mg tablet 1 tab PO QID gabapentin 300 mg capsule 300 mg PO BID doxycycline hyclate 100 mg capsule 100 mg PO BID 10 Days Qty: 20 0RF prednisone 20 mg tablet 40 mg PO DAILY 5 Days Qty: 10 0RF albuterol sulfate 90 mcg/actuation aerosol powdr breath activated 2 inh inhalation Q4-6H PRN (Reason: shortness of breath or wheezing) Qty: 1 0RF levofloxacin 500 mg tablet 500 mg PO DAILY Qty: 7 0RF cefuroxime axetil 500 mg tablet 500 mg PO BID 10 Days Qty: 20 0RF cefpodoxime 200 mg tablet 200 mg PO BID Qty: 20 0RF Rx Instructions: must administer with a meal/food dicyclomine 20 mg tablet 20 mg PO QID PRN (Reason: abdominal pain) Qty: 20 0RF cefdinir 300 mg capsule 300 mg PO BID 10 Days Qty: 20 0RF nitrofurantoin monohyd/m-cryst [Macrobid] 100 mg capsule 100 mg PO BID Qty: 20 0RF Rx Instructions: must administer with a meal/food oxycodone 5 mg tablet 5 mg PO Q6H PRN (Reason: pain) Qty: 20 0RF Rx Instructions: Partial Fill upon patient request. cefuroxime axetil 250 mg tablet 250 mg PO BID 7 Days Qty: 14 0RF sennosides [senna] 8.6 mg tablet 8.6 mg PO BEDTIME Qty: 14 0RF docusate sodium [Colace] 100 mg capsule 100 mg PO BID Qty: 20 0RF ciprofloxacin HCl [Cipro] 500 mg tablet 500 mg PO BID Qty: 7 0RF cefuroxime axetil 250 mg tablet 250 mg PO BID 7 Days Qty: 14 0RF miconazole nitrate [Lotrimin AF Powder] 2 % aerosol powder 1 spray topical BID Qty: 133 1RF Print Language: Colombian
[2024-01-06 17:54] VITALS: BP 112/69; PULSE 59; RESP 16; TEMP 36.7; O2SAT 98
[2024-01-06 19:13] VITALS: BP 108/65; PULSE 57; RESP 16; TEMP 36.6; O2SAT 97
[2024-01-06 19:14] VITALS: BP 108/65; PULSE 57; RESP 16; TEMP 36.6; O2SAT 97
== END 2024-01-06 19:15 | disposition still patient (30) ==
PROVIDERS: Emergency Medicine; Emergency Provider Emergency Medicine; PCP Physician Assistant Medical
DX: N30.90 Cystitis, unspecified without hematuria (principal); R11.0 Nausea; Z79.899 Other long term (current) drug therapy
CPT/HCPCS: 36415; 80048; 80076; 81001; 83605; 83735; 85025; 87040; 87086; 96361; 96374; 99284; J1956

== ENCOUNTER 2024-03-11 08:20 | Emergency (ER) | payer OTHER, SELFPAY ==
--- NOTE | ~2024-03-11 | XR_ITS ---
EXAMINATION: XR SHOULDER, LEFT CLINICAL INFORMATION: Pain. Reduced range of motion. COMPARISON: None available. TECHNIQUE: AP external rotation, Grashey, scapular Y, and axillary views of the left shoulder. FINDINGS: The bones and soft tissues are normal. No fracture. Glenohumeral and acromioclavicular alignment is anatomic with normal joint space. No abnormal soft tissue calcifications. XR/XR shoulder LT min 2V IMPRESSION: Normal left shoulder. Electronically signed by: Олег Muñoz MD 03/11/2024 09:09 AM EDT
[2024-03-11 08:23] VITALS: BP 100/60; BP 120/80; PULSE 56; PULSE 64; RESP 18; TEMP 36.8; O2SAT 96; O2SAT 98; BMI 23.1
--- NOTE | 2024-03-11 08:33 | ED.EXTPRO ---
HPI - Extremity Problem General Chief complaint: Extremity Injury, Upper Stated complaint: Paraplegic, awoke with shoulder pain ?dislocated Source: patient Mode of arrival: ambulatory Limitations: no limitations History of Present Illness ED Provider: LIV HPI Narrative: 33 yo male with PMH of catheter and UTI (enterobacter S to levofloxacin, E. Coli S to macrobid) , C5 spinal cord injury and paralysis, depression who states he normally sleeps with his L shoulder above his head when he woke up his L arm felt stuck and out of place. He has not had any recent illness, n/v/d, cramps anywhere, has taken all of his medications. He has never dislocated this arm or had spasticity induced dislocations. He denies known trauma. He states his arm feels more swollen. He has no pain or cramps anywhere else MD Complaint: joint swelling and joint pain Onset (ago): hour(s) (woke up like this 1-2 hour) Pain Consistency: constant Location: left and upper extremity Quality: aching Radiation: none Relieving factors: immobilization Exacerbating factors: range of motion Associated symptoms: denies other symptoms Related Data Home Medications ?Medication ?Instructions ?Recorded ?Confirmed baclofen 20 mg tablet 1 tab PO QID 07/17/20 07/17/20 gabapentin 300 mg capsule 300 mg PO BID 07/17/20 07/17/20 midodrine 5 mg tablet 2.5 tab PO BID 07/17/20 07/17/20 quetiapine 25 mg tablet 3 tab PO BEDTIME 07/17/20 07/17/20 tizanidine 4 mg tablet 2 tab PO Q8H PRN muscle spasm 07/17/20 07/17/20 Previous Rx's ?Medication ?Instructions ?Recorded cefpodoxime 200 mg tablet 200 mg PO BID 10 days #20 tabs 07/12/20 oxycodone 5 mg tablet 5 mg PO Q4H PRN pain #14 tabs 07/15/20 levofloxacin 500 mg tablet 500 mg PO DAILY #7 tabs 05/22/22 albuterol sulfate 90 mcg/actuation 2 inh inhalation Q4-6H PRN 07/08/22 breath activated powder inhaler shortness of breath or wheezing #1 ea doxycycline hyclate 100 mg capsule 100 mg PO BID 10 days #20 caps 07/08/22 prednisone 20 mg tablet 40 mg (2 x 20 mg) PO DAILY 5 days 07/08/22 #10 tabs cefpodoxime 200 mg tablet 200 mg PO BID #20 tabs 10/15/22 dicyclomine 20 mg tablet 20 mg PO QID PRN abdominal pain 10/15/22 #20 tabs cefdinir 300 mg capsule 300 mg PO BID 10 days #20 caps 12/24/22 nitrofurantoin 100 mg PO BID #20 caps 01/07/23 monohydrate/macrocrystals 100 mg capsule (Macrobid) oxycodone 5 mg tablet 5 mg PO Q6H PRN pain #20 tabs 01/07/23 cefuroxime axetil 250 mg tablet 250 mg PO BID 7 days #14 tabs 02/18/23 docusate sodium 100 mg capsule 100 mg PO BID #20 caps 02/18/23 (Colace) sennosides 8.6 mg tablet (senna) 8.6 mg PO BEDTIME #14 tabs 02/18/23 cefuroxime axetil 500 mg tablet 500 mg PO BID 10 days #20 tabs 06/21/23 cefuroxime axetil 250 mg tablet 250 mg PO BID 7 days #14 tabs 09/01/23 ciprofloxacin HCl 500 mg tablet 500 mg PO BID #7 tabs 09/01/23 (Cipro) miconazole nitrate 2 % topical 1 spray topical BID #133 grams 09/01/23 spray powder (Lotrimin AF Powder) levofloxacin 250 mg tablet 250 mg PO DAILY #7 tabs 01/06/24 nitrofurantoin 100 mg PO BID #14 caps 01/06/24 monohydrate/macrocrystals 100 mg capsule (Macrobid) Allergies Allergy/AdvReac Type Severity Reaction Status Date / Time No Known Allergies Allergy Verified 03/11/24 08:23 [No Known Allergies*] Review of Systems Review of Systems: Constitutional : No Fever, No Chills ENT/Mouth : No Ear Pain, No Hoarseness, No sore throat Eyes: No Eye Pain, No Swelling, No Redness, No Foreign Body Cardiovascular : No Chest Pain, No SOB Respiratory : No Cough, No Dyspnea Gastrointestinal : No Nausea, No Vomiting, No Diarrhea, No abdominal Pain Genitourinary : No Dysuria, No Hematuria Musculoskeletal : positive joint pain, No Myalgias, pos Joint Swelling Skin : No Skin lacerations, No rash Neuro : No Weakness, No Numbness, No Loss of Consciousness, No Dizziness, No Headache All other systems reviewed and are negative [facility] Past Medical History Attestation statement: The following information was validated with the patient. Source: old records reviewed 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 Pyelonephritis Paralysis Social History Social History Alcohol intake: current Alcohol intake frequency: holidays/special occasions only Patient Tobacco Use Status: Tobacco use Unknown Substance Use Type: Marijuana Advance Directives: No Advance Directives Information Provided: No Do you have a plan to hurt others: No Plan Physical Exam Vital Signs: Vital Signs: Last Vital Signs Temp 98.2 F 03/11/24 08:23 Pulse 56 03/11/24 08:23 Resp 18 03/11/24 08:23 BP 100/60 03/11/24 08:23 Pulse Ox 98 03/11/24 08:23 O2 Del Method Room Air 03/11/24 08:23 BMI result Body Mass Index 23.1 Appearance: Alert. Oriented X3. No acute distress. Eyes: Pupils equal, round and reactive to light. ENT: Pharynx normal. Neck: Normal inspection. Neck supple. CVS: Normal heart rate and rhythm. Pulses normal. Respiratory: No respiratory distress. Breath sounds normal. Abdomen: Soft and nontender. Skin: Skin warm and dry. Normal skin color. Normal skin turgor. Extremities: No lower extremity edema. L shoulder no obvious deformity there is a tight spasm of L pectoralis he has no redness, warmth, there is mild swelling of the joint, he has pain with ROM testing I can range the shoulder though it is tight. Neuro: Oriented X 3. C5 paraplegia Medications Administered Discontinued Medications Generic Name Dose Route Start Last Admin Trade Name Freq PRN Reason Stop Dose Admin Diazepam 2 mg 03/11/24 08:28 03/11/24 08:35 Diazepam 2 Mg Tablet PO 03/11/24 08:29 2 mg ONCE ONE Administration Medical Decision Making Medical Decision Making MDM Narrative: 33 yo male with PMH of catheter and UTI (enterobacter S to levofloxacin, E. Coli S to macrobid) , C5 spinal cord injury and paralysis, depression here with c/o L shoulder pain after waking from sleep - no recent GI illness to suggest lyte abnormality it is isolated. At this time will obtain xray of L shoulder and order valium. Possible spasm, dislocation, subluxation, spontaneous reduction, frozen shoulder Differential Diagnosis Differential Diagnoses: The differential diagnosis associated with the presentation includes spasm, dislocation, subluxation, spontaneous reduction, frozen shoulder Independent Interpretation I performed an independent interpretation of an: Plain X-Ray (normal shoulder) Radiology Impression Discussion of test interpretation with radiology: I have reviewed the radiologist's reading. Independent Historian Clinical information obtained from an independent historian. History obtained from or confirmed by: EMS External Record Review External record reviewed: Inpatient record Prescription Management I considered prescription management with: Other Discharge Plan Discharge Clinical Impression: Frozen shoulder, Muscle spasm of left shoulder Patient Disposition: Home, Self-Care Instructions: Adhesive Capsulitis (ED), Muscle Spasm (ED) Additional Instructions: xray is normal gentle range of motion small circles continue to use shoulder but no reaching behind or above for 2 weeks have someone take shoulder and move it in small circles to loosen it up keep in position of comfort avoid sling it will make area harder to move Prescriptions: No Action cefpodoxime 200 mg tablet 200 mg PO BID 10 Days Qty: 20 0RF Rx Instructions: must administer with a meal/food oxycodone 5 mg tablet 5 mg PO Q4H PRN (Reason: pain) Qty: 14 0RF Rx Instructions: Patient may request partial fill quetiapine 25 mg tablet 3 tab PO BEDTIME tizanidine 4 mg tablet 2 tab PO Q8H PRN (Reason: muscle spasm) midodrine 5 mg tablet 2.5 tab PO BID baclofen 20 mg tablet 1 tab PO QID gabapentin 300 mg capsule 300 mg PO BID doxycycline hyclate 100 mg capsule 100 mg PO BID 10 Days Qty: 20 0RF prednisone 20 mg tablet 40 mg PO DAILY 5 Days Qty: 10 0RF albuterol sulfate 90 mcg/actuation aerosol powdr breath activated 2 inh inhalation Q4-6H PRN (Reason: shortness of breath or wheezing) Qty: 1 0RF levofloxacin 500 mg tablet 500 mg PO DAILY Qty: 7 0RF cefuroxime axetil 500 mg tablet 500 mg PO BID 10 Days Qty: 20 0RF levofloxacin 250 mg tablet 250 mg PO DAILY Qty: 7 0RF nitrofurantoin monohyd/m-cryst [Macrobid] 100 mg capsule 100 mg PO BID Qty: 14 0RF Rx Instructions: must administer with a meal/food cefpodoxime 200 mg tablet 200 mg PO BID Qty: 20 0RF Rx Instructions: must administer with a meal/food dicyclomine 20 mg tablet 20 mg PO QID PRN (Reason: abdominal pain) Qty: 20 0RF cefdinir 300 mg capsule 300 mg PO BID 10 Days Qty: 20 0RF nitrofurantoin monohyd/m-cryst [Macrobid] 100 mg capsule 100 mg PO BID Qty: 20 0RF Rx Instructions: must administer with a meal/food oxycodone 5 mg tablet 5 mg PO Q6H PRN (Reason: pain) Qty: 20 0RF Rx Instructions: Partial Fill upon patient request. cefuroxime axetil 250 mg tablet 250 mg PO BID 7 Days Qty: 14 0RF sennosides [senna] 8.6 mg tablet 8.6 mg PO BEDTIME Qty: 14 0RF docusate sodium [Colace] 100 mg capsule 100 mg PO BID Qty: 20 0RF ciprofloxacin HCl [Cipro] 500 mg tablet 500 mg PO BID Qty: 7 0RF cefuroxime axetil 250 mg tablet 250 mg PO BID 7 Days Qty: 14 0RF miconazole nitrate [Lotrimin AF Powder] 2 % aerosol powder 1 spray topical BID Qty: 133 1RF Print Language: Monegasque
[2024-03-11] MEDS: diazePAM 2 MG TABLET PO (08:35)
[2024-03-11 11:06] VITALS: BP 100/60; PULSE 56; RESP 18; TEMP 36.8; O2SAT 98
== END 2024-03-11 11:07 | disposition home or self-care (01) ==
PROVIDERS: Emergency Provider Emergency Medicine
DX: M75.02 Adhesive capsulitis of left shoulder (principal); M25.512 Pain in left shoulder; M62.838 Other muscle spasm; Z79.899 Other long term (current) drug therapy
CPT/HCPCS: 73030; 99283; 99284

== ENCOUNTER 2024-08-12 16:34 | Emergency (ER) | payer OTHER, SELFPAY ==
--- NOTE | ~2024-08-12 | XR_ITS ---
CLINICAL HISTORY: chest pain 1 view chest x-ray Comparison: CR/WI/SR - XR CHEST 2V - 12/29/23 18:11 EDT Findings: No consolidation or effusion. Heart size is normal. Partial visualization of cervical spine fusion hardware. No acute fracture. Levocurvature of the thoracic spine. IMPRESSION: 1. No acute findings. This document has been electronically signed by: Neha Marlow MD on 08/12/2024 18:09:48
--- NOTE | 2024-08-12 16:51 | ECG_ITS ---
Test Reason : cp Blood Pressure : */* mmHG Vent. Rate : 45 BPM Atrial Rate : 45 BPM P-R Int : 150 ms QRS Dur : 94 ms QT Int : 514 ms P-R-T Axes : 56 74 78 degrees QTcB Int : 444 ms Sinus bradycardia Nonspecific ST abnormality Abnormal ECG When compared with ECG of 29-Dec-2023 17:35, Nonspecific T wave abnormality no longer evident in Inferior leads Referred By: Mary Ulrich Electronically Signed By: SARINA CUEVAS
--- NOTE | 2024-08-12 16:52 | ED.CHESTPAIN ---
HPI - Chest Pain General Chief Complaint: Chest Pain Stated Complaint: chest pain hx yesterday night Time Seen by Provider: 08/12/24 16:44 Source: patient and EMS Mode of arrival: EMS Limitations: no limitations History of Present Illness ED Provider: Mary Ulrich NP HPI narrative: Patient is a 34-year-old male with past medical history of chronic indwelling Marie catheter, C5 spinal cord injury and paralysis, depression presents emergency department via EMS for evaluation of chest pain. He reports at approximately 10:00 this morning he was experiencing left anterior chest pain described as an aching sensation nonradiating. He had associated lightheadedness with this. He describes it as a sensation of ?like when my blood pressure is low? but he states that typically only happens if he is sitting upright for a prolonged. He states that when this started he was lying back in his chair. After about 5 minutes the left anterior chest pain resolved but he continued to have the lightheadedness. The chest pain came back again at approximately 11:30 again quickly resolving. Pain has been intermittent he therefore called EMS for transportation to the hospital. Again it is nonradiating, no diaphoresis, no nausea, no vomiting. On arrival he does state that he is still having lightheadedness. Initial triage vital signs indicate that he is bradycardic and hypotensive. When asked, he states that he does take midodrine typically at night for his low blood pressure does not recall the exact dose but states it to be in his pharmacy records. His mother as well as [employer] repairs medications for him. He also states that 1 week ago he completed a 1 week course of steroids and antibiotics for a dental infection, has had no further swelling pain or purulent drainage from the mouth. No associated fevers or chills. He has a history of urinary tract infections but he states he is typically symptomatic of this feeling weak, burning in the lower abdomen, increase in muscle spasms which he has not experienced any of. Denies any foul smell to the urinary drainage or notable blood in the Marie catheter drainage bag. Related Data Home Medications ?Medication ?Instructions ?Recorded ?Confirmed baclofen 20 mg tablet 1 tab PO QID 07/17/20 07/17/20 gabapentin 300 mg capsule 300 mg PO BID 07/17/20 07/17/20 midodrine 5 mg tablet 2.5 tab PO BID 07/17/20 07/17/20 quetiapine 25 mg tablet 3 tab PO BEDTIME 07/17/20 07/17/20 tizanidine 4 mg tablet 2 tab PO Q8H PRN muscle spasm 07/17/20 07/17/20 Previous Rx's ?Medication ?Instructions ?Recorded cefpodoxime 200 mg tablet 200 mg PO BID 10 days #20 tabs 07/12/20 oxycodone 5 mg tablet 5 mg PO Q4H PRN pain #14 tabs 07/15/20 levofloxacin 500 mg tablet 500 mg PO DAILY #7 tabs 05/22/22 albuterol sulfate 90 mcg/actuation 2 inh inhalation Q4-6H PRN 07/08/22 breath activated powder inhaler shortness of breath or wheezing #1 ea doxycycline hyclate 100 mg capsule 100 mg PO BID 10 days #20 caps 07/08/22 prednisone 20 mg tablet 40 mg (2 x 20 mg) PO DAILY 5 days 07/08/22 #10 tabs cefpodoxime 200 mg tablet 200 mg PO BID #20 tabs 10/15/22 dicyclomine 20 mg tablet 20 mg PO QID PRN abdominal pain 10/15/22 #20 tabs cefdinir 300 mg capsule 300 mg PO BID 10 days #20 caps 12/24/22 nitrofurantoin 100 mg PO BID #20 caps 01/07/23 monohydrate/macrocrystals 100 mg capsule (Macrobid) oxycodone 5 mg tablet 5 mg PO Q6H PRN pain #20 tabs 01/07/23 cefuroxime axetil 250 mg tablet 250 mg PO BID 7 days #14 tabs 02/18/23 docusate sodium 100 mg capsule 100 mg PO BID #20 caps 02/18/23 (Colace) sennosides 8.6 mg tablet (senna) 8.6 mg PO BEDTIME #14 tabs 02/18/23 cefuroxime axetil 500 mg tablet 500 mg PO BID 10 days #20 tabs 06/21/23 cefuroxime axetil 250 mg tablet 250 mg PO BID 7 days #14 tabs 09/01/23 ciprofloxacin HCl 500 mg tablet 500 mg PO BID #7 tabs 09/01/23 (Cipro) miconazole nitrate 2 % topical 1 spray topical BID #133 grams 09/01/23 spray powder (Lotrimin AF Powder) levofloxacin 250 mg tablet 250 mg PO DAILY #7 tabs 01/06/24 nitrofurantoin 100 mg PO BID #14 caps 01/06/24 monohydrate/macrocrystals 100 mg capsule (Macrobid) levofloxacin 750 mg tablet 750 mg PO DAILY #5 tabs 08/12/24 nitrofurantoin 100 mg PO Q12H 7 days #14 caps 08/12/24 monohydrate/macrocrystals 100 mg capsule (Macrobid) prednisone 10 mg tablet 10 mg PO DAILY #7 tabs 08/12/24 Allergies Allergy/AdvReac Type Severity Reaction Status Date / Time No Known Allergies Allergy Verified 08/12/24 17:13 [No Known Allergies*] Review of Systems Review of Systems: Yes all other systems are reviewed and are negative [facility] Past Medical History Attestation statement: The following information was validated with the patient. Source: old records reviewed 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 Pyelonephritis Paralysis Social History Social History Alcohol intake: current Alcohol intake frequency: holidays/special occasions only Patient Tobacco Use Status: Tobacco use Unknown Smoked in Last 30 Days: Yes Substance Use Type: Marijuana Substance Use Frequency: Daily Advance Directives: No Advance Directives Information Provided: No Do you have a plan to hurt others: No Plan Physical Exam Vital Signs: Vital Signs: Last Vital Signs Temp 98.0 F 08/12/24 17:45 Pulse 46 L 08/12/24 18:18 Resp 14 08/12/24 18:18 BP 135/72 08/12/24 18:18 Pulse Ox 96 08/12/24 18:18 O2 Del Method Room Air 08/12/24 18:18 BMI result Body Mass Index 23.9 Appearance: Alert.?Oriented to person, place and time. No acute distress.?Normal affect. Eyes: Pupils equal, round and reactive to light.? ENT: Pharynx normal.?? Neck: Normal inspection.? Neck supple.??No JVD. CVS: Heart sounds normal. Normal heart rate and rhythm.? Pulses normal.?? Respiratory: No respiratory distress.? Lung sounds clear to auscultation bilaterally?? Abdomen: Soft and non-tender. Normoactive bowel sounds. No pulsatile mass.?? Skin: Skin warm and dry.? Normal skin color.? ?? Extremities: No lower extremity edema.? No calf ttp? Neuro: Moves all extremities spontaneously. Sensation intact bilaterally. CN II-XII intact. No focal neuro deficits. Ambulates with normal steady gait. Course Reevaluation(s) Reevaluation #1: Bradycardia is lower than baseline typically 50-60s persistently in the 40s. EKG nonischemic sinus bradycardia, troponin below detectable limits, Heart score of 2, I feel this is consistent with ACS at this time. PERC negative and although he is immobile, not consistent with pulmonary embolism at this time, no clinical evidence of DVT no hypoxia no shortness of breath. Urinalysis consistent with urinary tract infection, thus far has been covered with Rocephin, on review of prior urine cultures he has grown most often E coli and most recently Enterobacter cloaca with sensitivity to levofloxacin and Macrobid respectively. CBC is without leukocytosis or left shift, mild anemia not meeting transfusion criteria, mild thrombocytopenia. No significant electrolyte derangement. No HENRY. No lactic acidosis. Viral serologies are negative. After received 1 L normal saline IV fluid, midodrine as well as Solu-Cortef blood pressure has increased 120-130 systolic. My interpretation chest x-ray does not show acute consolidation or infiltrate. Plan for discharge home, was sent home with antibiotic course for urinary tract infection including levofloxacin in addition to Macrobid, we will do a low-dose steroid for 7 days in case the hypotension was secondary to adrenal insufficiency given his recent steroid course, though of note this may be secondary to autonomic dysfunction given his spinal cord injury. He otherwise is well-appearing, nontoxic remains afebrile. Do not see indication for inpatient admission at this time. I did discuss this case with my attending Dr. Chavez who agrees. Medications Administered Discontinued Medications Generic Name Dose Route Start Last Admin Trade Name Freq PRN Reason Stop Dose Admin Hydrocortisone Sodium Succinate 100 mg 08/12/24 17:09 08/12/24 17:20 Hydrocortisone Sod Succ/Pf 100 Mg Vial IVPUSH 08/12/24 17:10 100 mg ONCE ONE Administration Midodrine 12.5 mg 08/12/24 17:09 08/12/24 17:19 Midodrine Hcl 2.5 Mg Tablet PO 08/12/24 17:10 12.5 mg ONCE ONE Administration Medical Decision Making Medical Decision Making MDM Narrative: Patient is a 34-year-old male with past medical history of chronic indwelling Marie catheter, C5 spinal cord injury and paralysis, who presents to the emergency department for evaluation with complaint of chest pain lightheadedness as per HPI. On arrival he is bradycardic in the 40s with EKG revealing a sinus bradycardia, ventricular rate of 45, QTC 444, some ectopy is noted, no apparent ST elevation/ST depression, reviewed by my attending Dr. Chavez as well. He is additionally hypotensive with systolic blood pressure in the 80s diastolic in the 40s. He does state that he typically takes his midodrine at night he did not yet take it this evening. On review of pharmacy records it appears as though he takes 12.5 mg which I have ordered. Given he was recently on a 1 week course of prednisone, will also provide a stress dose of Solu-Cortef 100 mg IV push aces hypotension is secondary to any adrenal insufficiency. He has no apparent dental infection or abscess at this time to suggest a source of infection. However will obtain blood cultures and lactic acid, he is receiving 1 L normal saline IV fluid, he is not tachycardic he is not febrile currently does not meet SIRS criteria there is no clear source of an infection that may be causing this. However he does have history of chronic indwelling Marie catheter and urinary tract infections in the past, will cover with Rocephin in the interim while waiting further testing results. No associated abdominal pain nausea or vomiting to suggest acute hepatobiliary etiology; cholecystitis coli Dulcolax phthisis, no fever jaundice to suggest acute cholangitis. No acid reflux, tenderness over the epigastrium left upper quadrant to suggest gastritis no recent hematemesis to suggest PUD. No history of diabetes no alcohol consumption, lower suspicion for acute pancreatitis. No recent URI symptoms to suggest costochondritis. Differential Diagnosis Differential Diagnoses: The differential diagnosis associated with the presentation includes (See narrative above) Admission/Observation Consideration of admission/observation: Escalation of care including admission/observation considered (See narrative above and course narrative for further detail) Lab Data MDM Lab Attestation statement: I reviewed the patient's lab results. 08/12/24 18:36 08/12/24 18:11 Labs: Lab Results 08/12/24 08/12/24 08/12/24 Range/Units 17:40 18:11 18:14 WBC (4.8-10.8) X10*3/uL RBC (4.60-5.80) X10*6/uL Hgb (14.0-18.0) g/dl Hct (42.0-52.0) % MCV (80.0-98.0) fL MCH (27.0-33.0) pg MCHC (31.0-36.0) g/dl RDW (11.0-16.0) % Plt Count (160-400) X10*3/uL MPV (9.4-12.4) fL Immature Gran % (Auto) (0.0-0.4) % Neut % (Auto) (45-73) % Lymph % (Auto) (20-40) % [place] % (Auto) (2-11) % Eos % (Auto) (0-4) % Baso % (Auto) (0-2) % Lymph # (Auto) (1.2-4.9) X10*3/uL [place] # (Auto) (0.1-1.2) X10*3/uL Eos # (Auto) (0.0-0.4) X10*3/uL Baso # (Auto) (0.0-0.2) X10*3/uL Abs Immat Gran (auto) (0.00-0.03) X10*3/uL Absolute Neuts (auto) (2.0-8.3) x10*3/uL Absolute Nucleated RBC (0.0-0.012) X10*3/uL Nucleated RBC % (auto) (0.0-0.2) /100WBC PT 11.0 (10.9-12.4) SEC INR 0.9 (0.9-1.1) Sodium 141 (135-145) mmol/L Potassium 4.1 (3.3-5.1) mmol/L Chloride 110 H (96-108) mmol/L Carbon Dioxide 26 (22-29) mmol/L Anion Gap 9 L (12-20) BUN 11 (9-16) mg/dL Creatinine 0.73 (0.5-1.4) mg/dL Estim Creat Clear Calc 157.9 Estimated GFR > 60 Random Glucose 79 (60-115) mg/dL Lactic Acid 1.0 (0.5-2.0) mmol/L Calcium 8.1 L D (8.4-10.2) mg/dL Magnesium 1.9 (1.6-2.6) mg/dL Total Bilirubin 0.2 (0.0-1.0) mg/dL AST 19 (5-37) U/L ALT 16 (0-40) U/L Alkaline Phosphatase 63 (39-117) U/L Troponin I High Sens < 2.7 (<3.5-35.0) ng/L B-Natriuretic Peptide 19 (<100) pg/mL Total Protein 5.9 L (6.5-8.0) g/dL Albumin 3.5 (3.5-5.0) g/dL Lipase 25 (8-78) U/L Urine Color Yellow Urine Appearance Turbid Urine pH 7.0 (5.0-9.0) Ur Specific [place] 1.025 (1.005-1.025) Urine Protein 30 (1+) H (Neg-Trace) mg/dL Urine Glucose (UA) Negative (Negative) mg/dL Urine Ketones Negative (Negative) mg/dL Urine Blood Negative (Negative) Urine Nitrite Positive H (Negative) Ur Leukocyte Esterase Large (3+) H (Negative) Urine RBC 11-20 H (0-2) /HPF Urine WBC >50 H (0-5) /HPF Ur Squamous Epith Cells 3-5 (0-2) /HPF Urine Bacteria 4+ (None Seen) Hyaline Casts 3-5 (0-2) /LPF Influenza Type A (PCR) NEGATIVE (Negative) Influenza Type B (PCR) NEGATIVE (Negative) RSV RNA Qual (PCR) NEGATIVE (Negative) SARS-CoV-2 RNA (RT-PCR) NEGATIVE (Negative) 08/12/24 Range/Units 18:36 WBC 6.0 (4.8-10.8) X10*3/uL RBC 4.37 L (4.60-5.80) X10*6/uL Hgb 12.8 L (14.0-18.0) g/dl Hct 38.5 L (42.0-52.0) % MCV 88.1 (80.0-98.0) fL MCH 29.3 (27.0-33.0) pg MCHC 33.2 (31.0-36.0) g/dl RDW 13.2 (11.0-16.0) % Plt Count 158 L (160-400) X10*3/uL MPV 11.7 (9.4-12.4) fL Immature Gran % (Auto) 0.3 (0.0-0.4) % Neut % (Auto) 66.1 (45-73) % Lymph % (Auto) 26.6 (20-40) % [place] % (Auto) 5.0 (2-11) % Eos % (Auto) 1.7 (0-4) % Baso % (Auto) 0.3 (0-2) % Lymph # (Auto) 1.6 (1.2-4.9) X10*3/uL [place] # (Auto) 0.3 (0.1-1.2) X10*3/uL Eos # (Auto) 0.1 (0.0-0.4) X10*3/uL Baso # (Auto) 0.0 (0.0-0.2) X10*3/uL Abs Immat Gran (auto) 0.02 (0.00-0.03) X10*3/uL Absolute Neuts (auto) 3.9 (2.0-8.3) x10*3/uL Absolute Nucleated RBC 0.000 (0.0-0.012) X10*3/uL Nucleated RBC % (auto) 0.0 (0.0-0.2) /100WBC PT (10.9-12.4) SEC INR (0.9-1.1) Sodium (135-145) mmol/L Potassium (3.3-5.1) mmol/L Chloride (96-108) mmol/L Carbon Dioxide (22-29) mmol/L Anion Gap (12-20) BUN (9-16) mg/dL Creatinine (0.5-1.4) mg/dL Estim Creat Clear Calc Estimated GFR Random Glucose (60-115) mg/dL Lactic Acid (0.5-2.0) mmol/L Calcium (8.4-10.2) mg/dL Magnesium (1.6-2.6) mg/dL Total Bilirubin (0.0-1.0) mg/dL AST (5-37) U/L ALT (0-40) U/L Alkaline Phosphatase (39-117) U/L Troponin I High Sens (<3.5-35.0) ng/L B-Natriuretic Peptide (<100) pg/mL Total Protein (6.5-8.0) g/dL Albumin (3.5-5.0) g/dL Lipase (8-78) U/L Urine Color Urine Appearance Urine pH (5.0-9.0) Ur Specific [place] (1.005-1.025) Urine Protein (Neg-Trace) mg/dL Urine Glucose (UA) (Negative) mg/dL Urine Ketones (Negative) mg/dL Urine Blood (Negative) Urine Nitrite (Negative) Ur Leukocyte Esterase (Negative) Urine RBC (0-2) /HPF Urine WBC (0-5) /HPF Ur Squamous Epith Cells (0-2) /HPF Urine Bacteria (None Seen) Hyaline Casts (0-2) /LPF Influenza Type A (PCR) (Negative) Influenza Type B (PCR) (Negative) RSV RNA Qual (PCR) (Negative) SARS-CoV-2 RNA (RT-PCR) (Negative) Independent Interpretation I performed an independent interpretation of an: EKG (See narrative above) and Plain X-Ray (See course narrative) Radiology Impression Discussion of test interpretation with radiology: I have reviewed the radiologist's reading. Radiologist Impression: 1 view chest x-ray Comparison: CR/IL/SR - XR CHEST 2V - 12/29/23 18:11 EDT Findings: No consolidation or effusion. Heart size is normal. Partial visualization of cervical spine fusion hardware. No acute fracture. Levocurvature of the thoracic spine. IMPRESSION: 1. No acute findings. Independent Historian Clinical information obtained from an independent historian. History obtained from or confirmed by: EMS External Record Review External record reviewed: Outpatient record Discharge Plan Discharge Clinical Impression: UTI (urinary tract infection) due to urinary indwelling catheter Qualifiers: Indwelling urinary catheter type: indwelling urethral catheter Encounter type: initial encounter Qualified Code(s): T83.511A - Infection and inflammatory reaction due to indwelling urethral catheter, initial encounter Patient Disposition: Home, Self-Care Instructions: Urinary Tract Infection in Men (ED) Additional Instructions: Complete the entire course of antibiotics as prescribed do not skip any doses or stopped taking early. Take low-dose of prednisone daily in the morning with food to prevent stomach upset. Return with any new or worsening symptoms or concerns. Prescriptions: New levofloxacin 750 mg tablet 750 mg PO DAILY Qty: 5 0RF nitrofurantoin monohyd/m-cryst [Macrobid] 100 mg capsule 100 mg PO Q12H 7 Days Qty: 14 0RF Rx Instructions: must administer with a meal/food prednisone 10 mg tablet 10 mg PO DAILY Qty: 7 0RF No Action cefpodoxime 200 mg tablet 200 mg PO BID 10 Days Qty: 20 0RF Rx Instructions: must administer with a meal/food oxycodone 5 mg tablet 5 mg PO Q4H PRN (Reason: pain) Qty: 14 0RF Rx Instructions: Patient may request partial fill quetiapine 25 mg tablet 3 tab PO BEDTIME tizanidine 4 mg tablet 2 tab PO Q8H PRN (Reason: muscle spasm) midodrine 5 mg tablet 2.5 tab PO BID baclofen 20 mg tablet 1 tab PO QID gabapentin 300 mg capsule 300 mg PO BID doxycycline hyclate 100 mg capsule 100 mg PO BID 10 Days Qty: 20 0RF prednisone 20 mg tablet 40 mg PO DAILY 5 Days Qty: 10 0RF albuterol sulfate 90 mcg/actuation aerosol powdr breath activated 2 inh inhalation Q4-6H PRN (Reason: shortness of breath or wheezing) Qty: 1 0RF levofloxacin 500 mg tablet 500 mg PO DAILY Qty: 7 0RF cefuroxime axetil 500 mg tablet 500 mg PO BID 10 Days Qty: 20 0RF levofloxacin 250 mg tablet 250 mg PO DAILY Qty: 7 0RF nitrofurantoin monohyd/m-cryst [Macrobid] 100 mg capsule 100 mg PO BID Qty: 14 0RF Rx Instructions: must administer with a meal/food cefpodoxime 200 mg tablet 200 mg PO BID Qty: 20 0RF Rx Instructions: must administer with a meal/food dicyclomine 20 mg tablet 20 mg PO QID PRN (Reason: abdominal pain) Qty: 20 0RF cefdinir 300 mg capsule 300 mg PO BID 10 Days Qty: 20 0RF nitrofurantoin monohyd/m-cryst [Macrobid] 100 mg capsule 100 mg PO BID Qty: 20 0RF Rx Instructions: must administer with a meal/food oxycodone 5 mg tablet 5 mg PO Q6H PRN (Reason: pain) Qty: 20 0RF Rx Instructions: Partial Fill upon patient request. cefuroxime axetil 250 mg tablet 250 mg PO BID 7 Days Qty: 14 0RF sennosides [senna] 8.6 mg tablet 8.6 mg PO BEDTIME Qty: 14 0RF docusate sodium [Colace] 100 mg capsule 100 mg PO BID Qty: 20 0RF ciprofloxacin HCl [Cipro] 500 mg tablet 500 mg PO BID Qty: 7 0RF cefuroxime axetil 250 mg tablet 250 mg PO BID 7 Days Qty: 14 0RF miconazole nitrate [Lotrimin AF Powder] 2 % aerosol powder 1 spray topical BID Qty: 133 1RF Print Language: Mexican
[2024-08-12 17:09] VITALS: BP 88/54; PULSE 51; RESP 18; TEMP 36.4; O2SAT 96; BMI 23.9
[2024-08-12 17:19] VITALS: BP 102/58
[2024-08-12] MEDS: Midodrine HCl 2.5 MG TABLET 12.5 MG PO (17:19)
[2024-08-12] MEDS: Hydrocortisone Sod Succ/PF 100 MG VIAL IVPUSH (17:20)
[2024-08-12 17:45] VITALS: BP 106/62; PULSE 42; RESP 10; TEMP 36.7; O2SAT 97
--- OUTSIDE RECORDS SUMMARY | 2024-08-12 18:06 | XMS_ITS | Data Portability ---
Author Organization [employer] Address [address] [place] [id number] Care Team Providers Care Social Services Technician Name Role Phone VIOLETA [employer] АННА MRI OTHER HIM CCA OTHER Assessment Encounter Date Assessment Date Assessment LastModified by Organization Details LastModified Time 12/16/2023 12/16/2023 I provided real -time medical direction via phone for this encounter and was available for additional phone-based assistance as needed. I have reviewed and agree with the Assessment and Plan as documented by the Labor Relations Worker. Patient given the opportunity to ask questions. Our service contacted for an assessment of: left-sided shoulder and chest discomfort associated with some mild nausea without vomiting. As per above, patient has no h/o cardiac disease. Did have overuse of left shoulder. Per retail salesperson on the scene, VSS, NAD. ECG shows rate of 49. No acute changes. Impression: Likely non-cardiac CP Plan: ECG is reassuring. Patient's symptoms are non-characterist ic of angina. Exam is reassuring. We discussed the diagnostic uncertainty of home visits and the risk associated with this. In this case, the patient and I felt this to be an acceptable and reasonable amount of risk given the benefit of avoiding an ED visit. We discussed the need to seek care urgently/emergen tly in the setting of any new or worsening serious symptoms Not available 12/19/2023 16:22:59 04/25/2024 04/25/2024 As noted, we were called to see this patient regarding concerns of UTI. Evaluation in the field was performed by my retail salesperson colleague, as noted above, I provided real-time direction and supervision for this visit. The evaluation revealed same. Impression: 34yo/m with hx of prior cervical spine injury with resultant quadriplegia, has autonomic dysreflexia, suprapubic tube in place. States has UTIs approximately 3-4 times/year. Over past several days has been feeling generally mildly ill, subjective fevers/chills, generalized weakness/fatigue , some increased muscle spasticitiy. States symptoms of prior UTIs. Evaluated by medic in home, patient is awake, alert, in no distress at this time. A/ox3, GCS 15, well appearing. No other associated signs or symptoms of illness at this time. No vomiting, change in stools, neck pain or stiffness, cough or dyspnea. States otherwise feeling at baseline. Medic exam notable only for some mild suprapubic ttp on exam, rest of abdomen is soft and nontender. Urine sent from drainage port (second dip) appears consistent with UTI. Reviewed prior cultures, had e.coli UTI 11/19/2023 pansensitive, given his symptoms I believe it's reasonable to start him on levaquin 750mg for 7 days given concern for complicated UTI/early pyelo. Plan: Patient states feels like his prior UTIs, will start treatment and send urine culture, advised he would need to have his suprapubic catheter change as well, he feels comfortable following up with his providers. Instructed to reach out immediately with any acute worsening or change in symptoms which he understands. I have a lower suspicion at this time for an occult emergency medical condition such as appendicitis, SBO, meningitis, sepsis. Primary care, consider followup for improvement of symptoms, suprapubic catheter change at appropriate time Disposition: We discussed the diagnostic uncertainty of home visits and the risk associated with this. In this case, the patient and I felt this to be an acceptable and reasonable amount of risk given the benefit of avoiding an ED visit. We discussed the need to seek care urgently/emergen tly in the setting of any new or worsening serious symptoms, particularly any acute worsening or change in symptoms. [email or web address] Not available 04/25/2024 14:58:34 05/16/2024 05/16/2024 I provided real -time medical direction via phone for this encounter and was available for additional phone-based assistance as needed. I have reviewed and agree with the Assessment and Plan as documented by the Labor Relations Worker. Patient given the opportunity to ask questions. Our service contacted for an assessment of: Right foot pain As per above, patient with approximately 12 to 24 hours of right foot pain. Has been keeping it elevated. Denies any trauma. Stated he had some swelling that improved as time went by as well as elevation. No history of clotting disorder, crystalline joint disease, trauma, bruising or rash. Patient can ambulate without difficulty. Per retail salesperson on the scene, vital signs are stable and patient is afebrile. Please see uploaded pictures. Impression: Right foot pain localized to the top of the foot from the ankle to his toes Plan: Differential diagnosis is broad but exam and subjective and objective information obtained is reassuring. Would be an unusual presentation for a deep venous thrombosis which is what the call was specifically related to. It may warrant further testing with an x-ray and plain film an in-person exam. Will have him follow up with PCP. He is weight-bearing as tolerated. His pain is under good control currently. Allergies: Reviewed PCP f/u: May benefit from an in-person evaluation and x-ray of right foot. We discussed the diagnostic uncertainty of home visits and the risk associated with this. In this case, the patient and I felt this to be an acceptable and reasonable amount of risk given the benefit of avoiding an ED visit. We discussed the need to seek care urgently/emergen tly in the setting of any new or worsening serious symptoms, particularly fever chills Not available 05/16/2024 20:45:22 08/12/2024 08/12/2024 I have reviewed and agree with the assessment and plan as documented by the retail salesperson. I provided real-time medical direction for this encounter and was immediately available to provide additional phone-based assistance as needed. HPI: 34M paraplegic, presenting with hx of dizziness, chest pain, syncopal episode around 3 hrs ago. No SOB. Lasted for several minutes then went away. Returned a few minutes later. No clear cause, no other symptoms presently. Normal PO intake, no fever, or other illness. Denies any cardiac history. Never had these symptoms before. Denies CP presently. No headache or dizziness. O/E: Hr 50, BP 98/57 Exam otherwise unremarkable per the retail salesperson. EKG reveals sinus cullen, significant artifact due to tremors. No obvious ST changes. Impression: Syncopal episode with chest pain, concern for cardiac event. No evidence for dehydration. Recommended pt be seen in ED for further testing however he declines. Extensive discussion re: risks associated with staying home. Pt judgement intact, he states he will go to the ED later due to challenges with caregiver. Plan: Pt states he will go to ED later or sooner if symptoms recur. We discussed the diagnostic uncertainty of home visits and the risk associated with this. In this case, the patient and I felt this to be an acceptable and reasonable amount of risk given the benefit of avoiding an ED visit. We discussed the need to seek care urgently/emergen tly in the setting of any new or worsening serious symptoms, particularly weakness, dizziness, fever, chills, CP, SOB, worsening diarrhea, nausea, vomiting or any other concerns. [email or web address] Not available 08/12/2024 14:02:43 Plan of Treatment Reminders Order Date Submit Date Provider Last Modified By Organization Details Last Modified Time Details Appointments Urgent Care 2024 01:44P Faizan Driver MD Not available Not available Not available Lab culture, urine 2023 024 PENDER [facility], [address] [place] [address], [id number], 04/27/2024 14:06:48 urinalysi s, dipstick 2023 024 [email or web address] 4 [facility], [address] [place] [address], [phone], 04/25/2024 14:53:28 Referral None recorded. Procedures None recorded. Surgeries None recorded. Imaging electroca rdiogram 2023 024 MAYO [facility], [address] [place] [address], [phone], 06/17/2024 05:01:42 electroca rdiogram 2023 024 fely [facility], [address] [place] [address], [phone], 02/15/2024 21:32:03 electroca rdiogram 2024 025 joe [facility], [address] [place] [address], [phone], 08/12/2024 14:07:32 Medication Orders levofloxa piedad 750 mg tablet 2023 024 [email or web address] 4 [id number], [address] [place] [address], [phone], 04/25/2024 14:53:27 levofloxa piedad 750 mg tablet 2023 024 MAYO [facility][id number], [address], [place], [phone], 04/25/2024 14:53:37 Patient TargetsNo targets recorded. Patient InstructionsNo instructions recorded. Reason for Referral None Reported. Results Created Date Observation Date Name Description Value Unit Range Abnormal Flag Note LastModifiedBy Organization Detail LastModifiedTime 11/19/19 24 11/24/2023 URINE CULTU RE,CO MPREH ENSIV E urine culture,comp rehensive Final report abnormal Not Available [facility] ([facility]) [address] [facility], [place], [address], 11/24/2023 14:06:59 11/19/19 24 11/24/2023 URINE CULTU RE,CO MPREH ENSIV E result 1 Entero coccus faecal is abnormal For Enter ococc us speci es, amino glyco sides (exce pt for high- level resis tance scree joy) , cepha lospo rins, clind amyci n, and trime thopr im-hernandez lfame thoxa zole are not effec tive clini mello . (CLSI , M100- S26, 2016) Great er than 100,0 00 colon y formi ng units per mL Not Available [facility] ([facility]) [address] [facility], [place], [address], 11/24/2023 14:06:59 11/19/19 24 11/24/2023 URINE CULTU RE,CO MPREH ENSIV E antimicrobia l susceptibili ty Commen t S = Susce ptibl e; I = Inter media te; R = Resis tant P = Posit judi; N = Negat judi MICS are expre ssed in micro grams per mL Antib iotic RSLT# 1 RSLT# 2 RSLT# 3 RSLT# 4 Cipro floxa piedad S Levof loxac in S Nitro furan toin S Penic illin S Tetra cycli ne S Vanco mycin S Not Available [facility] ([facility]) [address] [facility], [place], [address], 11/24/2023 14:06:59 11/19/19 24 11/19/2023 urina lysis , dipst ick Leukocytes 4+ Not Available [facility] [address] [place] [address], [phone], 11/19/2023 21:21:30 11/19/19 24 11/19/2023 urina lysis , dipst ick Nitrite positi ve Not Available [facility] [address] [place] [address], [phone], 11/19/2023 21:21:30 11/19/19 24 11/19/2023 urina lysis , dipst ick Urobilinogen neg Not Available [facility] [address] [place] [address], [address], 11/19/2023 21:21:30 11/19/19 24 11/19/2023 urina lysis , dipst ick Protein neg Not Available [facility] - [facility] [address], [address], 11/19/2023 21:21:30 11/19/19 24 11/19/2023 urina lysis , dipst ick pH 7 Not Available [facility] - [facility] [address] [place] [address], [phone], 11/19/2023 21:21:30 11/19/19 24 11/19/2023 urina lysis , dipst ick Blood + Not Available [facility] - [facility] [address], [address], 11/19/2023 21:21:30 11/19/19 24 11/19/2023 urina lysis , dipst ick Ketone neg Not Available [facility] - [facility] [address], [address], 11/19/2023 21:21:30 11/19/19 24 11/19/2023 urina lysis , dipst ick Bilirubin neg Not Available [facility] - [facility] [address], [address], 11/19/2023 21:21:30 11/19/19 24 11/19/2023 urina lysis , dipst ick Glucose neg Not Available [facility] - [facility] [address], [address], 11/19/2023 21:21:30 11/19/19 24 11/19/2023 BMP, serum or plasm a BUN 8 Not Available [facility] - [facility] [address], [address], 11/19/2023 21:22:09 11/19/19 24 11/19/2023 BMP, serum or plasm a Ca 1.18 Not Available [facility] - [facility] [address], [address], 11/19/2023 21:22:11/19/19 24 11/19/2023 BMP, serum or plasm a CI- 96 Not Available [facility] - [facility] [address], [address], 11/19/2023 21:22:09 11/19/19 24 11/19/2023 BMP, serum or plasm a CRE 0.7 Not Available [facility] - [facility] [address], [address], 11/19/2023 21:22:09 11/19/19 24 11/19/2023 BMP, serum or plasm a GLU 81 Not Available [facility] - [facility] [address], [address], 11/19/2023 21:22:09 11/19/19 24 11/19/2023 BMP, serum or plasm a K+ 4.0 Not Available [facility] - [facility] [address] [place] [address], [address], 11/19/2023 21:22:09 11/19/19 24 11/19/2023 BMP, serum or plasm a Na+ 137 Not Available [facility] - [facility] [address], [address], 11/19/2023 21:22:09 11/19/19 24 11/19/2023 BMP, serum or plasm a tCO2 31 Not Available [facility] - [facility] [address], [address], 11/19/2023 21:22:09 11/19/19 24 11/19/2023 hemog lobin + hemat ocrit , blood Hemoglobin 15.3 Not Available [facility] - [facility] [address] [place] [address], [phone], 11/19/2023 21:22:17 11/19/19 24 11/19/2023 hemog lobin + hemat ocrit , blood Hematocrit 45 Not Available [facility] [address] [place] [address], [phone], 11/19/2023 21:22:17 04/25/20 24 04/28/2024 URINE CULTU RE,CO MPREH ENSIV E urine culture,comp rehensive Final report abnormal Not Available [facility] ([facility]) [address] [facility], [place], [address], 04/28/2024 12:06:56 04/25/20 24 04/28/2024 URINE CULTU RE,CO MPREH ENSIV E result 1 COMMEN T abnormal Acine tobac ter berez iniae Great er than 100,0 00 colon y formi ng units per mL Not Available [facility] ([facility]) [address] [facility], [place], [address], 04/28/2024 12:06:56 04/25/20 24 04/28/2024 URINE CULTU RE,CO MPREH ENSIV E antimicrobia l susceptibili ty Commen t S = Susce ptibl e; I = Inter media te; R = Resis tant P = Posit judi; N = Negat judi MICS are expre ssed in micro grams per mL Antib iotic RSLT# 1 RSLT# 2 RSLT# 3 RSLT# 4 Amika piedad S Ampic illin /Sulb actam S Cefep selena S Cefot axime S Cefta zidim e S Ceftr iaxon e S Cipro floxa piedad S Genta micin S Levof loxac in S Merop enem S Piper acill in/Ta zobac soriano S Tetra cycli ne S Tobra mycin S Trime thopr im/Hernandez lfa S Not Available [facility] ([facility]) [address] [facility], [place], [address], 04/28/2024 12:06:56 12/19/19 24 12/19/2023 elect rocar diogr am No observ ation record ed. [address], [address], 12/19/2023 16:47:55 02/15/20 24 elect rocar diogr am No observ ation record ed. fely [address], [address], 02/15/2024 21:32:01 08/12/19 [facility] rocar diogr am No observ ation record ed. joe [facility] - [address], [address], 08/12/2024 14:07:25 Result Notes None recorded. Procedures Surgical History None recorded. Imaging Results Imaging Date Name Status LastModified by Organization Details LastModified Time 12/19/2023 electrocardiogram completed [address] - [address], [address], 12/19/2023 16:47:55 02/15/2024 electrocardiogram completed fely [facility] - [facility] [address] [place] [address], [address], 02/15/2024 21:32:01 08/12/2024 electrocardiogram completed joe [facility] - [facility] [address] [place] [address], [phone], 08/12/2024 14:07:25 Procedure Notes None recorded. Medical Equipment None Reported. Allergies No known drug allergies Medications Name Sig Start Date Stop Date Status Note LastModified by Organization Details LastModified Time cefuroxime axetil 250 mg tablet TAKE 1 TABLET BY MOUTH TWICE DAILY FOR 7 DAYS active Not Available Not Available No t Available tizanidine 4 mg tablet TAKE 2 TABLETS BY MOUTH EVERY 8 HOURS NEEDED FOR MUSCLE SPASMS active Not Available Not Available No t Available senna 8.6 mg tablet TAKE 1 TABLET BY MOUTH AT BEDTIME active Not Available Not Available No t Available meloxicam 15 mg tablet TAKE 1 TABLET BY MOUTH DAILY NEEDED FOR PAIN active Not Available Not Available No t Available midodrine 5 mg tablet TAKE 2 AND 1/2 TABLETS BY MOUTH TWICE DAILY active Not Available Not Available Not Available levofloxacin 250 mg tablet TAKE 1 TABLET BY MOUTH DAILY active Not Available Not Available Not Available ciprofloxaci n 500 mg tablet TAKE 1 TABLET BY MOUTH TWICE DAILY active Not Available Not Available No t Available sulfamethoxa zole 800 mg-trimethop rim 160 mg tablet TAKE 1 TABLET BY MOUTH EVERY 12 HOURS FOR 7 DAYS active Not Available Not Available N ot Available quetiapine 100 mg tablet TAKE 1 TABLET BY MOUTH AT BEDTIME active Not Available Not Available No t Available amoxicillin 500 mg tablet TAKE 1 TABLET BY MOUTH THREE TIMES DAILY FOR 5 DAYS active Not Available Not Available N ot Available baclofen 20 mg tablet TAKE 1 TABLET BY MOUTH FOUR TIMES DAILY active Not Available Not Available Not Available carbamazepin e 200 mg tablet TAKE 1 TABLET BY MOUTH AT BEDTIME active Not Available Not Available No t Available nicotine (polacrilex) 4 mg gum CHEW 1 GUM NEEDED FOR SMOKING CESSATION active Not Available Not Available No t Available Lotrimin AF Jock Itch Powder 2 % topical spray USE 1 SPRAY TOPICALLY TWICE DAILY active Not Available Not Available Not Available cephalexin 500 mg capsule TAKE 1 CAPSULE BY MOUTH EVERY 6 HOURS FOR 7 DAYS FOR UTI active Not Available Not Available No t Available docusate sodium 100 mg capsule TAKE 1 CAPSULE BY MOUTH TWICE DAILY NEEDED FOR CONSTIPATIO N active Not Available Not Available No t Available gabapentin 300 mg capsule TAKE 1 CAPSULE BY MOUTH EVERY MORNING AT NOON THEN TAKE 3 CAPSULES BY MOUTH EVERY NIGHT AT BEDTIME active Not Available Not Available No t Available cefuroxime axetil 500 mg tablet TAKE 1 TABLET BY MOUTH TWICE DAILY FOR 10 DAYS active Not Available Not Available No t Available levofloxacin 750 mg tablet TAKE 1 TABLET BY MOUTH EVERY DAY active Not Available Not Available No t Available albuterol sulfate HFA 90 mcg/actuatio n aerosol inhaler INHALE 2 PUFFS INTO THE LUNGS EVERY 4 HOURS NEEDED FOR COUGH OR WHEEZING active Not Available Not Available No t Available cefdinir 300 mg capsule TAKE 1 CAPSULE BY MOUTH TWICE DAILY FOR 10 DAYS active Not Available Not Available No t Available clotrimazole 1 % topical cream APPLY TWICE DAILY FOR 14 DAYS active Not Available Not Available No t Available amoxicillin 875 mg-potassium clavulanate 125 mg tablet TAKE 1 TABLET BY MOUTH EVERY 12 HOURS FOR 7 DAYS active Not Available Not Available N ot Available oxycodone 5 mg tablet TAKE 1 TABLET BY MOUTH EVERY 8 HOURS NEEDED FOR SEVERE PAIN active Not Available Not Available Not Available nitrofuranto in monohydrate/ macrocrystal s 100 mg capsule TAKE 1 CAPSULE BY MOUTH TWICE DAILY active Not Available Not Available No t Available duloxetine 60 mg capsule,sharath yed release TAKE 1 CAPSULE BY MOUTH DAILY active Not Available Not Available Not Available OneLAX Bisacodyl [address] SUPPOSITORY RECTALLY NEEDED FOR CONSTIPATIO N active Not Available Not Available No t Available Vitals Date Recorded Oxygen saturation Oxygen saturation in Arterial blood by Pulse oximetry Respiratory rate Heart rate Body temperature Systolic blood pressure Diastolic blood pressure Provider Name and Address Organization Details Last Updated DateTime 4 98 % 98 % 16 /min 50 /min 98.3 [degF] 118 mm[Hg] 75 mm[Hg] Not Available [facility] [employer] 4 16:07:11 Date Recorded Heart rate Respiratory rate Body weight Body height Oxygen saturation Oxygen saturation in Arterial blood by Pulse oximetry Body temperature Systolic blood pressure Diastolic blood pressure Provider Name and Address Organization Details Last Updated DateTime 4 18 /min 14 /min 23989.8 g 167.64 cm 100 % 100 % 98.4 [degF] 153 mm[Hg] 69 mm[Hg] Not Available [facility] 4 21:18:53 Date Recorded Body weight Body temperature Respiratory rate Heart rate Oxygen saturation Oxygen saturation in Arterial blood by Pulse oximetry Systolic blood pressure Diastolic blood pressure Provider Name and Address Organization Details Last Updated DateTime 4 71582.6 g 98.1 [degF] 14 /min 52 /min 96 % 96 % 98 mm[Hg] 57 mm[Hg] Not Available [facility] [employer] 4 14:46:05 Date Recorded Heart rate Body weight Oxygen saturation Oxygen saturation in Arterial blood by Pulse oximetry Respiratory rate Body temperature Systolic blood pressure Diastolic blood pressure Provider Name and Address Organization Details Last Updated DateTime 4 86 /min 60467.6 g 98 % 98 % 16 /min 97.6 [degF] 98 mm[Hg] 68 mm[Hg] Not Available [facility] [employer] 4 20:42:36 Date Recorded Heart rate Body height Oxygen saturation Oxygen saturation in Arterial blood by Pulse oximetry Body weight Respiratory rate Systolic blood pressure Diastolic blood pressure Provider Name and Address Organization Details Last Updated DateTime 5 50 /min 182.88 cm 96 % 96 % 38547.7 2 g 16 /min 98 mm[Hg] 57 mm[Hg] Not Available [facility] [employer] 5 13:44:32 Social History None recorded. Functional Status None recorded. Mental Status None recorded. Family History Nothing Reported. Medical History No medical history recorded. Past Encounters Encounter ID Performer Location Encounter Start Date Encounter Closed Date Diagnosis/Indication Diagnosis SNOMED-CT Code Diagnosis ICD10 Code Diagnosis Note [id number] RIAN FROST MD Main - [address] [address] 10/21/2023 20:40:50 11/14/2023 09:53:15 Urinary symptoms [id number] R39.9 [id number] Joao Davenport MD Main - [address] [address] 10/23/2023 18:00:54 10/24/2023 13:32:18 Anterior chest wall pain [id number] R07.89 This 33-year-ol d male with no cardiac history called [facility] because of left upper pleuritic chest pain that is worse with movement and palpation. He has had a previous negative cardiac workup. I suspect chest wall pain, and I recommende d Toradol 15 mg IM. He will follow-up with his PCP. The patient agreed with this plan. [id number] Geovanna Wallis MD [facility] - [facility] [address] [place] [phone] 10/26/2023 11:16:42 10/26/2023 13:53:23 Peripheral edema 579907634 R60.9 Has improved since this a.m.-is minimal on exam. Lungs are clear advised diuretics not indicated at this point/the spasticity and some of the numbness could be due to untreated UTI advised if worsens again to call for another visit/Red flags reviewed. May take Tylenol every 6 hours -has at home Acute urin rc tract infection [id number] N39.0 Medic does not stock anything the bacteria is sensitive to. Patient reports someone can pick up operator his prescripti on JONN from the pharmacy.. [id number] Juan Musa MD [facility] - [facility] [address] [place] [phone] 11/19/2023 20:49:03 11/22/2023 11:41:07 Urinary symptoms [id number] R39.9 Patient feeling generally unwell without any focal signs or symptoms. Reports that he feels this way when he has a UTI. Physical examinatio n and vitals per retail salesperson are within normal limits. POC BMP checked and unremarkab le, UA with LE and NIT. Previous culture reviewed, sensitive to Augmentin and cephalexin ; resistant to ceftriaxon e and fluoroquin olones. Given first dose of cephalexin , rx sent to pharmacy and culture to [facility]. [id number] Estefani Solares MD [facility] - [facility] [address] [place] [phone] 12/19/2023 16:07:01 12/19/2023 16:35:52 Pain of left shoulder joint [id number] M25.512 [id number] Juan Musa MD [facility] - [facility] [address] [place] [phone] 02/15/2024 21:18:41 02/19/2024 21:37:02 Chest discomfort [id number] R07.89 Severan hours of chest discomfort . No risk factors for ACS and unremarkab le EKG. Advised him that I cannot rule out serious causes of chest pain (e.g. PE, ACS, PTX) in the home and that would require ED visit. Although low risk, given lack of risk factors, a thorough workup would include ED visit. Patient declined ED and will monitor s/sx at home. [id number] Shyam Mendoza MD [facility] - [facility] [address] [place] [phone] 04/25/2024 14:45:49 04/26/2024 19:30:00 Acute urinary tract infection [id number] N39.0 [id number] Estefani Solares MD [facility] - [facility] [address] [place] [id number] 05/16/2024 20:42:31 05/17/2024 11:49:14 Pain in right foot [id number] M79.671 [id number] Aylin Driver MD Main - instED [address] [place] [phone] 08/12/2024 13:44:25 08/12/2024 17:03:25 [facility] [id number] Health Concerns Section Related Observation LastModified by Organization Detai ls LastModified Time None Recorded Concern Status LastModified by Organization Details LastModified Time None Recorded Advance Directives Directive None Recorded Payers Encounter Date Sequence Insurance Name Policy Number Policy Steve Covered Member ID Steve Member ID Guarantor Name 12/16/2023 1 [facility] - DOS ON OR AFTER 2022 - DUAL ELIGIBLE - [employer] OPTIONS AND ONE CARE (MEDICARE REPLACEMENT/ADV ANTAGE - HMO) Ellis Childers [id number] Ellis Childers 02/15/2024 1 [facility] - DOS ON OR AFTER 2022 - DUAL ELIGIBLE - [employer] OPTIONS AND ONE CARE (MEDICARE REPLACEMENT/ADV ANTAGE - HMO) Ellis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
--- OUTSIDE RECORDS SUMMARY | 2024-08-12 18:06 | XMS_ITS | Encounter Summary ---
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, sequela (CMS/HCC) Stage III pressure ulcer of sacral region (CMS/HCC) Tetraplegia (CMS/HCC) Hyperphosphatemia Neurogenic bladder Neurogenic bowel Hypoalbuminemia Anemia due to chronic kidney disease, unspecified CKD stage Tobacco use disorder Chest discomfort Procedures Transthoracic echocardiogram (TTE) complete with PRN contrast, bubble, strain, and 3D order panel DC TTE W 2D IMAGE COMPLETE W DOPPLER ECHO & COLOR FLOW DOPPLER ECHO DC SARAH 2D COMPLETE W/CONTRAST OR W & WO CONTRAST WITH DOPPLER Syed Bill PA [address] [place] [address] [facility] Referral ID Status Reason Start Date Expiration Date V isits Requested Visits Authorized [id number] Authorized 05/10/2024 05/10/2025 1 1 Encounter Details Date Type Department Care Team (Latest Contact Info) Description 08/01/2024 12:00 PM EST Ancillary Procedure [facility] [address] [place] [address] Hypotension, unspecified hypotension type; 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, sequela (CMS/HCC); Stage III pressure ulcer of sacral region (CMS/HCC); Tetraplegia (CMS/HCC); Hyperphosphatemia; Neurogenic bladder; Neurogenic bowel; Hypoalbuminemia; Anemia due to chronic kidney disease, unspecified CKD stage; Tobacco use disorder; Chest discomfort Social History Tobacco Use Types Packs/Day Years Used Date Smoking Tobacco: Every Day Smokeless Tobacco: Former Quit: 08/11/2017 Alcohol Use Standard Drinks/Week Comments Yes 0 (1 standard drink = 0.6 oz pur e alcohol) Sex and Gender Information Value Date Recorded Sex Assigned at Not on file Gender Identity Not on file Sexual Orientation Not on file Job Start Date Occupation Industry Not on file Not on file Not on file documented as of this encounter Last Filed Vital Signs Vital Sign Reading Time Taken Comments Blood Pressure - - Pulse - - Temperature - - Respiratory Rate - - Oxygen Saturation - - Inhaled Oxygen Concentration - - Weight 70.3 kg (155 lb) 08/01/2024 12:40 PM EST Height 182.9 cm (6') 08/01/2024 12:40 PM EST Body Mass Index 21.02 08/01/2024 12:40 PM EST documented in this encounter Plan of Treatment Upcoming Encounters Date Type Department Care Team (Late st Contact Info) Description 08/28/2024 10:15 AM EST Office Visit Orthopedic Surgery - [place] [address] [phone] Everette Souza, DPM [address] [address] 12/07/2024 3:30 PM EDT Office Visit Adult Medicine [facility] [address] [place] [phone] Syed Bill PA [address] [place] [address] Pending Results Name Type Priority Associated Diagnoses Date/Time Transthoracic echocardiogram (TTE) complete with PRN contrast, bubble, strain, and 3D order panel Echocardiography Routine Hypotension, unspecified hypotension type 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, sequela ([facility]/HCC) Stage III pressure ulcer of sacral region (CMS/HCC) Tetraplegia (CMS/HCC) Hyperphosphatemia Neurogenic bladder Neurogenic bowel Hypoalbuminemia Anemia due to chronic kidney disease, unspecified CKD stage Tobacco use disorder Chest discomfort 08/01/2024 12:40 PM EST documented as of this encounter Visit Diagnoses Diagnosis Hypotension, unspecified hypotension type 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, sequela (CMS/HCC) Stage III pressure ulcer of sacral region (CMS/HCC) Tetraplegia (CMS/HCC) Unspecified quadriplegia Hyperphosphatemia Disorders of phosphorus metabolism Neurogenic bladder Neurogenic bladder, NOS Neurogenic bowel Hypoalbuminemia Other disorders of plasma protein metabolism Anemia due to chronic kidney disease, unspecified CKD stage Tobacco use disorder Chest discomfort Other chest pain documented in this encounter Care Teams Finisher Brush Relationship Specialty Start Date End Date Syed Bill PA [address] [place] [address] PCP - General Internal Medicine 10/29/20 documented as of this encounter
--- OUTSIDE RECORDS SUMMARY | 2024-08-12 18:06 | XMS_ITS | Clinical Summary ---
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 based on patient's age to complete this topic Procedures Procedure Name Priority Date/Time Associated Diagnosis Comments LIPID PANEL Routine 03/15/2024 DEPRESSION SCREENING Routine 11/04/2023 from Last 3 Months or Most Recently Relevant to Health Maintenance Results * (ABNORMAL) Lipid panel (03/15/2024) LDL/HDL Ratio 5(A) 0 - 4 Triglycerides 219(A) 0 - 150 mg/dL Cholesterol 244(A) 0 - 200 mg/dL HDL 46 40 mg/dL LDL Cholesterol 155(A) 0 - 100 mg/dL Blood Venous blood specimen / Unknown Historical Provider LAB BLOOD ORDERAB LES * Depression Screening (11/04/2023) Depression Screening abstracted Historical Provider HEALTH MAINTENANC E from Last 3 Months or Most Recently Relevant to Health Maintenance Care Teams Salesforce Developer Relationship Specialty Start Date End Date Syed Bill PA [address] [place] [address] PCP - General Internal Medicine 10/29/20
[2024-08-12 18:18] VITALS: BP 135/72; PULSE 46; RESP 14; O2SAT 96
[2024-08-12 18:21] LABS: B Type Natriuretic Peptide 19 pg/mL (<100)
[2024-08-12 18:24] LABS: Appearance Urine Turbid; Color Urine Yellow; Glucose Urine UA Negative (Negative); Leukocyte Esterase Urine Large (3+) (Negative); Nitrite Urine Positive (Negative); Specific Gravity - Urine 1.025 (1.005-1.025); UMIC TRIGGER UACC YES; Urine Blood Negative (Negative); Urine Ketones Negative (Negative); Urine Protein 30 (1+) mg/dL (Neg-Trace)
[2024-08-12 18:28] LABS: Influenza A PCR NEGATIVE (Negative); Influenza B PCR NEGATIVE (Negative); Resp Syncy Virus RNA Qual PCR NEGATIVE (Negative); SARS COV2 PCR INHOUSE NEGATIVE (Negative)
--- NOTE | 2024-08-12 18:28 | PC.NURSE ---
Per patient request, Vandana (mom) called and given update, labs drawn and pending, awaiting results to determine further work up. All questions answered. Vandana requests to be called once patient is either admitted or ready to come home.
[2024-08-12 18:30] LABS: INTERNATIONAL NORM RATIO 0.9 (0.9-1.1)
[2024-08-12 18:35] LABS: Bacteria Urine 4+ (None Seen); UACC Culture Trigger YES; WBC Urine >50 /HPF (0-5)
[2024-08-12 18:38] LABS: Alanine Aminotransferase 16 U/L (0-40); Albumin Level 3.5 g/dL (3.5-5.0); Alkaline Phosphatase 63 U/L (39-117); Anion Gap 9 (12-20); Aspartate Amino Transferase 19 U/L (5-37); Bilirubin Total 0.2 mg/dL (0.0-1.0); Blood Urea Nitrogen 11 mg/dL (9-16); Calcium 8.1 mg/dL (8.4-10.2); Carbon Dioxide 26 mmol/L (22-29); Chloride 110 mmol/L (96-108); Creatinine Clr Calc Pharmacy 157.9; Estimated Glomerular Filt Rate > 60; Glucose Random 79 mg/dL (60-115); Lipase 25 U/L (8-78); Magnesium 1.9 mg/dL (1.6-2.6); Potassium 4.1 mmol/L (3.3-5.1); Sodium 141 mmol/L (135-145); Total Protein 5.9 g/dL (6.5-8.0)
[2024-08-12 18:42] LABS: Basophils Percent Auto 0.3 % (0-2); Eosinophils Absolute Auto 0.1 X10*3/uL (0.0-0.4); Eosinophils Percent Auto 1.7 % (0-4); Hematocrit 38.5 % (42.0-52.0); Hemoglobin 12.8 g/dl (14.0-18.0); Imm Gran Abs Auto 0.02 X10*3/uL (0.00-0.03); Imm Gran Pct Auto 0.3 % (0.0-0.4); Lymphocytes Absolute Auto 1.6 X10*3/uL (1.2-4.9); Lymphocytes Percent Auto 26.6 % (20-40); Mean Corpuscular HGB Conc 33.2 g/dl (31.0-36.0); Mean Corpuscular Hemoglobin 29.3 pg (27.0-33.0); Mean Corpuscular Volume 88.1 fL (80.0-98.0); Mean Platelet Volume 11.7 fL (9.4-12.4); Monocytes Absolute Auto 0.3 X10*3/uL (0.1-1.2); Neutrophils Absolute Auto 3.9 x10*3/uL (2.0-8.3); Neutrophils Percent Auto 66.1 % (45-73); Platelet Count 158 X10*3/uL (160-400); Red Blood Count 4.37 X10*6/uL (4.60-5.80); Red Cell Distribution Width 13.2 % (11.0-16.0)
[2024-08-12 18:49] LABS: Troponin-I High Sensitivity < 2.7 ng/L (<3.5-35.0)
[2024-08-12 20:46] VITALS: BP 135/72; PULSE 46; RESP 14; TEMP 36.6; O2SAT 96
== END 2024-08-12 20:47 | disposition home or self-care (01) ==
PROVIDERS: Nurse Practitioner Family; Emergency Provider Emergency Medicine Emergency Medical Services; PCP Physician Assistant Medical
DX: N39.0 Urinary tract infection, site not specified (principal); R07.89 Other chest pain; R42 Dizziness and giddiness; R00.1 Bradycardia, unspecified; M62.838 Other muscle spasm; E27.40 Unspecified adrenocortical insufficiency; D64.9 Anemia, unspecified; R06.02 Shortness of breath; Z87.440 Personal history of urinary (tract) infections; Z79.899 Other long term (current) drug therapy; Z03.818 Encounter for observation for suspected exposure to other biological agents ruled out
CPT/HCPCS: 0241U; 36415; 71045; 80053; 81001; 83605; 83690; 83735; 83880; 84484; 85025; 85610; 87040; 87086; 93005; 96374; 99284; 99285; J1720

== ENCOUNTER → 2024-08-12 16:51 | Outpatient (BNV) | payer OTHER, SELFPAY | PROVIDERS: Emergency Provider Emergency Medicine Emergency Medical Services; PCP Physician Assistant Medical; Visit Provider Internal Medicine | DX: R94.31 Abnormal electrocardiogram [ECG] [EKG] (principal) | CPT/HCPCS: 93010 ==

== ENCOUNTER → 2024-08-12 16:51 | Outpatient (BNV) | payer OTHER, SELFPAY | PROVIDERS: Emergency Provider Emergency Medicine Emergency Medical Services; PCP Physician Assistant Medical; Visit Provider Radiology Diagnostic Radiology | DX: R07.9 Chest pain, unspecified (principal) | CPT/HCPCS: 71045 ==

== ENCOUNTER 2024-11-25 12:32 | Inpatient (IN) | payer OTHER, SELFPAY ==
[2024-11-25] VITALS (11 sets, daily range): BP systolic 81–133; BP diastolic 38–77; PULSE 47–65; RESP 13–19; TEMP 36.1–37.2; O2SAT 96–99; BMI 26.6; BMI 25.7
--- NOTE | ~2024-11-25 | CT_ITS ---
CLINICAL HISTORY: Stroke Protocol CT Head Without Contrast: Comparison: None Findings: Cortical sulci are symmetric Basal ganglia are unremarkable No shift in midline structures No intraparenchymal bleeding or abnormal extra axial blood fluid collections Normal pituitary size Clear paranasal sinuses Unremarkable orbital structures No depressed fractures Impression: Unremarkable CT of the head, no signs of acute trauma This document has been electronically signed by: Osorio Mesa MD on 11/25/2024 13:31:42
--- NOTE | ~2024-11-25 | CT_ITS ---
CLINICAL HISTORY: Stroke Protocol CTA HEAD, bolus contrast injection. 3D reconstructions and MPRs:: Comparison: Right Carotid Siphon:: None Right Anterior Cerebral Artery: A1 and A2 segments are unremarkable. There is peripheral cortical enhancement. Right Middle Cerebral Artery: M1 and M2 segments are unremarkable. There is peripheral cortical enhancement. Right Posterior Cerebral Artery: No visible PCOM on the right. P1 and P2 segments are unremarkable. There is peripheral enhancement Left Carotid Siphon: No stenosis Left Anterior Cerebral Artery: A1 and A2 segments are unremarkable. There is peripheral cortical enhancement. Left Middle Cerebral Artery: M1 and M2 segments are unremarkable. There is peripheral cortical enhancement. Left Posterior Cerebral Artery: Left PCOM is normal. P1 and P2 segments are unremarkable. There is peripheral cortical enhancement. Basilar Artery: Unremarkable Venous drainage: Normal. Impression: No stenosis No signs of aneurysm. No signs of arterial venous malformation. CTA Neck , Bolus contrast injection, 3D reconstructions and MPRs: Comparison: None Findings: Soft tissues of the neck are unremarkable Superior aorta and branch vessels are unremarkable Right carotid: No stenosis(NASCET) Right vertebral: No stenosis Left Carotid: No stenosis (NASCET) Left Vertebral: No stenosis Impression: No stenosis No aneurysm or dissection This document has been electronically signed by: Osorio Mesa MD on 11/25/2024 14:13:18
--- NOTE | 2024-11-25 12:49 | ECG_ITS ---
Test Reason : WEAKNESS Blood Pressure : */* mmHG Vent. Rate : 46 BPM Atrial Rate : 46 BPM P-R Int : * ms QRS Dur : 104 ms QT Int : 516 ms P-R-T Axes : 67 66 80 degrees QTcB Int : 451 ms Poor data quality Sinus bradycardia Nonspecific T wave abnormality Abnormal ECG When compared with ECG of 12-Aug-2024 17:08, Inverted T waves have replaced nonspecific T wave abnormality in Anterior leads Referred By: Generic ED Physician Electronically Signed By: SEAN HILLMAN MD
[2024-11-25] MEDS: 0.9 % Sodium Chloride 2,449.41 ML 2449.41 ML IV (13:05)
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
[2024-11-25 13:07] LABS: Glucose, Whole Blood 61 mg/dL (60-115)
[2024-11-25] MEDS: Dextrose 50 % 25 GM/50 ML SYRINGE IVPUSH ×3 (13:08→16:52)
--- OUTSIDE RECORDS SUMMARY | 2024-11-25 13:14 | XMS_ITS | Encounter Summary ---
Author Organization [facility] Address [address] [place] [address] Care Team Providers Care Chlorine Operator Name Role Phone Syed Bill PA-C Primary Care Provider [phone] Saba Gold MD Unavailable [phone] Parisa Long PA-C Unavailable Jitendra Rios PA-C Unavailable Encounter Details Date Type Department Care Team Description 07/16/2022 Patient Registration Clerk Report Medical Records [address] [place] [address] Isaias Diaz PA-C Social History Tobacco Use Types Packs/Day Years Used Date Smoking Tobacco: Every Day Cigarettes 12 Smokeless Tobacco: Former Chew Quit: 08/11/2017 Alcohol Use Standard Drinks/Week Comments Yes 4.2 (1 standard drink = 0.6 oz p ure alcohol) rarely Sex Assigned at Date Recorded Not on file Job Start Date Occupation Industry Not on file Not on file Not on file documented as of this encounter Plan of Treatment Not on file documented as of this encounter Visit Diagnoses Not on filedocumented in this encounter Additional Health Concerns Infection Onset Date Last Indicated Resolved Time COVID-19 Comment:Patient reported positive COVID 07/0307/03/2022 07/05/2022 documented as of this encounter Care Teams Chlorine Operator Relationship Specialty Start Date End Date Syed Bill PA-C [address] [place], [place] [id number] PCP - General Internal Medicine 10/29/20 Saba Gold MD [address] [id number] Surgeon Neurosurgery 08/24/23 Parisa Long PA-C [address] [address] Specialist Neurosurgery 08/24/23 Jitendra Rios PA-C [address] [facility] [address] [place] [address] Specialist Neurosurgery 08/24/23 documented as of this encounter
--- OUTSIDE RECORDS SUMMARY | 2024-11-25 13:14 | XMS_ITS | Encounter Summary ---
Author Organization [facility] Address [address] [place] [address] Care Team Providers Care Photographic Aide Name Role Phone Reilly Lafleur MD Primary Care Provider [phone] Syed Bill PA-C Primary Care Provider [phone] Saba Gold MD Unavailable [phone] Parisa Long PA-C Unavailable [phone] Jitendra Rios PA-C Unavailable [phone] Encounter Details Date Type Department Care Team Description 01/10/2018 Technical Service Specialist Report Medical Records [address] [place] [id number] Beto Garland MD Social History Tobacco Use Types Packs/Day Years Used Date Smoking Tobacco: Former Cigarettes 1 12 Q uit: 08/11/2017 Smokeless Tobacco: Former Chew Quit: 08/11/2017 Alcohol Use Standard Drinks/Week Comments Yes 4.2 (1 standard drink = 0.6 oz p ure alcohol) Sex Assigned at Date Recorded Not on [...] documented as of this encounter Care Teams Photographic Aide Relationship Specialty Start Date End Date Reilly Lafleur MD [address] [place] [address] [place] [address] PCP - General Internal Medicine 11/29/17 10/28/20 Syed Bill PA-C [address] [place] [address] PCP - General Internal Medicine 10/29/20 Saba Gold MD [address] [address] Surgeon Neurosurgery 08/24/23 Parisa Long PA-C [address] [address] Specialist Neurosurgery 08/24/23 Jitendra Rios PA-C [address] [address] Specialist Neurosurgery 08/24/23 documented as of this encounter
--- OUTSIDE RECORDS SUMMARY | 2024-11-25 13:14 | XMS_ITS | Encounter Summary ---
Author Organization [facility] Address [address] [place] [address] Care Team Providers Care Door To Door Fundraising Collector Name Role Phone Reilly Lafleur MD Primary Care Provider [phone] Syed Bill PA-C Primary Care Provider [phone] Saba Gold MD Unavailable [phone] Parisa Long PA-C Unavailable [phone] Jitendra Rios PA-C Unavailable [phone] Encounter Details Date Type Department Care Team Description 05/04/2018 Fire Chief Report Medical Records [address] [place] [id number] Erika Ritchie PA-C Social History Tobacco Use Types Packs/Day [...] documented as of this encounter Care Teams Door To Door Fundraising Collector Relationship Specialty Start Date End Date Reilly Lafleur MD [address] [place] [address] PCP - General Internal Medicine 11/29/17 10/28/20 Syed Bill PA-C [address] [place] [address] PCP - General Internal Medicine 10/29/20 Saba Gold MD [address] [address] Surgeon Neurosurgery 08/24/23 Parisa Long PA-C [address] [address] Specialist Neurosurgery 08/24/23 Jitendra Rios PA-C [address] [address] Specialist Neurosurgery 08/24/23 documented as of this encounter
--- OUTSIDE RECORDS SUMMARY | 2024-11-25 13:14 | XMS_ITS | Data Portability ---
Author Organization [employer], [employer] - [employer] Address [address] [place] [id number] Care Team Providers Care Associate Principal Name Role Phone [employer] АННА MRI OTHER HIM CCA OTHER Assessment Encounter Date Assessment Date Assessment LastModified by Organization Details LastModified Time 04/25/2024 04/25/2024 As noted, we were called to see this patient regarding concerns of UTI. Evaluation in the field was performed by my sales agent marine insurance colleague, as noted above, I provided real-time [...] any acute worsening or change in symptoms. [email or web address] Not available 04/25/2024 14:58:34 05/16/2024 05/16/2024 I provided real -time medical direction via phone for this encounter and was available for additional phone-based assistance as needed. I have reviewed and agree with the Assessment and Plan as documented by the Packing Machine Tender. Patient given the opportunity to ask questions. [...] rash. Patient can ambulate without difficulty. Per sales agent marine insurance on the scene, vital signs are stable [...] or worsening serious symptoms, particularly fever chills [email or web address] Not available 05/16/2024 20:45:22 08/12/2024 08/12/2024 I have reviewed and agree with the assessment and plan as documented by the sales agent marine insurance. I provided real-time medical direction for this [...] BP 98/57 Exam otherwise unremarkable per the sales agent marine insurance. EKG reveals sinus cullen, significant artifact due [...] Organization Details Last Modified Time Details Appointments None recorded. Lab culture, urine 2024 025 MAYO [facility] (Centralized Electronic Ordering - All Locations), Patient Can Go To The Location Of Their Choice, [id number] 14:07:21 urinalysis, dipstick 2024 025 MAYO [facility], [address] [place] [address], [id number] 5 16:20:02 culture, urine 2023 024 MAYO [facility] (Centralized Electronic Ordering - All Locations), Patient Can Go To The Location Of Their Choice, [id number] 4 14:06:48 urinalysis, dipstick 2023 024 [email or web address] 84 [facility], [address] [place] [address], [id number] 4 14:53:28 Referral None recorded. Procedures None recorded. Surgeries None recorded. Imaging electrocard iogram 2024 025 [email or web address] [facility], [address] [place] [address], [id number] 5 14:07:32 electrocard iogram 2023 024 fely [facility], [address] [place] [address], [id number] 4 21:32:03 Medication Orders sulfamethox azole 800 mg-trimetho prim 160 mg tablet 2024 025 [facility] #08132, [address] [place] [address], [id number], 5 14:01:03 sulfamethox azole 800 mg-trimetho prim 160 mg tablet 2024 025 [email or web address] [facility] #35466, [address] [place] [address], [id number], 5 14:00:56 levofloxaci n 750 mg tablet 2023 024 [email or web address] 84 [facility] #08025, [address] [place] [address], [id number], 4 14:53:27 levofloxaci n 750 mg tablet 2023 [facility]24 [facility], [address], [place], [id number], 14:53:37 Patient TargetsNo targets recorded. Patient InstructionsNo instructions recorded. Reason for Referral None Reported. Results Created Date Observation Date Name Description Value Unit Range Abnormal Flag Note LastModifiedBy Organization Detail LastModifiedTime 04/25/20 24 04/28/2024 URINE CULTU RE,CO MPREH ENSIV E urine culture,comp rehensive Final report abnormal Not Available [facility] ([facility]) [address] [place], [address], 04/28/2024 12:06:56 04/25/2004/28/2024 URINE CULTU RE,CO MPREH ENSIV E result 1 COMMEN T abnormal Acine tobac ter berez iniae Great er than 100,0 00 colon y formi ng units per mL Not Available [facility] ([facility]) [address] [place], [address], 04/28/2024 12:06:56 04/25/20 24 04/28/2024 URINE CULTU [...] ([facility]) [address] [place], [address], 04/28/2024 12:06:56 10/28/19 25 10/30/2024 URINE CULTU RE,CO MPREH ENSIV E urine culture,comp rehensive Final report abnormal Not Available [facility] ([facility]) [address] [facility], [place], [address], 10/30/2024 12:07:00 10/28/19 25 10/30/2024 URINE CULTU RE,CO MPREH ENSIV E result 1 Escher ichia coli abnormal Cefaz thompson with an LISANDRO <=16 predi cts susce ptibi lity to the oral agent s cefac donald, cefdi renetta, cefpo doxim e, cefpr ozil, cefur oxime , cepha lexin , and lorac arbef when used for thera py of uncom plica zaida urina ry tract infec tions due to E. coli, Klebs iella pneum oniae , and Prote us mirab ilis. Multi -Drug Resis tant Organ ism Great er than 100,0 00 colon y formi ng units per mL Not Available [facility] ([facility]) [address] [facility], [place], [address], 10/30/2024 12:07:00 10/28/19 25 10/30/2024 URINE CULTU RE,CO MPREH ENSIV E antimicrobia l susceptibili ty Commen t S = Susce ptibl e; I = Inter media te; R = Resis tant P = Posit judi; N = Negat judi MICS are expre ssed in micro grams per mL Antib iotic RSLT# 1 RSLT# 2 RSLT# 3 RSLT# 4 Amoxi cilli n/Cla vulan ic Acid S Ampic illin R Cefaz thompson S Cefep selena S Cefox itin S Cefpo doxim e S Ceftr iaxon e S Cipro floxa piedad R Ertap enem S Genta micin S Levof loxac in R Merop enem S Nitro furan toin S Piper acill in/Ta zobac soriano S Tetra cycli ne R Tobra mycin S Trime thopr im/Hernandez lfa R Not Available [facility] ([facility]) [address] [facility], [place], [address], 10/30/2024 12:07:00 02/15/20 24 elect rocar diogr am No observ ation record ed. [address], [phone] 02/15/2024 21:32:01 08/12/19 25 elect rocar diogr am No observ ation record ed. [address], [address] 08/12/2024 14:07:25 Result Notes None recorded. Procedures Surgical History None recorded. Imaging Results Imaging Date Name Status LastModified by Organization Details LastModified Time 02/15/2024 electrocardiogram completed [address], [phone] 02/15/2024 21:32:01 08/12/2024 electrocardiogram completed [address], [address] 08/12/2024 14:07:25 Procedure Notes None recorded. Medical Equipment None Reported. Allergies No known drug allergies Medications Name Sig Start Date Stop Date Status Note LastModified by Organization Details LastModified Time prednisone 10 mg tablet TAKE 1 TABLET BY MOUTH DAILY active Not Available Not Available Not Available cefuroxime axetil 250 mg tablet TAKE 1 TABLET BY MOUTH TWICE DAILY FOR 7 DAYS active Not Available Not Available No t Available cefpodoxime 200 mg tablet TAKE 1 TABLET BY MOUTH EVERY 12 HOURS FOR 7 DAYS active Not Available Not Available N ot Available tizanidine 4 mg tablet TAKE 2 [...] 1 TABLET BY MOUTH THREE TIMES DAILY active Not Available Not Available Not Available baclofen 20 mg tablet TAKE 1 TABLET BY MOUTH FOUR TIMES DAILY active Not Available Not Available Not Available carbamazepin e 200 mg tablet TAKE 1 TABLET BY MOUTH AT BEDTIME active Not Available Not Available No t Available nicotine (polacrilex) [address] GUM INTO MOUTH BETWEEN CHEEK AND GUM EVERY 2 HOURS NEEDED FOR SMOKING CESSATION. NO MORE THAN 12 A DAY active Not Available Not Available No [...] active Not Available Not Available Not Available methylpredni solone 4 mg tablets in a dose pack FOLLOW PACKAGE DIRECTIONS active Not Available Not Available N ot Available albuterol sulfate HFA 90 mcg/actuatio n aerosol inhaler INHALE 2 PUFFS BY MOUTH EVERY 4 HOURS NEEDED FOR WHEEZING active Not Available Not Available No [...] capsule TAKE 1 CAPSULE BY MOUTH EVERY 12 HOURS FOR 7 DAYS active Not Available Not Available N ot Available duloxetine 60 mg capsule,sharath yed release TAKE 1 CAPSULE BY MOUTH DAILY active Not Available Not Available Not Available [employer] Bisacodyl [address] SUPPOSITORY RECTALLY EVERY DAY NEEDED FOR CONSTIPATIO N active Not Available Not Available No t Available Vitals Date Recorded Heart rate Respiratory rate Body weight Body height Oxygen saturation Oxygen saturation in Arterial blood by Pulse oximetry Body temperature Systolic blood pressure Diastolic blood pressure Provider Name and Address Organization Details Last Updated DateTime 4 18 /min 14 /min 74484.8 g 167.64 cm 100 % 100 % 98.4 [degF] 153 mm[Hg] 69 mm[Hg] Not Available [facility] 4 21:18:53 Date Recorded Body weight Body temperature Respiratory rate Heart rate Oxygen saturation Oxygen saturation in Arterial blood by Pulse oximetry Systolic blood pressure Diastolic blood pressure Provider Name and Address Organization Details Last Updated DateTime 4 04842.6 g 98.1 [degF] 14 /min 52 /min 96 % 96 % 98 mm[Hg] 57 mm[Hg] Not Available [facility] 4 14:46:05 Date Recorded Heart rate Body weight Oxygen saturation Oxygen saturation in Arterial blood by Pulse oximetry Respiratory rate Body temperature Systolic blood pressure Diastolic blood pressure Provider Name and Address Organization Details Last Updated DateTime 4 86 /min 30447.6 g 98 % 98 % 16 /min 97.6 [degF] 98 mm[Hg] 68 mm[Hg] Not Available [facility] 4 20:42:36 Date Recorded Heart rate Body height Oxygen saturation Oxygen saturation in Arterial blood by Pulse oximetry Body weight Respiratory rate Systolic blood pressure Diastolic blood pressure Provider Name and Address Organization Details Last Updated DateTime 5 50 /min 182.88 cm 96 % 96 % 41696.7 2 g 16 /min 98 mm[Hg] 57 mm[Hg] Not Available [employer] 5 13:44:32 Date Recorded Body temperature Respiratory rate Body weight Body height Heart rate Oxygen saturation Oxygen saturation in Arterial blood by Pulse oximetry Systolic blood pressure Diastolic blood pressure Provider Name and Address Organization Details Last Updated DateTime 5 97.9 [degF] 18 /min 50694.5 2 g 182.88 cm 53 /min 97 % 97 % 97 mm[Hg] 42 mm[Hg] Not Available [facility] - production 13:58:51 Social History None recorded. Functional Status None recorded. Mental Status None recorded. Family History Nothing Reported. Medical History No medical history recorded. Past Encounters Encounter ID Performer Location Encounter Start Date Encounter Closed Date Diagnosis/Indication Diagnosis SNOMED-CT Code Diagnosis ICD10 Code Diagnosis Note [id number] RIAN FROST MD [facility] - [facility] [address] [place] [phone] 10/21/2023 20:40:50 11/14/2023 09:53:15 Urinary symptoms 100533790 R39.9 [id number] Joao Davenport MD [facility] - [address] [phone] 10/23/2023 18:00:54 10/24/2023 13:32:18 Anterior chest wall pain 407979689 R07.89 This 33-year-ol d male with no cardiac history called [facility] because of left upper pleuritic chest pain that is worse with movement and palpation. He has had a previous negative cardiac workup. I suspect chest wall pain, and I recommende d Toradol 15 mg IM. He will follow-up with his PCP. The patient agreed with this plan. [id number] Geovanna Wallis MD [facility] - [address] [address] 10/26/2023 11:16:42 10/26/2023 13:53:23 Peripheral edema 177005622 R60.9 Has improved since this a.m.-is minimal on exam. Lungs are clear advised diuretics not indicated at this point/the spasticity and some of the numbness could be due to untreated UTI advised if worsens again to call for another visit/Red flags reviewed. May take Tylenol every 6 hours -has at home Acute urin rc tract infection 325682670 N39.0 Medic does not stock anything the bacteria is sensitive to. Patient reports someone can picker / packer his prescripti on JONN from the pharmacy.. [id number] Juan Musa MD Main - [address] [address] 11/19/2023 20:49:03 11/22/2023 11:41:07 Urinary symptoms [id number] R39.9 Patient feeling generally unwell without any focal signs or symptoms. Reports that he feels this way when he has a UTI. Physical examinatio n and vitals per sales agent marine insurance are within normal limits. POC BMP checked and unremarkab le, UA with LE and NIT. Previous culture reviewed, sensitive to Augmentin and cephalexin ; resistant to ceftriaxon e and fluoroquin olones. Given first dose of cephalexin , rx sent to pharmacy and culture to [facility]. [id number] Estefani Solares MD [facility] - [facility] [address] [place], [place] [phone] 12/19/2023 16:07:01 12/19/2023 16:35:52 Pain of left shoulder joint [id number] 4696010 M25.512 [id number] Juan Musa MD [facility] - [facility] [address] [place] [address] 0 02/15/2024 21:18:41 02/19/2024 21:37:02 Chest discomfort 574612311 R07.89 Severan hours of chest discomfort . [...] ED and will monitor s/sx at home. [id number] Shyam Mendoza MD [facility] [address] [place] [address] 0 04/25/2024 14:45:49 04/26/2024 19:30:00 Acute urinary tract infection [id number] N39.0 [id number] Estefani Solares MD [facility] [address] [place] [phone] 05/16/2024 20:42:31 05/17/2024 11:49:14 Pain in right foot [id number] 50666 M79.671 [id number] Aylin Driver MD [facility] [address] [place] [phone] 08/12/2024 13:44:25 08/12/2024 17:03:25 Syncope [id number] R55 [id number] Marquis Escobar MD [facility] - [facility] [address] [place] [phone] 10/27/2024 13:58:49 11/09/2024 14:19:04 Urinary symptoms [id number] R39.9 As noted, we were called to see this patient regarding concerns of UTI sx. Evaluation in the field was performed by my sales agent marine insurance colleague, as noted above, I provided real-time direction and supervisio n for this visit. The evaluation revealed reassuring VS (low BP is baseline), and hx and UA c/w UTI. Does not seem to have systemic sx that would be concerning for prostatiti s. Will treat. Impression :UTI, no indication of SIRS/sepsi s/pyelo/pr ostatitis Plan:UCxBa ctrim DS BID x 7 Primary care, considerch ernesto in call or visit Dispositio n: We discussed the diagnostic uncertaint y of home visits and the risk associated with this. In this case, the patient and I felt this to be an acceptable and reasonable amount of risk given the benefit of avoiding an ED visit. We discussed the need to seek care urgently/e mergently in the setting of any new or worsening serious symptoms, particular ly fever, severe LH, shaking chills. Health Concerns Section Related Observation LastModified by Organization Detai ls LastModified Time None Recorded Concern Status LastModified by Organization Details LastModified Time None Recorded Advance Directives Directive None Recorded Payers Insurance Date Sequence Insurance Name Policy Number Policy Steve Covered Member ID Steve Member ID Guarantor Name 11/09/2024 1 [facility] - DOS ON OR AFTER 2022 - DUAL ELIGIBLE - ASSISTED OPTIONS AND ONE CARE (MEDICARE REPLACEMENT/ADV ANTAGE - HMO) Ellis Childers [id number] Ellis Childers Notes Date Note Type Note Provider Name and Address Organization Details Recorded Time 02/15/2024 text/html CRC Nurse Triage Notes (Peter [...] PMH: Para or Quadraplegia Allergies: Unknown Comments: Concrete Engineering Technician verified the member's name//address and phone number. Education provided on the response time and the member was advised to monitor reported s/s and seek emergency treatment if needed.Member reports having chest pain/pressure - Pain started 30 minutes ago -Reports feeling anxious - Denies N/V - Denies arm/neck and jaw pain - Denies SOB - Wellness check requested - Verbal reassurance provided. Packing Machine Tender Organization Information for Stu Wood Unata Legal Name: [facility] Address: [address] [place] [address], ESTUARDO Chauhan [address], Button Decorating Machine Operator: Aleks Iqbal MD [facility] No.: [id number] Packing Machine Tender POC Test Results from Stu Wood EKG (21:13:03) EKG test performed. Attachments uploaded as part of this test result can be found under Documents section. .................... .................... .................... .................... .................... .................... .................... . Packing Machine Tender Note From Stu Wood: Patient alert and [...] with a Marie catheter installed. [facility] discuss his case with patient on speakerphone. Patient, taking doctors advice, will monitor symptoms closely and call 911 if they get worse or continue with caregiver in home. Red flags and patient education discussed. .................... .................... .................... .................... .................... .................... .................... . Disposition: Fulfilled Juan Musa MD [address] [facility],[address], [place], [address], [employer] 2024 10:08:01 04/25/2024 text/html CRC Nurse Triage Notes (Pia Mejias): Reason For Request: pt experiencing chills intermittently, katty Chief Complaints: UTI/Pyelonephritis PMH: Para or Quadraplegia Allergies: No Known Comments: Concrete Engineering Technician verified the member's name//address and phone number. [...] s/s and seek emergency treatment if needed Packing Machine Tender Organization Information for Ashlie Montes Business Legal Name: [facility] Address: [address] [place] [address], Button Decorating Machine Operator: Mark SAGE No.: [id number] Packing Machine Tender POC Test Results from Ashlie Montes Urine Dipstick (14:19:56) Urine leukocytes: 125 HARRY [...] .................... .................... .................... .................... .................... .................... . Packing Machine Tender Note From Ashlie Montes: Disp for the [...] sample taken for lab culture. Consulted with [facility] Dr. Mendoza with assessment and history as stated above. Patient administered 750mg of levoquin PO as ordered. Dr. Mendoza advised patient prescription will be sent to pharmacy for the next 7 days, and to call urologist to have catheter change due to UTI. Patient was advised of red flags/risk factors and to seek further medication attention with local ER. All times approx. [facility] Lab Orders: culture, urine: Performed .................... .................... .................... .................... .................... .................... .................... . Disposition: Fulfilled Shyam Mendoza MD [address] [place] [address],[address], [place], [address], [employer] 04/25/2024 16:49:40 05/16/2024 text/html CRC Nurse Triage [...] .................... .................... .................... .................... .................... .................... . Packing Machine Tender Note From Diego Hardin: Pt co right [...] normal in color slightly cold to touch. [facility] Sujatha Contacted and advised Tylenol for pain, Icing and keep foot/ leg elevated. Pt advised no way to rule out blood cot in the home and would need imaging to do so. Pt education on signs indicating the ER. Pt advised to follow up with PCP. .................... .................... .................... .................... .................... .................... .................... . [facility] Consulted: Estefani Solares .................... .................... .................... .................... .................... .................... .................... . Disposition: Adriel Estefani Solares MD [address] [place] [address],[address], [place], [address], [employer] 05/16/2024 20:45:32 08/12/2024 text/html CRC Nurse Triage [...] or Quadriplegia PMH Reviewed at 08/12/2024 - 12: Allergies Reviewed at 08/12/2024 - : Comments: Concrete Engineering Technician verified the Pt.'s name//address and phone number. [...] - Pulling answers in attempt to triage. Packing Machine Tender Organization Information for Melissa Scott Business Legal Name: [facility] Address: [address] [place] [address] [place] [address], Button Decorating Machine Operator: Mark SAGE No.: [id number] Packing Machine Tender POC Test Results from Melissa Scott EKG (13:38:21) EKG test performed. Attachments uploaded as part of this test result can be found under Documents section. .................... .................... .................... .................... .................... .................... .................... . Packing Machine Tender Note From Melissa Scott: JUANITA makes pt contact. He is found in his bedroom, reclined semi-fowlers in his electric wheelchair, watching TV. He turns his head to greet RONY. He is generally well appearing and answers questions in an appropriate manner. No facial droop or slurred speech are observed, no stridor or sonorous respirations are noted, and he is not bleeding anywhere. Pt is quadriplegic, but maintains some movement ability in his UEs. He tells JUANITA he returned from smoking a cigarette outside [...] Pt consents to evaluation and treatment today. [facility] obtains vital signs and pt is assessed. Physical assessment is unremarkable. A 12-lead EKG is obtained and a rhythm of sinus bradycardia is present w/ artifact from his baseline muscle tremors. [facility] contacts [facility] and discusses the above. [facility] recommends a cardiac workup at the ED based on his current s/s. Pt refuses transport by ambulance and refuses ED visit today, stating, he would rather wait until morning. He cites the difficulties of managing transport and wait in the ED w/ his quadriplegia. [facility] and [facility] both attempt to convince pt to allow transport and he continues to refuse. [facility] and [facility] inform pt his refusal could be life-threatening and he still refuses. Pt is willing to sign a refusal. [facility] informs him of risks and complications again and pt signs refusal of transport form. [facility] is clear. Report completed by MAYA Scott [id number]. .................... .................... .................... .................... .................... .................... .................... . [facility] Consulted: Aylin Driver .................... .................... .................... .................... .................... .................... .................... . Disposition: Fulfilled Aylin Driver MD [address] [facility],[address], [place], [address], [employer] Christina Wevod 08/12/2024 15:58:40 10/27/2024 text/html CRC Nurse Triage Notes (Shayna Bonner - RN): Reason For Request: back and abdominal pain/hot and cold sweats Denies: Unable to void greater than 5 hours Erection that will not go away after 2 hours Fall or trauma that results in urinary incontinence in the setting of pain Fall or injury that results in incontinence in the absence of pain Lower back pain either unilateral or bilateral, unable to void, painful urination -hematuria Chief Complaints: Abdominal Pain, Back Pain, Urinary Symptoms, Weakness PMH: Para or Quadriplegia PMH Reviewed at 10/27/2024:40 Allergies Reviewed at 10/27/2024:40 Comments: Patient calling in to place a referral, identified via name and . Patient has a SPT. He reports abdominal pain, mid upper back pain, hot and cold sweats. He denies any sediment in his urine bag, no hematuria, does not believe there is an odor. He has not had an appetite for a while. He denies nausea or vomiting, had diarrhea yesterday. He denies any headache or dizziness, no shortness of breath, has chronic back pain, but is not worse than usual. He would like to be evaluated. Packing Machine Tender Organization Information for Rohit Wood Business Legal Name: [facility] Address: [address] [place] [address], Button Decorating Machine Operator: Aleks Iqbal MD CLIA No.: [id number] Packing Machine Tender POC Test Results from Rohit Wood Urine Dipstick (13:53:53) Urine leukocytes: 70 HARRY Urine nitrites: + NIT Urine urobilinogen: 0.2 URO Urine protein: 15 PRO Urine pH: 5.0 pH Urine blood: - BLO Urine specific gravity: 1.030 SG Urine ketones: - KET Urine bilirubin: - DEYVI Urine glucose: - GLU .................... .................... .................... .................... .................... .................... .................... . Packing Machine Tender Note From Rohit Wood: Arrived to find a male in his 31 sitting in his electric wheelchair. Patient aox4, GCS 15 skin pink warm and dry. Patient stated that he has been having urinary symptoms for the past day. Patient a quad from C5 down with sensation intact. Patient noted to have a suprapubic catheter. Patient endorses left sided flank pain. Pain increased with palpation. VS as noted. Bradycardia and hypotension noted but that? s his baseline. Urine sample drawn which yielded leukocytes and nitrites. Culture drawn. [facility] contacted. Advised to give one dose of bactrim 800/170 mg PO now and he was going to send a RX for a 7 day course. Culture drawn and to be sent. Patient took bactrim without incident. Red flag symptoms went over with patient. Patient in agreement. [facility] Lab Orders: culture, urine: Performed urinalysis, dipstick: Performed [facility] Medication Orders: sulfamethoxazole 800 mg-trimethoprim 160 mg tablet: Administered .................... .................... .................... .................... .................... .................... .................... . [facility] Consulted: Asher Escobar .................... .................... .................... .................... .................... .................... .................... . Disposition: Fulfilled Marquis Escobar MD [address] [facility],[address], [place], [address], ESTUARDO - JUANCHO MOSLEY 11/09/2024 13:08:48
--- OUTSIDE RECORDS SUMMARY | 2024-11-25 13:14 | XMS_ITS | Encounter Summary ---
Author Organization [facility] Address [address] [place] [address] Care Team Providers Care Experimental Outboard Motors Mechanic Name Role Phone Reilly Lafleur MD Primary Care Provider [phone] Syed Bill PA-C Primary Care Provider [phone] Saba Gold MD Unavailable [phone] Parisa Long PA-C Unavailable [phone] Jitendra Rios PA-C Unavailable [phone] Encounter Details Date Type Department Care Team Description 01/24/2019 Salvage Machine Operator Report Medical Records [address] [place] [address] Mili Pham, TEMPERING OVEN OPERATOR Social History Tobacco Use Types Packs/Day Years [...] documented as of this encounter Care Teams Experimental Outboard Motors Mechanic Relationship Specialty Start Date End Date Reilly Lafleur MD [address] [place] [address] PCP - General Internal Medicine 11/29/17 10/28/20 Syed Bill PA-C [address] [place] [address] PCP - General Internal Medicine 10/29/20 Saba Gold MD [address] [address] Surgeon Neurosurgery 08/24/23 Parisa Long PA-C [address] [address] Specialist Neurosurgery 08/24/23 Jitendra Rios PA-C [address] [address] Specialist Neurosurgery 08/24/23 documented as of this encounter
--- OUTSIDE RECORDS SUMMARY | 2024-11-25 13:14 | XMS_ITS | Encounter Summary ---
Author Organization [facility] Address [address] [place] [address] Care Team Providers Care Cytopathology Technologist Name Role Phone Reilly Lafleur MD Primary Care Provider [phone] Syed Bill PA-C Primary Care Provider [phone] Saba Gold MD Unavailable [phone] Parisa Long PA-C Unavailable [phone] Jitendra Rios PA-C Unavailable [phone] Encounter Details Date Type Department Care Team Description 12/29/2017 Release of Information Medical Records [address] [place] [address] Abstract, Provider Social History Tobacco Use Types Packs/Day Years [...] documented as of this encounter Care Teams Cytopathology Technologist Relationship Specialty Start Date End Date Reilly Lafleur MD [address] [place] [address] PCP - General Internal Medicine 11/29/17 10/28/20 Syed Bill PA-C [address] [place] [address] PCP - General Internal Medicine 10/29/20 Saba Gold MD [address] [address] Surgeon Neurosurgery 08/24/23 Parisa Long PA-C [address] [address] Specialist Neurosurgery 08/24/23 Jitendra Rios PA-C [address] [address] Specialist Neurosurgery 08/24/23 documented as of this encounter
--- OUTSIDE RECORDS SUMMARY | 2024-11-25 13:14 | XMS_ITS | Encounter Summary ---
Author Organization [facility] Address [address] [place] [address] Care Team Providers Care Material Damage Adjuster Name Role Phone Reilly Lafleur MD Primary Care Provider [phone] Syed Bill PA-C Primary Care Provider [phone] Saba Gold MD Unavailable [phone] Parisa Long PA-C Unavailable [phone] Jitendra Rios PA-C Unavailable [phone] Encounter Details Date Type Department Care Team Description 05/30/2018 Labor And Employment Paralegal Report Medical Records [address] [place] [address] Erika Ritchie PA-C Social History Tobacco Use [...] documented as of this encounter Care Teams Material Damage Adjuster Relationship Specialty Start Date End Date Reilly Lafleur MD [address] [place] [address] PCP - General Internal Medicine 11/29/17 10/28/20 Syed Bill PA-C [address] [place] [address] PCP - General Internal Medicine 10/29/20 Saba Gold MD [address] [address] Surgeon Neurosurgery 08/24/23 Parisa Long PA-C [address] [address] Specialist Neurosurgery 08/24/23 Jitendra Rios PA-C [address] [address] Specialist Neurosurgery 08/24/23 documented as of this encounter
--- OUTSIDE RECORDS SUMMARY | 2024-11-25 13:14 | XMS_ITS | Encounter Summary ---
Author Organization [facility] Address [address] [place] [address] Care Team Providers Care Barrel Lapper Name Role Phone Reilly Lafleur MD Primary Care Provider [phone] Syed Bill PA-C Primary Care Provider [phone] Saba Gold MD Unavailable [phone] Parisa Long PA-C Unavailable [phone] Jitendra Rios PA-C Unavailable [phone] Encounter Details Date Type Department Care Team Description 03/28/2019 Auditor Internal Report Medical Records [address] [place] [address] Erika Ritchie PA-C Social History Tobacco Use [...] documented as of this encounter Care Teams Barrel Lapper Relationship Specialty Start Date End Date Reilly Lafleur MD [address] [place] [address] PCP - General Internal Medicine 11/29/17 10/28/20 Syed Bill PA-C [address] [place] [address] PCP - General Internal Medicine 10/29/20 Saba Gold MD [address] [address] Surgeon Neurosurgery 08/24/23 Parisa Long PA-C [address] [address] Specialist Neurosurgery 08/24/23 Jitendra Rios PA-C [address] [address] Specialist Neurosurgery 08/24/23 documented as of this encounter
--- OUTSIDE RECORDS SUMMARY | 2024-11-25 13:14 | XMS_ITS | Encounter Summary ---
Author Organization [facility] Address [address] [place] [address] Care Team Providers Care Staff Interpreter Name Role Phone Reilly Lafleur MD Primary Care Provider [phone] Syed Bill PA-C Primary Care Provider [phone] Saba Gold MD Unavailable [phone] Parisa Long PA-C Unavailable [phone] Jitendra Rios PA-C Unavailable [phone] Encounter Details Date Type Department Care Team Description 08/21/2020 Backrest Assembler Report Medical Records [address] [place] [address] Silverio Reina PA-C Social History Tobacco Use Types Packs/Day Years Used Date Smoking Tobacco: Some Days Cigarettes 1 12 Last attempted to quit: 08/11/2017 Smokeless Tobacco: Former Chew Quit: 08/11/2017 [...] documented as of this encounter Care Teams Staff Interpreter Relationship Specialty Start Date End Date Reilly Lafleur MD [address] [place] [address] PCP - General Internal Medicine 11/29/17 10/28/20 Syed Bill PA-C [address] [place] [address] PCP - General Internal Medicine 10/29/20 Saba Gold MD [address] [address] Surgeon Neurosurgery 08/24/23 Parisa Long PA-C [address] [address] Specialist Neurosurgery 08/24/23 Jitendra Rios PA-C [address] [address] Specialist Neurosurgery 08/24/23 documented as of this encounter
--- OUTSIDE RECORDS SUMMARY | 2024-11-25 13:14 | XMS_ITS | Encounter Summary ---
Author Organization [facility] Address [address] [place] [address] Care Team Providers Care Oil Pipeline Operator Name Role Phone Syed Bill PA-C Primary Care Provider Saba Gold MD Unavailable [phone] Parisa Long PA-C Unavailable Jitendra Rios PA-C Unavailable Reason for Visit * Reason Comments E-prescribe Rx Request Encounter Details Date Type Department Care Team Description 01/16/2021 Refill Adult Medicine [address] [address] Reilly Lafleur MD [address] [place] [phone] E-prescribe Rx Request Social History Tobacco Use Types Packs/Day Years [...] file Not on file Not on file COVID-19 Exposure Response Date Recorded In the last month, have you been in contact with someone who was confirmed or suspected to have Coronavirus / COVID-19? No / Unsure 12/23/2020 3:13 PM EDT documented as of this encounter Miscellaneous Notes * Telephone Encounter - Nela Elizabeth M.A. - 01/17/2021 11:40 AM EDT Lab Results Component Value Date NA 144 05/04/2018 K 4.9 05/04/2018 CO2 21.9 05/04/2018 CL 105 05/04/2018 BUN 14 05/04/2018 CREAT 0.7 05/04/2018 CA 9.8 05/04/2018 GFR > 60 05/04/2018 Pending appt with Martha Olivier 01/23/21 * Telephone Encounter - Licha Singh - 01/16/2021 12:57 PM EDT Patient would like script to be: E-PRESCRIBED/FAXED TO PHARMACY WHEN WAS THE PATIENT'S LAST APPOINTMENT IN ADULT MEDICINE? 10/23/20 WHEN WAS THE LAST TIME THE PATIENT SAW THEIR PCP? 09/21/19 Does patient have an upcoming appointment? Pt will call (THE MEDICATION REQUESTED IS ON THE MED LIST ABOVE) All of the medications requested were on the CURRENT MEDS list Did you check the Pharmacy information above?: YES Patient wants: 30 -day supply Is this a mail order prescription request ? NO If the refill is from a FAXED refill request what is the RX # listed on the fax? N/A Patients current insurance carrier is: Payor: [employer] / Plan: [employer] INSURANCE / Product Type: OTHER documented in this encounter Plan of Treatment Not on file documented as of this encounter Visit Diagnoses Not on filedocumented in this encounter Additional Health Concerns Infection Onset Date Last Indicated Resolved Time COVID-19 Comment:Patient reported positive COVID 07/0307/03/2022 07/05/2022 documented as of this encounter Care Teams Oil Pipeline Operator Relationship Specialty Start Date End Date Syed Bill PA-C [address] [place] [address] PCP - General Internal Medicine 10/29/20 Saba Gold MD [address] [address] Surgeon Neurosurgery 08/24/23 Parisa Long PA-C [address] [address] Specialist Neurosurgery 08/24/23 Jitendra Rios PA-C [address] [address] Specialist Neurosurgery 08/24/23 documented as of this encounter
--- OUTSIDE RECORDS SUMMARY | 2024-11-25 13:14 | XMS_ITS | Encounter Summary ---
Author Organization [facility] Address [address] [place] [address] Care Team Providers Care Disbursement Clerk Name Role Phone Reilly Lafleur MD Primary Care Provider [phone] Syed Bill PA-C Primary Care Provider [phone] Saba Gold MD Unavailable [phone] Parisa Long PA-C Unavailable [phone] Jitendra Rios PA-C Unavailable [phone] Reason for Visit * Reason Onset Date Comments Call From Home Care 04/25/2018 Encounter Details Date Type Department Care Team Description 04/25/2018 Telephone Adult Medicine [address] [phone] Luma Hartmann PA-C Call From Home Care Social History Tobacco Use Types Packs/Day Years [...] on file documented as of this encounter Miscellaneous Notes * Telephone Encounter - Risa Jules R.N. - 05/11/2018 8:45 AM EDT [phone] (home) I called the patient's mother and they have appt with Dr. Garland on 05/16/18 to discuss the best option for rehab for the patient. * Telephone Encounter - Reilly Lafleur MD - 05/11/2018 8:34 AM EDT I've seen the patient 1 time. My important message to them at that time was to see Dr. Garland from physiatry at [facility] back again. He is a specialist in rehabilitation for patients with major neurologic events like this gentleman. He would be a reasonable person to direct his rehab program whether it be outpatient and patient and where it should happen. Please touch base with the mother to be sure the patient has an appointment with Dr. Garland and also review if there is any ongoing issues that need to be addressed at the moment * Telephone Encounter - Risa Jules R.N. - 05/09/2018 12:47 PM EDT Routed to branch logistics supervisor * Telephone Encounter - Babs Gardner M.A. - 05/09/2018 9:55 AM EDT Please advise, message forward to triage. * Telephone Encounter - Luma Hartmann PA-C - 05/04/2018 12:35 PM EDT Please route to ordering provider * Telephone Encounter - Suzanne Nieto M.A. - 05/04/2018 11:56 AM EDT luma Please see message below was the request for [facility] ever addressed?? Pt and mother here now very upset * Telephone Encounter - Krystian Skelton - 04/25/2018 2:09 PM EDT Spoke with patient's mother Vandana. Reviewed issues with mother who indicated that the patient has aSuprapubic catheter. Reviewed that yes a urine can be obtained-- discussed with mother that patientwould need to come into the facitlity where his catheter could be clamped and would have to stay her for about 20-25 miontues for enough urine to bulid up to be aspirated from the catheter to providea clean sample. Mother states that she will look at arranging a van and will contact me back. * Telephone Encounter - Luma Hartmann PA-C - 04/25/2018 1:38 PM EDT Will send to clinical nurse certified wellness program manager to address how to maybe properly obtain sample. * Telephone Encounter - Nela Elizabeth M.A. - 04/25/2018 1:14 PM EDT Pt's RECORD LIBRARIAN says at yesterdays visit the pt. And RECORD LIBRARIAN advised provider & [place] that pt may have a UTI,was advised to see Urology, family is upset . Pt wants to come here and have someone collect a clean catch pt has to be cath'd . Pt was advised to have labs done again yesterday and they did not go to the lab please advise on urine culture order * Telephone Encounter - Judith Bueno M.A. - 04/25/2018 10:58 AM EDT Matthew is calling and asking why a urine dip or urine culture was not done in office. The patient andPCShyann told them that he may have a UTI and is having UTI symptoms. I notified matthew that the patient came in for another reason and wanted to know if the urinary issues was mentioned at the time of visit. She states the RECORD LIBRARIAN and the patient him self mentioned it and was told to see his urologist with out checking to see if he has and infection. Patients parents are very upset that a urine sample was not taken. Matthew also states that they called [facility] to see if filomena can get in patient PT services. [facility] states they need to speak with a provider to see if this treatment can be bestfor the patient. In patient services is 3 hours a day everyday. * Telephone Encounter - Ania Mahmood - 04/25/2018 10:49 AM EDT Matthew is calling back. * Telephone Encounter - Judith Bueno M.A. - 04/25/2018 10:25 AM EDT Left message to matthew to give us a call back [phone] * Telephone Encounter - Florencia Woods - 04/25/2018 10:04 AM EDT Seen yesterday by Luma/ given referral to urologist/RECORD LIBRARIAN has questions / verbal release is available/ RECORD LIBRARIAN feel patient was not treated correctly documented in this encounter Plan of Treatment Not on file documented as of this encounter Visit Diagnoses Not on filedocumented in this encounter Additional Health Concerns Infection Onset Date Last Indicated Resolved Time COVID-19 Comment:Patient reported positive COVID 07/0307/03/2022 07/05/2022 documented as of this encounter Care Teams Disbursement Clerk Relationship Specialty Start Date End Date Reilly Lafleur MD [address] [place] [address] PCP - General Internal Medicine 11/29/17 10/28/20 Syed Bill PA-C [address] [place] [address] PCP - General Internal Medicine 10/29/20 Saba Gold MD [address] [address] Surgeon Neurosurgery 08/24/23 Parisa Long PA-C [address] [address] Specialist Neurosurgery 08/24/23 Jitendra Rios PA-C [address] [address] Specialist Neurosurgery 08/24/23 documented as of this encounter
--- OUTSIDE RECORDS SUMMARY | 2024-11-25 13:14 | XMS_ITS | Encounter Summary ---
Author Organization [facility] Address [address] [place] [address] Care Team Providers Care Beam House Inspector Name Role Phone Reilly Lafleur MD Primary Care Provider [phone] Syed Bill PA-C Primary Care Provider [phone] Saba Gold MD Unavailable [phone] Parisa Long PA-C Unavailable [phone] Jitendra Rios PA-C Unavailable [phone] Encounter Details Date Type Department Care Team Description 06/26/2020 Percher Report Medical Records [address] [place] [address] Frederick Linder MD Social History Tobacco Use Types Packs/Day [...] documented as of this encounter Care Teams Beam House Inspector Relationship Specialty Start Date End Date Reilly Lafleur MD [address] [place] [address] PCP - General Internal Medicine 11/29/17 10/28/20 Syed Bill PA-C [address] [place] [address] PCP - General Internal Medicine 10/29/20 Saba Gold MD [address] [address] Surgeon Neurosurgery 08/24/23 Parisa Long PA-C [address] [address] Specialist Neurosurgery 08/24/23 Jitendra Rios PA-C [address] [address] Specialist Neurosurgery 08/24/23 documented as of this encounter
--- OUTSIDE RECORDS SUMMARY | 2024-11-25 13:14 | XMS_ITS | Encounter Summary ---
Author Organization [facility] Address [address] [place] [address] Care Team Providers Care Allergist/Immunologist Name Role Phone Syed Bill PA-C Primary Care Provider [phone] Saba Gold MD Unavailable [phone] Parisa Long PA-C Unavailable Jitendra Rios PA-C Unavailable Encounter Details Date Type Department Care Team Description 11/15/2022 Training And Development Rep Report Medical Records [address] [place] [address] [facility] [address] [place] [address] Social History Tobacco Use Types Packs/Day Years Used Date Smoking Tobacco: Every Day Cigarettes 12 Smokeless Tobacco: Former Chew Quit: 08/11/2017 Comments:4-5 cigs/day Alcohol Use Standard Drinks/Week Comments Yes 0 (1 standard drink = 0.6 oz pur e alcohol) rarely Sex Assigned at Date Recorded [...] documented as of this encounter Care Teams Allergist/Immunologist Relationship Specialty Start Date End Date Syed Bill PA-C [address] [place] [address] PCP - General Internal Medicine 10/29/20 Saba Gold MD [address] [address] Surgeon Neurosurgery 08/24/23 Parisa Long PA-C [address] [address] Specialist Neurosurgery 08/24/23 Jitendra Rios PA-C [address] [address] Specialist Neurosurgery 08/24/23 documented as of this encounter
--- OUTSIDE RECORDS SUMMARY | 2024-11-25 13:14 | XMS_ITS | Encounter Summary ---
Author Organization [facility] Address [address] [place] [address] Care Team Providers Care Measurement Supervisor Name Role Phone Syed Bill PA-C Primary Care Provider [phone] Saba Gold MD Unavailable [phone] Parisa Long PA-C Unavailable Jitendra Rios PA-C Unavailable Encounter Details Date Type Department Care Team Description 10/22/2022 Telephone Adult Medicine [address] [id number] Syed Bill PA-C [address] [place] [address] [phone] Social History Tobacco Use Types Packs/Day Years [...] documented as of this encounter Care Teams Measurement Supervisor Relationship Specialty Start Date End Date Syed Bill PA-C [address] [place] [address] PCP - General Internal Medicine 10/29/20 Saba Gold MD [address] [address] Surgeon Neurosurgery 08/24/23 Parisa Long PA-C [address] [address] Specialist Neurosurgery 08/24/23 Jitendra Rios PA-C [address] [address] Specialist Neurosurgery 08/24/23 documented as of this encounter
--- OUTSIDE RECORDS SUMMARY | 2024-11-25 13:14 | XMS_ITS | Encounter Summary ---
Author Organization [facility] Address [address] [place] [address] Care Team Providers Care Single Pass Soil Stabilizer Operator Name Role Phone Reilly Lafleur MD Primary Care Provider [phone] Syed Bill PA-C Primary Care Provider [phone] Saba Gold MD Unavailable [phone] Parisa Long PA-C Unavailable [phone] Jitendra Rios PA-C Unavailable [phone] Encounter Details Date Type Department Care Team Description 04/25/2020 Precision Thread Grinder Operator Report Medical Records [address] [place] [address] Silverio Reina PA-C Social History Tobacco Use [...] documented as of this encounter Care Teams Single Pass Soil Stabilizer Operator Relationship Specialty Start Date End Date Reilly Lafleur MD [address] [place] [address] PCP - General Internal Medicine 11/29/17 10/28/20 Syed Bill PA-C [address] [place] [address] PCP - General Internal Medicine 10/29/20 Saba Gold MD [address] [address] Surgeon Neurosurgery 08/24/23 Parisa Long PA-C [address] [address] Specialist Neurosurgery 08/24/23 Jitendra iRos PA-C [address] [address] Specialist Neurosurgery 08/24/23 documented as of this encounter
--- OUTSIDE RECORDS SUMMARY | 2024-11-25 13:14 | XMS_ITS | Encounter Summary ---
Author Organization [facility] Address [address] [place] [address] Care Team Providers Care Numerologist Name Role Phone Reilly Lafleur MD Primary Care Provider [phone] Syed Bill PA-C Primary Care Provider Saba Gold MD Unavailable [phone] Parisa Long PA-C Unavailable [phone] Jitendra Rios PA-C Unavailable Reason for Visit * Reason Comments E-prescribe Rx Request Encounter Details Date Type Department Care Team Description 11/22/2019 Refill Adult Medicine [address] [id number] Syed Bill PA-C [address] [place] [address] [phone] E-prescribe Rx Request Social History Tobacco Use [...] encounter Miscellaneous Notes * Telephone Encounter - Everette Thomason - 11/22/2019 7:58 AM EDT Patient would like script to be: E-PRESCRIBED/FAXED TO PHARMACY WHEN WAS THE PATIENT'S LAST APPOINTMENT IN ADULT MEDICINE? 09/21/2019 WHEN WAS THE LAST TIME THE PATIENT SAW THEIR PCP? 05/04/18 Does patient have an upcoming appointment? Yes 03/26/2020 (THE MEDICATION REQUESTED IS ON THE MED [...] N/A Patients current insurance carrier is: Payor: [employer]FS / Plan: [employer] ALLIANCE / Product Type: MEDICAID RISK documented in this encounter Plan of Treatment Not on file documented as of this encounter Visit Diagnoses Not on filedocumented in this encounter Additional Health Concerns Infection Onset Date Last Indicated Resolved Time COVID-19 Comment:Patient reported positive COVID 07/0307/03/2022 07/05/2022 documented as of this encounter Care Teams Numerologist Relationship Specialty Start Date End Date Reilly Lafleur MD [address] [place] [address] PCP - General Internal Medicine 11/29/17 10/28/20 Syed Bill PA-C [address] [place] [address] PCP - General Internal Medicine 10/29/20 Saba Gold MD [address] [address] Surgeon Neurosurgery 08/24/23 Parisa Long PA-C [address] [address] Specialist Neurosurgery 08/24/23 Jitendra Rios PA-C [address] [phone] Specialist Neurosurgery 08/24/23 documented as of this encounter
--- OUTSIDE RECORDS SUMMARY | 2024-11-25 13:14 | XMS_ITS | Encounter Summary ---
Author Organization [facility] Address [address] [place] [address] Care Team Providers Care Employee Communications Intern Name Role Phone Syed Bill PA-C Primary Care Provider [phone] Saba Gold MD Unavailable [phone] Parisa Long PA-C Unavailable Jitendra Rios PA-C Unavailable Reason for Visit * Reason Comments E-prescribe Rx Request Encounter Details Date Type Department Care Team Description 03/17/2021 Refill Adult Medicine [address] [phone] Syed Bill PA-C [address] [place] [address] [phone] E-prescribe Rx Request Social History Tobacco Use [...] encounter Miscellaneous Notes * Telephone Encounter - Martha Sheets - 03/17/2021 10:33 AM EDT Patient would like script to be: E-PRESCRIBED/FAXED TO PHARMACY WHEN WAS THE PATIENT'S LAST APPOINTMENT IN ADULT MEDICINE? 01/23/21 WHEN WAS THE LAST TIME THE PATIENT SAW THEIR PCP? 09/21/19 Does patient have an upcoming appointment? No-unable to reach left [facility] to call for appointment due to refill request. (THE MEDICATION REQUESTED IS ON THE MED LIST ABOVE) All of the medications requested were on the CURRENT MEDS list Did you check the Pharmacy information above?: YES Patient wants: 90 -day supply Is this a mail order [...] documented as of this encounter Care Teams Employee Communications Intern Relationship Specialty Start Date End Date Syed Bill PA-C [address] [place] [address] PCP - General Internal Medicine 10/29/20 Saba Gold MD [address] [address] Surgeon Neurosurgery 08/24/23 Parisa Long PA-C [address] [address] Specialist Neurosurgery 08/24/23 Jitendra Rios PA-C 175 [facility] [address] [place] [address] Specialist Neurosurgery 08/24/23 documented as of this encounter
--- OUTSIDE RECORDS SUMMARY | 2024-11-25 13:14 | XMS_ITS | Encounter Summary ---
Author Organization [facility] Address [address] [place] [address] Care Team Providers Care Rn On Site Name Role Phone Reilly Lafleur MD Primary Care Provider [phone] Syed Bill PA-C Primary Care Provider [phone] Saba Gold MD Unavailable [phone] Parisa Long PA-C Unavailable [phone] Jitendra Rios PA-C Unavailable [phone] Encounter Details Date Type Department Care Team Description 02/14/2018 Boring Machine Feeder Report Medical Records [address] [place] [address] Jass Escobedo Social History Tobacco Use Types Packs/Day Years [...] documented as of this encounter Care Teams Rn On Site Relationship Specialty Start Date End Date Reilly Lafleur MD [address] [place] [address] PCP - General Internal Medicine 11/29/17 10/28/20 Syed Bill PA-C [address] [place] [address] PCP - General Internal Medicine 10/29/20 Saba Gold MD [address] [address] Surgeon Neurosurgery 08/24/23 Parisa Long PA-C [address] [address] Specialist Neurosurgery 08/24/23 Jitendra Rios PA-C [address] [address] Specialist Neurosurgery 08/24/23 documented as of this encounter
--- OUTSIDE RECORDS SUMMARY | 2024-11-25 13:14 | XMS_ITS | Encounter Summary ---
Author Organization [facility] Address [address] [place] [address] Care Team Providers Care Trauma Program Manager Name Role Phone Reilly Lafleur MD Primary Care Provider [phone] Syed Bill PA-C Primary Care Provider [phone] Saba Gold MD Unavailable [phone] Parisa Long PA-C Unavailable [phone] Jitendra Rios PA-C Unavailable [phone] Encounter Details Date Type Department Care Team Description 09/30/2020 Old Medical Records Medical Records [address] [place] [address] Abstract, Provider Social History Tobacco Use Types [...] documented as of this encounter Care Teams Trauma Program Manager Relationship Specialty Start Date End Date Reilly Lafleur MD [address] [place] [address] [place] [address] PCP - General Internal Medicine 11/29/17 10/28/20 Syed Bill PA-C [address] [place] [address] PCP - General Internal Medicine 10/29/20 Saba Gold MD [address] [address] Surgeon Neurosurgery 08/24/23 Parisa Long PA-C [address] [address] Specialist Neurosurgery 08/24/23 Jitendra Rios PA-C [address] [address] Specialist Neurosurgery 08/24/23 documented as of this encounter
--- OUTSIDE RECORDS SUMMARY | 2024-11-25 13:14 | XMS_ITS | Encounter Summary ---
Author Organization [facility] Address [address] [place] [address] Care Team Providers Care Job Hand Name Role Phone Reilly Lafleur MD Primary Care Provider [phone] Syed Bill PA-C Primary Care Provider Saba Gold MD Unavailable [phone] Parisa Long PA-C Unavailable Jitendra Rios PA-C Unavailable Reason for Referral * EXTERNAL (Routine) - Authorized/Booked Specialty Diagnoses / Procedures Referred By Penelope mcbride Referred To Contact Home Health Care / Home care Procedures REFERRAL TO HOME CARE Syed Bill PA-C [address] [place] [address] [address] Referral ID Status Reason Start Date Expiration Date V isits Requested Visits Authorized SEE REVIEW 10/09/2018 Authorized/ Booked 10/12/2018 01/13/2019 1 1 Reason for Visit * Reason Onset Date Comments Provider Call Back 10/09/2018 Encounter Details Date Type Department Care Team Description 10/09/2018 Telephone Adult [facility] [address] [place] [address] Reilly Lafleur MD [address] [place] [address] Provider Call Back Social History Tobacco Use Types Packs/Day Years [...] Telephone Encounter - Risa Jules R.N. - 10/12/2018 2:29 PM EDT [facility] called regarding referral for OT and PT. I spoke with Vandana there and she said to fax everything to them. Message routed to Referrals * Telephone Encounter - Syed Bill PA-C - 10/12/2018 12:19 PM EDT Ok will do Syed Bill PA-C * Telephone Encounter - Risa Jules R.N. - 10/12/2018 9:14 AM EDT I called [facility] and spoke to Vandana. Pt is not going to PT anymore because of the insurance. She will need new referral faxed to her and all appropriate paperwork. They are at capacity right now and will run by manager non profit Zeina and see if they can pick him up again for services. * Telephone Encounter - Risa Jules R.N. - 10/12/2018 9:06 AM EDT I called and spoke to patient's mom (STEPHANIE). Pt is going to [facility] for PT. They are requesting another referral placed for PT because the insurance isn't covering anymore visits. Also the referral that wasdone on 09/28/18 only covers PT and not OT. The diagnosis written is for PT. Pt feels it would be better for him to do OT with [facility] and keep everything in one place. Pt's mom is requesting referral to [facility] for PT and OT. Please make sure the diagnosis written covers both PT and OT. Please let me know when referrals are ready and I'll come get. * Telephone Encounter - Syed Bill PA-C - 10/11/2018 5:22 PM EDT Please find out from the patient what is needed Syed Bill PA-C * Telephone Encounter - Tiny Mitchell R.N. - 10/11/2018 1:39 PM EDT Pt was never admit with [facility] visiting nurse. * Telephone Encounter - Yari Hanson R.N. - 10/10/2018 9:21 AM EDT [facility], message left on [phone] * Telephone Encounter - Syed Bill PA-C - 10/10/2018 7:51 AM EDT [facility] I [facility] order PT as well. I'd be happy to do any necessary documentation Syed Bill PA-C * Telephone Encounter - Susu Monson - 10/09/2018 10:00 AM EDT Caller requesting call back from provider: Faizan Bill Is the caller the patient? NO If caller is not the patient, what is the callers name? Jahaira HEIN Callers relationship to patient? hospital pharmacist If person calling is not the patient themselves, is there a verbal release in FYI or permanent comments for this person: YES Reason for call back: Jahaira requesting that [facility] [phone] The order was for a physical therapy issue, not occupational therapy. Caller offered to speak with the nurse for assistance: YES Response: Patient offered to speak with nurse for assistance and patient agreed. Message forwarded to nurse. 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, sequela (HCC) documented in this encounter Additional Health Concerns Infection Onset Date Last Indicated Resolved Time COVID-19 Comment:Patient reported positive COVID 07/0307/03/2022 07/05/2022 documented as of this encounter Care Teams Job Hand Relationship Specialty Start Date End Date Reilly Lafleur MD [address] [place] [address] PCP - General Internal Medicine 11/29/17 10/28/20 Syed Bill PA-C [address] [place] [address] PCP - General Internal Medicine 10/29/20 Saba Gold MD [address] [address] Surgeon Neurosurgery 08/24/23 Parisa Long PA-C [address] [address] Specialist Neurosurgery 08/24/23 Jitendra Rios PA-C [address] [address] Specialist Neurosurgery 08/24/23 documented as of this encounter
--- OUTSIDE RECORDS SUMMARY | 2024-11-25 13:14 | XMS_ITS | Encounter Summary ---
Author Organization [facility] Address [address] [place] [address] Care Team Providers Care Link Assembler Name Role Phone Reilly Lafleur MD Primary Care Provider [phone] Syed Bill PA-C Primary Care Provider [phone] Saba Gold MD Unavailable [phone] Parisa Long PA-C Unavailable [phone] Jitendra Rios PA-C Unavailable [phone] Encounter Details Date Type Department Care Team Description 02/21/2019 Finance Business Manager Report Medical Records [address] [place] [address] Erika Ritchie PA-C Social History Tobacco Use [...] documented as of this encounter Care Teams Link Assembler Relationship Specialty Start Date End Date Reilly Lafleur MD [address] [place] [address] PCP - General Internal Medicine 11/29/17 10/28/20 Syed Bill PA-C [address] [place] [address] PCP - General Internal Medicine 10/29/20 Saba Gold MD [address] [address] Surgeon Neurosurgery 08/24/23 Parisa Long PA-C [address] [address] Specialist Neurosurgery 08/24/23 Jitendra Rios PA-C [address] [address] Specialist Neurosurgery 08/24/23 documented as of this encounter
--- OUTSIDE RECORDS SUMMARY | 2024-11-25 13:14 | XMS_ITS | Encounter Summary ---
Author Organization [facility] Address [address] [place] [address] Care Team Providers Care Liquid Sugar Fortifier Name Role Phone Reilly Lafleur MD Primary Care Provider [phone] Syed Bill PA-C Primary Care Provider [phone] Saba Gold MD Unavailable [phone] Parisa Long PA-C Unavailable [phone] Jitendra Rios PA-C Unavailable [phone] Encounter Details Date Type Department Care Team Description 09/03/2019 Release of Information Medical Records [address] [place] [address] Abstract, Provider Social History Tobacco Use Types [...] documented as of this encounter Care Teams Liquid Sugar Fortifier Relationship Specialty Start Date End Date Reilly Lafleur MD [address] [place] [address] PCP - General Internal Medicine 11/29/17 10/28/20 Syed Bill PA-C [address] [place] [address] PCP - General Internal Medicine 10/29/20 Saba Gold MD [address] [address] Surgeon Neurosurgery 08/24/23 Parisa Long PA-C [address] [address] Specialist Neurosurgery 08/24/23 Jitendra Rios PA-C [address] [address] Specialist Neurosurgery 08/24/23 documented as of this encounter
--- OUTSIDE RECORDS SUMMARY | 2024-11-25 13:14 | XMS_ITS | Encounter Summary ---
Author Organization [facility] Address [address] [place] [address] Care Team Providers Care Otr Owner Operator Truck Driver Name Role Phone Reilly Lafleur MD Primary Care Provider Syed Bill PA-C Primary Care Provider Saba Gold MD Unavailable [phone] Parisa oLng PA-C Unavailable Jitendra Rios PA-C Unavailable Reason for Visit * Reason Onset Date Comments refill request 02/29/2020 Encounter Details Date Type Department Care Team Description 02/29/2020 Refill Adult Medicine [address] [phone] Reilly Lafleur MD [address] [place] [address] [phone] refill request Social History Tobacco Use Types Packs/Day Years [...] encounter Miscellaneous Notes * Telephone Encounter - Angelina Earl - 02/29/2020 9:50 AM EDT Patient would like script to be: E-PRESCRIBED/FAXED TO PHARMACY WHEN WAS THE PATIENT'S LAST APPOINTMENT IN ADULT MEDICINE? 09/21/19 WHEN WAS THE LAST TIME THE PATIENT SAW THEIR PCP? 05/04/18 Does patient have an upcoming appointment? Yes 03/26/20 (THE MEDICATION REQUESTED IS ON THE MED [...] N/A Patients current insurance carrier is: Payor: [employer] / Plan: [email or web address] / Product Type: MEDICAID RISK documented in this encounter Plan of Treatment Not on file documented as of this encounter Visit Diagnoses Not on filedocumented in this encounter Additional Health Concerns Infection Onset Date Last Indicated Resolved Time COVID-19 Comment:Patient reported positive COVID 07/0307/03/2022 07/05/2022 documented as of this encounter Care Teams Otr Owner Operator Truck Driver Relationship Specialty Start Date End Date Reilly Lafleur MD [address] [place] [address] PCP - General Internal Medicine 11/29/17 10/28/20 Syed Bill PA-C [address] [place] [address] PCP - General Internal Medicine 10/29/20 Saba Gold MD [address] [address] Surgeon Neurosurgery 08/24/23 Parisa Long PA-C [address] [address] Specialist Neurosurgery 08/24/23 Jitendra Rios PA-C [address] [address] Specialist Neurosurgery 08/24/23 documented as of this encounter
--- OUTSIDE RECORDS SUMMARY | 2024-11-25 13:14 | XMS_ITS | Encounter Summary ---
Author Organization [facility] Address [address] [place] [address] Care Team Providers Care Forensic Artist Name Role Phone Reilly Lafleur MD Primary Care Provider [phone] Syed Bill PA-C Primary Care Provider Saba Gold MD Unavailable [phone] Parisa Long PA-C Unavailable [phone] Jitendra Rios PA-C Unavailable [phone] Reason for Visit * Reason Comments E-prescribe Rx Request Encounter Details Date Type Department Care Team Description 10/21/2020 Refill Adult Medicine [facility] [address] [place] [address] [phone] Syed Bill PA-C [address] [place] [address] [phone] E-prescribe Rx Request Social History Tobacco Use [...] have Coronavirus / COVID-19? No / Unsure 10/23/2020 2:11 PM EDT documented as of this encounter Miscellaneous Notes * Telephone Encounter - Juan Vogel M.A. - 10/22/2020 1:51 PM EDT Patient would like script to be: E-PRESCRIBED/FAXED TO PHARMACY WHEN WAS THE PATIENT'S LAST APPOINTMENT IN ADULT MEDICINE? 05/15/2020 WHEN WAS THE LAST TIME THE PATIENT SAW THEIR PCP? Does patient have an upcoming appointment? no (THE MEDICATION REQUESTED IS ON THE MED [...] documented as of this encounter Care Teams Forensic Artist Relationship Specialty Start Date End Date Reilly Lafleur MD [address] [place] [address] PCP - General Internal Medicine 11/29/17 10/28/20 Syed Bill PA-C [address] [place] [address] PCP - General Internal Medicine 10/29/20 Saba Gold MD [address] [address] Surgeon Neurosurgery 08/24/23 Parisa Long PA-C [address] [address] Specialist Neurosurgery 08/24/23 Jitendra Rios PA-C [address] [address] Specialist Neurosurgery 08/24/23 documented as of this encounter
--- OUTSIDE RECORDS SUMMARY | 2024-11-25 13:14 | XMS_ITS | Encounter Summary ---
Author Organization [facility] Address [address] [place] [address] Care Team Providers Care Social Studies Department Chair Name Role Phone Reilly Lafleur MD Primary Care Provider [phone] Syed Bill PA-C Primary Care Provider [phone] Saba Gold MD Unavailable [phone] Parisa Long PA-C Unavailable [phone] Jitendra Rios PA-C Unavailable [phone] Encounter Details Date Type Department Care Team Description 11/30/2019 Clinical Research Physician Report Medical Records [address] [place] [address] Silverio Reina PA-C Social History Tobacco Use [...] documented as of this encounter Care Teams Social Studies Department Chair Relationship Specialty Start Date End Date Reilly Lafleur MD [address] [place] [address] PCP - General Internal Medicine 11/29/17 10/28/20 Syed Bill PA-C [address] [place] [address] PCP - General Internal Medicine 10/29/20 Saba Gold MD [address] [address] Surgeon Neurosurgery 08/24/23 Parisa Long PA-C [address] [address] Specialist Neurosurgery 08/24/23 Jitendra Rios PA-C [address] [address] Specialist Neurosurgery 08/24/23 documented as of this encounter
--- OUTSIDE RECORDS SUMMARY | 2024-11-25 13:14 | XMS_ITS | Encounter Summary ---
Author Organization [facility] Address [address] [place] [address] Care Team Providers Care Service Secretary Name Role Phone Reilly Lafleur MD Primary Care Provider Syed Bill PA-C Primary Care Provider Saba Gold MD Unavailable [phone] Parisa Long PA-C Unavailable [phone] Jitendra Rios PA-C Unavailable [phone] Reason for Visit * Reason Onset Date Comments Faxed Order 12/19/2017 Encounter Details Date Type Department Care Team Description 12/19/2017 Telephone Adult Medicine [address] [phone] Reilly Lafleur MD [address] [place] [address] [phone] Faxed Order Social History Tobacco Use Types Packs/Day Years [...] encounter Miscellaneous Notes * Telephone Encounter - Jeane Scott - 12/19/2017 4:13 PM EDT Plan of care for Dr Reilly Lafleur's signature documented in this encounter Plan of Treatment Not on file documented as of this encounter Visit Diagnoses Not on filedocumented in this encounter Additional Health Concerns Infection Onset Date Last Indicated Resolved Time COVID-19 Comment:Patient reported positive COVID 07/0307/03/2022 07/05/2022 documented as of this encounter Care Teams Service Secretary Relationship Specialty Start Date End Date Reilly Lafleur MD [address] [place] [address] PCP - General Internal Medicine 11/29/17 10/28/20 Syed Bill PA-C [address] [place] [address] PCP - General Internal Medicine 10/29/20 Saba Gold MD [address] [address] Surgeon Neurosurgery 08/24/23 Parisa Long PA-C [address] [address] Specialist Neurosurgery 08/24/23 Jitendra Rios PA-C [address] [address] Specialist Neurosurgery 08/24/23 documented as of this encounter
--- OUTSIDE RECORDS SUMMARY | 2024-11-25 13:15 | XMS_ITS | Encounter Summary ---
Author Organization [facility] Address [address] [place] [address] Care Team Providers Care Rf Engineer Name Role Phone Syed Bill PA-C Primary Care Provider [phone] Saba Gold MD Unavailable [phone] Parisa Long PA-C Unavailable [phone] Jitendra Rios PA-C Unavailable Encounter Details Date Type Department Care Team Description 09/06/2023 SCAN [facility] [place] [address] [phone] Jitendra Riso PA-C 175 [facility] [address] [place], [place] [phone] Social History Tobacco Use Types Packs/Day Years [...] documented as of this encounter Care Teams Rf Engineer Relationship Specialty Start Date End Date Syed Bill PA-C [address] [place] [address] PCP - General Internal Medicine 10/29/20 Saba Gold MD [address] [address] Surgeon Neurosurgery 08/24/23 Parisa Long PA-C [address] [address] Specialist Neurosurgery 08/24/23 Jitendra Rios PA-C [address] [address] Specialist Neurosurgery 08/24/23 documented as of this encounter
--- OUTSIDE RECORDS SUMMARY | 2024-11-25 13:15 | XMS_ITS | Encounter Summary ---
Author Organization [facility] Address [address] [place] [address] Care Team Providers Care Textile Designs Sales Representative Name Role Phone Syed Bill PA-C Primary Care Provider [phone] Saba Gold MD Unavailable [phone] Parisa Long PA-C Unavailable [phone] Jitendra Rios PA-C Unavailable Encounter Details Date Type Department Care Team Description 08/11/2023 SCAN [facility] Medical [facility] 175 [facility] [address] [place] [address] Jazzmine Cannon APRN Social History Tobacco Use Types Packs/Day Years [...] documented as of this encounter Care Teams Textile Designs Sales Representative Relationship Specialty Start Date End Date Syed Bill PA-C [address] [place] [address] PCP - General Internal Medicine 10/29/20 Saba Gold MD [address] [address] Surgeon Neurosurgery 08/24/23 Parisa Long PA-C [address] [address] Specialist Neurosurgery 08/24/23 Jitendra Rios PA-C [address] [address] Specialist Neurosurgery 08/24/23 documented as of this encounter
--- OUTSIDE RECORDS SUMMARY | 2024-11-25 13:15 | XMS_ITS | Encounter Summary ---
Author Organization [facility] Address [address] [place] [address] Care Team Providers Care Manager Ent Name Role Phone Reilly Lafleur MD Primary Care Provider [phone] Mario Cortes MD Primary Care Provider Unavailabl e Reilly Lafleur MD Primary Care Provider [phone] Syed Bill PA-C Primary Care Provider [phone] Saba Gold MD Unavailable [phone] Parisa Long PA-C Unavailable [phone] Jitendra Rios PA-C Unavailable [phone] Encounter Details Date Type Department Care Team Description 08/11/2017 Hospital Medical Records [address] [place] [address] Ming Samano PA-C Social History Tobacco Use Types Packs/Day [...] documented as of this encounter Care Teams Manager Ent Relationship Specialty Start Date End Date Reilly Lafleur MD [address] [place] [address] PCP - General Internal Medicine 02/18/15 09/25/17 Sophia, MD Mario [address] [place] [address] PCP - General Internal Medicine 09/26/17 11/28/17 Reilly Lafleur MD [address] [place] [address] PCP - General Internal Medicine 11/29/17 10/28/20 Syed Bill PA-C [address] [place] [address] PCP - General Internal Medicine 10/29/20 Saba Gold MD [address] [address] Surgeon Neurosurgery 08/24/23 Parisa Long PA-C [address] [address] Specialist Neurosurgery 08/24/23 Jitendra Rios PA-C [address] [address] Specialist Neurosurgery 08/24/23 documented as of this encounter
--- OUTSIDE RECORDS SUMMARY | 2024-11-25 13:15 | XMS_ITS | Encounter Summary ---
Author Organization [facility] Address [address] [place] [address] Care Team Providers Care Petroleum Production Engineer Name Role Phone Syed Bill PA-C Primary Care Provider Saba oGld MD Unavailable [phone] Parisa Long PA-C Unavailable [phone] Jitendra Rios PA-C Unavailable [phone] Encounter Details Date Type Department Care Team Description 10/23/2023 Screedman/Laborer Report Medical Records [address] [place] [address] Abstract, Provider Social History Tobacco Use Types [...] documented as of this encounter Care Teams Petroleum Production Engineer Relationship Specialty Start Date End Date Syed Bill PA-C [address] [place], [place] 0334320 PCP - General Internal Medicine 10/29/20 Saba Gold MD [address] [id number] Surgeon Neurosurgery 08/24/23 Parisa Long PA-C [address] [address] Specialist Neurosurgery 08/24/23 Jitendra Rios PA-C 175 [facility] [address] [place] [address] Specialist Neurosurgery 08/24/23 documented as of this encounter
--- OUTSIDE RECORDS SUMMARY | 2024-11-25 13:15 | XMS_ITS | Encounter Summary ---
Author Organization [facility] Address [address] [place] [address] Care Team Providers Care Tub Chucker Name Role Phone Syed Bill PA-C Primary Care Provider Saba Gold MD Unavailable [phone] Parisa Long PA-C Unavailable [phone] Jitendra Rios PA-C Unavailable Encounter Details Date Type Department Care Team Description 04/25/2024 Walk In Clinic Visit Medical Records [address] [place] [address] Abstract, Provider Social History Tobacco Use Types [...] documented as of this encounter Care Teams Tub Chucker Relationship Specialty Start Date End Date Syed Bill PA-C [address] [place], [place] [phone] PCP - General Internal Medicine 10/29/20 Saba Gold MD [address] [address] Surgeon Neurosurgery 08/24/23 Parisa Long PA-C [address] [address] Specialist Neurosurgery 08/24/23 Jitendra Rios PA-C 175 [facility] [address] [place] [address] Specialist Neurosurgery 08/24/23 documented as of this encounter
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
--- OUTSIDE RECORDS SUMMARY | 2024-11-25 13:15 | XMS_ITS | Encounter Summary ---
Author Organization [facility] Address [address] [place] [address] Care Team Providers Care Banking Paralegal Name Role Phone Syed Bill PA-C Primary Care Provider [phone] Saba Gold MD Unavailable [phone] Parisa Long PA-C Unavailable [phone] Jitendra Rios PA-C Unavailable [phone] Encounter Details Date Type Department Care Team Description 07/08/2023 Home Health Certification Medical Records [address] [place] [address] [facility] Social History Tobacco Use Types Packs/Day Years [...] documented as of this encounter Care Teams Banking Paralegal Relationship Specialty Start Date End Date Syed Bill PA-C [address] [place], [place] [phone] PCP - General Internal Medicine 10/29/20 Saba Gold MD [address] [phone] Surgeon Neurosurgery 08/24/23 Parisa Long PA-C [address] [address] Specialist Neurosurgery 08/24/23 Jitendra Rios PA-C 175 [facility] [address] [place] [address] Specialist Neurosurgery 08/24/23 documented as of this encounter
--- OUTSIDE RECORDS SUMMARY | 2024-11-25 13:15 | XMS_ITS | Encounter Summary ---
Author Organization [facility] Address [address] [place] [address] Care Team Providers Care Cake Knocker Name Role Phone Syed Bill PA-C Primary Care Provider Saba Gold MD Unavailable [phone] Parisa Long PA-C Unavailable [phone] Jitendra Rios PA-C Unavailable Encounter Details Date Type Department Care Team Description 12/19/2023 Candy Attendant Report Medical Records [address] [place] [address] Abstract, Provider Social History Tobacco Use Types [...] documented as of this encounter Care Teams Cake Knocker Relationship Specialty Start Date End Date Syed Bill PA-C [address] [place], [place] [phone] PCP - General Internal Medicine 10/29/20 Saba Gold MD [address] [phone] Surgeon Neurosurgery 08/24/23 Parisa Long PA-C [address] [address] Specialist Neurosurgery 08/24/23 Jitendra Rios PA-C 175 [facility] [address] [place] [address] Specialist Neurosurgery 08/24/23 documented as of this encounter
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
--- OUTSIDE RECORDS SUMMARY | 2024-11-25 13:15 | XMS_ITS | Encounter Summary ---
Author Organization [facility] Address [address] [place] [address] Care Team Providers Care Comb Capper Name Role Phone Syed Bill PA-C Primary Care Provider [phone] Saba Gold MD Unavailable [phone] Parisa Long PA-C Unavailable [phone] Jitendra Rios PA-C Unavailable Reason for Visit * Reason Onset Date Comments Imaging Review 08/19/2023 Lumbar spine MRI Encounter Details Date Type Department Care Team Description 08/19/2023 Telephone [facility] 175 [facility] [address] [place] [phone] Jazzmine Cannon APRN Imaging Review (Lumbar spine MRI ) Social History Tobacco Use Types Packs/Day Years [...] documented as of this encounter Care Teams Comb Capper Relationship Specialty Start Date End Date Syed Bill PA-C [address] [place] [address] PCP - General Internal Medicine 10/29/20 Saba Gold MD [address] [address] Surgeon Neurosurgery 08/24/23 Parisa Long PA-C [address] [address] Specialist Neurosurgery 08/24/23 Jitendra Rios PA-C [address] [address] Specialist Neurosurgery 08/24/23 documented as of this encounter
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
--- OUTSIDE RECORDS SUMMARY | 2024-11-25 13:15 | XMS_ITS | Encounter Summary ---
Author Organization [facility] Address [address] [place] [address] Care Team Providers Care Mounter Automatic Name Role Phone Reilly Lafleur MD Primary Care Provider [phone] Syed Bill PA-C Primary Care Provider [phone] Saba Gold MD Unavailable [phone] Parisa Long PA-C Unavailable [phone] Jitendra Rios PA-C Unavailable [phone] Encounter Details Date Type Department Care Team Description 07/28/2018 Plate Drying Machine Tender Report Medical Records [address] [place] [address] Erika Ritchie PA-C Social History Tobacco Use [...] documented as of this encounter Care Teams Mounter Automatic Relationship Specialty Start Date End Date Reilly Lafleur MD [address] [place] [address] PCP - General Internal Medicine 11/29/17 10/28/20 Syed Bill PA-C [address] [place] [address] PCP - General Internal Medicine 10/29/20 Saba Gold MD [address] [address] Surgeon Neurosurgery 08/24/23 Parisa Long PA-C [address] [address] Specialist Neurosurgery 08/24/23 Jitendra Rios PA-C [address] [address] Specialist Neurosurgery 08/24/23 documented as of this encounter
--- OUTSIDE RECORDS SUMMARY | 2024-11-25 13:15 | XMS_ITS | Encounter Summary ---
Author Organization [facility] Address [address] [place] [address] Care Team Providers Care Customer Solutions Coordinator Name Role Phone Reilly Lafleur MD Primary Care Provider [phone] Syed Bill PA-C Primary Care Provider [phone] Saba Gold MD Unavailable [phone] Parisa Long PA-C Unavailable [phone] Jitendra Rios PA-C Unavailable [phone] Encounter Details Date Type Department Care Team Description 10/24/2018 Director Of Student Life Report Medical Records [address] [place] [address] Erika Ritchie PA-C Social History Tobacco Use [...] documented as of this encounter Care Teams Customer Solutions Coordinator Relationship Specialty Start Date End Date Reilly Lafleur MD [address] [place] [address] PCP - General Internal Medicine 11/29/17 10/28/20 Syed Bill PA-C [address] [place] [address] PCP - General Internal Medicine 10/29/20 Saba Gold MD [address] [address] Surgeon Neurosurgery 08/24/23 Parisa Long PA-C [address] [address] Specialist Neurosurgery 08/24/23 Jitendra Rios PA-C [address] [address] Specialist Neurosurgery 08/24/23 documented as of this encounter
--- OUTSIDE RECORDS SUMMARY | 2024-11-25 13:15 | XMS_ITS | Encounter Summary ---
Author Organization [facility] Address [address] [place] [address] Care Team Providers Care Finisher [employer] Name Role Phone Syed Bill PA-C Primary Care Provider [phone] Saba Gold MD Unavailable [phone] Parisa Long PA-C Unavailable [phone] Jitendra Rios PA-C Unavailable [phone] Encounter Details Date Type Department Care Team Description 01/25/2024 [facility] [address] [phone] Jose De Jesus Chacon PA-C Social History Tobacco Use Types Packs/Day [...] documented as of this encounter Care Teams Finisher [employer] Relationship Specialty Start Date End Date Syed Bill PA-C [address] [place] [id number] PCP - General Internal Medicine 10/29/20 Saba Gold MD 175 [facility] [address] [place] [address] Surgeon Neurosurgery 08/24/23 Parisa Long PA-C [address] [address] Specialist Neurosurgery 08/24/23 Jitendra Rios PA-C 175 [facility] [address] [place] [address] Specialist Neurosurgery 08/24/23 documented as of this encounter
--- OUTSIDE RECORDS SUMMARY | 2024-11-25 13:15 | XMS_ITS | Encounter Summary ---
Author Organization [facility] Address [address] [place] [address] Care Team Providers Care User Experience Lead Name Role Phone Syed Bill PA-C Primary Care Provider [phone] Saba Gold MD Unavailable [phone] Parisa Long PA-C Unavailable Jitendra Rios PA-C Unavailable [phone] Encounter Details Date Type Department Care Team Description 06/23/2023 Orders Only Medical Records [address] [place] [id number] Abstract, Provider Social History Tobacco Use Types [...] on file documented as of this encounter Procedures Procedure Name Priority Date/Time Associated Diagnosis Comments OUTSIDE PLAIN FILM Routine 06/23/2023 documented in this encounter Results * OUTSIDE PLAIN FILM (06/23/2023) Jose De Jesus Chacon PA-C RADIOLOGY documented in this encounter Visit Diagnoses Not on filedocumented in this encounter Additional Health Concerns Infection Onset Date Last Indicated Resolved Time COVID-19 Comment:Patient reported positive COVID 1207/03/2022 07/05/2022 documented as of this encounter Care Teams User Experience Lead Relationship Specialty Start Date End Date Syed Bill PA-C [address] [place] [address] PCP - General Internal Medicine 10/29/20 Saba Gold MD [address] [address] Surgeon Neurosurgery 08/24/23 Parisa Long PA-C [address] [address] Specialist Neurosurgery 08/24/23 Jitendra Rios PA-C [address] [address] Specialist Neurosurgery 08/24/23 documented as of this encounter
--- OUTSIDE RECORDS SUMMARY | 2024-11-25 13:15 | XMS_ITS | Encounter Summary ---
Author Organization [facility] Address [address] [place] [address] Care Team Providers Care Annual Campaign Manager Name Role Phone Reilly Lafleur MD Primary Care Provider [phone] Mario Cortes MD Primary Care Provider Unavailabl e Reilly Lafleur MD Primary Care Provider [phone] Syed Bill PA-C Primary Care Provider [phone] Saba Gold MD Unavailable [phone] Parisa Long PA-C Unavailable [phone] Jitendra Rios PA-C Unavailable [phone] Encounter Details Date Type Department Care Team Description 08/12/2017 Hospital Medical Records [address] [place] [address] Mario Ferris MD Social History Tobacco Use Types Packs/Day [...] documented as of this encounter Care Teams Annual Campaign Manager Relationship Specialty Start Date End Date Reilly Lafleur MD [address] [place] [address] PCP - General Internal Medicine 02/18/15 09/25/17 Mario Cortes MD [address] [place] [address] PCP - General Internal Medicine 09/26/17 11/28/17 Reilly Lafleur MD [address] [place] [address] PCP - General Internal Medicine 11/29/17 10/28/20 Syed Bill PA-C [address] [place] [address] PCP - General Internal Medicine 10/29/20 Saba Gold MD [address] [address] Surgeon Neurosurgery 08/24/23 Parisa Long PA-C [address] [address] Specialist Neurosurgery 08/24/23 Jitendra Rios PA-C [address] [address] Specialist Neurosurgery 08/24/23 documented as of this encounter
--- OUTSIDE RECORDS SUMMARY | 2024-11-25 13:15 | XMS_ITS | Encounter Summary ---
Author Organization [facility] Address [address] [place] [address] Care Team Providers Care Welder Production [employer] Name Role Phone Syed Bill PA-C Primary Care Provider Saba Gold MD Unavailable [phone] Parisa Long PA-C Unavailable [phone] Jitendra Rios PA-C Unavailable Encounter Details Date Type Department Care Team Description 05/16/2024 Data Analysis Intern Report Medical Records [address] [place] [address] Abstract, Provider Social History Tobacco Use Types [...] documented as of this encounter Care Teams Welder Production [employer] Relationship Specialty Start Date End Date Syed Bill PA-C [address] [place], [place] [phone] PCP - General Internal Medicine 10/29/20 Saba Gold MD [address] [phone] Surgeon Neurosurgery 08/24/23 Parisa Long PA-C [address] [address] Specialist Neurosurgery 08/24/23 Jitendra Rios PA-C 175 [facility] [address] [place] [address] Specialist Neurosurgery 08/24/23 documented as of this encounter
--- OUTSIDE RECORDS SUMMARY | 2024-11-25 13:15 | XMS_ITS | Encounter Summary ---
Author Organization [facility] Address [address] [place] [address] Care Team Providers Care Lesson Instructor Name Role Phone Reilly Lafleur MD Primary Care Provider [phone] Syed Bill PA-C Primary Care Provider [phone] Saba Gold MD Unavailable [phone] Parisa Long PA-C Unavailable [phone] Jitendra Rios PA-C Unavailable Encounter Details Date Type Department Care Team Description 12/13/2017 SNF discharge summary Medical Records [address] [place] [address] Abstract, Provider Social History Tobacco Use Types [...] documented as of this encounter Care Teams Lesson Instructor Relationship Specialty Start Date End Date Reilly Lafleur MD [address] [place] [address] PCP - General Internal Medicine 11/29/17 10/28/20 Syed Bill PA-C [address] [place] [address] PCP - General Internal Medicine 10/29/20 Saba Gold MD [address] [address] Surgeon Neurosurgery 08/24/23 Parisa Long PA-C [address] [address] Specialist Neurosurgery 08/24/23 Jitendra Rios PA-C [address] [address] Specialist Neurosurgery 08/24/23 documented as of this encounter
--- OUTSIDE RECORDS SUMMARY | 2024-11-25 13:15 | XMS_ITS | Encounter Summary ---
Author Organization [facility] Address [address] [place] [address] Care Team Providers Care Lecturer In Marketing Name Role Phone Syed Bill PA-C Primary Care Provider [phone] Saba Gold MD Unavailable [phone] Parisa Long PA-C Unavailable Jitendra Rios PA-C Unavailable Encounter Details Date Type Department Care Team Description 08/09/2023 [facility] Medical [facility] 175 [facility] [address] [place] [address] Jazzmine Cannon APRN Social History [...] documented as of this encounter Care Teams Lecturer In Marketing Relationship Specialty Start Date End Date Syed Bill PA-C [address] [place] [address] PCP - General Internal Medicine 10/29/20 Saba Gold MD [address] [address] Surgeon Neurosurgery 08/24/23 Parisa Long PA-C [address] [address] Specialist Neurosurgery 08/24/23 Jitendra Rios PA-C [address] [address] Specialist Neurosurgery 08/24/23 documented as of this encounter
--- OUTSIDE RECORDS SUMMARY | 2024-11-25 13:15 | XMS_ITS | Encounter Summary ---
Author Organization [facility] Address [address] [place] [address] Care Team Providers Care Company [employer] Name Role Phone Reilly Lafleur MD Primary Care Provider + [phone] Mario Cortes MD Primary Care Provider Unavailabl e Reilly Lafleur MD Primary Care Provider [phone] Syed Bill PA-C Primary Care Provider [phone] Saba Gold MD Unavailable [phone] Parisa Long PA-C Unavailable [phone] Jitendra Rios PA-C Unavailable [phone] Encounter Details Date Type Department Care Team Description 08/16/2017 Hospital Medical Records [address] [place] [address] Social History Tobacco Use Types Packs/Day Years [...] documented as of this encounter Care Teams Company [employer] Relationship Specialty Start Date End Date Reilly Lafleur MD [address] [place] [address] PCP - General Internal Medicine 02/18/15 09/25/17 Sophia, MD Mario [address] [place] [address] PCP - General Internal Medicine 09/26/17 11/28/17 Reilly Lafleur MD [address] [place] [address] PCP - General Internal Medicine 11/29/17 10/28/20 Syed Bill PA-C [address] [place] [address] PCP - General Internal Medicine 10/29/20 Saba Gold MD [address] [address] Surgeon Neurosurgery 08/24/23 Parisa Long PA-C [address] [address] Specialist Neurosurgery 08/24/23 Jitendra Rios PA-C [address] [address] Specialist Neurosurgery 08/24/23 documented as of this encounter
[2024-11-25] MEDS: iohexoL 350 MG/ML 100 ML INFUS..BTL IV (13:26)
--- NOTE | 2024-11-25 13:45 | MHC.EDTECH ---
EkG was taken, and read by the ED provider, Blood work was done send to the lab waiting for result, patient resting quietly in his bed with the call [place] in his reach
[2024-11-25 13:46] LABS: MANUAL DIFF FLAG NO
[2024-11-25 13:47] LABS: Appearance Urine Turbid; Color Urine Dark Yellow; Glucose Urine UA Negative (Negative); Leukocyte Esterase Urine Moderate (2+) (Negative); Nitrite Urine Positive (Negative); Specific Gravity - Urine >= 1.030 (1.005-1.025); UMIC TRIGGER UACC YES; Urine Blood Negative (Negative); Urine Ketones Trace mg/dL (Negative); Urine Protein 100 (2+) mg/dL (Neg-Trace)
[2024-11-25 13:48] LABS: Basophils Percent Auto 0.2 % (0-2); Eosinophils Absolute Auto 0.1 X10*3/uL (0.0-0.4); Eosinophils Percent Auto 1.8 % (0-4); Hematocrit 30.7 % (42.0-52.0); Hemoglobin 10.2 g/dl (14.0-18.0); Imm Gran Abs Auto 0.07 X10*3/uL (0.00-0.03); Imm Gran Pct Auto 1.1 % (0.0-0.4); Lymphocytes Absolute Auto 2.8 X10*3/uL (1.2-4.9); Mean Corpuscular HGB Conc 33.2 g/dl (31.0-36.0); Mean Corpuscular Hemoglobin 29.3 pg (27.0-33.0); Mean Corpuscular Volume 88.2 fL (80.0-98.0); Mean Platelet Volume 10.8 fL (9.4-12.4); Monocytes Absolute Auto 0.3 X10*3/uL (0.1-1.2); Monocytes Percent Auto 5.2 % (2-11); Neutrophils Absolute Auto 2.8 x10*3/uL (2.0-8.3); Neutrophils Percent Auto 45.7 % (45-73); Platelet Count 134 X10*3/uL (160-400); Red Blood Count 3.48 X10*6/uL (4.60-5.80); Red Cell Distribution Width 14.3 % (11.0-16.0); White Blood Count 6.2 X10*3/uL (4.8-10.8)
[2024-11-25 13:57] LABS: Prothrombin Time 11.1 SEC (10.9-12.4)
[2024-11-25 14:00] LABS: Bacteria Urine 1+ (None Seen); RBC Urine 0-2 /HPF (0-2); UACC Culture Trigger YES; WBC Urine >50 /HPF (0-5)
[2024-11-25 14:00] LABS: Partial Thromboplastin Time 25.8 SEC (26.0-36.8)
[2024-11-25 14:01] LABS: Stroke Lab Use COMPLETE
[2024-11-25 14:02] LABS: Anion Gap 9 (12-20); Blood Urea Nitrogen 12 mg/dL (9-16); Calcium 7.7 mg/dL (8.4-10.2); Carbon Dioxide 29 mmol/L (22-29); Chloride 107 mmol/L (96-108); Cholesterol 198 mg/dL (<200); Creatinine Clr Calc Pharmacy 152.2; Estimated Glomerular Filt Rate > 60; Glucose Random 152 mg/dL (60-115); HDL Cholesterol 33 mg/dL (>40); LDL Cholesterol Calculated 119 mg/dL (<100); Lactic Acid 1.3 mmol/L (0.5-2.0); Potassium 3.3 mmol/L (3.3-5.1); Sodium 142 mmol/L (135-145); Triglycerides 233 mg/dL (<150)
[2024-11-25 14:07] LABS: Glucose, Whole Blood 87 mg/dL (60-115)
[2024-11-25] MEDS: cefTRIAXone sodium 1 GM VIAL IVPUSH (14:10)
[2024-11-25 14:14] LABS: Troponin-I High Sensitivity < 2.7 ng/L (<3.5-35.0)
--- NOTE | 2024-11-25 14:14 | MHC.EDTECH ---
Urine was taken and send to the lab
[2024-11-25] MEDS: Albumin Human 25 % 100 ML 133.33 ML IV ×2 (14:57→15:32)
[2024-11-25 14:59] LABS: Albumin Level 2.4 g/dL (3.5-5.0)
--- NOTE | 2024-11-25 15:04 | PC.NURSE ---
Pt's urine output improving with IVF's (500ml out); pt's bp labile 80's-100's syst; pt remains afebrile but reporting feeling cold and having chills; made aware
[2024-11-25 15:31] LABS: Glucose, Whole Blood 66 mg/dL (60-115)
[2024-11-25 15:31] LABS: Glucose, Whole Blood 70 mg/dL (60-115)
[2024-11-25] MEDS: Midodrine HCl 5 MG TABLET PO ×2 (15:31→20:11)
--- NOTE | 2024-11-25 15:40 | PC.NURSE ---
Pt's BP improving after IVF's and Albumin; BG POC remains 70's after 2 amps of D50; MD made aware; will repeat BG after 2nd bag of Albumin infuses per MD
--- NOTE | 2024-11-25 16:02 | P.HPHOSP_ITS ---
History of Present Illness Date of Service: 11/25/24 Chief Complaint: UTi A 34-year-old female with a history of C5 spinal cord injury and quadriplegia presented via EMS with complaints of left arm tingling, a general sense of not feeling well, and decreased urine output from her chronic Marie catheter. She denies fever but reports experiencing chills. There has been no change in appetite or new neurological symptoms. A stroke workup, including head and neck CT, was negative. Urinalysis is grossly positive. Blood pressure was initially low at 81/45, and heart rate was in the 40s. She received 30 mL/kg of normal saline, two doses of albumin, and midodrine. Her most recent blood pressure has improved to 122/66 . Ceftriaxone was started for suspected urinary tract infection. White blood cell count and lactic acid levels are within normal limits. She experienced hypoglycemia with a blood glucose in the 70s and was treated with two amps of dextrose. Review of Systems 2 Review of Systems: Tinglin in the leg as described, no fever but chills, no sob, no change in mental status. Otherwise unbable to assess because of qudriplegic state [facility] 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 Pyelonephritis Paralysis Social History Household Members: Family Housing: House Do you presently have visiting nurse or other home services: Yes ([employer]) Alcohol intake: current Alcohol intake frequency: holidays/special occasions only Patient Tobacco Use Status: Former Tobacco user Tobacco use type: Cigarette Cigarettes Per Day: 4 Smoked in Last 30 Days: Yes Patient Interested in Nicotine Replacement: Yes Patient Given Instructions on How to Stop Smoking: Yes Date Education Initiated: 11/25/24 Use of substances other than those prescribed or required for medical reasons: Yes Substance Use Type: Marijuana Currently Displaying Signs/Symptoms of Drug Intoxication Withdrawal: No Have you been hit, kicked, punched, or otherwise hurt by someone within the past year? If so, by whom?: No Do you feel safe in your current relationship?: No Current Relationship Is there a partner from a previous relationship who is making you feel unsafe now?: No Are you made to feel afraid or neglected: No Advance Directives: Yes (Parents) Advance Directives Information Provided: Yes Advance Directives on File: No Advance Directives Date on File: 11/25/24 Do you have a plan to hurt others: No Plan Recently lost weight without trying: No How much weight loss: Not applicable Eating poorly because of decreased appetite: No Nutrition screen score: 0 Nutrition Risks: No Nutritional Risk Poor oral hygiene: No Meds Allergies Allergy/AdvReac Type Severity Reaction Status Date / Time No Known Allergies Allergy Verified 11/25/24 12:53 [No Known Allergies*] Active Medications: Current Medications Acetaminophen (Acetaminophen 325 Mg Tablet) 650 mg PO Q6H PRN PRN Reason: Pain, Mild 1-3,fever,headache Al Hydroxide/Mg Hydroxide (Magnesium Hydrox/Alum Hydrox 30 Ml Oral.Susp) 30 ml PO Q4H PRN PRN Reason: Heartburn Calcium Carbonate (Calcium Carbonate 750 Mg Tab.Chew) 750 mg PO Q4H PRN PRN Reason: Heartburn Enoxaparin Sodium (Enoxaparin Sodium 30 Mg/0.3 Ml Syringe) 30 mg SUBCUT Q24H ON LICENSE OF [facility] Albumin Human (Kedbumin 25 %) 100 mls @ 133.333 mls/hr IV Q1H MOE Stop: 11/25/24 16:29 Last Admin: 11/25/24 15:32 Dose: 133.33 mls/hr Dextrose/Sodium Chloride (D5ns) 1,000 mls @ 125 mls/hr IVCONT .Q8H MOE Lactated Ringer's (Lr) 1,000 mls @ 125 mls/hr IVCONT .Q8H ON LICENSE OF [facility] Magnesium Hydroxide (Milk Of Magnesia 30 Ml Oral.Susp) 30 ml PO DAILY PRN PRN Reason: Constipation Melatonin (Melatonin 3 Mg Tablet) 6 mg PO BEDTIME PRN PRN Reason: Insomnia Ondansetron HCl (Ondansetron Hcl 4 Mg/2 Ml Vial) 4 mg IVPUSH Q8H PRN PRN Reason: Nausea and Vomiting Polyethylene Glycol (Polyethylene Glycol 3350 17 Gm Powd.Pack) 17 gm PO DAILY PRN PRN Reason: Constipation Sodium Chloride (0.9 % Sodium Chloride Flush 3 Ml Syringe) [facility] Medications ?Medication ?Instructions ?Recorded ?Confirmed ?Last Taken ?Type baclofen 20 mg tablet 40 tab PO BID 07/17/20 11/25/24 11/25/24 History gabapentin 300 mg capsule 600 mg PO QAM 07/17/20 11/25/24 11/25/24 History midodrine 5 mg tablet 1 tab PO BID 07/17/20 11/25/24 11/25/24 History tizanidine 4 mg tablet 2 tab PO BID muscle spasm 07/17/20 11/25/24 11/25/24 History bisacodyl 10 mg rectal suppository 10 mg [place] DAILY PRN Constipation 11/25/24 11/25/24 Unknown History (OneLAX Bisacodyl) gabapentin 300 mg capsule 900 mg PO BEDTIME 11/25/24 11/25/24 Unknown History meloxicam 15 mg tablet 15 mg PO DAILY PRN Pain 11/25/24 11/25/24 Unknown History methadone 10 mg/mL oral concentrate 110 mg PO DAILY 11/25/24 11/25/24 History nicotine (polacrilex) 4 mg gum 4 mg PO Q2H PRN Nicotine Cravings 11/25/24 11/25/24 Unknown History prednisone 10 mg tablet See Taper PO DAILY 11/25/24 11/25/24 11/24/24 History quetiapine 100 mg tablet 100 mg PO BEDTIME 11/25/24 11/25/24 Unknown History Physical Exam 2 Vital Signs and Narrative: Vital Signs: Last Vital Signs Temp 97.9 F 11/25/24 15:39 Pulse 62 11/25/24 15:39 Resp 19 11/25/24 15:39 BP 110/54 L 11/25/24 15:39 Pulse Ox 98 11/25/24 15:39 O2 Del Method Room Air 11/25/24 15:39 BMI result Body Mass Index 26.6 Const: Other: Gen: Alert and Oriented X3. No distress. Eyes: Pupils equal, round and reactive to light. ENT: Pharynx normal. Neck: Normal inspection. Neck supple. No lymph nodes noted. No crepitus CVS: Normal heart rate and rhythm. Pulses normal. Normal S1 and S2, no leg edema Respiratory: Normal effort, Breath sounds normal. No Wheezing. No rales. Abdomen: Soft and nontender. No rigidity. No distention. normal sounds Skin: Skin warm and dry. Normal skin color. Normal skin turgor. Extremities No Rash Neuro: Oriented X 3. weakness in both upper and lower extremity. There is no hand grasp. There is minimal movement of the upper extremity. There is good sensation in the upper and lower extremity patient has good pain sensation in the upper and lower extremity. There is no motor function in the lower extremity. Results Labs 11/25/24 13:35 11/25/24 16:49 Labs: Laboratory Results - last 24 hr 11/25/24 11/25/24 11/25/24 13:03 13:35 13:36 MCV 88.2 MCH 29.3 MCHC 33.2 RDW 14.3 Plt Count 134 L MPV 10.8 Immature Gran % (Auto) 1.1 H Neut % (Auto) 45.7 Lymph % (Auto) 46.0 H Harper % (Auto) 5.2 Eos % (Auto) 1.8 Baso % (Auto) 0.2 Lymph # (Auto) 2.8 Harper # (Auto) 0.3 Eos # (Auto) 0.1 Baso # (Auto) 0.0 Abs Immat Gran (auto) 0.07 H Absolute Neuts (auto) 2.8 Absolute Nucleated RBC 0.000 Nucleated RBC % (auto) 0.0 PT 11.1 INR 1.0 APTT 25.8 L Anion Gap 9 L Estim Creat Clear Calc 152.2 Estimated GFR > 60 POC Glucose 61 Random Glucose 152 H Lactic Acid 1.3 Calcium 7.7 L Albumin Triglycerides 233 H Cholesterol 198 LDL Cholesterol, Calc 119 H HDL Cholesterol 33 L Urine Color Dark Yellow Urine Appearance Turbid Urine pH 6.0 Ur Specific [place] >= 1.030 H Urine Protein 100 (2+) H Urine Glucose (UA) Negative Urine Ketones Trace Urine Blood Negative Urine Nitrite Positive H Ur Leukocyte Esterase Moderate (2+) H Urine RBC 0-2 Urine WBC >50 H Ur Squamous Epith Cells 11-20 Urine Bacteria 1+ Hyaline Casts 3-5 Urine Yeast Present 11/25/24 11/25/24 11/25/24 14:02 14:48 15:20 MCV MCH MCHC RDW Plt Count MPV Immature Gran % (Auto) Neut % (Auto) Lymph % (Auto) Harper % (Auto) Eos % (Auto) Baso % (Auto) Lymph # (Auto) Harper # (Auto) Eos # (Auto) Baso # (Auto) Abs Immat Gran (auto) Absolute Neuts (auto) Absolute Nucleated RBC Nucleated RBC % (auto) PT INR APTT Anion Gap Estim Creat Clear Calc Estimated GFR POC Glucose 87 66 Random Glucose Lactic Acid 1.0 Calcium Albumin 2.4 L Triglycerides Cholesterol LDL Cholesterol, Calc HDL Cholesterol Urine Color Urine Appearance Urine pH Ur Specific [place] Urine Protein Urine Glucose (UA) Urine Ketones Urine Blood Urine Nitrite Ur Leukocyte Esterase Urine RBC Urine WBC Ur Squamous Epith Cells Urine Bacteria Hyaline Casts Urine Yeast 11/25/24 15:25 MCV MCH MCHC RDW Plt Count MPV Immature Gran % (Auto) Neut % (Auto) Lymph % (Auto) Harper % (Auto) Eos % (Auto) Baso % (Auto) Lymph # (Auto) Harper # (Auto) Eos # (Auto) Baso # (Auto) Abs Immat Gran (auto) Absolute Neuts (auto) Absolute Nucleated RBC Nucleated RBC % (auto) PT INR APTT Anion Gap Estim Creat Clear Calc Estimated GFR POC Glucose 70 Random Glucose Lactic Acid Calcium Albumin Triglycerides Cholesterol LDL Cholesterol, Calc HDL Cholesterol Urine Color Urine Appearance Urine pH Ur Specific [place] Urine Protein Urine Glucose (UA) Urine Ketones Urine Blood Urine Nitrite Ur Leukocyte Esterase Urine RBC Urine WBC Ur Squamous Epith Cells Urine Bacteria Hyaline Casts Urine Yeast Assessment and Plan (1) UTI (urinary tract infection) due to urinary indwelling catheter: Qualifiers: Encounter type: initial encounter Indwelling urinary catheter type: i ndwelling urethral catheter Qualified Code(s): T83.511A - Infection and inflammatory reaction due to indwelling urethral catheter, initial encounter; N39.0 - Urinary tract infection, site not specified Status: Acute (2) C5 spinal cord injury: Status: Acute (3) Quadriplegic spinal paralysis: Status: Acute (4) Acute hypotension: Status: Acute Plan 34/M with quadriplegia here with hypotension, UTI, and some tingling in the leg. Severe sepsis due to UTI despite normal temperature and WBC; no fever but has chills, hypotension, and tachycardia likely suppressed centrally by spinal cord injury. Has received sepsis bolus, albumin, and midodrine; blood pressure is now within normal range. Continue IV fluids with LR + dextrose at 125 mL/hr. Hypoglycemia?has received 2 amps of dextrose, blood sugar remains in the 70s. Consider IV hydrocortisone in light of persistent hypoglycemia, hypotension, and bradycardia, which could indicate adrenal insufficiency. Continue IVF with dextrose. Check AM cortisol. Check liver panel, TSH Bradycardia with HR in the 40s, likely related to spinal cord injury and/or adrenal insufficiency, currently improved. Tingling in legs without evidence of stroke; symptoms likely related to metabolic disturbance, particularly hypoglycemia. DVT prophylaxis: Lovenox. Full code. Regular diet. Full admission for sepsis with hypotension and hypoglycemia. Quality Stroke Does the patient have a stroke diagnosis?: No VTE Prior VTE?: No VTE Risk Level:: Medical - moderate - high VTE Device Contraindication: Treatment Not Indicated VTE Drug Contraindication: N/A - Med Ordered
[2024-11-25] MEDS: Acetaminophen 325 MG TABLET 650 MG PO (16:31)
[2024-11-25 16:32] LABS: Glucose, Whole Blood 66 mg/dL (60-115)
[2024-11-25] MEDS: Dextrose 5 % and Lactated Ring 1,000 ML 150 ML IVCONT ×2 (16:39→23:24)
[2024-11-25 17:07] LABS: Anion Gap 12 (12-20); Blood Urea Nitrogen 9 mg/dL (9-16); Calcium 7.6 mg/dL (8.4-10.2); Carbon Dioxide 25 mmol/L (22-29); Chloride 114 mmol/L (96-108); Creatinine Clr Calc Pharmacy 161.6; Estimated Glomerular Filt Rate > 60; Glucose Fasting 66 mg/dL (60-99); Potassium 3.9 mmol/L (3.3-5.1); Sodium 147 mmol/L (135-145)
[2024-11-25 17:12] LABS: Alanine Aminotransferase 13 U/L (0-40); Alkaline Phosphatase 51 U/L (39-117); Aspartate Amino Transferase 12 U/L (5-37); Bilirubin Direct < 0.2 mg/dL (0.0-0.5); Bilirubin Total 0.2 mg/dL (0.0-1.0); Total Protein 3.9 g/dL (6.5-8.0)
[2024-11-25 17:24] LABS: Thyroid Stimulating Hormone 1.19 uIU/mL (0.32-4.0)
--- NOTE | 2024-11-25 17:45 | PHA.MEDREC ---
Addendum entered by Juan Landrum [facility] 11/25/24 18:01: [facility] REC CHECKED BY [facility] Original Note: Pharmacy Consult ? Medication Reconciliation Pharmacy has completed the medication reconciliation. Spoke with patient to confirm medications. He takes baclofen and tizanidine 2 tablets twice daily. He takes gabapentin 300 mg , 2 caps in the morning and 3 caps at bedtime. He takes midodrine 1 tablet in the morning and 1 at bedtime. He is currently on a prednisone taper. He started his first day of 3 tabs x3 days yesterday 11/24/24 but did not take it today. He uses meloxicam and suppositories prn. He is not taking docusate, dicyclomine, or duloxetine. He reports methadone 110 mg daily, last had this morning. He could not remember the clinic but he will look it up and let his nurse know.
[2024-11-25 17:53] LABS: Glucose, Whole Blood 112 mg/dL (60-115)
[2024-11-25] MEDS: Enoxaparin Sodium 40 MG/0.4 ML SYRINGE SUBCUT (18:24)
[2024-11-25] MEDS: Nicotine Polacrilex 2 MG GUM 4 MG BUCCAL ×2 (18:27→23:26)
[2024-11-25] MEDS: Gabapentin 300 MG CAPSULE 900 MG PO (20:10)
[2024-11-25] MEDS: TiZANidine HCL 4 MG TABLET 8 MG PO (20:10)
[2024-11-25] MEDS: QUEtiapine Fumarate 100 MG TABLET PO (20:10)
[2024-11-25] MEDS: 0.9 % Sodium Chloride Flush 3 ML SYRINGE IVFLUSH (20:15)
[2024-11-25] MEDS: Baclofen 20 MG TABLET 40 MG PO (20:15)
[2024-11-25 21:00] LABS: Glucose, Whole Blood 76 mg/dL (60-115)
[2024-11-25 23:20] LABS: Glucose, Whole Blood 79 mg/dL (60-115)
[2024-11-25] MEDS: Hydrocortisone Sod Succ/PF 100 MG VIAL IVPUSH (23:24)
[2024-11-26] VITALS (10 sets, daily range): BP systolic 95–140; BP diastolic 56–81; PULSE 38–59; RESP 14–18; TEMP 36.2–37.6; O2SAT 94–99; BMI 25.9
[2024-11-26 03:40] LABS: Glucose, Whole Blood 133 mg/dL (60-115)
[2024-11-26] MEDS: Dextrose 5 % and Lactated Ring 1,000 ML 150 ML IVCONT ×3 (06:05→20:21)
[2024-11-26 07:02] LABS: Alanine Aminotransferase 16 U/L (0-40); Albumin Level 3.8 g/dL (3.5-5.0); Alkaline Phosphatase 52 U/L (39-117); Anion Gap 11 (12-20); Aspartate Amino Transferase 18 U/L (5-37); Bilirubin Total 0.3 mg/dL (0.0-1.0); Blood Urea Nitrogen 4 mg/dL (9-16); Calcium 8.6 mg/dL (8.4-10.2); Carbon Dioxide 28 mmol/L (22-29); Chloride 109 mmol/L (96-108); Creatinine Clr Calc Pharmacy 166.7; Estimated Glomerular Filt Rate > 60; Glucose Random 110 mg/dL (60-115); Potassium 4.1 mmol/L (3.3-5.1); Sodium 144 mmol/L (135-145); Total Protein 5.7 g/dL (6.5-8.0)
[2024-11-26 07:20] LABS: Cortisol Random 8.4 ug/dL
[2024-11-26] MEDS: TiZANidine HCL 4 MG TABLET 8 MG PO (08:08)
[2024-11-26] MEDS: Baclofen 20 MG TABLET 40 MG PO (08:08)
[2024-11-26] MEDS: Midodrine HCl 5 MG TABLET PO ×2 (08:09→20:21)
[2024-11-26] MEDS: Gabapentin 300 MG CAPSULE 600 MG PO (08:09)
[2024-11-26] MEDS: 0.9 % Sodium Chloride Flush 3 ML SYRINGE IVFLUSH ×2 (08:09→13:57)
[2024-11-26 08:20] LABS: Glucose, Whole Blood 109 mg/dL (60-115)
--- NOTE | 2024-11-26 09:18 | MHC.CM.PN ---
CM met with Patient at bedside and addressed IMM with him verbally (Quadriplegic);original was given to Patient and a copy has been placed on the chart. Patient lives in a house with his Parents/HCP and he uses an electric w/c for mobility. Patient has a [employer] Q[employer] from 9AM-noon, picks up his Methadone weekly at [facility], in [facility], and he sees his urologist monthly for chronic miranda cath care. Home/resume said services is Patient's goal and CM has initiated and will follow for dc planning. PCP is Dr. Syed Bill and [facility] [facility] for transport to home.
[2024-11-26 11:25] LABS: Glucose, Whole Blood 147 mg/dL (60-115)
[2024-11-26 11:40] LABS: Prothrombin Time Whole Bld POC 12.4 sec (11.1-13.5)
[2024-11-26] MEDS: cefTRIAXone sodium 1 GM VIAL IVPUSH (14:02)
[2024-11-26] MEDS: predniSONE 10 MG TABLET 30 MG PO (14:03)
[2024-11-26 14:26] LABS: Glucose, Whole Blood 84 mg/dL (60-115)
--- NOTE | 2024-11-26 14:57 | P.PNIM_ITS ---
Subjective Subjective Date of Service: 11/26/24 Interval History: f/u on uti, hypotension and hypoglycemia. BP is stable and hypoglycemia has resolve, low BP resolved.. He has had episodes of bradycardia conciding with Baclofen and Zanaflex. Patient reports having been on it for years but has also had episodes of dizziness, and passing out at home. Physical Exam 2 Vital Signs: Vital Signs: Last Vital Signs Temp 98 F 11/26/24 12:00 Pulse 47 L 11/26/24 14:42 Resp 17 11/26/24 14:42 BP 102/56 L 11/26/24 12:00 Pulse Ox 95 11/26/24 07:45 O2 Del Method Room Air 11/26/24 12:00 O2 Flow Rate 100 11/25/24 16:36 BMI result Body Mass Index 25.9 Const: Other: Gen: Alert and Oriented X3. No distress. Eyes: Pupils equal, round and reactive to light. ENT: Pharynx normal. Neck: Normal inspection. Neck supple. No lymph nodes noted. No crepitus CVS: Normal heart rate and rhythm. Pulses normal. Normal S1 and S2, no leg edema Respiratory: Normal effort, Breath sounds normal. No Wheezing. No rales. Abdomen: Soft and nontender. No rigidity. No distention. normal sounds Skin: Skin warm and dry. Normal skin color. Normal skin turgor. Extremities No Rash Neuro: Oriented X 3. weakness in both upper and lower extremity. There is no hand grasp. There is minimal movement of the upper extremity. There is good sensation in the upper and lower extremity patient has good pain sensation in the upper and lower extremity. There is no motor function in the lower extremity. Objective Data Active Medications Acetaminophen (Acetaminophen 325 Mg Tablet) 650 mg PO Q6H PRN PRN Reason: Pain, Mild 1-3,fever,headache Last Admin: 11/25/24 16:31 Dose: 650 mg Documented By: ANDREW Al Hydroxide/Mg Hydroxide (Magnesium Hydrox/Alum Hydrox 30 Ml Oral.Susp) 30 ml PO Q4H PRN PRN Reason: Heartburn Albuterol Sulfate (Albuterol Sulfate 90 Mcg 8 Gm Inhaler) 2 puff INHALE Q4H PRN PRN Reason: shortness of breath or wheezin Baclofen (Baclofen 20 Mg Tablet) 40 mg PO BID MOE Last Admin: 11/26/24 08:08 Dose: 40 mg Documented By: ADAMS Bisacodyl (Bisacodyl 10 Mg Supp.Rect) 10 mg [place] DAILY PRN PRN Reason: Constipation Calcium Carbonate (Calcium Carbonate 750 Mg Tab.Chew) 750 mg PO Q4H PRN PRN Reason: Heartburn Ceftriaxone Sodium (Ceftriaxone Sodium 1 Gm Vial) 1 gm IVPUSH Q24H [facility] Last Admin: 11/26/24 14:02 Dose: 1 gm Documented By: ADAMS Dextrose (Dextrose 50 % 25 Gm/50 Ml Syringe) 25 gm IVPUSH Q15M PRN; Protocol PRN Reason: per Hypoglycemia Standing Ord. Enoxaparin Sodium (Enoxaparin Sodium 40 Mg/0.4 Ml Syringe) 40 mg SUBCUT Q24H [facility] Last Admin: 11/25/24 18:24 Dose: 40 mg Documented By: ADAMS Gabapentin (Gabapentin 300 Mg Capsule) 600 mg PO DAILY [facility] Last Admin: 11/26/24 08:09 Dose: 600 mg Documented By: ADAMS Gabapentin (Gabapentin 300 Mg Capsule) 900 mg PO BEDTIME [facility] Last Admin: 11/25/24 20:10 Dose: 900 mg Documented By: MARY JO Glucose (Glucose Gel 15 Gm Gel..Gram.) 15 gm PO Q15M PRN; Protocol PRN Reason: per Hypoglycemia Standing Ord. Dextrose/Lactated Ringer's (D5lr) 1,000 mls @ 150 mls/hr IVCONT .Q6H40M [facility] Last Admin: 11/26/24 14:02 Dose: 150 mls/hr Documented By: ADAMS Magnesium Hydroxide (Milk Of Magnesia 30 Ml Oral.Susp) 30 ml PO DAILY PRN PRN Reason: Constipation Melatonin (Melatonin 3 Mg Tablet) 6 mg PO BEDTIME PRN PRN Reason: Insomnia Midodrine (Midodrine Hcl 5 Mg Tablet) 5 mg PO BID [facility] Last Admin: 11/26/24 08:09 Dose: 5 mg Documented By: ADAMS Naproxen (Naproxen 500 Mg Tablet) 500 mg PO BID PRN PRN Reason: Pain Nicotine Polacrilex (Nicotine Polacrilex 2 Mg Gum) 4 mg BUCCAL Q2H PRN PRN Reason: Nicotine Cravings Last Admin: 11/25/24 23:26 Dose: 4 mg Documented By: MARY JO Ondansetron HCl (Ondansetron Hcl 4 Mg/2 Ml Vial) 4 mg IVPUSH Q8H PRN PRN Reason: Nausea and Vomiting Polyethylene Glycol (Polyethylene Glycol 3350 17 Gm Powd.Pack) 17 gm PO DAILY PRN PRN Reason: Constipation Prednisone (Prednisone 10 Mg Tablet) 30 mg PO DAILY [facility] Last Admin: 11/26/24 14:03 Dose: 30 mg Documented By: ADAMS Quetiapine Fumarate (Quetiapine Fumarate 100 Mg Tablet) 100 mg PO BEDTIME [facility] Last Admin: 11/25/24 20:10 Dose: 100 mg Documented By: MARY JO Sodium Chloride (0.9 % Sodium Chloride Flush 3 Ml Syringe) 3 ml IVFLUSH QSHIFT [facility] Last Admin: 11/26/24 13:57 Dose: 3 ml Documented By: ADAMS Tizanidine HCl (Tizanidine Hcl 4 Mg Tablet) 8 mg PO BID [facility] Last Admin: 11/26/24 08:08 Dose: 8 mg Documented By: ADAMS Labs 11/25/24 13:35 11/26/24 06:02 Labs: Laboratory Results - last 24 hr 11/25/24 11/25/24 11/25/24 13:12 14:48 15:20 Hold Purple Top Whole Blood PT 12.4 Whole Blood INR 1.0 Anion Gap Estim Creat Clear Calc Estimated GFR POC Glucose 66 Random Glucose Fasting Glucose Lactic Acid 1.0 Calcium Total Bilirubin 0.2 Direct Bilirubin < 0.2 AST 12 ALT 13 Alkaline Phosphatase 51 Total Protein 3.9 L Albumin 2.4 L TSH 1.19 Random Cortisol 11/25/24 11/25/24 11/25/24 15:25 16:29 16:49 Hold Purple Top Whole Blood PT Whole Blood INR Anion Gap 12 Estim Creat Clear Calc 161.6 Estimated GFR > 60 POC Glucose 70 66 Random Glucose Fasting Glucose 66 Lactic Acid Calcium 7.6 L Total Bilirubin Direct Bilirubin AST ALT Alkaline Phosphatase Total Protein Albumin TSH Random Cortisol 11/25/24 11/25/24 11/25/24 17:47 20:54 23:13 Hold Purple Top Whole Blood PT Whole Blood INR Anion Gap Estim Creat Clear Calc Estimated GFR POC Glucose 112 76 79 Random Glucose Fasting Glucose Lactic Acid Calcium Total Bilirubin Direct Bilirubin AST ALT Alkaline Phosphatase Total Protein Albumin TSH Random Cortisol 11/26/24 11/26/24 11/26/24 03:35 06:02 07:43 Hold Purple Top SEE NOTE Whole Blood PT Whole Blood INR Anion Gap 11 L Estim Creat Clear Calc 166.7 Estimated GFR > 60 POC Glucose 133 H 109 Random Glucose 110 Fasting Glucose Lactic Acid Calcium 8.6 D Total Bilirubin 0.3 Direct Bilirubin AST 18 ALT 16 Alkaline Phosphatase 52 Total Protein 5.7 L Albumin 3.8 TSH Random Cortisol 8.4 11/26/24 11/26/24 11:14 14:21 Hold Purple Top Whole Blood PT Whole Blood INR Anion Gap Estim Creat Clear Calc Estimated GFR POC Glucose 147 H 84 Random Glucose Fasting Glucose Lactic Acid Calcium Total Bilirubin Direct Bilirubin AST ALT Alkaline Phosphatase Total Protein Albumin TSH Random Cortisol Microbiology Microbiology Results: Microbiology 11/25/24 Unknown Urine Culture - Final Urine Catheterized - Marie Catheter Assessment and Plan (1) UTI (urinary tract infection) due to urinary indwelling catheter: Status: Acute (2) C5 spinal cord injury: Status: Acute Plan 34/M with quadriplegia here with hypotension, UTI, and some tingling in the leg. Severe sepsis due to UTI despite normal temperature and WBC; no fever but has chills, hypotension, and tachycardia likely suppressed centrally by spinal cord injury. Has received sepsis bolus, albumin, and midodrine; blood pressure is now within normal range. Continue IV fluids with LR + dextrose at 125 mL/hr. Continue Ceftriaxone D2, follow cultures Hypoglycemia?treated with dextrose, blood sugar has improved. Was given IV hydrocortisone in light of persistent hypoglycemia, hypotension, and bradycardia, which could indicate adrenal insufficiency. Continue IVF with dextrose. Random coritisol, tsh and lft ok. Overall improved Bradycardia with HR in the 40s, even 30s, following Zanaflex and baclofen... These agents are know to cause bradycardia. Will reduce dose and continue monitoring, abrupt cessation could result in withdrawal and spasticity. Will decrease these meds by half and continue monitoring Tingling in legs without evidence of stroke; symptoms likely related to metabolic disturbance, particularly hypoglycemia--resolved. DVT prophylaxis: Lovenox. Full code. Regular diet. Full admission for sepsis with hypotension and hypoglycemia. Quality Stroke Does the patient have a stroke diagnosis?: No VTE Prior VTE?: No VTE Risk Level:: Medical - moderate - high VTE Device Contraindication: Treatment Not Indicated VTE Drug Contraindication: N/A - Med Ordered
[2024-11-26] MEDS: Enoxaparin Sodium 40 MG/0.4 ML SYRINGE SUBCUT (17:10)
[2024-11-26] MEDS: Nicotine Polacrilex 2 MG GUM 4 MG BUCCAL ×2 (17:10→22:55)
[2024-11-26] MEDS: Baclofen 20 MG TABLET PO (20:21)
[2024-11-26] MEDS: TiZANidine HCL 4 MG TABLET PO (20:21)
[2024-11-26] MEDS: QUEtiapine Fumarate 100 MG TABLET PO (20:21)
[2024-11-26] MEDS: Gabapentin 300 MG CAPSULE 900 MG PO (20:21)
[2024-11-26 20:34] LABS: Glucose, Whole Blood 98 mg/dL (60-115)
[2024-11-26 20:37] LABS: Glucose, Whole Blood 124 mg/dL (60-115)
[2024-11-26] MEDS: NaPROXEN 500 MG TABLET PO (22:53)
[2024-11-26 22:56] LABS: Glucose, Whole Blood 112 mg/dL (60-115)
[2024-11-27] VITALS (7 sets, daily range): BP systolic 107–138; BP diastolic 55–81; PULSE 44–56; RESP 16–18; TEMP 36.4–37.2; O2SAT 96–98
[2024-11-27] MEDS: Dextrose 5 % and Lactated Ring 1,000 ML 150 ML IVCONT ×2 (02:27→08:35)
[2024-11-27 03:09] LABS: Glucose, Whole Blood 117 mg/dL (60-115)
--- NOTE | 2024-11-27 07:00 | CA_ITS ---
Transthoracic Echocardiogram Patient (Last, First, Middle): Ellis Childers, Gender: Male Date of : 1990 Age: 34 Procedure Date: 11/27/2024 Procedure Type: Transthoracic Echocardiogram Location: [facility] [place] Height: 175.26 cm Weight: 79.38 kg BSA: 1.95 m2 Heart Rate: bpm BP: 105 / 55 mmHg Director Inpatient Headache Program: Referring MD: Jose Ramon De Luna MD Wet End Helper: Chandana Day MD Symptoms: Bradycardia Study Quality: Technically Difficult ECG Rhythm: Sinus Conclusions: - 1. Technically limited study 2. Normal LV ejection fraction 60 65% 3. Normal cardiac valvular Dopplers Findings Left Ventricle Normal left ventricular size, thickness, and systolic function. The visually estimated ejection fraction is between 60-65%. Regional wall motion abnormalities can not be excluded due to suboptimal endocardial definition. Spectral Doppler is indicative of a normal filling pattern. Right Ventricle The right ventricle was not well visualized. Atria The left atrium is normal in size. Interatrial shunt cannot be excluded. The right atrium was not well visualized. Aortic Valve The aortic valve structure and function is likely normal. There is no aortic valve stenosis. There is no aortic valve regurgitation. Mitral Valve The mitral valve was not well visualized. There is no mitral valve regurgitation. There is no mitral valve stenosis. Pulmonic Valve The pulmonic valve was not well visualized. Tricuspid Valve The tricuspid valve was not well visualized. Tricuspid regurgitation envelope is inadequate for calculation of right ventricular systolic pressure. Great Vessels The aorta was not well visualized. The pulmonary artery was not well visualized. Pericardium/Pleural The pericardium was not well visualized. Prior Study Comparison No prior study available for comparison. Measurements 2D Linear Measurements IVSd: 0.83 0.6-0.9/0.6-1.0 cm LVIDd: 4.45 3.9-5.3/4.2-5.9 cm LVIDd Index: 2.28 2.4-3.2/2.2-3.1 cm/m2 LVIDs: 3.14 2.0-3.6 cm LVPWd: 0.92 0.7-1.1 cm Ao Root: 3.30 2.1-3.5 cm LA Diam: 2.00 2.7-3.8/3.0-4.0 cm LAIDs Index: 1.03 1.5-2.3 cm/m2 LV Mass: 156.10 67-162/88-224 g LV Mass Index: 80.05 43-95/49-115 g/m2 LVOT Diam: 2.50 3.0+(-)1.3 cm 2D Systolic Function EF 4C: 76.40 >55% Mitral Valve MV Pk E: 0.85 MV PK A: 0.50 MV Decel Time: 341.00 E/A: 1.70 E'Lateral: 7.07 E'Medial: 8.05 E/E' Med: 10.60 E/E' Lat: 12.10 PHT: 100.00 MVA PHT: 2.20 Decel [place]: 2.50 Aortic Valve AoV Pk Momo: 0.87 AoV Mn Momo: 0.58 AoV VTI: 0.21 AoV Pk Grad: 3.00 Aov Mn Grad: 2.00 [place] Cont.VTI: 3.85 LVOT LVOT Pk Momo: 0.71 LVOT Mn Momo: 0.46 LVOT VTI: 0.17 LVOT Pk Grad: 2.00 LVOT Mn Grad: 1.00 LVOT Diam: 2.50 LVOT Area: 4.91 Diastolic Function MV Pk E: 0.85 MV Pk A: 0.50 E/A: 1.70 E'Medial: 8.05 E/E' Med: 10.60 E' Laterial: 7.07 E/E' Lat: 12.10 Great Vessels Aorta Ao Root-2D: 3.30 2.0-3.7 cm Pulmonary Valve PV Pk Momo: 1.11 Peak PV Grad: 5.00 Updated in Other Vendor System with Status of Final Chandana Day MD electronically signed on 11/27/2024 4:12:54 PM with status of Final
[2024-11-27 07:13] LABS: Glucose, Whole Blood 122 mg/dL (60-115)
[2024-11-27] MEDS: Midodrine HCl 5 MG TABLET PO ×2 (08:35→22:37)
[2024-11-27] MEDS: predniSONE 10 MG TABLET 30 MG PO (08:35)
[2024-11-27] MEDS: Baclofen 20 MG TABLET PO ×2 (08:35→22:31)
[2024-11-27] MEDS: TiZANidine HCL 4 MG TABLET PO ×2 (08:35→22:31)
[2024-11-27] MEDS: Gabapentin 300 MG CAPSULE 600 MG PO (08:35)
[2024-11-27 11:15] LABS: Glucose, Whole Blood 117 mg/dL (60-115)
[2024-11-27 14:17] LABS: Glucose, Whole Blood 121 mg/dL (60-115)
--- NOTE | 2024-11-27 15:39 | HO.PM.IMPN ---
Subjective Subjective Date of Service: 11/27/24 Interval History: bradycardia Review of Systems no new c/o has bradycardia -hr in 40-60's Review of Systems: Yes all other systems are reviewed and are negative Physical Exam Vital Signs: Vital Signs: Last Vital Signs Temp 98.9 F 11/27/24 15:24 Pulse 54 11/27/24 15:24 Resp 18 11/27/24 15:24 BP 119/76 11/27/24 15:24 Pulse Ox 96 11/27/24 15:24 O2 Del Method Room Air 11/27/24 15:24 O2 Flow Rate 100 11/25/24 16:36 BMI result Body Mass Index 25.9 Appearance: Alert.? Oriented X3.? cvs: rrr, [id number]. res: clear to auscultation . abd: no rebound or guarding ,nt, bs present. ext pulses present , no cyanosis . Neuro: Oriented X 3. weakness in both upper and lower extremity. There is no hand grasp. There is minimal movement of the upper extremity. There is good sensation in the upper and lower extremity patient has good pain sensation in the upper and lower extremity. There is no motor function in the lower extremity. Objective Data Active Medications Acetaminophen (Acetaminophen 325 Mg Tablet) 650 mg PO Q6H PRN PRN Reason: Pain, Mild 1-3,fever,headache Last Admin: 11/25/24 16:31 Dose: 650 mg Documented By: ANDREW Al Hydroxide/Mg Hydroxide (Magnesium Hydrox/Alum Hydrox 30 Ml Oral.Susp) 30 ml PO Q4H PRN PRN Reason: Heartburn Albuterol Sulfate (Albuterol Sulfate 90 Mcg 8 Gm Inhaler) 2 puff INHALE Q4H PRN PRN Reason: shortness of breath or wheezin Baclofen (Baclofen 20 Mg Tablet) 20 mg PO BID [facility] Last Admin: 11/27/24 08:35 Dose: 20 mg Documented By: TAMMY Bisacodyl (Bisacodyl 10 Mg Supp.Rect) 10 mg [place] DAILY PRN PRN Reason: Constipation Calcium Carbonate (Calcium Carbonate 750 Mg Tab.Chew) 750 mg PO Q4H PRN PRN Reason: Heartburn Ceftriaxone Sodium (Ceftriaxone Sodium 1 Gm Vial) 1 gm IVPUSH Q24H [facility] Last Admin: 11/26/24 14:02 Dose: 1 gm Documented By: ADAMS Dextrose (Dextrose 50 % 25 Gm/50 Ml Syringe) 25 gm IVPUSH Q15M PRN; Protocol PRN Reason: per Hypoglycemia Standing Ord. Enoxaparin Sodium (Enoxaparin Sodium 40 Mg/0.4 Ml Syringe) 40 mg SUBCUT Q24H [facility] Last Admin: 11/26/24 17:10 Dose: 40 mg Documented By: ADAMS Gabapentin (Gabapentin 300 Mg Capsule) 600 mg PO DAILY [facility] Last Admin: 11/27/24 08:35 Dose: 600 mg Documented By: TAMMY Gabapentin (Gabapentin 300 Mg Capsule) 900 mg PO BEDTIME [facility] Last Admin: 11/26/24 20:21 Dose: 900 mg Documented By: MARY JO Glucose (Glucose Gel 15 Gm Gel..Gram.) 15 gm PO Q15M PRN; Protocol PRN Reason: per Hypoglycemia Standing Ord. Magnesium Hydroxide (Milk Of Magnesia 30 Ml Oral.Susp) 30 ml PO DAILY PRN PRN Reason: Constipation Melatonin (Melatonin 3 Mg Tablet) 6 mg PO BEDTIME PRN PRN Reason: Insomnia Midodrine (Midodrine Hcl 5 Mg Tablet) 5 mg PO BID [facility] Last Admin: 11/27/24 08:35 Dose: 5 mg Documented By: TAMMY Naproxen (Naproxen 500 Mg Tablet) 500 mg PO BID PRN PRN Reason: Pain Last Admin: 11/26/24 22:53 Dose: 500 mg Documented By: MARY JO Nicotine Polacrilex (Nicotine Polacrilex 2 Mg Gum) 4 mg BUCCAL Q2H PRN PRN Reason: Nicotine Cravings Last Admin: 11/26/24 22:55 Dose: 4 mg Documented By: MARY JO Ondansetron HCl (Ondansetron Hcl 4 Mg/2 Ml Vial) 4 mg IVPUSH Q8H PRN PRN Reason: Nausea and Vomiting Polyethylene Glycol (Polyethylene Glycol 3350 17 Gm Powd.Pack) 17 gm PO DAILY PRN PRN Reason: Constipation Prednisone (Prednisone 10 Mg Tablet) 30 mg PO DAILY [facility] Last Admin: 11/27/24 08:35 Dose: 30 mg Documented By: TAMMY Quetiapine Fumarate (Quetiapine Fumarate 100 Mg Tablet) 100 mg PO BEDTIME [facility] Last Admin: 11/26/24 20:21 Dose: 100 mg Documented By: SAMY-JOZEB Sodium Chloride (0.9 % Sodium Chloride Flush 3 Ml Syringe) 3 ml IVFLUSH QSHIFT [facility] Last Admin: 11/27/24 08:36 Dose: Not Given Documented By: TAMMY Non-Admin Reason: IV Running Tizanidine HCl (Tizanidine Hcl 4 Mg Tablet) 4 mg PO BID [facility] Last Admin: 11/27/24 08:35 Dose: 4 mg Documented By: TAMMY Labs 11/25/24 13:35 11/26/24 06:02 Labs: Laboratory Results - last 24 hr 11/26/24 11/26/24 11/26/24 17:59 20:33 22:51 POC Glucose 98 124 H 112 11/27/24 11/27/24 11/27/24 03:06 07:10 11:05 POC Glucose 117 H 122 H 117 H 11/27/24 14:13 POC Glucose 121 H Microbiology Microbiology Results: Microbiology 11/25/24 13:35 Blood Culture - Preliminary Blood - Venous No growth after 24 hours. 11/25/24 13:35 Blood Culture - Preliminary Blood - Venous No growth after 24 hours. Assessment and Plan (1) UTI (urinary tract infection) due to urinary indwelling catheter: Status: Acute Plan 34/M with quadriplegia here with hypotension, UTI, and some tingling in the leg. Severe sepsis due to UTI despite normal temperature and WBC; no fever but has chills, hypotension, and tachycardia likely suppressed centrally by spinal cord injury. Has received sepsis bolus, albumin, and midodrine; blood pressure is now within normal range. urine culture -mixed blood culture @48hrs Id eval . Hypoglycemia?treated with dextrose, blood sugar has improved. Was given IV hydrocortisone in light of persistent hypoglycemia, hypotension, and bradycardia. Random coritisol, tsh and lft ok. Overall improved. off fluids -will moniter fs closely. Bradycardia with HR following Zanaflex and baclofen(reduced dose and continue monitoring) abrupt cessation could result in withdrawal and spasticity. hr seems in 40-60 as per chart review -patient had episodes of dizziness at home. added echo and cardiology eval. Tingling in legs without evidence of stroke; symptoms likely related to metabolic disturbance, particularly hypoglycemia--resolved. DVT prophylaxis: Lovenox. Full code. Regular diet. ongoing need : bardycardia -need further workup/cardiology eval Quality Stroke Does the patient have a stroke diagnosis?: No VTE Prior VTE?: No VTE Risk Level:: Medical - moderate - high VTE Device Contraindication: Treatment Not Indicated VTE Drug Contraindication: N/A - Med Ordered
[2024-11-27] MEDS: 0.9 % Sodium Chloride Flush 3 ML SYRINGE IVFLUSH ×2 (16:01→22:31)
[2024-11-27] MEDS: Enoxaparin Sodium 40 MG/0.4 ML SYRINGE SUBCUT (16:02)
[2024-11-27] MEDS: cefTRIAXone sodium 1 GM VIAL IVPUSH (16:02)
[2024-11-27 17:34] LABS: Glucose, Whole Blood 93 mg/dL (60-115)
[2024-11-27 20:20] LABS: Glucose, Whole Blood 95 mg/dL (60-115)
[2024-11-27] MEDS: Acetaminophen 325 MG TABLET 650 MG PO (20:25)
[2024-11-27] MEDS: QUEtiapine Fumarate 100 MG TABLET PO (22:30)
[2024-11-27] MEDS: Gabapentin 300 MG CAPSULE 900 MG PO (22:30)
[2024-11-27 22:31] LABS: Glucose, Whole Blood 74 mg/dL (60-115)
[2024-11-28 01:39] LABS: Glucose, Whole Blood 67 mg/dL (60-115)
[2024-11-28 03:20] VITALS: BP 93/53; PULSE 52; RESP 16; TEMP 36.8; O2SAT 96
[2024-11-28 04:35] LABS: Glucose, Whole Blood 93 mg/dL (60-115)
[2024-11-28] MEDS: Lactated Ringers 1,000 ML 999 ML IV (05:30)
[2024-11-28] MEDS: Albumin Human 25 % 100 ML 133.33 ML IV ×2 (06:37→08:17)
[2024-11-28 07:02] LABS: Lactic Acid 1.4 mmol/L (0.5-2.0)
[2024-11-28 07:36] LABS: Glucose, Whole Blood 88 mg/dL (60-115)
[2024-11-28 07:38] VITALS: BP 106/56; PULSE 50; RESP 18; TEMP 37.2; O2SAT 96
[2024-11-28] MEDS: Gabapentin 300 MG CAPSULE 600 MG PO (08:14)
[2024-11-28] MEDS: TiZANidine HCL 4 MG TABLET PO (08:14)
[2024-11-28] MEDS: 0.9 % Sodium Chloride Flush 3 ML SYRINGE IVFLUSH ×2 (08:16→16:01)
[2024-11-28] MEDS: Midodrine HCl 5 MG TABLET PO (08:16)
[2024-11-28] MEDS: predniSONE 10 MG TABLET 30 MG PO (08:16)
[2024-11-28] MEDS: Baclofen 20 MG TABLET PO (08:16)
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
--- NOTE | 2024-11-28 11:07 | MHC.CM.PN ---
Addendum entered by Yahaira Henderson 11/28/24 14:43: IMM 11/26/24 Addendum entered by Yahaira Henderson 11/28/24 13:13: Patient was not able to arrange transportation. 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 Original Note: Per MD rounds patient may be ready to discharge later today. Cardiology consult has been ordered and completed. DP Home resume [employer] services. Resume Methadone treatment at [facility]. Pts TRA[facility]MASTER will provide transportation home.
[2024-11-28 11:13] LABS: Glucose, Whole Blood 112 mg/dL (60-115)
[2024-11-28 11:15] VITALS: BP 107/63; PULSE 53; RESP 18; TEMP 36.6; O2SAT 97
[2024-11-28] MEDS: Fludrocortisone Acetate 0.1 MG TABLET PO (11:56)
--- NOTE | 2024-11-28 12:07 | P.CDIM_ITS ---
PROVIDER RESPONSE TEXT: To clarify, the appropriate diagnosis supported by the clinical indicators: Yes the UTI is related to / associated with / due to the indwelling urethral catheter QUERY TEXT: PHYSICIAN'S DOCUMENTATION REQUEST Date of Query: 11/28/2024 11:18 AM EDT Patient Name: Ellis Childers Admit Date: 11/25/2024 Dear Jose Ramon De Luna MD, A review of the medical record indicates additional documentation may be needed. Please review below and update the documentation accordingly. Clinical Indicators: ED 11/25/24 - UTI due to indwelling urethral catheter Progress notes 11/26/24 within the Assessment and Plan: UTI due to urinary indwelling catheter. UA + Turbid/Nitrite +/Leukoctye 2+ H/Urine wbc 50 H Ceftriaxone Please clarify the relationship between these conditions: Yes the UTI is related to / associated with / due to the indwelling urethral catheter No the UTI is not related to / associated with / due to the indwelling urethral catheter Other (explain) Clinically unable to determine (explain) Thank you, Evelina Scanlon, CCS, CDIS Use of terms such as suspected, likely, concern for, or probable (associated with a specific diagnosi s that is being evaluated, monitored, or treated as if it exists) are acceptable and can be coded in the inpatient se tting, when documented at the time of discharge. Please use your independent medical judgment in providing your response. THIS QUERY IS PART OF THE PERMANENT MEDICAL RECORD
--- NOTE | 2024-11-28 12:46 | P.DS_ITS ---
DS: Providers Provider Date of Service: 11/28/24 Date of admission: 11/25/24 15:42 Date of discharge: 11/28/24 Primary care physician: BRADEN Gutiérrez Consults: 11/27/24 09:44 Consult to Cardiology Routine Consulting Provider: [facility] Reason for consultation: Bradycardia , intermittent symptoms Has provider been notified: No 11/27/24 09:51 Consult to Infectious Diseases Routine Consulting Provider: [facility] Reason for consultation: UTI Has provider been notified: No Attending physician on discharge: Jose Ramon De Luna Discharging clinician: Jose Ramon De Luna DS: Diagnosis Discharge Diagnosis (1) Sinus bradycardia: Status: Acute (2) Acute hypotension: Status: Acute DS: Summary Hospital Course Hospital Course: HPI:34-year-old female with a history of C5 spinal cord injury and quadriplegia presented via EMS with complaints of left arm tingling, a general sense of not feeling well, and decreased urine output from her chronic Marie catheter. She denies fever but reports experiencing chills. There has been no change in a ppetite or new neurological symptoms. A stroke workup, including head and neck CT, was negative. Urinalysis is grossly positive. Blood pressure was initially low at 81/45, and heart rate was in the 40s. She received 30 mL/kg of normal saline, two doses of albumin, and midodrine. Her most recent blood pressure has improved to 122/66 . Ceftriaxone was started for suspected urinary tract infection. White blood cell count and lactic acid levels are within normal limits. She experienced hypoglycemia with a blood glucose in the 70s and was treated with two amps of dextrose. Hospital course: 34/M with quadriplegia here with hypotension, UTI, and some tingling in the leg. Severe sepsis due to UTI possible associated to catheter-despite normal temperature and WBC; no fever but has chills, hypotension, and tachycardia likely suppressed centrally by spinal cord injury. Has received sepsis bolus, albumin, and midodrine; blood pressure is now within normal range. urine culture -mixed blood culture @48hrs patient was switched to po ceftin upon discharge. Hypoglycemia?treated with dextrose, blood sugar has improved. Was given IV hydrocortisone in light of persistent hypoglycemia, hypotension, and bradycardia. Random coritisol, tsh and lft ok. Overall improved. Patient is off fluid monitored for 24 hours blood sugars are fine and patient is asymptomatic. Patient also said that he was not eating well at home so strongly encouraged for p.o. intake. Also strongly advised to monitor fingersticks at home closely. And follow-up hemoglobin A1c outpatient. Bradycardia : Asymptomatic echo:Normal LV ejection fraction 60 65% . Normal cardiac valvular Dopplers . Cardiology evaluated the patient: Sinus bradycardia, asymptomatic in his young man. He does not have symptomatic sinus bradycardia associated hemodynamic compromise with it.cardiology do not think he requires pacing therapy at this point time. 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 Although he does not have any significant tachyarrhythmias or bradyarrhythmias that requires rate lowering medications. avoid avoid rate lowering medication in the future. also beclofen adjusted. hr improved ,mostly in 50's . Tingling in legs without evidence of stroke; symptoms likely related to metabolic disturbance, particularly hypoglycemia--resolved plan: Patient was strongly advised to adequate p.o. intake as well as hydration. Patient need to monitor fs (sugar levels ) closely as well as blood pressure. Check hemoglobin A1c outpatient. glucogel limited supply also added. If any symptoms of hypoglycemia or blood pressure below 90s-patient is to go to nearest emergency room. Baclofen also adjusted 20 mg b.i.d. due to bradycardia. Patient was started on Florinef 0.1 mg q.day. Ceftin 250 p.o. b.i.d. for 5 more days. Patient is to be followed out patiently with PCP and cardiology may arrange their won appointement. Above management discussed with the patient in detail length with staff present, patient understand and in agreement with the above plan, time spent 40 minute, all question answered. Time Attestation Total time managing care of this patient today: 40 mintues. Discharge Coordination Time (in mins): 40min Quality: Safe Use of Opioids Does Pt have an Active Cancer Diagnosis on the Problem List?: No Quality: Stroke Does the patient have a stroke diagnosis?: No Physical Exam Vital Signs: Vital Signs: Last Vital Signs Temp 97.9 F 11/28/24 11:15 Pulse 53 11/28/24 11:15 Resp 18 11/28/24 11:15 BP 107/63 11/28/24 11:15 Pulse Ox 97 11/28/24 11:15 O2 Del Method Room Air 11/28/24 11:15 O2 Flow Rate 100 11/25/24 16:36 BMI result Body Mass Index 25.9 Appearance: Alert.? Oriented X3.? cvs: rrr, [id number]. res: clear to auscultation . abd: no rebound or guarding ,nt, bs present. ext pulses present , no cyanosis . Neuro: Oriented X 3. weakness in both upper and lower extremity. There is no hand grasp. There is minimal movement of the upper extremity. There is good sensation in the upper and lower extremity patient has good pain sensation in the upper and lower extremity. There is no motor function in the lower extremity DS: Data Data Completed and Pending Labs on day of discharge: Laboratory Results - last 24 hr 11/27/24 11/27/24 11/27/24 14:13 17:30 20:13 Hold Purple Top POC Glucose 121 H 93 95 Lactic Acid 11/27/24 11/28/24 11/28/24 22:27 01:34 04:29 Hold Purple Top POC Glucose 74 67 93 Lactic Acid 11/28/24 11/28/24 11/28/24 06:26 07:29 11:06 Hold Purple Top SEE NOTE POC Glucose 88 112 Lactic Acid 1.4 Preliminary micro results at discharge 11/25/24 13:35 Blood Culture - Preliminary Blood - Venous No growth after 48 hours. 11/25/24 13:35 Blood Culture - Preliminary Blood - Venous No growth after 48 hours. Discharge Plan Discharge Anticipated Discharge Date/Time: 11/28/24 12:04 Patient Disposition: Home, Self-Care Discharge Diagnosis: bradycardia , hypoglycemia Referrals: Syed Bill PA [Primary Care Provider] - 1 Week Discharge Medications: New fludrocortisone 0.1 mg Tablet 0.1 mg PO DAILY Qty: 90 0RF cefuroxime axetil 250 mg Tablet 250 mg PO Q12H Qty: 10 0RF (DME) FreeStyle Lite Strips Strip Qty: 100 0RF Rx Instructions: Test four times a day or as directed. (DME) blood-glucose meter [FreeStyle Lite Meter] Kit Qty: 1 0RF Rx Instructions: As Directed alcohol swabs Pads, Medicated 1 pad TOPICAL QIDACHS Qty: 100 0RF Rx Instructions: Use four times a day or as directed. (DME) lancets [FreeStyle Lancets] 28 gauge misc Qty: 100 0RF Rx Instructions: Test four times a day or as directed. dextrose [Glucose Gel] 40 % gel 15 g PO Q15M PRN (Reason: hypoglycemia) Qty: 300 0RF Rx Instructions: until symptoms of low blood sugar are controlled Continued tizanidine 4 mg tablet 2 tab PO BID midodrine 5 mg tablet 1 tab PO BID gabapentin 300 mg capsule 600 mg PO QAM albuterol sulfate 90 mcg/actuation aerosol powdr breath activated 2 inh inhalation Q4-6H PRN (Reason: shortness of breath or wheezing) Qty: 1 0RF prednisone 10 mg tablet See Taper PO DAILY Taper: Prednisone 30 mg daily for 2 Days and 0 Hour 20 mg daily for 3 Days and 0 Hour 10 mg daily for 3 Days and 0 Hour Patient Comments: Patient started first day of 3 tablets x 3 days on 11/24/24. Did not take at home 11/25/24. meloxicam 15 mg tablet 15 mg PO DAILY PRN (Reason: Pain) quetiapine 100 mg tablet 100 mg PO BEDTIME nicotine (polacrilex) 4 mg gum 4 mg PO Q2H PRN (Reason: Nicotine Cravings) bisacodyl [OneLAX Bisacodyl] 10 mg suppository 10 mg KS DAILY PRN (Reason: Constipation) gabapentin 300 mg capsule 900 mg PO BEDTIME methadone 10 mg/mL Concentrate 110 mg PO DAILY Changed baclofen 20 mg tablet 20 mg PO BID Qty: 1 0RF Discharge Orders: Discharge Order (Routine); Ordered 11/28/24 Ordered By: Jose Ramon De Luna Diet: Advance to usual diet Activity on Discharge: As tolerated Stand Alone Forms: Patient Portal Discharge page Print Language: Indonesian Other Ambulatory Orders: Basic Metabolic Panel (Routine) Timeframe: 1 Week Facility: [facility] - Location: Laboratory Ordered By: Jose Ramon De Luna Hemoglobin A1c (Routine) Timeframe: 1 Week Facility: [facility] - Location: Laboratory Ordered By: Jose Ramon De Luna Care Plan Goals: Patient need to monitor fs (sugar levels ) closely as well as blood pressure. Check hemoglobin A1c outpatient. If any symptoms of hypoglycemia or blood pressure below 90s-patient is to go to nearest emergency room. Baclofen also adjusted 20 mg b.i.d. due to bradycardia. Patient was started on Florinef 0.1 mg q.day. Ceftin 250 p.o. b.i.d. for 5 more days. Patient is to be followed out patiently with PCP. Health Concerns: As above. Plan of Treatment: As above. Assessment: As above. Patient Instructions: Non-diabetic Hypoglycemia (DC), Hypotension (DC), Bradycardia (DC)
[2024-11-28] MEDS: cefuroxime axetiL 250 MG TABLET PO (15:02)
--- NOTE | 2024-12-06 12:32 | P.CDIM_ITS ---
PROVIDER RESPONSE TEXT: To clarify, the appropriate diagnosis supported by the clinical indicators: Quadriplegia: traumatic QUERY TEXT: PHYSICIAN'S DOCUMENTATION REQUEST Date of Query: 11/26/2024 08:08 AM EDT Patient Name: Ellis Childers Admit Date: 11/25/2024 Dear Jaime Noe MD, A review of the medical record indicates additional documentation may be needed. Please review below and update the documentation accordingly. Clinical Indicators: H&P 11/25/24 - C5 spinal cord injury and quadriplegia presented with EMS with complaints of left arm t ingling. Tingling in leg, Unable to assess due to quadriplegic state. Weakness in both upper and lower extremity. There is no hand grasp. No motor function in the lower extremity. ED: Patient has history of being a quadriplegic from the level of C5 down. Based on the above, could you clarify further specificity to the noted Quadriplegia diagnosis: Quadriplegia Functional, complete, incomplete, traumatic etc. Other specified Other (explain) Clinically unable to determine (explain) Thank you, Evelina Scanlon, CCS, CDIS Use of terms such as suspected, likely, concern for, or probable (associated with a specific diagnosi s that is being evaluated, monitored, or treated as if it exists) are acceptable and can be coded in the inpatient se tting, when documented at the time of discharge. Please use your independent medical judgment in providing your response. THIS QUERY IS PART OF THE PERMANENT MEDICAL RECORD
== END 2024-11-28 18:25 | disposition home or self-care (01) | DRG 698 ==
LOC: HO.ED 15:42 → HO.EDOVER 15:44 → HO.IMC 16:25
PROVIDERS: Student in an Organized Health Care Education/Training Program; Admitting Provider Internal Medicine; Emergency Provider Emergency Medicine Emergency Medical Services; PCP Physician Assistant Medical; Visit Provider Internal Medicine
DX: T83.511A Infection and inflammatory reaction due to indwelling urethral catheter, initial encounter (principal); A41.9 Sepsis, unspecified organism; R65.20 Severe sepsis without septic shock; G82.50 Quadriplegia, unspecified; F11.20 Opioid dependence, uncomplicated; N39.0 Urinary tract infection, site not specified; R00.1 Bradycardia, unspecified; G90.89 Other disorders of autonomic nervous system; T42.8X5A Adverse effect of antiparkinsonism drugs and other central muscle-tone depressants, initial encounter; E16.2 Hypoglycemia, unspecified; V49.9XXS Car occupant (driver) (passenger) injured in unspecified traffic accident, sequela; S14.105S Unspecified injury at C5 level of cervical spinal cord, sequela; Z87.891 Personal history of nicotine dependence; Z79.899 Other long term (current) drug therapy
CPT/HCPCS: 36415; 70450; 70496; 70498; 80048; 80053; 80061; 80076; 81001; 82040; 82533; 82947; 83605; 84443; 84484; 85025; 85610; 85730; 87040; 87086; 93005; 93306; 99285; J0696; J1650; J1720; J7120; P9047; Q9967

== ENCOUNTER → 2024-11-25 12:49 | Outpatient (BNV) | payer OTHER, SELFPAY | PROVIDERS: Admitting Provider Internal Medicine; Emergency Provider Emergency Medicine Emergency Medical Services; PCP Physician Assistant Medical; Visit Provider Internal Medicine Cardiovascular Disease | DX: R00.1 Bradycardia, unspecified (principal) | CPT/HCPCS: 93010 ==

== ENCOUNTER → 2024-11-25 13:05 | Outpatient (BNV) | payer OTHER, SELFPAY | PROVIDERS: Emergency Provider Emergency Medicine Emergency Medical Services; PCP Physician Assistant Medical; Visit Provider Radiology Diagnostic Radiology | DX: I63.9 Cerebral infarction, unspecified (principal) | CPT/HCPCS: 70450; 70496 ==

== ENCOUNTER 2024-11-25 15:42 | Outpatient (BNV) | payer OTHER, SELFPAY | END 2024-11-27 07:00 | PROVIDERS: Admitting Provider Internal Medicine; Emergency Provider Emergency Medicine Emergency Medical Services; PCP Physician Assistant Medical; Visit Provider Internal Medicine Cardiovascular Disease | DX: R94.31 Abnormal electrocardiogram [ECG] [EKG] (principal) | CPT/HCPCS: 93306 ==

== ENCOUNTER → 2024-11-25 15:42 | Outpatient (BNV) | payer OTHER, SELFPAY | PROVIDERS: Admitting Provider Internal Medicine; Emergency Provider Emergency Medicine Emergency Medical Services; PCP Physician Assistant Medical; Visit Provider Internal Medicine | DX: T83.511A Infection and inflammatory reaction due to indwelling urethral catheter, initial encounter (principal); N39.0 Urinary tract infection, site not specified | CPT/HCPCS: 99232 ==

== ENCOUNTER → 2024-11-25 15:42 | Outpatient (BNV) | payer OTHER, SELFPAY | PROVIDERS: Admitting Provider Internal Medicine; Emergency Provider Emergency Medicine Emergency Medical Services; PCP Physician Assistant Medical; Visit Provider Internal Medicine Cardiovascular Disease | DX: R00.1 Bradycardia, unspecified (principal); I95.9 Hypotension, unspecified | CPT/HCPCS: 99222 ==